=== PATIENT | female | born 1950 | race Caucasian/White ===

== ENCOUNTER 2017-05-15 08:00 | Outpatient (CLI) | payer BC, OTHER ==
[2017-05-15 19:14] LABS: BASOPHILS % (AUTO) 0.6 %; EOSINOPHILS # (AUTO) 0.3 10^3/uL (0.0-0.7); EOSINOPHILS % (AUTO) 3.2 %; HGB - HEMOGLOBIN 13.3 g/dL (12.0-16.0); LYMPHOCYTES # (AUTO) 3.1 10^3/uL (1.5-3.5); LYMPHOCYTES % (AUTO) 38.7 %; MEAN CORPUSCULAR HEMOGLOBIN 28.3 pg (27.0-31.0); MEAN CORPUSCULAR HGB CONC 32.8 g/dL (32.0-36.0); MEAN CORPUSCULAR VOLUME 86.3 fL (81.0-99.0); MEAN PLATELET VOLUME 11.2 fL (7.9-10.8); MONOCYTES # (AUTO) 0.6 10^3/uL (0.0-1.0); MONOCYTES % (AUTO) 7.9 %; NEUTROPHILS # (AUTO) 3.9 10^3/uL (1.5-6.6); NEUTROPHILS % (AUTO) 49.6 %; PLT - PLATELET COUNT 164 10^3/uL (130-450); RED CELL DISTRIBUTION WIDTH 14.2 % (12.0-15.0); WHITE BLOOD COUNT 7.9 x10^3/uL (4.8-10.8)
[2017-05-15 19:35] LABS: ALBUMIN 4.3 g/dL (3.2-5.5); ALBUMIN/GLOBULIN RATIO 1.5 (1.0-2.2); ALKALINE PHOSPHATASE 49 IU/L (42-121); ALT ALANINE AMINOTRANSFERASE 27 IU/L (10-60); AST ASPARTATE AMINOTRANSFERASE 23 IU/L (10-42); BILIRUBIN,TOTAL 0.4 mg/dL (0.2-1.0); BUN - BLOOD UREA NITROGEN 31 mg/dL (6-20); CALCIUM 9.3 mg/dL (8.5-10.3); CARBON DIOXIDE - CO2 29 mmol/L (21-32); CHLORIDE 103 mmol/L (101-111); CHOL/HDL RATIO 4.9 (<4.4); CHOLESTEROL 212 mg/dL; CREATININE 1.1 mg/dL (0.4-1.0); GFR - MDRD 50 (>89); GLUCOSE 94 mg/dL (70-100); HDL CHOLESTEROL 43 mg/dL; LDL CHOLESTEROL,CALCULATED 136 mg/dL; LDL/HDL RATIO 3.2 (<4.4); SODIUM 138 mmol/L (135-145); TOTAL PROTEIN 7.2 g/dL (6.7-8.2); VLDL CHOLESTEROL 33 mg/dL
== END 2017-05-15 08:01 | disposition home or self-care (01) ==
LOC: LAB.WCP 08:00
PROVIDERS: ATTEND Family Medicine
DX: Z00.00 Encounter for general adult medical examination without abnormal findings (principal)
CPT/HCPCS: 36415; 80053; 80061; 83721; 85025

== ENCOUNTER 2017-06-22 15:41 | Outpatient (CLI) | payer BC ==
--- NOTE | 2017-06-26 16:38 | Mammography Report ---
DIGITAL SCREENING MAMMOGRAM: 06/22/2017 CLINICAL INDICATION: A 66-year-old, for screening. COMPARISON: 11/2015, 09/2014, 01/2013, 01/2011, 11/2009. TECHNIQUE: Routine CC and MLO projections were obtained of the breasts. FINDINGS: The breasts again demonstrate heterogeneously dense fibroglandular parenchyma bilaterally. Coarse and punctate, typically benign calcifications are present. No suspicious masses, clustered microcalcifications, or regions of architectural distortion are identified. IMPRESSION: BENIGN FINDINGS. RECOMMENDATION: ROUTINE ANNUAL SCREENING UNLESS OTHERWISE CLINICALLY INDICATED. BIRADS CATEGORY 2-BENIGN FINDINGS. STANDARD QUALIFYING STATEMENTS: 1. This examination was reviewed with the aid of Computer-Aided Detection (CAD). 2. A negative or benign imaging report should not delay biopsy if clinically suspicious findings are present. Consider surgical consultation if warranted. More than 5% of cancers are not identified by imaging. 3. Dense breasts may obscure an underlying neoplasm. TD: 06/26/2017 16:36
== END 2017-06-22 15:42 | disposition home or self-care (01) ==
LOC: DI.N 15:41
PROVIDERS: ATTEND Family Medicine
DX: Z12.31 Encounter for screening mammogram for malignant neoplasm of breast (principal)
CPT/HCPCS: 77067

== ENCOUNTER 2018-01-22 11:02 | Emergency (ER) | payer BC ==
[2018-01-22] MEDS ORDERED: PROCAINAMIDE 1,000 MG in SODIUM CHLORIDE 0.9% 240 ML IV STA (12:07)
--- NOTE | 2018-01-22 12:10 | ED Physician Documentation ---
History of Present Illness - Stated complaint Stated Complaint: WEAKNESS/SOA IRREGULAR HR - Chief complaint Chief Complaint: General - History obtained from History obtained from: Patient, Friend - History of Present Illness Timing: Other (This is a 67-year-old woman with history of atrial fibrillation, she is been cardioverted twice in the past. She does not really know when she is in it. She is maintained on Eliquis and atenolol. She has been mosque with her medications. She has subacute fatigue which she relates to poor sleep from restless legs and she is also frustrated because she has chronic left ankle pain from a prior fracture limiting her activity. Today she was much more fatigued than normal and a little bit short of breath. 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 She does not know when she went into [employer], she last knows she was in it about a year ago.) Review of Systems Constitutional: reports: Fatigue. denies: Fever, Chills Ears: denies: Loss of hearing, Ear pain Nose: denies: Rhinorrhea / runny nose, Congestion Cardiac: denies: Chest pain / pressure, Palpitations Respiratory: reports: Dyspnea. denies: Cough PD PAST MEDICAL HISTORY - Allergies Allergies/Adverse Reactions: Allergies Allergy/AdvReac Type Severity Reaction Status Date / Time No Known Drug Allergies Allergy Verified 01/22/18 11:15 PD ED PE NORMAL - Vitals Vital signs reviewed: Yes - General General: Alert and oriented X 3, No acute distress - HEENT HEENT: PERRL, EOMI - Neck Neck: Supple, no meningeal sign, No bony TTP - Cardiac Cardiac: Other (Irregularly irregular without murmur) - Respiratory Respiratory: No respiratory distress, Clear bilaterally - Abdomen Abdomen: Normal bowel sounds, Soft, Non tender - Back Back: No CVA TTP, No spinal TTP - Derm Derm: Normal color, Warm and dry - Extremities Extremities: Other (Mild bilateral pitting pedal edema worse on the left than the right with some ankle tenderness. She says this is all chronic.) - Neuro Neuro: Alert and oriented X 3, Normal speech Results - Vitals Vitals: Vital Signs - 24 hr 01/22/18 01/22/18 01/22/18 11:06 12:44 13:52 Temperature 36.5 C Heart Rate 108 H 83 72 Respiratory 18 16 16 Rate Blood Pressure 135/70 H 115/68 133/87 H O2 Saturation 97 96 96 01/22/18 01/22/18 01/22/18 14:45 14:54 15:00 Temperature Heart Rate 120 H 60 56 L Respiratory 22 19 21 Rate Blood Pressure 125/87 H 106/58 L 109/56 L O2 Saturation 99 97 98 01/22/18 15:13 Temperature Heart Rate 56 L Respiratory 23 Rate Blood Pressure 109/64 O2 Saturation 97 Oxygen O2 Source Nasal cannula - EKG (time done) 1109 Rate: Rate (enter#) (112) Rhythm: Atrial fibrillation Newton: Normal QRS: Normal Ischemia: Normal ST segments Computer interpretation: Agree with computer 1519 Rate: Rate (enter#) (54) Rhythm: NSR Newton: Normal Intervals: Normal AL QRS: LVH Ischemia: Normal ST segments Computer interpretation: Agree with computer - Labs Labs: Laboratory Tests 01/22/18 01/22/18 01/22/18 12:31 12:31 12:31 WBC 8.2 RBC 4.69 Hgb 13.5 Hct 40.2 MCV 85.7 MCH 28.7 MCHC 33.5 RDW 14.7 Plt Count 168 MPV 9.7 Neut # (Auto) 5.3 Lymph # (Auto) 2.2 Thomas # (Auto) 0.5 Eos # (Auto) 0.1 Baso # (Auto) 0.1 Absolute Nucleated RBC 0.00 Nucleated RBC % 0.0 PT 14.0 H INR 1.3 H Sodium 140 Potassium 4.1 Chloride 101 Carbon Dioxide 30 Anion Gap 9.0 BUN 27 H Creatinine 1.3 H Estimated GFR (MDRD) 41 L Glucose 106 H Calcium 9.4 Phosphorus 3.9 Magnesium 2.1 Total Bilirubin 0.6 AST 26 ALT 30 Alkaline Phosphatase 47 Total Protein 7.3 Albumin 4.1 Globulin 3.2 Albumin/Globulin Ratio 1.3 Lipase 28 TSH 01/22/18 12:31 WBC RBC Hgb Hct MCV MCH MCHC RDW Plt Count MPV Neut # (Auto) Lymph # (Auto) Thomas # (Auto) Eos # (Auto) Baso # (Auto) Absolute Nucleated RBC Nucleated RBC % PT INR Sodium Potassium Chloride Carbon Dioxide Anion Gap BUN Creatinine Estimated GFR (MDRD) Glucose Calcium Phosphorus Magnesium Total Bilirubin AST ALT Alkaline Phosphatase Total Protein Albumin Globulin Albumin/Globulin Ratio Lipase TSH 1.54 - Rads (name of study) 1v Chest Radiology: EMP read contemporaneously (NAD) Procedures - Procedural sedation Sedation prep: Informed consent, Time out completed, Last meal (5am), PE performed, AHA 2 - mild disease Sedation medications: propofol (100mg IVP x1) Patient status during sedation: Responds to tactile, Vitals remained stable, Maintained airway, Recovered uneventfully Sedation recovery: Recovered uneventfully - Cardioversion 1 Time of attempt: 13:50 Indication: Other (symptomatic afib) Risks, benefits, alternatives explained to: Pt Prep: IV, O2, cafeteria monitor, Pulse ox, Airway equip CS via: AP approach Sync: 200j Post cardioversion rhythm: NSR Performed by: ED MD PD MEDICAL DECISION MAKING - ED course ED course: 67-year-old woman presents with what seems to be symptomatic atrial fibrillation. No other clear cause for her fatigue is identified. She was administered procainamide as a drip over an hour with no effect and then after written consent she was sedated and a single shock converted her to is normal sinus rhythm and she felt much better after that. - Sepsis Event Vital Signs: Vital Signs - 24 hr 01/22/18 01/22/18 01/22/18 11:06 12:44 13:52 Temperature 36.5 C Heart Rate 108 H 83 72 Respiratory 18 16 16 Rate Blood Pressure 135/70 H 115/68 133/87 H O2 Saturation 97 96 96 01/22/18 01/22/18 01/22/18 14:45 14:54 15:00 Temperature Heart Rate 120 H 60 56 L Respiratory 22 19 21 Rate Blood Pressure 125/87 H 106/58 L 109/56 L O2 Saturation 99 97 98 01/22/18 15:13 Temperature Heart Rate 56 L Respiratory 23 Rate Blood Pressure 109/64 O2 Saturation 97 Oxygen O2 Source Nasal cannula Departure - Departure Disposition: Home, Self Care Clinical Impression: Atrial fibrillation Qualifiers: Atrial fibrillation type: paroxysmal Qualified Code(s): I48.0 - Paroxysmal atrial fibrillation Condition: Good Record reviewed to determine appropriate education?: Yes Instructions: Atrial Fibrillation Dc Comments: Continue your current medications, especially the blood thinner and the atenol ol. Return if worse or if new symptoms develop. 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
[2018-01-22 12:41] LABS: BASOPHILS # (AUTO) 0.1 10^3/uL (0.0-0.1); BASOPHILS % (AUTO) 0.9 %; EOSINOPHILS # (AUTO) 0.1 10^3/uL (0.0-0.7); EOSINOPHILS % (AUTO) 1.4 %; HGB - HEMOGLOBIN 13.5 g/dL (12.0-16.0); LYMPHOCYTES # (AUTO) 2.2 10^3/uL (1.5-3.5); LYMPHOCYTES % (AUTO) 26.4 %; MEAN CORPUSCULAR HEMOGLOBIN 28.7 pg (27.0-31.0); MEAN CORPUSCULAR HGB CONC 33.5 g/dL (32.0-36.0); MEAN CORPUSCULAR VOLUME 85.7 fL (81.0-99.0); MEAN PLATELET VOLUME 9.7 fL (7.9-10.8); MONOCYTES # (AUTO) 0.5 10^3/uL (0.0-1.0); MONOCYTES % (AUTO) 6.4 %; NEUTROPHILS # (AUTO) 5.3 10^3/uL (1.5-6.6); NEUTROPHILS % (AUTO) 64.9 %; PLT - PLATELET COUNT 168 10^3/uL (130-450); RED BLOOD COUNT 4.69 10^6/uL (4.20-5.40); RED CELL DISTRIBUTION WIDTH 14.7 % (12.0-15.0); WHITE BLOOD COUNT 8.2 x10^3/uL (4.8-10.8)
[2018-01-22 12:49] LABS: INR 1.3 (0.8-1.2)
--- NOTE | 2018-01-22 12:53 | XRAY Report ---
Reason: chest pain Procedure Date: 01/22/2018 Accession Number: [id number] / [id number] Procedure: XR - Chest 1 View X-Ray CPT Code: 07556 FULL RESULT: EXAM: CHEST RADIOGRAPHY EXAM DATE: 01/22/2018 12:42 PM. CLINICAL HISTORY: Chest pain. COMPARISON: 05/19/2011. TECHNIQUE: 1 view. FINDINGS: Lungs/Pleura: No focal opacities evident. No pleural effusion. No pneumothorax. Mediastinum: Cardiomegaly. Mild aortic tortuosity. Other: No acute osseous abnormalities. IMPRESSION: 1. No acute disease in the chest. RADIA
[2018-01-22 12:56] LABS: ALBUMIN 4.1 g/dL (3.2-5.5); ALBUMIN/GLOBULIN RATIO 1.3 (1.0-2.2); BILIRUBIN,TOTAL 0.6 mg/dL (0.2-1.0); CALCIUM 9.4 mg/dL (8.5-10.3); CREATININE 1.3 mg/dL (0.4-1.0); MAGNESIUM 2.1 mg/dL (1.7-2.8); PHOSPHORUS 3.9 mg/dL (2.5-4.6); TOTAL PROTEIN 7.3 g/dL (6.7-8.2)
[2018-01-22] MEDS ORDERED: PROCAINAMIDE 1,000 MG in SODIUM CHLORIDE 0.9% 240 ML IV SCH (13:10)
[2018-01-22] MEDS ORDERED: PROPOFOL 200 MG/20 ML VIAL IVP STA (14:12)
[2018-01-22 15:57] VITALS: BP 134/65
== END 2018-01-22 16:11 | disposition home or self-care (01) ==
LOC: ED 11:02
DX: I48.0 Paroxysmal atrial fibrillation (principal); Z79.01 Long term (current) use of anticoagulants
CPT/HCPCS: 36415; 71045; 80053; 83690; 83735; 84100; 84443; 85025; 85610; 92960; 93005; 94770; 96365; 99284; J2690

== ENCOUNTER 2018-02-18 06:11 | Emergency (ER) | payer BC ==
[2018-02-18 06:46] LABS: BASOPHILS % (AUTO) 0.6 %; EOSINOPHILS # (AUTO) 0.2 10^3/uL (0.0-0.7); EOSINOPHILS % (AUTO) 2.5 %; HGB - HEMOGLOBIN 12.8 g/dL (12.0-16.0); LYMPHOCYTES % (AUTO) 30.1 %; MEAN CORPUSCULAR HEMOGLOBIN 28.7 pg (27.0-31.0); MEAN CORPUSCULAR HGB CONC 33.3 g/dL (32.0-36.0); MEAN CORPUSCULAR VOLUME 86.1 fL (81.0-99.0); MEAN PLATELET VOLUME 10.2 fL (7.9-10.8); MONOCYTES # (AUTO) 0.5 10^3/uL (0.0-1.0); MONOCYTES % (AUTO) 7.1 %; NEUTROPHILS # (AUTO) 3.9 10^3/uL (1.5-6.6); NEUTROPHILS % (AUTO) 59.7 %; PLT - PLATELET COUNT 158 10^3/uL (130-450); RED BLOOD COUNT 4.47 10^6/uL (4.20-5.40); RED CELL DISTRIBUTION WIDTH 14.3 % (12.0-15.0); WHITE BLOOD COUNT 6.6 x10^3/uL (4.8-10.8)
[2018-02-18 07:00] LABS: ALBUMIN/GLOBULIN RATIO 1.4 (1.0-2.2); BILIRUBIN,TOTAL 0.8 mg/dL (0.2-1.0); CALCIUM 8.9 mg/dL (8.5-10.3); TOTAL PROTEIN 6.8 g/dL (6.7-8.2)
--- NOTE | 2018-02-18 07:11 | XRAY Report ---
Reason: Chest Pain Procedure Date: 02/18/2018 Accession Number: [id number] / [id number] Procedure: XR - Chest 1 View X-Ray CPT Code: 68702 FULL RESULT: EXAM: CHEST RADIOGRAPHY, PORTABLE 1 VIEW EXAM DATE: 02/18/2018 06:41 AM. CLINICAL HISTORY: Chest pain in a 67-year-old female. COMPARISON: CHEST 1 VIEW 01/22/2018 12:30 PM. TECHNIQUE: 0641 hour AP upright portable view. FINDINGS: Lungs/Pleura: No focal opacities evident. No pleural effusion. No pneumothorax. Satisfactory inspiratory effort. Mediastinum: Heart size upper normal with mild to moderate pulmonary vascular congestion. No adenopathy. Other: Trachea is midline. Osseous structures are unremarkable. IMPRESSION: Upper normal heart size with mild cardiomegaly without overt cardiac failure. RADIA
--- NOTE | 2018-02-18 07:13 | ED Physician Documentation ---
History of Present Illness - Stated complaint Stated Complaint: SHAKY/HR IRREGULAR - Chief complaint Chief Complaint: Cardiac - History obtained from History obtained from: Patient, Family - History of Present Illness Timing: How many weeks ago (4) - Additonal information Additional information: 67-year-old female with history of chronic atrial fibrillation who is on Eliquis has fatigue. She is complaining that this is been present for more than a month. She was seen in the emergency department at the beginning of this month and with essentially negative workup she was cardioverted back into a sinus rhythm. She states that that did give her some peace of mind but she really feels that she is unable to tell when she is in atrial fibrillation. Her decision this morning to come into the emergency department had to do with general fatigue at work and inability to sleep at night which was worse last night. She states that she spent most of the night up unable to sleep. Review of Systems Constitutional: denies: Fever Eyes: denies: Decreased vision Ears: denies: Ear pain Nose: reports: Rhinorrhea / runny nose, Congestion Throat: denies: Sore throat Cardiac: reports: Palpitations. denies: Chest pain / pressure Respiratory: denies: Dyspnea, Cough GI: denies: Abdominal Pain, Nausea, Vomiting : reports: Frequency. denies: Dysuria Skin: denies: Rash Musculoskeletal: reports: Extremity swelling. denies: Neck pain, Back pain, Extremity pain Neurologic: denies: Generalized weakness, Focal weakness, Numbness PD PAST MEDICAL HISTORY - Past Medical History Cardiovascular: Hypertension, Atrial fibrillation Musculoskeletal: Other - Past Surgical History Past Surgical History: Yes - Present Medications Home Medications: Ambulatory Orders Medication Instructions Recorded Confirmed Apixaban [Eliquis] 5 mg PO 02/18/18 Ascorbic Acid [Vitamin C] 500 mg PO 02/18/18 Atenolol 100 mg PO 02/18/18 Calcium Carbonate [Calcium] 02/18/18 Digoxin 125 mcg PO 02/18/18 Fluconazole [Diflucan] 150 mg PO DAILY #1 tablet 02/18/18 Furosemide 40 mg PO 02/18/18 Gabapentin 02/18/18 Lisinopril 20 mg PO 02/18/18 Potassium Chloride 02/18/18 Pramipexole Di-HCl [Mirapex] 1.5 mg PO 02/18/18 hydrALAZINE [Apresoline] 10 mg PO DAILY 02/18/18 02/18/18 - Allergies Allergies/Adverse Reactions: Allergies Allergy/AdvReac Type Severity Reaction Status Date / Time No Known Drug Allergies Allergy Verified 02/18/18 06:21 - Social History Does the pt smoke?: No Smoking Status: Never smoker Does the pt drink ETOH?: No Does the pt have substance abuse?: No - Immunizations Immunizations are current?: Yes - POLST Patient has POLST: No PD ED PE NORMAL - Vitals Vital signs reviewed: Yes (hypertensive ) - General General: Alert and oriented X 3, No acute distress, Well developed/nourished - HEENT HEENT: Atraumatic, PERRL, EOMI, Ears normal, Other (dry mucous membranes ) - Neck Neck: Supple, no meningeal sign, No bony TTP - Cardiac Cardiac: Other (irregularly irregular rate and rhythm) - Respiratory Respiratory: No respiratory distress, Clear bilaterally - Abdomen Abdomen: Soft, Non tender - Back Back: No CVA TTP, No spinal TTP - Derm Derm: Normal color, Warm and dry, No rash - Extremities Extremities: No deformity, Other (There is trace edema bilaterally ) - Neuro Neuro: Alert and oriented X 3, 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 [facility] 2-12 intact, No motor deficit, No sensory deficit, Normal speech Eye Opening: Spontaneous Motor: Obeys Commands Verbal: Oriented GCS Score: 15 - Psych Psych: Normal mood, Normal affect Results - Vitals Vitals: Vital Signs - 24 hr 02/18/18 02/18/18 06:19 07:41 Temperature 36.6 C Heart Rate 92 88 Respiratory 20 15 Rate Blood Pressure 166/101 H 143/80 H O2 Saturation 99 97 Oxygen O2 Source Room air - EKG (time done) 0618 Rate: Rate (enter#) (85) Rhythm: Atrial fibrillation QRS: Low voltage Compare to prior EKG: Changed from prior EKG (SPT after conversion rate has increased and rhythm has changed to afib) Computer interpretation: Agree with computer - Labs Labs: Laboratory Tests 02/18/18 02/18/18 02/18/18 06:34 06:34 06:34 WBC 6.6 RBC 4.47 Hgb 12.8 Hct 38.5 MCV 86.1 MCH 28.7 MCHC 33.3 RDW 14.3 Plt Count 158 MPV 10.2 Neut # (Auto) 3.9 Lymph # (Auto) 2.0 Scurry # (Auto) 0.5 Eos # (Auto) 0.2 Baso # (Auto) 0.0 Absolute Nucleated RBC 0.00 Nucleated RBC % 0.0 Sodium 140 Potassium 4.3 Chloride 105 Carbon Dioxide 28 Anion Gap 7.0 BUN 25 H Creatinine 1.0 Estimated GFR (MDRD) 55 L Glucose 118 H Calcium 8.9 Total Bilirubin 0.8 AST 32 ALT 60 Alkaline Phosphatase 47 Troponin I < 0.04 Total Protein 6.8 Albumin 4.0 Globulin 2.8 Albumin/Globulin Ratio 1.4 Lipase 25 Urine Color Urine Clarity Urine pH Ur Specific Sterling Urine Protein Urine Glucose (UA) Urine Ketones Urine Occult Blood Urine Nitrite Urine Bilirubin Urine Urobilinogen Ur Leukocyte Esterase Ur Microscopic Review Urine Culture Comments Digoxin 02/18/18 02/18/18 06:34 08:10 WBC RBC Hgb Hct MCV MCH MCHC RDW Plt Count MPV Neut # (Auto) Lymph # (Auto) Scurry # (Auto) Eos # (Auto) Baso # (Auto) Absolute Nucleated RBC Nucleated RBC % Sodium Potassium Chloride Carbon Dioxide Anion Gap BUN Creatinine Estimated GFR (MDRD) Glucose Calcium Total Bilirubin AST ALT Alkaline Phosphatase Troponin I Total Protein Albumin Globulin Albumin/Globulin Ratio Lipase Urine Color YELLOW Urine Clarity CLEAR Urine pH 6.0 Ur Specific Sterling >=1.030 H Urine Protein NEGATIVE Urine Glucose (UA) NEGATIVE Urine Ketones NEGATIVE Urine Occult Blood TRACE-INTA Urine Nitrite NEGATIVE Urine Bilirubin NEGATIVE Urine Urobilinogen 0.2 (NORMAL) Ur Leukocyte Esterase NEGATIVE Ur Microscopic Review NOT INDICATED Urine Culture Comments NOT INDICATED Digoxin 0.7 - Rads (name of study) 1 veiw chest Radiology: Prelim report reviewed (Impression: Upper normal heart size with mild cardiomegaly without overt cardiac failure.), EMP read indepedently, See rad report Procedures - IVC sono (time) 0720 Bedside IVC sono: IVC measures (cm) (1.2), IVC collapsed c insp (cm) (complete), Dehydration (est 1 liter deficit) PD MEDICAL DECISION MAKING - ED course Complexity details: reviewed old records, reviewed results, re-evaluated patient, considered differential, d/w patient ED course: 67 y/o female with a history of afib really cannot tell when she is in afib. When questioned specifically about weather the cardioversion helped at the beginning of the month she is not able to confirm that it actually helped. She feels it did help her with peace of mind but she continues to be fatigued. She relates poor sleep with restless leg and up to the bathroom frequently. She is on diuretics and dig and a beta hal. On work up here this morning she is dehydrated on interrogation of the IVC and with this today she has only trace edema. She reports her ankles are usually swollen a bit and she sits on a stool at work and has not been using compression stockings. She is hydrated here in the ED and I have asked her to hold her lasix today and start using compression stockings at work and reduce the lasix to one 40mg dose per day with decrease in the potassium as well. She has complaints of vaginal itching and burning with yeast that has not resolved with cream. She has had medication for this previously that helped. I have asked her to explore her sleep hygine with her primary as well. Departure - Departure Disposition: 01 Home, Self Care Clinical Impression: Dehydration, Yeast vaginitis Condition: Stable Instructions: ED Vaginal Infec Fungal Fanny, ED Dehydration Follow-Up: Benita Contreras DO [Primary Care Provider] - Prescriptions: Fluconazole [Diflucan] 150 mg PO DAILY #1 tablet Comments: Today here in the emergency department appears you are dehydrated and by history it does sound like you are having some trouble with sleep at night. My recommendation is you try some Benadryl 25 mg at night for sleep and if this is inadequate talk to Dr. Contreras about further sleep hygiene. I am recommending that you decrease your furosemide to 1 pill/day along with your potassium. Do not take the furosemide today. In addition I am recommend that you use compression stockings while you are at work.
[2018-02-18] MEDS ORDERED: SODIUM CHLORIDE 0.9% 1,000 ML IV ONE (07:27)
[2018-02-18 08:16] LABS: BILIRUBIN,URINE NEGATIVE (NEGATIVE); GLUCOSE, URINE (UA) NEGATIVE (NEGATIVE); KETONES,URINE (UA) NEGATIVE (NEGATIVE); LEUKOCYTE ESTERASE, URINE NEGATIVE (NEGATIVE); NITRITE,URINE NEGATIVE (NEGATIVE); OCCULT BLOOD,URINE TRACE-INTA (NEGATIVE); PROTEIN,URINE NEGATIVE (NEGATIVE); UROBILINOGEN,URINE 0.2 (NORMAL) E.U./dL (NORMAL)
[2018-02-18 08:18] LABS: CLARITY,URINE CLEAR (CLEAR)
[2018-02-18 08:27] LABS: DIGOXIN 0.7 ng/mL
[2018-02-18 09:01] VITALS: BP 137/72
== END 2018-02-18 09:40 | disposition home or self-care (01) ==
LOC: ED 06:11
DX: E86.0 Dehydration (principal); B37.3 Candidiasis of vulva and vagina; I10 Essential (primary) hypertension; I48.2 Chronic atrial fibrillation; Z79.01 Long term (current) use of anticoagulants; R60.0 Localized edema
CPT/HCPCS: 36415; 71045; 80053; 80162; 81001; 81003; 83690; 84484; 85025; 87086; 93005; 96360; 99283; 99284

== ENCOUNTER 2018-06-08 08:37 | Outpatient (CLI) | payer MEDICARE, BC ==
--- NOTE | 2018-06-08 11:57 | XRAY Report ---
Reason: R HIP PAIN Procedure Date: 06/08/2018 Accession Number: [id number] / [id number] Procedure: XRN - Hip w/Pelvis 2-3V RT CPT Code: FULL RESULT: EXAM: RIGHT HIP RADIOGRAPHY EXAM DATE: 06/08/2018 09:28 AM. CLINICAL HISTORY: R HIP PAIN. COMPARISON: None. TECHNIQUE: 2 views. FINDINGS: Bones: Normal. No fractures or bone lesion. Joints: No dislocation. Very mild right hip degenerative disease. Soft Tissues: Normal. No soft tissue swelling. IMPRESSION: 1. No acute abnormality. 2. Very mild right hip degenerative disease. RADIA
--- NOTE | 2018-06-08 23:53 | XRAY Report ---
Reason: HEART FAILURE Procedure Date: 06/08/2018 Accession Number: [id number] / [id number] Procedure: XRN - Chest 2 View X-Ray CPT Code: 96327 FULL RESULT: EXAM: CHEST RADIOGRAPHY EXAM DATE: 06/08/2018 09:17 AM. CLINICAL HISTORY: HEART FAILURE. COMPARISON: CHEST 1 VIEW 02/18/2018 6:41 AM. TECHNIQUE: 2 views. FINDINGS: Lungs/Pleura: Mild diffuse bilateral airspace disease concerning for mild pulmonary edema. No pleural effusion or pneumothorax. Mediastinum: Stable mild cardiomegaly. IMPRESSION: Mild diffuse bilateral airspace disease concerning for mild pulmonary edema. No pleural effusion or pneumothorax. Mediastinum: Stable mild cardiomegaly. RADIA
== END 2018-06-08 08:38 | disposition home or self-care (01) ==
LOC: DI.N 08:37
PROVIDERS: ATTEND Specialist
DX: I50.9 Heart failure, unspecified (principal); I51.7 Cardiomegaly; M16.11 Unilateral primary osteoarthritis, right hip
CPT/HCPCS: 71046

== ENCOUNTER 2018-06-25 08:13 | Outpatient (CLI) | payer BC, MEDICARE ==
--- NOTE | 2018-06-25 09:43 | XRAY Report ---
Reason: KNEE PAIN, RIGHT Procedure Date: 06/25/2018 Accession Number: [id number] / [id number] Procedure: WCP - Knee 2 View RT CPT Code: FULL RESULT: EXAM: RIGHT KNEE RADIOGRAPHY EXAM DATE: 06/25/2018 08:33 AM. CLINICAL HISTORY: Knee pain, right. COMPARISON: None. TECHNIQUE: 2 views. FINDINGS: Bones: Normal. No fractures or bone lesions. Joints: Mild to moderate narrowing of the medial weightbearing compartment. No joint effusion. Soft Tissues: Normal. No soft tissue swelling. IMPRESSION: Degenerative changes of the medial weightbearing compartment. RADIA
== END 2018-06-25 08:14 | disposition home or self-care (01) ==
LOC: DI.WCP 08:13
PROVIDERS: ATTEND Family Medicine
DX: M17.11 Unilateral primary osteoarthritis, right knee (principal); I10 Essential (primary) hypertension
CPT/HCPCS: 36415; 80048

== ENCOUNTER 2018-06-25 08:51 | Outpatient (CLI) | payer BC, MEDICARE ==
[2018-06-25 13:04] LABS: CREATININE 1.3 mg/dL (0.4-1.0)
[2018-06-25 13:16] LABS: CALCIUM 9.5 mg/dL (8.5-10.3)
== END 2018-06-25 23:59 | disposition home or self-care (01) ==
LOC: LAB.WCP 08:51
PROVIDERS: ATTEND Family Medicine
DX: I10 Essential (primary) hypertension (principal)
CPT/HCPCS: 36415; 80048

== ENCOUNTER 2018-06-30 10:53 | Outpatient (CLI) | payer MEDICARE, BC | END 2018-06-30 10:54 | disposition home or self-care (01) | LOC: DI 10:53 | PROVIDERS: ATTEND Family Medicine | DX: I48.0 Paroxysmal atrial fibrillation (principal); I51.7 Cardiomegaly | CPT/HCPCS: 93306 ==

== ENCOUNTER 2018-09-25 10:45 | Outpatient (CLI) | payer BC, MEDICARE ==
--- NOTE | 2018-09-26 08:32 | Mammography Report ---
Reason: SCREENING MAMMOGRAM FOR BREAST CANCER Procedure Date: 09/25/2018 Accession Number: [id number] / [id number] Procedure: MGN - Screening Mammo Dig Bilat CPT Code: FULL RESULT: EXAM: Screening Mammo Dig Bilat DATE: 09/25/2018 11:19 AM CLINICAL HISTORY: Screening encounter. Loss of 30 pounds body weight since June 2018. TECHNIQUE: (B) - Bilateral CC and MLO views were obtained. COMPARISON: 06/22/2017 through 02/11/2013. PARENCHYMAL PATTERN: (D) - The breast(s) demonstrate(s) heterogeneously dense fibroglandular parenchyma. FINDINGS: There are typically benign vascular calcifications. There are no suspicious masses, calcifications, or areas of distortion. IMPRESSION: Benign findings. BI-RADS category 2. RECOMMENDATION: (ANNUAL) - Recommend routine annual screening mammography. BI-RADS CATEGORY: (2) - Benign Findings. STANDARD QUALIFYING STATEMENTS: 1. This examination was not reviewed with the aid of Computer-Aided Detection (CAD). 2. A negative or benign imaging report should not preclude biopsy if clinically suspicious findings are present. 3. Dense breasts may obscure an underlying neoplasm. 4. This examination was reviewed without the aid of 3D breast imaging (tomosynthesis).
== END 2018-09-25 10:46 | disposition home or self-care (01) ==
LOC: DI.N 10:45
PROVIDERS: ATTEND Family Medicine
DX: Z12.31 Encounter for screening mammogram for malignant neoplasm of breast (principal)
CPT/HCPCS: 77067

== ENCOUNTER 2019-02-18 09:46 | Outpatient (CLI) | payer MEDICARE, BC ==
[2019-02-19 08:45] VITALS: BP 145/90
--- NOTE | 2019-02-19 08:45 | SLEEP CARE CONSULTATION ---
Information from patient questionnaire entered by Giselle Romero. I have reviewed and concur with the information entered by Giselle Romero. This document represents the service I personally performed and the decisions made by me, Kike Browning MD, [facility]. History of Present Illness Reason for Visit: New patient Chief Complaint: reports: Insomnia, Excessive daytime sleepiness, Fatigue, Frequent awakenings at night Duration of Symptoms: years Usual bedtime: [id number] Time it takes to fall asleep: hours Number of times waking at night: 4-5 Reasons for waking at night: reports: Pain, Bathroom Toss, Turn, or Twitch while sleeping: Yes Recalls having dreams: Yes Usually gets out of bed at: [id number] Feels refreshed in the morning: No Morning headache: Yes (sometimes) Sleepy or fatigued during the day: Yes Ever fallen asleep while driving: No Takes day naps: Yes Dreams during day naps: No Prior sleep studies: Yes Year and Where: [place] Additional HPI information: I had the pleasure of seeing Ms. Lagos today regarding the possibility of her having a sleep disorder. As you know, she is a 68 year old lady who complains of insomnia. She had two sleep studies in [place] about 15 years ago showing only periodic leg movement of sleep. The patient tells me that she normally goes to bed around 9 - 11 pm, and it takes her hours to fall asleep. She has restless leg syndrome that occasionally bothers her at night. e takes furosemide, last dose at 3 pm. She does not take any sleep aid. She has not been told that she snores loudly or irregularly at night. She has never been observed to stop breathing in her sleep. However, she sleeps alone. She can recall waking up on the average of 5 - 6 times during the night. Most of the time she wakes up because of having to use the bathroom. She has never awakened occasionally because of her own snoring, choking, or having to gasp for air. There is a lot of tossing and turning in her sleep. She reports both somniloquy (sleep talking) and somnambulism (sleep walking). Generally she can recall having dreams. In the morning she usually gets up out of the bed around 5 - 6 a.m. not feeling refreshed nor rested. She occasionally has a morning headache that goes away quickly. During the day she complains of feeling sleepy and fatigued. Her score on [place] Sleepiness Scale is 13 out of 24. She has never fallen asleep while driving nor has had any accident due to sleepiness. She usually takes several naps during the day. Upon falling asleep during the day she denies having vivid dreams. She has never had sleep paralysis, experienced cataplexy but reports symptoms of restless leg syndrome. She denies having impaired concentration during the day. - Parasomnia Symptoms Ever acted out dreams in sleep: No Subjective Initial [place] Sleepiness Scale score: 13 Past Medical History Past Medical History: reports: Hypertension, Claustrophobia, Arthritis, Other (restless leg syndrome, A-Fib) Social History The patient's occupation is retired. Patient is and lives in [place]. Have you smoked in the past 12 months: No Alcohol use: No Caffeine use: Yes Caffeine amount and frequency: 1 soda/week Family History Family history of sleep disordered breathing: No Allergies and Home Medications Drug allergies reviewed: Yes Home medication list reviewed: Yes Review of Systems Weight gain over past 5 years: 20 Cardiovascular: reports: high blood pressure, irregular heart rate or pulse, leg or foot swelling Respiratory: denies: shortness of breath, wheeze, sputum production, chronic cough, other Gastrointestinal: denies: heartburn, difficulty swallowing, nausea, vomitting, diarrhea, abdominal pain, other Urinary: reports: frequency, urgency Neurological: reports: gait or balance problems Psychiatric: reports: claustrophobia (don't like dark) Ear/Nose/Throat: denies: nasal congestion, sinus problems, nose bleeds, dry mouth/throat, hoarseness, injury to nose, tonsillectomy, wisdom teeth removed, other Endocrine: reports: increased urination Musculoskeletal: reports: back pain, joint swelling Physical Exam Vital signs obtained and entered by: Dr. Browning Blood Pressure: 145/90 Cuff size: regular Heart Rate: 82 O2 Saturation: 97 Height: 5 ft 5 in Weight: 240 lb Body Mass Index: 39.9 BMI Classification: Obesity Class 2 Neck circumference: 16 Mood/affect: normal HEENT: No craniofacial malformation Nostrils: patent to airflow Turbinates: normal Septum: midline Mouth and throat: narrow oropharynx Soft palate: long Hard palate: normal Uvula: normal Uvula visualization: 25% Mallampati Class III Tongue: normal in size Tonsils: 1+ Chin and jaw: normal size and position Neck: normal w/o lymphadenopathy or thyromegaly Heart: regular rate and rhythm Lungs: clear bilaterally Abdomen: soft, non-tender Extremities: no edema or clubbing Neurologic: intact, no focal deficits Impression and Plan IMPRESSION: 1. Obstructive Sleep Apnea-Hypopnea Syndrome, as suggested by history of frequent awakenings during the night, unrefreshed sleep, morning headache, cognitive impairment, and daytime hypersomnolence. Obstructive sleep apnea, left untreated, can increase the risk of recurrent paroxysmal atrial fibrillation. Narrow oropharynx and obesity are common predisposing factors for obstructive sleep apnea-hypopnea syndrome. Pathophysiology of sleep-disordered breathing was discussed. I recommend proceeding to polysomnography to confirm the diagnosis and to assess severity. Home sleep apnea test (HSAT) is not appropriate because she is physically unable to don the equipment. She also has insomnia and periodic leg movement of sleep that will degrade the quality of the HSAT. She has atrial fibrillation which will require EKG monitoring. 2. Insomnia, due to excessive time spent in bed. The patient presently spends 9 hours in bed at night and naps 1 2 hours during the day. Therefore, it is only appropriate that she stays up 2 - 3 hours a night, some nights longer than others. She was advised to allow just 6 hours for sleeping at night if she continues to take 1 2 hours of naps during the day. Plan: 1. Schedule polysomnography and return in 1 to 2 weeks after the study to discuss result and initiate therapy. 2. Avoid long distance driving or when feeling sleepy. 3. Avoid alcohol, sedative and muscle relaxant around bedtime. 4. Attempt to lose weight. 5. Maintain a regular wake up time and allow no more than 8 hours for sleeping is a 24-hour period. I spent 100% of this 20 minute visit face to face with the patient with greater than 50% of this was spent time counseling the patient and coordination of care.
== END 2019-02-18 09:47 | disposition home or self-care (01) ==
LOC: SC 09:46
PROVIDERS: ATTEND Internal Medicine Pulmonary Disease
DX: G47.10 Hypersomnia, unspecified (principal); G47.8 Other sleep disorders; R41.89 Other symptoms and signs involving cognitive functions and awareness; R51 Headache; G47.00 Insomnia, unspecified; G47.61 Periodic limb movement disorder; I48.91 Unspecified atrial fibrillation; E66.9 Obesity, unspecified; Z68.39 Body mass index [BMI] 39.0-39.9, adult
CPT/HCPCS: 99203; 99212

== ENCOUNTER 2019-02-19 09:02 | Emergency (ER) | payer MEDICARE, BC ==
[2019-02-19] MEDS ORDERED: SODIUM CHLORIDE 0.9% 1,000 ML IV ONE (11:12)
--- NOTE | 2019-02-19 11:14 | ED Physician Documentation ---
History of Present Illness - Stated complaint Stated Complaint: ELEVATED HR - Chief complaint Chief Complaint: Cardiac - History obtained from History obtained from: Patient - History of Present Illness Timing: Today - Additonal information Additional information: 68-year-old female with atrial fibrillation on Eliquis has developed a feeling of shakiness and uneasiness this morning. She has had something similar to this previously about 1 year ago exactly with dehydration. She does have some dependent edema and she is using a walker. She is retired from work but continues to sit most of the day and her feet are dependent. She is using about 120 mg of Lasix daily. She is not able to pull compression stockings on herself. Review of Systems Constitutional: denies: Fever Eyes: denies: Decreased vision Ears: denies: Ear pain Nose: denies: Congestion Throat: denies: Sore throat Cardiac: denies: Chest pain / pressure, Palpitations Respiratory: denies: Dyspnea, Cough GI: denies: Abdominal Pain, Nausea, Vomiting : reports: Frequency. denies: Dysuria Skin: denies: Rash Musculoskeletal: reports: Extremity swelling. denies: Neck pain, Back pain, Extremity pain Neurologic: denies: Generalized weakness, Focal weakness, Numbness PD PAST MEDICAL HISTORY - Past Medical History Cardiovascular: Hypertension, Atrial fibrillation Musculoskeletal: Other - Past Surgical History Past Surgical History: Yes - Present Medications Home Medications: Ambulatory Orders Medication Instructions Recorded Confirmed Apixaban [Eliquis] 5 mg PO 02/18/18 Ascorbic Acid [Vitamin C] 500 mg PO 02/18/18 Atenolol 100 mg PO 02/18/18 Calcium Carbonate [Calcium] 02/18/18 Digoxin 125 mcg PO 02/18/18 Fluconazole [Diflucan] 150 mg PO DAILY #1 tablet 02/18/18 Furosemide 40 mg PO 02/18/18 Gabapentin 02/18/18 Lisinopril 20 mg PO 02/18/18 Potassium Chloride 02/18/18 Pramipexole Di-HCl [Mirapex] 1.5 mg PO 02/18/18 hydrALAZINE [Apresoline] 10 mg PO DAILY 02/18/18 02/18/18 - Allergies Allergies/Adverse Reactions: Allergies Allergy/AdvReac Type Severity Reaction Status Date / Time No Known Drug Allergies Allergy Verified 02/18/18 06:21 - Social History Does the pt smoke?: No Smoking Status: Never smoker Does the pt drink ETOH?: No Does the pt have substance abuse?: No - Immunizations Immunizations are current?: Yes - POLST Patient has POLST: No PD ED PE NORMAL - Vitals Vital signs reviewed: Yes (hypertensive ) - General General: Alert and oriented X 3, No acute distress, Well developed/nourished - HEENT HEENT: Atraumatic, PERRL, EOMI, Other (dry mucous membranes ) - Neck Neck: Supple, no meningeal sign, No bony TTP - Cardiac Cardiac: RRR, No murmur - Respiratory Respiratory: No respiratory distress, Clear bilaterally - Abdomen Abdomen: Soft, Non tender, No organomegaly - Back Back: No CVA TTP, No spinal TTP - Derm Derm: Normal color, Warm and dry, No rash - Extremities Extremities: No deformity, Other (There is edema to the knees bilaterally ) - Neuro Neuro: Alert and oriented X 3, medical collector 2-12 intact, No motor deficit, No sensory deficit, Normal speech Eye Opening: Spontaneous Motor: Obeys Commands Verbal: Oriented GCS Score: 15 - Psych Psych: Normal mood, Normal affect Results - Vitals Vitals: Vital Signs - 24 hr 02/19/19 02/19/19 02/19/19 09:06 09:56 11:28 Temperature 36.4 C L Heart Rate 74 72 73 Respiratory 18 21 18 Rate Blood Pressure 161/85 H 154/89 H 124/59 L O2 Saturation 98 99 99 Oxygen O2 Source Room air - EKG (time done) 0908 Rate: Rate (enter#) (84) Rhythm: Atrial fibrillation QRS: Low voltage Ischemia: Non specific changes Compare to prior EKG: Unchanged from prior EKG (SPT 02-18-2019 no significant change. ) Computer interpretation: Agree with computer - Labs Labs: Laboratory Tests 02/19/19 02/19/19 02/19/19 11:25 11:25 11:25 WBC 7.8 RBC 5.07 Hgb 13.8 Hct 45.1 MCV 89.0 MCH 27.2 MCHC 30.6 L RDW 14.6 Plt Count 172 MPV 11.3 H Neut # (Auto) 4.9 Lymph # (Auto) 2.1 [place] # (Auto) 0.6 Eos # (Auto) 0.2 Baso # (Auto) 0.0 Absolute Nucleated RBC 0.00 Nucleated RBC % 0.0 Sodium 148 H Potassium 4.0 Chloride 109 Carbon Dioxide 30 Anion Gap 9.0 BUN 28 H Creatinine 1.0 Estimated GFR (MDRD) 55 L Glucose 107 H Calcium 9.6 Total Bilirubin 1.0 AST 24 ALT 26 Alkaline Phosphatase 50 Total Protein 7.4 Albumin 4.3 Globulin 3.1 Albumin/Globulin Ratio 1.4 Lipase 31 Urine Color LIGHT YELLOW Urine Clarity CLEAR Urine pH 5.0 Ur Specific [place] 1.010 Urine Protein NEGATIVE Urine Glucose (UA) NEGATIVE Urine Ketones NEGATIVE Urine Occult Blood NEGATIVE Urine Nitrite NEGATIVE Urine Bilirubin NEGATIVE Urine Urobilinogen 0.2 (NORMAL) Ur Leukocyte Esterase NEGATIVE Ur Microscopic Review NOT INDICATED Urine Culture Comments NOT INDICATED Digoxin 0.4 Procedures - IVC sono (time) 1110 Bedside IVC sono: IVC measures (cm) (0.87), IVC collapsed c insp (cm) (complete), Dehydration (est 2 liter deficit) PD MEDICAL DECISION MAKING - ED course Complexity details: reviewed results, re-evaluated patient, considered differential, d/w patient ED course: 68-year-old female with a history of atrial fibrillation presents again today with feeling of dizziness lightheadedness and shakiness. She is again today found to be dehydrated on interrogation the inferior vena cava. She does have peripheral edema today this is more apparent than previous exam. At that time she was instructed to use compression stockings for dependent edema. Patient is not able to get the compression stockings on and she has continued to use Lasix she uses about 120 mg/day. She is administered saline intravenously. Departure - Departure Disposition: 01 Home, Self Care Clinical Impression: Dehydration Condition: Stable Instructions: ED Dehydration Follow-Up: Benita Contreras DO [Primary Care Provider] -
[2019-02-19 11:29] VITALS: BP 124/59
[2019-02-19 11:31] LABS: BASOPHILS % (AUTO) 0.5 %; EOSINOPHILS # (AUTO) 0.2 10^3/uL (0.0-0.7); EOSINOPHILS % (AUTO) 2.2 %; HGB - HEMOGLOBIN 13.8 g/dL (12.0-16.0); LYMPHOCYTES # (AUTO) 2.1 10^3/uL (1.5-3.5); LYMPHOCYTES % (AUTO) 26.7 %; MEAN CORPUSCULAR HEMOGLOBIN 27.2 pg (27.0-31.0); MEAN CORPUSCULAR HGB CONC 30.6 g/dL (32.0-36.0); MEAN PLATELET VOLUME 11.3 fL (7.9-10.8); MONOCYTES # (AUTO) 0.6 10^3/uL (0.0-1.0); MONOCYTES % (AUTO) 7.2 %; NEUTROPHILS # (AUTO) 4.9 10^3/uL (1.5-6.6); NEUTROPHILS % (AUTO) 63.1 %; PLT - PLATELET COUNT 172 10^3/uL (130-450); RED BLOOD COUNT 5.07 10^6/uL (4.20-5.40); RED CELL DISTRIBUTION WIDTH 14.6 % (12.0-15.0); WHITE BLOOD COUNT 7.8 x10^3/uL (4.8-10.8)
[2019-02-19 11:39] LABS: BILIRUBIN,URINE NEGATIVE (NEGATIVE); GLUCOSE, URINE (UA) NEGATIVE (NEGATIVE); KETONES,URINE (UA) NEGATIVE (NEGATIVE); LEUKOCYTE ESTERASE, URINE NEGATIVE (NEGATIVE); NITRITE,URINE NEGATIVE (NEGATIVE); OCCULT BLOOD,URINE NEGATIVE (NEGATIVE); PROTEIN,URINE NEGATIVE (NEGATIVE); UROBILINOGEN,URINE 0.2 (NORMAL) E.U./dL (NORMAL)
[2019-02-19 11:41] LABS: CLARITY,URINE CLEAR (CLEAR)
[2019-02-19 11:52] LABS: ALBUMIN 4.3 g/dL (3.2-5.5); ALBUMIN/GLOBULIN RATIO 1.4 (1.0-2.2); ALKALINE PHOSPHATASE 50 IU/L (42-121); ALT ALANINE AMINOTRANSFERASE 26 IU/L (10-60); AST ASPARTATE AMINOTRANSFERASE 24 IU/L (10-42); BUN - BLOOD UREA NITROGEN 28 mg/dL (6-20); CALCIUM 9.6 mg/dL (8.5-10.3); CARBON DIOXIDE - CO2 30 mmol/L (21-32); CHLORIDE 109 mmol/L (101-111); DIGOXIN 0.4 ng/mL; GFR - MDRD 55 (>89); GLUCOSE 107 mg/dL (70-100); LIPASE 31 U/L (22-51); SODIUM 148 mmol/L (135-145); TOTAL PROTEIN 7.4 g/dL (6.7-8.2)
== END 2019-02-19 12:36 | disposition home or self-care (01) ==
LOC: ED 09:02
DX: E86.0 Dehydration (principal); R60.0 Localized edema; I48.91 Unspecified atrial fibrillation; Z79.01 Long term (current) use of anticoagulants; I10 Essential (primary) hypertension
CPT/HCPCS: 36415; 80053; 80162; 81001; 81003; 83690; 85025; 87086; 93005; 96360; 99283

== ENCOUNTER 2019-03-19 17:01 | Outpatient (CLI) | payer MEDICARE, BC | END 2019-03-19 17:02 | disposition critical access hospital (66) | LOC: EMS 17:01 | PROVIDERS: ATTEND Surgery | DX: R44.0 Auditory hallucinations (principal); R44.1 Visual hallucinations | CPT/HCPCS: A0425; A0429 ==

== ENCOUNTER 2019-03-19 17:20 | Emergency (ER) | payer MEDICARE, BC ==
[2019-03-19] MEDS ORDERED: METOPROLOL 5 MG/5 ML VIAL IVP STA (17:29)
--- NOTE | 2019-03-19 17:30 | ED Physician Documentation ---
History of Present Illness - Stated complaint Stated Complaint: HALLUCINATIONS - History obtained from History obtained from: Patient, EMS - History of Present Illness Timing: Last night (68-year-old woman with history of Parkinson's disease. Recently started on Sinemet, 3 tablets a day and a couple of days ago increased to 6 tablets a day. Starting last night she is had both visual and auditory hallucinations. She has had hallucinations in the past but it was also related to medications, she does not remain. She complains right now only of leg pain from chronic restless leg syndrome and the hallucinations. She denies shortness of breath or chest pain. She is noted to be in A. fib with RVR, she has a history of A. fib. She is anticoagulated and on atenolol and digoxin for same.) Review of Systems Ten Systems: 10 systems reviewed and negative Constitutional: denies: Fever, Chills Cardiac: denies: Chest pain / pressure, Palpitations Respiratory: denies: Dyspnea, Cough GI: denies: Abdominal Pain PD PAST MEDICAL HISTORY - Past Medical History Cardiovascular: Hypertension, Atrial fibrillation Musculoskeletal: Other - Past Surgical History Past Surgical History: Yes - Present Medications Home Medications: Ambulatory Orders Medication Instructions Recorded Confirmed Apixaban [Eliquis] 5 mg PO 02/18/18 Ascorbic Acid [Vitamin C] 500 mg PO 02/18/18 Atenolol 100 mg PO 02/18/18 Calcium Carbonate [Calcium] 02/18/18 Digoxin 125 mcg PO 02/18/18 Furosemide 40 mg PO 02/18/18 Gabapentin 02/18/18 Lisinopril 20 mg PO 02/18/18 Potassium Chloride 0 02/18/18 Pramipexole Di-HCl [Mirapex] 1.5 mg PO 02/18/18 hydrALAZINE [Apresoline] 10 mg PO DAILY 02/18/18 02/18/18 Carbidopa/Levodopa [Carbidopa-Levo 1 each PO 03/19/19 03/19/19 ER 25-100 Tab] Clonazepam 1 - 2 tab PO QPM PRN #14 tab.rapdis 03/19/19 Gabapentin [Neurontin] 300 mg PO TID 03/19/19 03/19/19 Pravastatin [Pravachol] 0 mg 03/19/19 03/19/19 - Allergies Allergies/Adverse Reactions: Allergies Allergy/AdvReac Type Severity Reaction Status Date / Time warfarin Allergy Nausea Verified 03/19/19 17:32 - Social History Does the pt smoke?: No Smoking Status: Never smoker Does the pt drink ETOH?: No Does the pt have substance abuse?: No - Immunizations Immunizations are current?: Yes - POLST Patient has POLST: No PD ED PE NORMAL - Vitals Vital signs reviewed: Yes - General General: Alert and oriented X 3, No acute distress - HEENT HEENT: PERRL, EOMI - Neck Neck: Supple, no meningeal sign, No bony TTP - Cardiac Cardiac: Other (Irregularly irregular without murmur, somewhat rapid) - Respiratory Respiratory: No respiratory distress, Clear bilaterally - Abdomen Abdomen: Soft, Non tender - Extremities Extremities: No deformity, No tenderness to palpate, No calf tenderness / cord - Neuro Neuro: Alert and oriented X 3, No motor deficit, No sensory deficit, Normal speech Results - Vitals Vitals: Vital Signs - 24 hr 03/19/19 03/19/19 03/19/19 17:30 18:09 18:17 Temperature 36.8 C Heart Rate 68 122 H 116 H Respiratory 20 26 H 19 Rate Blood Pressure 158/94 H 157/84 H 155/74 H O2 Saturation 96 95 94 Oxygen O2 Source Room air - EKG (time done) 1755 Rate: Rate (enter#) (122) Rhythm: Atrial fibrillation [place]: Normal Ischemia: Non specific changes. No: ST elevation c/w ischemia Computer interpretation: Agree with computer - Labs Labs: Laboratory Tests 03/19/19 03/19/19 03/19/19 18:00 18:00 18:00 WBC 10.0 RBC 5.12 Hgb 14.4 Hct 45.0 MCV 87.9 MCH 28.1 MCHC 32.0 RDW 14.2 Plt Count 186 MPV 11.1 H Neut # (Auto) 6.6 Lymph # (Auto) 2.4 [place] # (Auto) 0.9 Eos # (Auto) 0.1 Baso # (Auto) 0.0 Absolute Nucleated RBC 0.00 Nucleated RBC % 0.0 PT 13.3 H INR 1.2 Sodium 139 Potassium 3.9 Chloride 102 Carbon Dioxide 26 Anion Gap 11.0 BUN 33 H Creatinine 1.3 H Estimated GFR (MDRD) 41 L Glucose 119 H Calcium 9.4 Total Bilirubin 1.2 H AST 30 ALT 31 Alkaline Phosphatase 48 Total Protein 7.7 Albumin 4.4 Globulin 3.3 Albumin/Globulin Ratio 1.3 Lipase 31 Last Dose Date Last Dose Time Digoxin 03/19/19 18:00 WBC RBC Hgb Hct MCV MCH MCHC RDW Plt Count MPV Neut # (Auto) Lymph # (Auto) [place] # (Auto) Eos # (Auto) Baso # (Auto) Absolute Nucleated RBC Nucleated RBC % PT INR Sodium Potassium Chloride Carbon Dioxide Anion Gap BUN Creatinine Estimated GFR (MDRD) Glucose Calcium Total Bilirubin AST ALT Alkaline Phosphatase Total Protein Albumin Globulin Albumin/Globulin Ratio Lipase Last Dose Date Not Reportable Last Dose Time Not Reportable Digoxin 0.4 PD MEDICAL DECISION MAKING - ED course ED course: 68-year-old woman presents by a months for audio and visual hallucinations related to increasing dose of Sinemet. She also is in A. fib with RVR. Her neurologist is Dr. Dillard in [place]. Spoke with Dr Ruelas, career based intervention coordinator for Dr Dillard, agrees with backing off to QID with Carbi-Levo and stop pramipexole and benzodiazepine (klonazepam) at bedtime. Her A. fib improved significantly. With regard to rate. She was not hallucinating here at the end of visit. She did not take her atenolol etc. today and she was advised to take those tonight. Departure - Departure Disposition: 01 Home, Self Care Clinical Impression: Hallucination, drug-induced Atrial fibrillation Qualifiers: Atrial fibrillation type: longstanding persistent Qualified Code(s): I48.11 - Longstanding persistent atrial fibrillation Condition: Good Record reviewed to determine appropriate education?: Yes Instructions: Atrial Fibrillation Dc Prescriptions: Clonazepam 1 - 2 tab PO QPM PRN #14 tab.rapdis PRN Reason: sleep Comments: Go back down on the carbidopa levodopa to 4 times a day. If hallucinations start again go back down to 3 times a day. Do not take pramipexole/Mirapex. Take all of your other routine medications including her cardiac medications tonight. Return if worse. Call Dr. Dillard tomorrow.
[2019-03-19] MEDS ORDERED: MORPHINE 2 MG/ML CARPUJECT IVP STA (17:49)
[2019-03-19 18:14] LABS: BASOPHILS % (AUTO) 0.4 %; EOSINOPHILS # (AUTO) 0.1 10^3/uL (0.0-0.7); EOSINOPHILS % (AUTO) 0.6 %; HGB - HEMOGLOBIN 14.4 g/dL (12.0-16.0); LYMPHOCYTES # (AUTO) 2.4 10^3/uL (1.5-3.5); LYMPHOCYTES % (AUTO) 23.9 %; MEAN CORPUSCULAR HEMOGLOBIN 28.1 pg (27.0-31.0); MEAN CORPUSCULAR VOLUME 87.9 fL (81.0-99.0); MEAN PLATELET VOLUME 11.1 fL (7.9-10.8); MONOCYTES # (AUTO) 0.9 10^3/uL (0.0-1.0); MONOCYTES % (AUTO) 8.5 %; NEUTROPHILS # (AUTO) 6.6 10^3/uL (1.5-6.6); NEUTROPHILS % (AUTO) 66.2 %; PLT - PLATELET COUNT 186 10^3/uL (130-450); RED BLOOD COUNT 5.12 10^6/uL (4.20-5.40); RED CELL DISTRIBUTION WIDTH 14.2 % (12.0-15.0)
[2019-03-19 18:21] LABS: INR 1.2 (0.8-1.2); PT - PROTHROMBIN TIME 13.3 secs (9.9-12.6)
[2019-03-19 18:36] LABS: ALBUMIN 4.4 g/dL (3.2-5.5); ALBUMIN/GLOBULIN RATIO 1.3 (1.0-2.2); BILIRUBIN,TOTAL 1.2 mg/dL (0.2-1.0); CALCIUM 9.4 mg/dL (8.5-10.3); CREATININE 1.3 mg/dL (0.4-1.0); TOTAL PROTEIN 7.7 g/dL (6.7-8.2)
[2019-03-19 18:38] LABS: DIGOXIN 0.4 ng/mL
[2019-03-19] MEDS ORDERED: clonazePAM 0.5 MG TABLET PO STA ×2 (19:20→19:21)
[2019-03-19 19:47] VITALS: BP 156/97
== END 2019-03-19 19:47 | disposition home or self-care (01) ==
LOC: EDUNIT# → ED 17:20
DX: R44.0 Auditory hallucinations (principal); R44.1 Visual hallucinations; T42.8X5A Adverse effect of antiparkinsonism drugs and other central muscle-tone depressants, initial encounter; I48.11 Longstanding persistent atrial fibrillation; Z79.01 Long term (current) use of anticoagulants; G20 Parkinson's disease; G25.81 Restless legs syndrome; I10 Essential (primary) hypertension
CPT/HCPCS: 36415; 80053; 80162; 83690; 85025; 85610; 93005; 96374; 96375; 99283; 99284; A9270

== ENCOUNTER 2019-04-19 11:24 | Emergency (ER) | payer MEDICARE, BC ==
[2019-04-19 12:17] LABS: BASOPHILS % (AUTO) 0.4 %; EOSINOPHILS # (AUTO) 0.2 10^3/uL (0.0-0.7); EOSINOPHILS % (AUTO) 2.1 %; HGB - HEMOGLOBIN 13.5 g/dL (12.0-16.0); LYMPHOCYTES % (AUTO) 27.9 %; MEAN CORPUSCULAR HEMOGLOBIN 28.6 pg (27.0-31.0); MEAN CORPUSCULAR HGB CONC 32.3 g/dL (32.0-36.0); MEAN CORPUSCULAR VOLUME 88.6 fL (81.0-99.0); MONOCYTES # (AUTO) 0.6 10^3/uL (0.0-1.0); NEUTROPHILS # (AUTO) 4.4 10^3/uL (1.5-6.6); NEUTROPHILS % (AUTO) 61.3 %; PLT - PLATELET COUNT 153 10^3/uL (130-450); RED BLOOD COUNT 4.72 10^6/uL (4.20-5.40); WHITE BLOOD COUNT 7.2 x10^3/uL (4.8-10.8)
[2019-04-19 12:31] LABS: ALBUMIN 3.9 g/dL (3.2-5.5); ALBUMIN/GLOBULIN RATIO 1.3 (1.0-2.2); BILIRUBIN,TOTAL 0.6 mg/dL (0.2-1.0); CALCIUM 9.7 mg/dL (8.5-10.3); CREATININE 1.2 mg/dL (0.4-1.0); TOTAL PROTEIN 6.9 g/dL (6.7-8.2)
--- NOTE | 2019-04-19 13:28 | ED Physician Documentation ---
History of Present Illness - Stated complaint Stated Complaint: LEG SWELLING - Chief complaint Chief Complaint: Cardiac - History obtained from History obtained from: Patient, Family - History of Present Illness Timing: How many weeks ago (several) Pain level max: 0 Pain level now: 0 - Additonal information Additional information: Chronic bilateral lower extremity swelling, worsening over the past few days. No shortness of breath. No chest pain. No cough. No fever. No redness. Recently diagnosed with Parkinson's as well. Takes Lasix 80 mg in the morning and 40 mg at night. Review of Systems Constitutional: denies: Fever, Chills GI: denies: Vomiting, Diarrhea Skin: denies: Rash Musculoskeletal: denies: Neck pain, Back pain PD PAST MEDICAL HISTORY - Past Medical History Cardiovascular: Hypertension, Atrial fibrillation Musculoskeletal: Other - Past Surgical History Past Surgical History: Yes - Present Medications Home Medications: Ambulatory Orders Medication Instructions Recorded Confirmed Apixaban [Eliquis] 5 mg PO 02/18/18 Ascorbic Acid [Vitamin C] 500 mg PO 02/18/18 Calcium Carbonate [Calcium] 02/18/18 Digoxin 125 mcg PO 02/18/18 Furosemide 40 mg PO 02/18/18 Gabapentin 02/18/18 Potassium Chloride 0 02/18/18 Pramipexole Di-HCl [Mirapex] 1.5 mg PO 02/18/18 atenoloL [Atenolol] 100 mg PO 02/18/18 hydrALAZINE [Apresoline] 10 mg PO DAILY 02/18/18 02/18/18 lisinopriL [Lisinopril] 20 mg PO 02/18/18 Carbidopa/Levodopa [Carbidopa-Levo 1 each PO 03/19/19 03/19/19 ER 25-100 Tab] Clonazepam 1 - 2 tab PO QPM PRN #14 tab.rapdis 03/19/19 Gabapentin [Neurontin] 300 mg PO TID 03/19/19 03/19/19 Pravastatin [Pravachol] 0 mg 03/19/19 03/19/19 Furosemide [Lasix] 80 mg PO BID #120 tablet 04/19/19 - Allergies Allergies/Adverse Reactions: Allergies Allergy/AdvReac Type Severity Reaction Status Date / Time warfarin Allergy Nausea Verified 04/19/19 11:45 - Social History Does the pt smoke?: No Smoking Status: Never smoker Does the pt drink ETOH?: No Does the pt have substance abuse?: No - Immunizations Immunizations are current?: Yes - POLST Patient has POLST: No PD ED PE NORMAL - Vitals Vital signs reviewed: Yes - General General: Alert and oriented X 3, No acute distress, Other (Obese female) - HEENT HEENT: Moist mucous membranes - Neck Neck: Supple, no meningeal sign - Cardiac Cardiac: RRR - Respiratory Respiratory: No respiratory distress, Clear bilaterally - Abdomen Abdomen: Soft, Non tender, Non distended - Derm Derm: Warm and dry - Extremities Extremities: Other (2+ pitting edema bilateral lower extremity. No erythema. No signs of infection) - Neuro Neuro: Alert and oriented X 3 - Psych Psych: Normal mood, Normal affect Results - Vitals Vitals: Vital Signs - 24 hr 04/19/19 11:42 Temperature 36.8 C Heart Rate 96 Respiratory 18 Rate Blood Pressure 134/67 H O2 Saturation 99 Oxygen O2 Source Room air - Labs Labs: Laboratory Tests 04/19/19 04/19/19 04/19/19 12:11 12:11 12:11 WBC 7.2 RBC 4.72 Hgb 13.5 Hct 41.8 MCV 88.6 MCH 28.6 MCHC 32.3 RDW 14.0 Plt Count 153 MPV 11.0 H Neut # (Auto) 4.4 Lymph # (Auto) 2.0 [place] # (Auto) 0.6 Eos # (Auto) 0.2 Baso # (Auto) 0.0 Absolute Nucleated RBC 0.00 Nucleated RBC % 0.0 Sodium 141 Potassium 4.3 Chloride 103 Carbon Dioxide 31 Anion Gap 7.0 BUN 42 H Creatinine 1.2 H Estimated GFR (MDRD) 45 L Glucose 114 H Calcium 9.7 Total Bilirubin 0.6 AST 25 ALT 10 Alkaline Phosphatase 41 L B-Natriuretic Peptide 129 H Total Protein 6.9 Albumin 3.9 Globulin 3.0 Albumin/Globulin Ratio 1.3 Lipase 38 PD MEDICAL DECISION MAKING - ED course Complexity details: reviewed results, re-evaluated patient, considered di fferential, d/w patient, d/w family ED course: Patient with worsening peripheral edema. Rolando bandages applied. Recommend compression socks and elevating her legs at home. No evidence of DVT. No evidence of pulmonary edema. We will increase her Lasix at home as well. Patient counseled regarding signs and symptoms for which I believe and urgent re-evaluation would be necessary. Patient with good understanding of and agreement to plan and is comfortable going home at this time This document was made in part using voice recognition software. While efforts are made to proofread this document, sound alike and grammatical errors may occur. Departure - Departure Disposition: Home, Self Care Clinical Impression: Peripheral edema Condition: Good Instructions: ED Edema Legs Bilateral Follow-Up: Benita Contreras DO [Primary Care Provider] - Within 1 week Prescriptions: Furosemide [Lasix] 80 mg PO BID #120 tablet Comments: You need to elevate your legs and walk whenever possible. Compression socks will help as well. We will increase her Lasix to 80 mg in the morning and 80 mg at night.
[2019-04-19 13:54] VITALS: BP 121/70
== END 2019-04-19 13:58 | disposition home or self-care (01) ==
LOC: ED 11:24
DX: R60.0 Localized edema (principal); I10 Essential (primary) hypertension; G20 Parkinson's disease; Z79.899 Other long term (current) drug therapy
CPT/HCPCS: 36415; 80053; 83690; 83880; 85025; 99283; 99284

== ENCOUNTER 2019-04-26 03:15 | Emergency (ER) | payer MEDICARE, BC ==
--- NOTE | 2019-04-26 04:03 | ED Physician Documentation ---
PD HPI LOWER EXT INJURY - Stated complaint Stated Complaint: LT ANKLE PX - Chief complaint Chief Complaint: Ext Problem - History obtained from History obtained from: Patient - History of Present Illness PD HPI LOW EXT INJURY LOCATION: Left, Foot Where injury occurred: Home Timing - onset: Today (Just prior to arrival) Timing - details: Abrupt onset Pain level max: 7 Pain level now: 0 Worsened by: Moving, Other (Weightbearing) Recently seen: Clinic - Additional information Additional information: This is a 68-year-old woman who presents with her daughter and son-in-law complaints that she was walking with her walker at home about an hour and a half prior to presentation when she felt and heard a pop in her left foot along the lateral aspect. She had prior surgery with hardware placement in the ankle 30 years ago. She is had difficulty bearing weight since tonight when this happened. She says the pain is a 7 out of 10 and she puts weight on it but sitting here now it is not painful. She did not take anything for it at home. No numbness or tingling. She has been experiencing a lot of peripheral edema over the recent past and was just changed from Lasix to torsemide today by her primary care providers. They do not know why there is so much edema at this time. 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 : None HEENT: Chronic vision loss Psych: None Musculoskeletal: Other Derm: None - Past Surgical History Past Surgical History: Yes - Present Medications Home Medications: Ambulatory Orders Medication Instructions Recorded Confirmed Apixaban [Eliquis] 5 mg PO BID 02/18/18 04/26/19 Digoxin 125 mcg PO DAILY 02/18/18 04/26/19 Potassium Chloride 60 meq PO DAILY 02/18/18 04/26/19 atenoloL [Atenolol] 100 mg PO BID 02/18/18 04/26/19 hydrALAZINE [Apresoline] 10 mg PO BID 02/18/18 04/26/19 lisinopriL [Lisinopril] 20 mg PO BID 02/18/18 04/26/19 Gabapentin [Neurontin] 300 mg PO TID 03/19/19 04/26/19 Carbidopa/Levodopa 1 tab PO TID 04/26/19 04/26/19 [Carbidopa-Levodopa 25-100 Tab] Torsemide 4 tab PO DAILY 04/26/19 04/26/19 Torsemide 40 mg PO QPM 04/26/19 04/26/19 - Allergies Allergies/Adverse Reactions: Allergies Allergy/AdvReac Type Severity Reaction Status Date / Time warfarin Allergy Nausea Verified 04/26/19 03:40 - Social History Does the pt smoke?: No Smoking Status: Never smoker Does the pt drink ETOH?: No Does the pt have substance abuse?: No - Immunizations Immunizations are current?: Yes - POLST Patient has POLST: No PD ED PE NORMAL - Vitals Vital signs reviewed: Yes - General General: Alert and oriented X 3, No acute distress, Well developed/nourished - Derm Derm: Normal color, Warm and dry - Extremities Extremities: No: No edema (There is 2-3+ pitting edema of the lower extremities bilaterally to at least the knees. She has pain with palpation at the base of the left fifth metatarsal. Slight discoloration to the dorsal aspect of that left foot that could be bruising. She is able to wiggle her toes and sensation is intact to light touch.) - Neuro Neuro: Alert and oriented X 3, No motor deficit, No sensory deficit, Normal speech - Psych Psych: No: Normal affect (Flat affect) Results - Vitals Vitals: Oxygen O2 Source Room air - Rads (name of study) Foot xray Radiology: See rad report (Neg fracture) PD MEDICAL DECISION MAKING - ED course ED course: Results discussed with patient and family. They are struggling at home with caring for her. They have a walker for her use and prescriptions for hospital bed. Encouraged to follow-up with PMD. Return if worse. Departure - Departure Disposition: 01 Home, Self Care Clinical Impression: Pain in extremity Qualifiers: Extremity pain location: foot Laterality: left Qualified Code(s): M79.672 - Pain in left foot Condition: Good Instructions: ED Sprain Foot Follow-Up: Benita Contreras DO [Primary Care Provider] - Comments: Follow-up with your primary care provider about the home health services and getting the hospital bed and wheelchair. Return to the emergency department if needed. Discharge Date/Time: 04/26/19 05:45
--- NOTE | 2019-04-26 04:38 | XRAY Report ---
Reason: pain Procedure Date: 04/26/2019 Accession Number: [id number] / [id number] Procedure: XR - Foot 3 View LT CPT Code: Final Report FULL RESULT: EXAM: LEFT FOOT RADIOGRAPHY EXAM DATE: 04/26/2019 04:14 AM. CLINICAL HISTORY: Pain after feeling popping sensation while walking. COMPARISON: None. TECHNIQUE: 3 views. FINDINGS: Bones: Normal. No fractures or bone lesions. A calcaneal spur is incidentally seen. Joints: Normal. No subluxations. Soft Tissues: There is diffuse soft tissue swelling, greatest over the anterior ankle and dorsal foot. IMPRESSION: Diffuse soft tissue swelling without evidence of fracture or dislocation. RADIA
[2019-04-26] MEDS ORDERED: ACETAMINOPHEN 325 MG TABLET PO STA (04:54)
[2019-04-26 06:11] VITALS: BP 148/86
== END 2019-04-26 05:45 | disposition home or self-care (01) ==
LOC: ED 03:15
DX: M79.672 Pain in left foot (principal); R60.0 Localized edema; I10 Essential (primary) hypertension; I48.91 Unspecified atrial fibrillation; Z79.01 Long term (current) use of anticoagulants; G20 Parkinson's disease
CPT/HCPCS: 73630; 99283; 99284; A9270

== ENCOUNTER 2019-05-02 07:00 | Outpatient (CLI) | payer MEDICARE, BC ==
[2019-05-02 12:23] LABS: BASOPHILS % (AUTO) 0.5 %; EOSINOPHILS # (AUTO) 0.2 10^3/uL (0.0-0.7); EOSINOPHILS % (AUTO) 2.7 %; HGB - HEMOGLOBIN 13.3 g/dL (12.0-16.0); LYMPHOCYTES # (AUTO) 2.7 10^3/uL (1.5-3.5); LYMPHOCYTES % (AUTO) 33.1 %; MEAN CORPUSCULAR HEMOGLOBIN 27.8 pg (27.0-31.0); MEAN CORPUSCULAR HGB CONC 31.1 g/dL (32.0-36.0); MEAN CORPUSCULAR VOLUME 89.3 fL (81.0-99.0); MEAN PLATELET VOLUME 12.5 fL (7.9-10.8); MONOCYTES # (AUTO) 0.8 10^3/uL (0.0-1.0); MONOCYTES % (AUTO) 9.6 %; NEUTROPHILS # (AUTO) 4.3 10^3/uL (1.5-6.6); NEUTROPHILS % (AUTO) 53.7 %; PLT - PLATELET COUNT 167 10^3/uL (130-450); RED BLOOD COUNT 4.78 10^6/uL (4.20-5.40)
[2019-05-02 12:57] LABS: CALCIUM 9.7 mg/dL (8.5-10.3); CREATININE 1.5 mg/dL (0.4-1.0)
== END 2019-05-02 23:59 | disposition home or self-care (01) ==
LOC: LAB.WCP 07:00
PROVIDERS: ATTEND Family Medicine
DX: R60.9 Edema, unspecified (principal)
CPT/HCPCS: 36415; 80048; 85025

== ENCOUNTER 2019-07-15 10:40 | Outpatient (CLI) | payer MEDICARE, BC | END 2019-07-15 23:59 | disposition home or self-care (01) | LOC: LAB.R 10:40 | PROVIDERS: ATTEND Family Medicine | DX: G20 Parkinson's disease (principal); R60.9 Edema, unspecified; M19.172 Post-traumatic osteoarthritis, left ankle and foot | CPT/HCPCS: 87070; 87205 ==

== ENCOUNTER 2019-08-07 14:15 | Outpatient (CLI) | payer MEDICARE, BC | END 2019-08-07 14:16 | disposition critical access hospital (66) | LOC: EMS 14:15 | PROVIDERS: ATTEND Surgery | DX: R53.1 Weakness (principal); R35.0 Frequency of micturition | CPT/HCPCS: A0425; A0429 ==

== ENCOUNTER 2019-08-07 14:35 | Inpatient (IN) | payer MEDICARE, BC ==
--- NOTE | 2019-08-07 14:49 | ED Physician Documentation ---
PD HPI FEVER - Stated complaint Stated Complaint: SICK - History obtained from History obtained from: Patient - History of Present Illness Timing - onset: Other (This is a 68-year-old woman with history of atrial fibrillation, Parkinson's disease, edema, obesity. She lives at home with visiting caregivers. She is had 2 days of fevers and shaking chills associated with urinary frequency and also increased over chronic restless leg syndrome and I guess home health had noted that her right lower extremity started to become red. 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 : None HEENT: Chronic vision loss Psych: None Musculoskeletal: Other Derm: None - Past Surgical History Past Surgical History: Yes - Present Medications Home Medications: Ambulatory Orders Medication Instructions Recorded Confirmed Apixaban [Eliquis] 5 mg PO BID 02/18/18 08/07/19 Potassium Chloride 60 meq PO DAILY 02/18/18 08/07/19 atenoloL [Atenolol] 100 mg PO BID 02/18/18 08/07/19 lisinopriL [Lisinopril] 20 mg PO DAILY 02/18/18 08/07/19 Carbidopa/Levodopa 1 tab PO TID 04/26/19 08/07/19 [Carbidopa-Levodopa 25-100 Tab] Ascorbic Acid [Vitamin C] 1,000 mg PO DAILY 08/07/19 08/07/19 Calcium Carbonate [Calcium] 600 mg PO BID 08/07/19 08/07/19 Digoxin 125 mcg PO DAILY 08/07/19 08/07/19 Furosemide 40 mg PO BID 08/07/19 08/07/19 Gabapentin 100 mg PO TID 08/07/19 08/07/19 - Allergies Allergies/Adverse Reactions: Allergies Allergy/AdvReac Type Severity Reaction Status Date / Time warfarin Allergy Nausea Verified 04/26/19 03:40 - Social History Does the pt smoke?: No Smoking Status: Never smoker Does the pt drink ETOH?: No Does the pt have substance abuse?: No - Immunizations Immunizations are current?: Yes - POLST Patient has POLST: No PD ED PE NORMAL - Vitals Vital signs reviewed: Yes - General General: Alert and oriented X 3, No acute distress - HEENT HEENT: PERRL, EOMI - Neck Neck: Supple, no meningeal sign, No bony TTP - Cardiac Cardiac: Other (Irregularly irregular) - Respiratory Respiratory: No respiratory distress, Clear bilaterally - Abdomen Abdomen: Normal bowel sounds, Soft, Non tender - Back Back: No CVA TTP, No spinal TTP - Derm Derm: Other (She has cellulitis of the right lower extremity from just below the knee down to the ankle with a very shallow 3 cm pressure ulcer on the right anteromedial jones) - Extremities Extremities: Other (Edema of both lower extremities) - Neuro Neuro: Alert and oriented X 3, Normal speech Results - Vitals Vitals: Vital Signs - 24 hr 08/07/19 08/07/19 08/07/19 14:48 14:52 15:22 Temperature 38.1 C H Heart Rate 108 H 110 H 106 H Respiratory 24 24 16 Rate Blood Pressure 167/83 H 187/75 H 167/83 H O2 Saturation 95 96 100 08/07/19 15:30 Temperature Heart Rate 113 H Respiratory 24 Rate Blood Pressure 167/83 H O2 Saturation 95 Oxygen O2 Source Room air - Labs Labs: Laboratory Tests 08/07/19 08/07/19 08/07/19 15:00 15:00 15:00 WBC 16.0 H RBC 4.30 Hgb 12.6 Hct 39.7 MCV 92.3 MCH 29.3 MCHC 31.7 L RDW 14.8 Plt Count 190 MPV 10.7 Neut # (Auto) 13.4 H Lymph # (Auto) 1.3 L [place] # (Auto) 1.1 H Eos # (Auto) 0.0 Baso # (Auto) 0.1 Absolute Nucleated RBC 0.00 Nucleated RBC % 0.0 Sodium 135 Potassium 4.4 Chloride 96 L Carbon Dioxide 28 Anion Gap 11.0 BUN 29 H Creatinine 1.4 H Estimated GFR (MDRD) 37 L Glucose 113 H Lactic Acid 1.3 Calcium 9.6 Total Bilirubin 0.7 AST 23 ALT 18 Alkaline Phosphatase 51 Total Protein 7.9 Albumin 4.4 Globulin 3.5 Albumin/Globulin Ratio 1.3 Lipase 26 Urine Color Urine Clarity Urine pH Ur Specific Lucas Urine Protein Urine Glucose (UA) Urine Ketones Urine Occult Blood Urine Nitrite Urine Bilirubin Urine Urobilinogen Ur Leukocyte Esterase Urine RBC Urine WBC Ur Epithelial Cells Ur Squamous Epith Cells Urine Bacteria Ur Microscopic Review Urine Culture Comments Last Dose Date Last Dose Time Digoxin 08/07/19 08/07/19 15:00 15:16 WBC RBC Hgb Hct MCV MCH MCHC RDW Plt Count MPV Neut # (Auto) Lymph # (Auto) [place] # (Auto) Eos # (Auto) Baso # (Auto) Absolute Nucleated RBC Nucleated RBC % Sodium Potassium Chloride Carbon Dioxide Anion Gap BUN Creatinine Estimated GFR (MDRD) Glucose Lactic Acid Calcium Total Bilirubin AST ALT Alkaline Phosphatase Total Protein Albumin Globulin Albumin/Globulin Ratio Lipase Urine Color YELLOW Urine Clarity CLOUDY Urine pH 7.0 Ur Specific Lucas 1.010 Urine Protein NEGATIVE Urine Glucose (UA) NEGATIVE Urine Ketones NEGATIVE Urine Occult Blood MODERATE H Urine Nitrite NEGATIVE Urine Bilirubin NEGATIVE Urine Urobilinogen 1 (NORMAL) Ur Leukocyte Esterase MODERATE H Urine RBC 6-10 H Urine WBC 6-10 H Ur Epithelial Cells RARE Renal Tubular Ur Squamous Epith Cells FEW Squamous Urine Bacteria Many H Ur Microscopic Review INDICATED Urine Culture Comments INDICATED Last Dose Date UNKNOWN Last Dose Time UNKNOWN Digoxin 1.4 PD MEDICAL DECISION MAKING - ED course ED course: 68-year-old woman with multiple comorbidities including Parkinson's disease, A. fib, edema presents with fever and chills and urinary frequency. She has a cellulitis of the right leg. DVT considered very unlikely as she is therapeutically anticoagulated and appears consistent with an apparent cellulitis with a wound as a port of entry. Also urinary tract infection. She was cultured up and given Rocephin and vancomycin. She does have an elevated white blood cell count. Given the clinical picture I recommended admission and she was hesitant but eventually agreed and Dr. Contreras is admitting. Departure - Departure Disposition: 66 [facility] DC/Xfer Clinical Impression: Cellulitis of right leg, Adequate anticoagulation on anticoagulant therapy Urinary tract infection Qualifiers: Urinary tract infection type: site unspecified Hematuria presence: without hematuria Qualified Code(s): N39.0 - Urinary tract infection, site not specified Atrial fibrillation Qualifiers: Atrial fibrillation type: longstanding persistent Qualified Code(s): I48.11 - Longstanding persistent atrial fibrillation Leukocytosis Qualifiers: Leukocytosis type: leukemoid reaction Qualified Code(s): D72.823 - Leukemoid reaction Fever Qualifiers: Fever type: due to other condition Qualified Code(s): R50.81 - Fever presenting with conditions classified elsewhere Condition: Serious
[2019-08-07 15:22] LABS: BASOPHILS # (AUTO) 0.1 10^3/uL (0.0-0.1); BASOPHILS % (AUTO) 0.3 %; EOSINOPHILS % (AUTO) 0.1 %; HGB - HEMOGLOBIN 12.6 g/dL (12.0-16.0); LYMPHOCYTES # (AUTO) 1.3 10^3/uL (1.5-3.5); MEAN CORPUSCULAR HEMOGLOBIN 29.3 pg (27.0-31.0); MEAN CORPUSCULAR HGB CONC 31.7 g/dL (32.0-36.0); MEAN CORPUSCULAR VOLUME 92.3 fL (81.0-99.0); MEAN PLATELET VOLUME 10.7 fL (7.9-10.8); MONOCYTES # (AUTO) 1.1 10^3/uL (0.0-1.0); NEUTROPHILS # (AUTO) 13.4 10^3/uL (1.5-6.6); NEUTROPHILS % (AUTO) 83.9 %; PLT - PLATELET COUNT 190 10^3/uL (130-450); RED CELL DISTRIBUTION WIDTH 14.8 % (12.0-15.0)
[2019-08-07 15:36] LABS: BILIRUBIN,URINE NEGATIVE (NEGATIVE); GLUCOSE, URINE (UA) NEGATIVE (NEGATIVE); KETONES,URINE (UA) NEGATIVE (NEGATIVE); LEUKOCYTE ESTERASE, URINE MODERATE (NEGATIVE); NITRITE,URINE NEGATIVE (NEGATIVE); OCCULT BLOOD,URINE MODERATE (NEGATIVE); PROTEIN,URINE NEGATIVE (NEGATIVE); UROBILINOGEN,URINE 1 (NORMAL) E.U./dL (NORMAL)
[2019-08-07 15:36] LABS: ALBUMIN 4.4 g/dL (3.2-5.5); ALBUMIN/GLOBULIN RATIO 1.3 (1.0-2.2); BILIRUBIN,TOTAL 0.7 mg/dL (0.2-1.0); CALCIUM 9.6 mg/dL (8.5-10.3); CREATININE 1.4 mg/dL (0.4-1.0); TOTAL PROTEIN 7.9 g/dL (6.7-8.2)
[2019-08-07 15:37] LABS: CLARITY,URINE CLOUDY (CLEAR)
[2019-08-07 15:40] LABS: DIGOXIN 1.4 ng/mL
[2019-08-07 15:51] LABS: BACTERIA,URINE Many /HPF (None Seen); EPITHELIAL CELLS,UR RARE Renal Tubular /HPF (<= Few); SQUAMOUS EPITHELIAL CELL,UR FEW Squamous (<= Few)
[2019-08-07] MEDS ORDERED: cefTRIAXone 2 GM in SODIUM CHLORIDE 0.9% MINIBAG 100 ML IV STA (15:59)
[2019-08-07] MEDS ORDERED: VANCOMYCIN INJ 1.5 GM in SODIUM CHLORIDE 0.9% 500 ML IV STA (16:03)
[2019-08-07] MEDS ORDERED: ONDANSETRON ODT 4 MG TABLET TL PRN ×2 (16:57→18:42)
[2019-08-07] MEDS ORDERED: SODIUM CHLORIDE FLUSH 0.9% 10 ML SYRINGE IVP PRN ×2 (16:57→18:42)
[2019-08-07] MEDS ORDERED: ACETAMINOPHEN 325 MG TABLET PO PRN (16:57)
--- NOTE | 2019-08-07 17:18 | PHARMACY PROGRESS NOTE ---
- Best Possible Medication History Admit Date and Time: Patient still in ED Processed by: Nursing Medication History completed: Yes As the person ultimately responsible for medication therapy, providers are able to order a medication from an existing home medication list in [facility] via the "Reconcile Routine" prior to Confirmation of that medication by patient support assistant. Such practice is discouraged except when the physician, in their clinical judgment, deems that a medical need exists for a medication without regard to previous use.
[2019-08-07] MEDS ORDERED: DIGOXIN 125 MCG TABLET PO STA (17:24)
[2019-08-07] MEDS ORDERED: FUROSEMIDE 20 MG TABLET PO STA (17:26)
[2019-08-07] MEDS ORDERED: LORazepam 0.5 MG TABLET PO PRN ×2 (17:27→18:42)
--- NOTE | 2019-08-07 17:32 | HISTORY & PHYSICAL EXAMINATION ---
Chief Complaint - Chief Complaint Chief Complaint: Fever and worsening cellulitis History of Present Illness - History Obtained From History obtained from: patient Exam Limitations: none - History of Present Illness HPI Comment/Other: 68 yo female who has been receiving home health wound care was noted to be febrile and had worsening right lower extremity cellulitis up to above her knee. The home health nurse called ambulance. Pt was febrile in the ED. She has parkinsons disease, atrial fibrillation, pedal edema, hypertension. She lives alone and her daughter lives in [place]. 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 : reports: None, Frequency HEENT: reports: Chronic vision loss Psych: reports: None, Anxiety Musculoskeletal: reports: Other Derm: reports: None MRSA Hx?: No - Family & Social History Family History: Mother: , Father: Living arrangement: At home Living Situation: Alone - Substance History Use: Uses substance without health or social issues: NONE Abuse: Recurrent use of substance despite neg consequences: NONE Dependence: Experiences withdrawal or developed tolerances: NONE - POLST Patient has POLST: No POLST Status: Full Code Meds/Allgy - Home Medications Home Medications: Ambulatory Orders Medication Instructions Recorded Confirmed Apixaban [Eliquis] 5 mg PO BID 02/18/18 08/07/19 Potassium Chloride 60 meq PO DAILY 02/18/18 08/07/19 atenoloL [Atenolol] 100 mg PO BID 02/18/18 08/07/19 lisinopriL [Lisinopril] 20 mg PO DAILY 02/18/18 08/07/19 Carbidopa/Levodopa 1 tab PO TID 04/26/19 08/07/19 [Carbidopa-Levodopa 25-100 Tab] Ascorbic Acid [Vitamin C] 1,000 mg PO DAILY 08/07/19 08/07/19 Calcium Carbonate [Calcium] 600 mg PO BID 08/07/19 08/07/19 Digoxin 125 mcg PO DAILY 08/07/19 08/07/19 Furosemide 40 mg PO BID 08/07/19 08/07/19 Furosemide 40 mg PO DAILY@1600 08/07/19 08/07/19 Gabapentin 300 mg PO TID 08/07/19 08/07/19 - Allergies Allergies/Adverse Reactions: Allergies Allergy/AdvReac Type Severity Reaction Status Date / Time warfarin Allergy Nausea Verified 04/26/19 03:40 Review of Systems - Constitutional Constitutional: reports: Fever - Cardiovascular Cariovascular: reports: Irregular heart rate - Genitourinary Genitourinary: reports: Frequency - Integumentary Integumentary: reports: Other - Neurological Neurological: reports: General weakness, Abnormal gait, Incoordination - Psychiatric Psychiatric: reports: Anxiety Exam - Vital Signs Reviewed Vital Signs: Yes Vital Signs: Vital Signs x48h Temp Pulse Resp BP Pulse Ox 08/07/19 15:30 113 H 24 167/83 H 95 08/07/19 15:22 106 H 16 167/83 H 100 08/07/19 14:52 110 H 24 187/75 H 96 08/07/19 14:48 38.1 C H 108 H 24 167/83 H 95 - Physical Exam General Appearance: positive: No acute distress Eyes Bilateral: positive: Normal inspection ENT: positive: Dry mucous membranes Neck: positive: Nml inspection Respiratory: positive: No respiratory distress Cardiovascular: positive: Irregularly irregular, Tachycardia Abdomen: positive: Non-tender, Nml bowel sounds Skin: positive: Other (right lower leg - there is erythema over the majority of the anterior lower leg, warm to touch, there is a superficial area of skin break down, no pus. the erythema progresses to just above the right knee) Extremities: positive: Pedal edema Neurologic/Psychiatric: positive: Oriented x3, Other (anxious) Conclusion/Plan - Problem List (1) Cellulitis of right leg Conclusion/Plan: IV anbx with vancomycin, rocephin F/u on blood and urine cultures (2) Adequate anticoagulation on anticoagulant therapy Conclusion/Plan: Pt is to continue on eliquis (3) Atrial fibrillation Conclusion/Plan: Pts rate is slightly high, but likely due to cellulitis, Continue on atenolol and digoxin for rate control and eliquis for anticoagulation Qualifiers: Atrial fibrillation type: longstanding persistent Qualified Code(s): I48.11 - Longstanding persistent atrial fibrillation (4) Fever Conclusion/Plan: Acetaminophen for fevers Anbx to treat infection Qualifiers: Fever type: due to other condition Qualified Code(s): R50.81 - Fever presenting with conditions classified elsewhere (5) Leukocytosis Conclusion/Plan: follow up with serial blood tests Qualifiers: Leukocytosis type: leukemoid reaction Qualified Code(s): D72.823 - Leukemoid reaction (6) Dehydration Conclusion/Plan: IVF as well as oral hydration (7) Situational anxiety Conclusion/Plan: Lorazepam as needed for anxiety. Pt wanted to go home and she did not want to stay in hospital. She says she gets claustrophobic with the mask on and did not want to stay. She did not want me to call her daughter Camila. Pt lives alone and due to her parkinsons disease has a hard time ambulating at her baseline (8) Parkinson disease Conclusion/Plan: Continue her home parkinsons meds. She will need assistance getting out of bed as she is a fall risk at her baseline with parkinsons disease. - Lab Results Fish Bones: 08/07/19 15:00 08/07/19 15:00
[2019-08-07] MEDS ORDERED: CARBIDOPA/LEVODOPA 25 MG/100 MG TABLET PO SCH (18:00)
[2019-08-07] MEDS: SODIUM CHLORIDE FLUSH 0.9% 10 ML SYRINGE IVP SCH (18:04)
--- NOTE | 2019-08-07 18:51 | PHARMACY PROGRESS NOTE ---
- Therapy Status Vancomycin regimen day #: 1 Therapy status: Awaiting steady state Basis for treatment: Empirical Treatment indication: Cellulitis Trough goal: 15-20 Concurrent antibiotics: Ceftriaxone - TRESA Risk Risk level for Acute Kidney Injury: Moderate Acute Kidney Injury risk factors: Baseline CrCl <50, Wt >100kg or BMI >40, Goal trough >15, Chronic baseline hypertension - Monitoring and Recommendation Clinical response to treatment: Lab Results 08/07/19 15:00 BUN 29 H Creatinine 1.4 H Estimated GFR (MDRD) 37 L Monitoring plan: Daily serum creatinine, Suggest ongoing fluid replacement Areas for additional monitoring: IV to PO when appropriate, Therapy de- escalation based on culture results Pharmacy recommendation: Continue current regime
[2019-08-07] MEDS ORDERED: SODIUM CHLORIDE 0.9% 1,000 ML IV SCH ×2 (19:00)
[2019-08-07] MEDS ORDERED: DIGOXIN 125 MCG TABLET PO ONE ×3 (19:00→19:30)
[2019-08-07] MEDS ORDERED: FUROSEMIDE 20 MG TABLET PO ONE (19:00)
[2019-08-07] MEDS: CARBIDOPA/LEVODOPA 25 MG/100 MG TABLET PO SCH (20:06)
[2019-08-07] MEDS: FAMOTIDINE 20 MG TABLET PO SCH (20:06)
[2019-08-07] MEDS: atenoloL 25 MG TABLET PO SCH (20:06)
[2019-08-07] MEDS: APIXABAN 5 MG TABLET PO SCH (20:06)
[2019-08-07] MEDS: ACETAMINOPHEN 325 MG TABLET PO PRN (20:07)
[2019-08-07] MEDS ORDERED: FAMOTIDINE 20 MG TABLET PO SCH (21:00)
[2019-08-07] MEDS ORDERED: APIXABAN 5 MG TABLET PO SCH (21:00)
[2019-08-07] MEDS ORDERED: HEPARIN 5,000 UNIT/ML VIAL SUBQ SCH (21:00)
[2019-08-07] MEDS ORDERED: atenoloL 25 MG TABLET PO SCH (21:00)
[2019-08-07] MEDS: NYSTATIN POWDER 15 GM TOP SCH (22:49)
[2019-08-08] MEDS: ACETAMINOPHEN 325 MG TABLET PO PRN ×2 (00:22→20:27)
[2019-08-08] MEDS: SODIUM CHLORIDE FLUSH 0.9% 10 ML SYRINGE IVP SCH ×3 (02:57→16:14)
[2019-08-08] MEDS: oxyCODONE 5 MG TABLET PO PRN ×2 (03:17→13:11)
[2019-08-08] MEDS ORDERED: VANCOMYCIN INJ 1 GM in SODIUM CHLORIDE 0.9% 500 ML IV SCH ×4 (04:00)
[2019-08-08] MEDS: GABAPENTIN 100 MG CAPSULE PO SCH ×3 (05:43→20:27)
[2019-08-08] MEDS ORDERED: GABAPENTIN 100 MG CAPSULE PO SCH (06:00)
[2019-08-08] MEDS: SODIUM CHLORIDE 0.9% 1,000 ML IV SCH ×2 (07:00→22:40)
[2019-08-08 07:21] LABS: HGB - HEMOGLOBIN 10.4 g/dL (12.0-16.0); MEAN CORPUSCULAR HEMOGLOBIN 29.6 pg (27.0-31.0); MEAN CORPUSCULAR HGB CONC 31.8 g/dL (32.0-36.0); MEAN CORPUSCULAR VOLUME 93.2 fL (81.0-99.0); MEAN PLATELET VOLUME 10.2 fL (7.9-10.8); RED BLOOD COUNT 3.51 10^6/uL (4.20-5.40); RED CELL DISTRIBUTION WIDTH 15.1 % (12.0-15.0); WHITE BLOOD COUNT 12.8 x10^3/uL (4.8-10.8)
[2019-08-08 07:32] LABS: CALCIUM 7.7 mg/dL (8.5-10.3); CREATININE 1.7 mg/dL (0.4-1.0)
[2019-08-08] MEDS: atenoloL 25 MG TABLET PO SCH ×2 (08:52→20:28)
[2019-08-08] MEDS: FAMOTIDINE 20 MG TABLET PO SCH ×2 (08:53→20:28)
[2019-08-08] MEDS: APIXABAN 5 MG TABLET PO SCH ×2 (08:53→20:27)
[2019-08-08] MEDS: CARBIDOPA/LEVODOPA 25 MG/100 MG TABLET PO SCH ×4 (08:59→20:27)
[2019-08-08] MEDS ORDERED: lisinopriL 20 MG TABLET PO SCH ×2 (09:00)
[2019-08-08] MEDS ORDERED: cefTRIAXone 2 GM in SODIUM CHLORIDE 0.9% MINIBAG 100 ML IV SCH (09:00)
[2019-08-08] MEDS: NYSTATIN POWDER 15 GM TOP SCH ×2 (09:03→20:28)
--- NOTE | 2019-08-08 10:46 | XRAY Report ---
Reason: SOB Procedure Date: 08/08/2019 Accession Number: [id number] / [id number] Procedure: XR - Chest 1 View X-Ray CPT Code: 35814 Final Report FULL RESULT: EXAM: CHEST RADIOGRAPHY EXAM DATE: 08/08/2019 10:37 AM. CLINICAL HISTORY: SOB. COMPARISON: CHEST 2 VIEW 06/08/2018 9:16 AM. TECHNIQUE: 1 view. FINDINGS: Lungs/Pleura: Mildly low lung volumes with mild crowding/congestion. No focal consolidation. No large effusion. No pneumothorax. Mediastinum: Cardiac silhouette size appears stable mildly enlarged, although may be mildly accentuated secondary to the low lung volumes. Other: None. IMPRESSION: Lung volumes are low with mild vascular crowding/congestion. Stable mild enlarged cardiac silhouette size. No focal lung consolidation or large effusions. RADIA
[2019-08-08] MEDS ORDERED: VANCOMYCIN INJ 1 GM in SODIUM CHLORIDE 0.9% 250 ML IV SCH (12:00)
--- NOTE | 2019-08-08 13:15 | PROVIDER PROGRESS NOTE ---
Subjective - Prog Note Date Prog Note Date: 08/08/19 - Subjective Pt reports feeling: Improved Subjective: pt is comfortable siting up the chair. she denies leg pain, fever, chill, shortness of breath, chest pain. Current Medications - Current Medications Current Medications: Active Medications Acetaminophen (Tylenol) 650 mg PO Q4HR PRN PRN Reason: Pain 1 to 4 Last Admin: 08/08/19 00:22 Dose: 650 mg Apixaban (Eliquis) 5 mg PO BID [facility] Last Admin: 08/08/19 08:53 Dose: 5 mg Atenolol (Tenormin) 100 mg PO BID [facility] Last Admin: 08/08/19 08:52 Dose: Not Given Carbidopa/Levodopa (Sinemet 25 Mg/100 Mg) 1 tab PO QID [facility] Last Admin: 08/08/19 13:11 Dose: 1 tab Famotidine (Pepcid) 20 mg PO BID [facility] Last Admin: 08/08/19 08:53 Dose: 20 mg Gabapentin (Neurontin) 100 mg PO TID [facility] Last Admin: 08/08/19 13:11 Dose: 100 mg Ceftriaxone Sodium 2 gm/ (Sodium Chloride) 100 mls @ 200 mls/hr IV DAILY [facility] Last Infusion: 08/08/19 09:25 Dose: Infused Vancomycin HCl 1 gm/ Sodium (Chloride) 250 mls @ 166.667 mls/hr IV Q18H [facility] Sodium Chloride (Normal Saline 0.9%) 1,000 mls @ 125 mls/hr IV .Q8H [facility] Last Infusion: 08/08/19 09:25 Dose: 125 mls/hr Lorazepam (Ativan) 0.5 mg PO ONCE PRN PRN Reason: Agitation Stop: 08/14/19 18:41 Nystatin (Nystop) 0 applic TOP BID [facility] Last Admin: 08/08/19 09:03 Dose: 1 applic Ondansetron HCl (Zofran Odt) 4 mg TL Q6HR PRN PRN Reason: Nausea / Vomiting Oxycodone HCl (Roxicodone) 10 mg PO Q4HR PRN PRN Reason: PAIN Last Admin: 08/08/19 13:11 Dose: 10 mg Sodium Chloride (Normal Saline Flush 0.9%) 10 ml IVP 0100,0900,1700 [facility] Last Admin: 08/08/19 08:54 Dose: 10 ml Sodium Chloride (Normal Saline Flush 0.9%) 10 ml IVP PRN PRN PRN Reason: NEEDED PER PROVIDER ORDERS Last Admin: 08/08/19 13:12 Dose: 10 ml Apixaban [Eliquis] 5 mg PO BID 02/18/18 Potassium Chloride 40 meq PO DAILY 02/18/18 atenoloL [Atenolol] 100 mg PO BID 02/18/18 lisinopriL [Lisinopril] 20 mg PO DAILY 02/18/18 Carbidopa/Levodopa [Carbidopa-Levodopa 25-100 Tab] 1 tab PO TID 04/26/19 Ascorbic Acid [Vitamin C] 1,000 mg PO DAILY 08/07/19 Calcium Carbonate [Calcium] 600 mg PO BID 08/07/19 Digoxin 125 mcg PO DAILY 08/07/19 Furosemide 40 mg PO DAILY@1600 08/07/19 Furosemide 80 mg PO DAILY 08/07/19 Gabapentin 300 mg PO TID 08/07/19 Objective - Vital Signs/Intake & Output Vital Signs: Vital Signs x48h Temp Pulse Pulse Pulse Resp BP Pulse Ox 08/08/19 13:13 78 16 105/60 94 08/08/19 11:06 37.2 C 70 18 95 08/08/19 08:51 75 98/38 L 08/08/19 07:41 37.2 C 67 18 99/55 L 93 Intake & Output: Intake & Output 08/05/19 08/06/19 08/07/19 08/08/19 23:59 23:59 23:59 23:59 Intake Total 850 1898.583 Output Total 50 50 Balance 800 1848.583 - Objective General Appearance: positive: No acute distress, Alert. negative: Lethargic Eyes Bilateral: positive: Normal inspection, PERRL, No lid inflammation ENT: positive: ENT inspection nml, Pharynx nml, No signs of dehydration. negative: Purulent nasal drainage Neck: positive: Nml inspection, Thyroid nml, No JVD. negative: Trachea midline, Thyromegaly, Lymphadenopathy (R), Lymphadenopathy (L), Stiff neck, Tracheal deviation Respiratory: positive: Chest non-tender, No respiratory distress, Breath sounds nml. negative: Wheezes, Rales, Rhonchi Cardiovascular: positive: Regular rate & rhythm, No murmur, No gallop. negative: Irregularly irregular, Extrasystoles, Tachycardia, Bradycardia, JVD present, Systolic murmur, Diastolic murmur Peripheral Pulses: 2+ Radial (R), 2+ Radial (L), 2+ Dorsalis pedis (R), 2+ Dorsalis pedis (L) Abdomen: positive: Non-tender, No organomegaly, Nml bowel sounds, No distention. negative: Tenderness, Guarding, Rebound Back: positive: Nml inspection. negative: CVA tenderness (R), CVA tenderness (L) Skin: positive: Color nml, No rash, Warm, Dry. negative: Cyanosis, Diaphoresis, Pallor Extremities: negative: Calf tenderness, Kaleigh's sign/cords Neurologic/Psychiatric: positive: Oriented x3. negative: Weakness, Sensory loss, Facial droop, Slurred/abnml speech, Depressed mood/affect - Lab Results Fish Bones: 08/08/19 07:14 08/08/19 07:14 Other Labs: Lab Results x24hrs 08/08/19 08/08/19 08/07/19 Range/Units 07:14 07:14 15:16 WBC 12.8 H (4.8-10.8) x10^3/uL RBC 3.51 L (4.20-5.40) 10^6/uL Hgb 10.4 L (12.0-16.0) g/dL Hct 32.7 L (37.0-47.0) % MCV 93.2 (81.0-99.0) fL MCH 29.6 (27.0-31.0) pg MCHC 31.8 L (32.0-36.0) g/dL RDW 15.1 H (12.0-15.0) % Plt Count 139 (130-450) 10^3/uL MPV 10.2 (7.9-10.8) fL Neut # (Auto) (1.5-6.6) 10^3/uL Lymph # (Auto) (1.5-3.5) 10^3/uL [place] # (Auto) (0.0-1.0) 10^3/uL Eos # (Auto) (0.0-0.7) 10^3/uL Baso # (Auto) (0.0-0.1) 10^3/uL Absolute Nucleated RBC x10^3/uL Nucleated RBC % /100WBC Sodium 135 (135-145) mmol/L Potassium 3.7 (3.5-5.0) mmol/L Chloride 102 (101-111) mmol/L Carbon Dioxide 26 (21-32) mmol/L Anion Gap 7.0 (6-13) BUN 34 H (6-20) mg/dL Creatinine 1.7 H (0.4-1.0) mg/dL Estimated GFR (MDRD) 30 L (>89) Glucose 106 H (70-100) mg/dL Lactic Acid (0.5-2.2) mmol/L Calcium 7.7 L (8.5-10.3) mg/dL Total Bilirubin (0.2-1.0) mg/dL AST (10-42) IU/L ALT (10-60) IU/L Alkaline Phosphatase (42-121) IU/L Total Protein (6.7-8.2) g/dL Albumin (3.2-5.5) g/dL Globulin (2.1-4.2) g/dL Albumin/Globulin Ratio (1.0-2.2) Lipase (22-51) U/L Urine Color YELLOW Urine Clarity CLOUDY (CLEAR) Urine pH 7.0 (5.0-7.5) PH Ur Specific [place] 1.010 (1.002-1.030) Urine Protein NEGATIVE (NEGATIVE) mg/dL Urine Glucose (UA) NEGATIVE (NEGATIVE) mg/dL Urine Ketones NEGATIVE (NEGATIVE) mg/dL Urine Occult Blood MODERATE H (NEGATIVE) Urine Nitrite NEGATIVE (NEGATIVE) Urine Bilirubin NEGATIVE (NEGATIVE) Urine Urobilinogen 1 (NORMAL) (NORMAL) E.U./dL Ur Leukocyte Esterase MODERATE H (NEGATIVE) Urine RBC 6-10 H (0-5) /HPF Urine WBC 6-10 H (0-5) /HPF Ur Epithelial Cells RARE Renal Tubular (<= Few) /HPF Ur Squamous Epith Cells FEW Squamous (<= Few) Urine Bacteria Many H (None Seen) /HPF Ur Microscopic Review INDICATED Urine Culture Comments INDICATED Last Dose Date Last Dose Time Digoxin ng/mL 08/07/19 08/07/19 08/07/19 Range/Units 15:00 15:00 15:00 WBC (4.8-10.8) x10^3/uL RBC (4.20-5.40) 10^6/uL Hgb (12.0-16.0) g/dL Hct (37.0-47.0) % MCV (81.0-99.0) fL MCH (27.0-31.0) pg MCHC (32.0-36.0) g/dL RDW (12.0-15.0) % Plt Count (130-450) 10^3/uL MPV (7.9-10.8) fL Neut # (Auto) (1.5-6.6) 10^3/uL Lymph # (Auto) (1.5-3.5) 10^3/uL [place] # (Auto) (0.0-1.0) 10^3/uL Eos # (Auto) (0.0-0.7) 10^3/uL Baso # (Auto) (0.0-0.1) 10^3/uL Absolute Nucleated RBC x10^3/uL Nucleated RBC % /100WBC Sodium 135 (135-145) mmol/L Potassium 4.4 (3.5-5.0) mmol/L Chloride 96 L (101-111) mmol/L Carbon Dioxide 28 (21-32) mmol/L Anion Gap 11.0 (6-13) BUN 29 H (6-20) mg/dL Creatinine 1.4 H (0.4-1.0) mg/dL Estimated GFR (MDRD) 37 L (>89) Glucose 113 H (70-100) mg/dL Lactic Acid 1.3 (0.5-2.2) mmol/L Calcium 9.6 (8.5-10.3) mg/dL Total Bilirubin 0.7 (0.2-1.0) mg/dL AST 23 (10-42) IU/L ALT 18 (10-60) IU/L Alkaline Phosphatase 51 (42-121) IU/L Total Protein 7.9 (6.7-8.2) g/dL Albumin 4.4 (3.2-5.5) g/dL Globulin 3.5 (2.1-4.2) g/dL Albumin/Globulin Ratio 1.3 (1.0-2.2) Lipase 26 (22-51) U/L Urine Color Urine Clarity (CLEAR) Urine pH (5.0-7.5) PH Ur Specific [place] (1.002-1.030) Urine Protein (NEGATIVE) mg/dL Urine Glucose (UA) (NEGATIVE) mg/dL Urine Ketones (NEGATIVE) mg/dL Urine Occult Blood (NEGATIVE) Urine Nitrite (NEGATIVE) Urine Bilirubin (NEGATIVE) Urine Urobilinogen (NORMAL) E.U./dL Ur Leukocyte Esterase (NEGATIVE) Urine RBC (0-5) /HPF Urine WBC (0-5) /HPF Ur Epithelial Cells (<= Few) /HPF Ur Squamous Epith Cells (<= Few) Urine Bacteria (None Seen) /HPF Ur Microscopic Review Urine Culture Comments Last Dose Date UNKNOWN Last Dose Time UNKNOWN Digoxin 1.4 ng/mL 08/07/19 Range/Units 15:00 WBC 16.0 H (4.8-10.8) x10^3/uL RBC 4.30 (4.20-5.40) 10^6/uL Hgb 12.6 (12.0-16.0) g/dL Hct 39.7 (37.0-47.0) % MCV 92.3 (81.0-99.0) fL MCH 29.3 (27.0-31.0) pg MCHC 31.7 L (32.0-36.0) g/dL RDW 14.8 (12.0-15.0) % Plt Count 190 (130-450) 10^3/uL MPV 10.7 (7.9-10.8) fL Neut # (Auto) 13.4 H (1.5-6.6) 10^3/uL Lymph # (Auto) 1.3 L (1.5-3.5) 10^3/uL [place] # (Auto) 1.1 H (0.0-1.0) 10^3/uL Eos # (Auto) 0.0 (0.0-0.7) 10^3/uL Baso # (Auto) 0.1 (0.0-0.1) 10^3/uL Absolute Nucleated RBC 0.00 x10^3/uL Nucleated RBC % 0.0 /100WBC Sodium (135-145) mmol/L Potassium (3.5-5.0) mmol/L Chloride (101-111) mmol/L Carbon Dioxide (21-32) mmol/L Anion Gap (6-13) BUN (6-20) mg/dL Creatinine (0.4-1.0) mg/dL Estimated GFR (MDRD) (>89) Glucose (70-100) mg/dL Lactic Acid (0.5-2.2) mmol/L Calcium (8.5-10.3) mg/dL Total Bilirubin (0.2-1.0) mg/dL AST (10-42) IU/L ALT (10-60) IU/L Alkaline Phosphatase (42-121) IU/L Total Protein (6.7-8.2) g/dL Albumin (3.2-5.5) g/dL Globulin (2.1-4.2) g/dL Albumin/Globulin Ratio (1.0-2.2) Lipase (22-51) U/L Urine Color Urine Clarity (CLEAR) Urine pH (5.0-7.5) PH Ur Specific [place] (1.002-1.030) Urine Protein (NEGATIVE) mg/dL Urine Glucose (UA) (NEGATIVE) mg/dL Urine Ketones (NEGATIVE) mg/dL Urine Occult Blood (NEGATIVE) Urine Nitrite (NEGATIVE) Urine Bilirubin (NEGATIVE) Urine Urobilinogen (NORMAL) E.U./dL Ur Leukocyte Esterase (NEGATIVE) Urine RBC (0-5) /HPF Urine WBC (0-5) /HPF Ur Epithelial Cells (<= Few) /HPF Ur Squamous Epith Cells (<= Few) Urine Bacteria (None Seen) /HPF Ur Microscopic Review Urine Culture Comments Last Dose Date Last Dose Time Digoxin ng/mL ABX Reporting Has patient been on IV antibiotics over the past 48 hours?: Yes Assessment/Plan - Problem List (1) Cellulitis of right leg Impression: slight better on swelling and erythema. pt has drainage on right anterior side. consult with wound care. culture of drainage, continue IV anbx with vancomycin, rocephin (2)bacteremia one tube has positive Group B strep. now pt has no fever, or chill. WBC is running down, no more tachycardia. continue IV anbx with vancomycin will culture blood again (3)TRESA Pt's creatinine is 1.7 increased from 1.4, acute on chronic CKD. it is likely from pt's dehydration IVF and lab monitor now (4) Adequate anticoagulation on anticoagulant therapy Conclusion/Plan: Pt is to continue on eliquis (5) Atrial fibrillation Conclusion/Plan: controlled and stable. Pts rate is slightly high, but likely due to cellulitis, Continue on atenolol and digoxin for rate control and eliquis for anticoagulation (6) sepsis Conclusion/Plan: pt has elevated WBC, fever, and tachycardia, bacteremia. Acetaminophen for fevers Anbx to treat infection IVF (7) Dehydration Conclusion/Plan: increased IVF rate as well as oral hydration (8) Situational anxiety Conclusion/Plan: slight better today, continue Lorazepam as needed for anxiety. (9) Parkinson disease Conclusion/Plan: stable, Continue her home parkinsons meds. She will need assistance getting out of bed as she is a fall risk at her baseline with parkinsons disease.
--- NOTE | 2019-08-08 13:57 | XRAY Report ---
Reason: pain Procedure Date: 08/08/2019 Accession Number: [id number] / [id number] Procedure: XR - Shoulder 3 View RT CPT Code: Final Report FULL RESULT: EXAM: RIGHT SHOULDER RADIOGRAPHY EXAM DATE: 08/08/2019 01:36 PM. CLINICAL HISTORY: Pain. COMPARISON: None. TECHNIQUE: 3 views. FINDINGS: No fracture or dislocation detected. Moderate narrowing of the subacromial space. While nonspecific, this can be seen in a rotator cuff injury. There is calcific tendinosis lateral to the humeral head. The glenohumeral articulation and the acromioclavicular articulation appear within normal limits. The imaged portion of the right upper lung appears clear. IMPRESSION: Moderate narrowing of the subacromial space. Calcific tendinosis. RADIA
--- NOTE | 2019-08-08 15:37 | ANESTHESIA PROCEDURE NOTE ---
Height and Weight: Height 5 ft 5 in Weight (kg) 111 kg Body Mass Index 40.7 Vital Signs: Temp Pulse Resp BP Pulse Ox 37.2 C 78 16 105/60 94 08/08/19 11:06 08/08/19 13:13 08/08/19 13:13 08/08/19 13:13 08/08/19 13:13 Allergies warfarin Adverse Reaction (Verified 08/07/19 18:40) Nausea Procedure Notes: #20G IV started to Left AC x2 attempts.
--- NOTE | 2019-08-08 16:24 | PHARMACY PROGRESS NOTE ---
- Therapy Status Therapy status: Awaiting steady state Basis for treatment: Empirical Trough goal: 15-20 - TRESA Risk Risk level for Acute Kidney Injury: Moderate Acute Kidney Injury risk factors: Baseline CrCl <50, Wt >100kg or BMI >40, Goal trough >15, Chronic baseline hypertension - Monitoring and Recommendation Clinical response to treatment: I&O Previous 24 hours 08/06/19 08/07/19 08/08/19 23:59 23:59 23:59 Intake Total 850 2096.500 Output Total 50 150 Balance 800 1946.500 Lab Results 08/08/19 08/07/19 07:14 15:00 BUN 34 H 29 H Creatinine 1.7 H 1.4 H Estimated GFR (MDRD) 30 L 37 L Cultures 08/07/19 15:43 Blood - Left Arm Blood Culture - Preliminary NO GROWTH AFTER 1 DAY 08/07/19 15:16 Urine,Random Urine Culture - Final >100,000 COLONIES/ML Polymicrobial growth including potential pathogens. This is suggestive of skin or other contamination. Group B Beta-Hemolytic Streptococcus also present in culture. 08/07/19 15:00 Blood Blood Culture - Preliminary WBC down to 12,800 Monitoring plan: Daily serum creatinine, Suggest ongoing fluid replacement Next trough due (date/time): 08/09/2019 @ 0930 (random level rescheduled due to delay in IV access) Areas for additional monitoring: IV to PO when appropriate, Therapy de- escalation based on culture results Pharmacy recommendation: Continue current regime
[2019-08-09] MEDS: SODIUM CHLORIDE 0.9% 1,000 ML IV SCH ×2 (00:20→06:32)
[2019-08-09] MEDS: oxyCODONE 5 MG TABLET PO PRN ×3 (01:36→12:32)
[2019-08-09] MEDS: SODIUM CHLORIDE FLUSH 0.9% 10 ML SYRINGE IVP SCH ×3 (02:01→16:54)
[2019-08-09 05:23] LABS: HGB - HEMOGLOBIN 11.1 g/dL (12.0-16.0); MEAN CORPUSCULAR HEMOGLOBIN 29.3 pg (27.0-31.0); MEAN CORPUSCULAR HGB CONC 30.6 g/dL (32.0-36.0); MEAN CORPUSCULAR VOLUME 95.8 fL (81.0-99.0); MEAN PLATELET VOLUME 11.3 fL (7.9-10.8); RED BLOOD COUNT 3.79 10^6/uL (4.20-5.40); RED CELL DISTRIBUTION WIDTH 15.1 % (12.0-15.0); WHITE BLOOD COUNT 11.8 x10^3/uL (4.8-10.8)
[2019-08-09 05:32] LABS: CALCIUM 8.7 mg/dL (8.5-10.3); CREATININE 1.4 mg/dL (0.4-1.0)
[2019-08-09] MEDS: GABAPENTIN 100 MG CAPSULE PO SCH ×3 (06:30→21:25)
[2019-08-09] MEDS: ACETAMINOPHEN 325 MG TABLET PO PRN ×2 (06:38→13:47)
[2019-08-09] MEDS: atenoloL 25 MG TABLET PO SCH ×2 (08:36→20:43)
[2019-08-09] MEDS: FAMOTIDINE 20 MG TABLET PO SCH ×2 (08:37→20:44)
[2019-08-09] MEDS: CARBIDOPA/LEVODOPA 25 MG/100 MG TABLET PO SCH ×3 (08:37→21:25)
[2019-08-09] MEDS: APIXABAN 5 MG TABLET PO SCH ×2 (08:37→20:44)
[2019-08-09] MEDS: POTASSIUM CHLORIDE 10 MEQ CAPSULE PO SCH (08:37)
[2019-08-09] MEDS: FUROSEMIDE 40 MG TABLET PO SCH (08:41)
[2019-08-09 09:31] LABS: VANCOMYCIN,RANDOM 13.3 ug/mL
[2019-08-09] MEDS: NYSTATIN POWDER 15 GM TOP SCH ×2 (09:55→20:46)
[2019-08-09] MEDS: AMOX/CLAV 875 MG/125 MG TABLET PO SCH ×2 (09:55→20:45)
--- NOTE | 2019-08-09 12:45 | PROVIDER PROGRESS NOTE ---
Subjective - Subjective Pt reports feeling: Improved Subjective: pt denies fever, chill, shortness of breath, chest pain and denies leg pain. she report she feel better today. pt is alert and oriented today. pt pulled her IV off on last night. we spent lots of effort to have her IV on because she was very difficult to have insert of IV. Last night medical provider switch her IV antibiotics meds to PO meds. pt is advisee to drink enough fluid to keep her hydration. Current Medications - Current Medications Current Medications: Active Medications Acetaminophen (Tylenol) 650 mg PO Q4HR PRN PRN Reason: Pain 1 to 4 Last Admin: 08/09/19 06:38 Dose: 650 mg Amoxicillin/Clavulanate Potassium (Augmentin 875/125) 1 tab PO BID [facility] Last Admin: 08/09/19 09:55 Dose: 1 tab Apixaban (Eliquis) 5 mg PO BID [facility] Last Admin: 08/09/19 08:37 Dose: 5 mg Atenolol (Tenormin) 100 mg PO BID [facility] Last Admin: 08/09/19 08:36 Dose: 100 mg Carbidopa/Levodopa (Sinemet 25 Mg/100 Mg) 1 tab PO TID [facility] Last Admin: 08/09/19 08:37 Dose: 1 tab Famotidine (Pepcid) 20 mg PO BID [facility] Last Admin: 08/09/19 08:37 Dose: 20 mg Furosemide (Lasix) 40 mg PO DAILY [facility] Last Admin: 08/09/19 08:41 Dose: 40 mg Gabapentin (Neurontin) 100 mg PO TID [facility] Last Admin: 08/09/19 06:30 Dose: 100 mg Lorazepam (Ativan) 0.5 mg PO ONCE PRN PRN Reason: Agitation Stop: 08/14/19 18:41 Nystatin (Nystop) 0 applic TOP BID [facility] Last Admin: 08/09/19 09:55 Dose: 1 applic Ondansetron HCl (Zofran Odt) 4 mg TL Q6HR PRN PRN Reason: Nausea / Vomiting Oxycodone HCl (Roxicodone) 10 mg PO Q4HR PRN PRN Reason: PAIN Last Admin: 08/09/19 12:32 Dose: 10 mg Potassium Chloride (Micro-K) 20 meq PO DAILYWM [facility] Last Admin: 08/09/19 08:37 Dose: 20 meq Sodium Chloride (Normal Saline Flush 0.9%) 10 ml IVP 0100,0900,1700 [facility] Last Admin: 08/09/19 09:55 Dose: 10 ml Sodium Chloride (Normal Saline Flush 0.9%) 10 ml IVP PRN PRN PRN Reason: NEEDED PER PROVIDER ORDERS Last Admin: 08/08/19 13:12 Dose: 10 ml Apixaban [Eliquis] 5 mg PO BID 02/18/18 Potassium Chloride 40 meq PO DAILY 02/18/18 atenoloL [Atenolol] 100 mg PO BID 02/18/18 lisinopriL [Lisinopril] 20 mg PO DAILY 02/18/18 Carbidopa/Levodopa [Carbidopa-Levodopa 25-100 Tab] 1 tab PO TID 04/26/19 Ascorbic Acid [Vitamin C] 1,000 mg PO DAILY 08/07/19 Calcium Carbonate [Calcium] 600 mg PO BID 08/07/19 Digoxin 125 mcg PO DAILY 08/07/19 Furosemide 40 mg PO DAILY@1600 08/07/19 Furosemide 80 mg PO DAILY 08/07/19 Gabapentin 300 mg PO TID 08/07/19 Objective - Vital Signs/Intake & Output Vital Signs: Vital Signs x48h Temp Pulse Resp BP Pulse Ox 08/09/19 11:11 36.4 C L 80 18 101/64 99 08/09/19 08:06 36.1 C L 85 20 127/52 L Intake & Output: Intake & Output 08/06/19 08/07/19 08/08/19 08/09/19 23:59 23:59 23:59 23:59 Intake Total 850 3036.083 412.917 Output Total 50 250 250 Balance 800 2786.083 162.917 - Objective General Appearance: positive: No acute distress, Alert. negative: Lethargic Eyes Bilateral: positive: Normal inspection, PERRL, No lid inflammation ENT: positive: ENT inspection nml, Pharynx nml, No signs of dehydration. negative: Purulent nasal drainage Neck: positive: Nml inspection, Thyroid nml, No JVD, Trachea midline. negative: Thyromegaly, Stiff neck, Tracheal deviation Respiratory: positive: Chest non-tender, No respiratory distress, Breath sounds nml. negative: Wheezes, Rales, Rhonchi Cardiovascular: positive: No murmur, No gallop, Irregularly irregular. negative: Extrasystoles, Tachycardia, Bradycardia, Systolic murmur, Diastolic murmur Peripheral Pulses: 2+ Radial (R), 2+ Radial (L) Abdomen: positive: Non-tender, No organomegaly, Nml bowel sounds. negative: Te nderness, Guarding, Rebound Back: positive: Nml inspection. negative: CVA tenderness (R), CVA tenderness (L) Skin: positive: Warm, Dry. negative: Cyanosis, Diaphoresis Extremities: negative: Calf tenderness, Kaleigh's sign/cords Neurologic/Psychiatric: positive: Oriented x3. negative: Weakness, Sensory loss, Facial droop, Slurred/abnml speech - Lab Results Fish Bones: 08/09/19 04:15 08/09/19 04:15 Other Labs: Lab Results x24hrs 08/09/19 08/09/19 08/09/19 Range/Units 09:07 04:15 04:15 WBC (4.8-10.8) x10^3/uL RBC (4.20-5.40) 10^6/uL Hgb (12.0-16.0) g/dL Hct (37.0-47.0) % MCV (81.0-99.0) fL MCH (27.0-31.0) pg MCHC (32.0-36.0) g/dL RDW (12.0-15.0) % Plt Count (130-450) 10^3/uL MPV (7.9-10.8) fL Sodium 138 (135-145) mmol/L Potassium 3.9 (3.5-5.0) mmol/L Chloride 103 (101-111) mmol/L Carbon Dioxide 25 (21-32) mmol/L Anion Gap 10.0 (6-13) BUN 35 H (6-20) mg/dL Creatinine 1.4 H (0.4-1.0) mg/dL Estimated GFR (MDRD) 37 L (>89) Glucose 93 (70-100) mg/dL Calcium 8.7 (8.5-10.3) mg/dL C-Reactive Protein 21.1 H (0-1.0) mg/dL Last Dose Date 08/08/19 Last Dose Time 1743 Random Vancomycin 13.3 ug/mL 08/09/19 Range/Units 04:15 WBC 11.8 H (4.8-10.8) x10^3/uL RBC 3.79 L (4.20-5.40) 10^6/uL Hgb 11.1 L (12.0-16.0) g/dL Hct 36.3 L (37.0-47.0) % MCV 95.8 (81.0-99.0) fL MCH 29.3 (27.0-31.0) pg MCHC 30.6 L (32.0-36.0) g/dL RDW 15.1 H (12.0-15.0) % Plt Count 153 (130-450) 10^3/uL MPV 11.3 H (7.9-10.8) fL Sodium (135-145) mmol/L Potassium (3.5-5.0) mmol/L Chloride (101-111) mmol/L Carbon Dioxide (21-32) mmol/L Anion Gap (6-13) BUN (6-20) mg/dL Creatinine (0.4-1.0) mg/dL Estimated GFR (MDRD) (>89) Glucose (70-100) mg/dL Calcium (8.5-10.3) mg/dL C-Reactive Protein (0-1.0) mg/dL Last Dose Date Last Dose Time Random Vancomycin ug/mL ABX Reporting Has patient been on IV antibiotics over the past 48 hours?: Yes Assessment/Plan - Problem List (1) Cellulitis of right leg Impression: 08/08 improved. WBC is down to 11.8, pt has no fever, chill. because pt pulled her IV, pt's antibiotics is switched to PO Augmentin. secondary blood culture was ordered pt has skin tear and drainage. pt has hx of wound on her right lower extremity, and had wound care at her home. wound culture reveals beta hemolytic Group B. Augment is good meds for this bacterial. slight better on swelling and erythema. pt has drainage on right anterior side. consult with wound care. culture of drainage, continue IV anbx with vancomycin, rocephin (2)bacteremia 08/08 improved. WBC is down to 11.8, pt has no fever, chill. secondary blood culture was ordered continue antibiotics one tube has positive Group B strep. now pt has no fever, or chill. WBC is running down, no more tachycardia. continue IV anbx with vancomycin will culture blood again (3)TRESA 08/08 improved. creatinine is 1.4 today. advise pt drink enough fluid, daily lab monitor Pt's creatinine is 1.7 increased from 1.4, acute on chronic CKD. it is likely from pt's dehydration IVF and lab monitor now (4) Adequate anticoagulation on anticoagulant therapy Conclusion/Plan: Pt is to continue on eliquis (5) Atrial fibrillation Conclusion/Plan: controlled and stable. Pts rate is slightly high, but likely due to cellulitis, Continue on atenolol and digoxin for rate control and eliquis for anticoagulation (6) sepsis Conclusion/Plan: 08/08 resolved. continue antibiotics pt has elevated WBC, fever, and tachycardia, bacteremia. Acetaminophen for fevers Anbx to treat infection IVF (7) Dehydration Conclusion/Plan: 08/08 pt pulled out her IV line, advise pt drink enough fluid increased IVF rate as well as oral hydration (8) Situational anxiety Conclusion/Plan: slight better today, continue Lorazepam as needed for anxiety. (9) Parkinson disease Conclusion/Plan: stable, Continue her home parkinsons meds. She will need assistance getting out of bed as she is a fall risk at her baseline with parkinsons disease.
[2019-08-09] MEDS ORDERED: diphenhydrAMINE 25 MG CAPSULE PO PRN (14:09)
--- NOTE | 2019-08-10 05:25 | Discharge Plan ---
Discharge Plan Problem Reviewed?: Yes Disposition: Home, Self Care Condition: Stable Prescriptions: Amox/Clav 875/125 [Augmentin 875/125] 1 tab PO BID 8 Days #16 tablet Diet: Low Sodium Activity Restrictions: Activity as Tolerated Shower Restrictions: No Driving Restrictions: Yes Weight Bearing: Full Weight Health Concerns: You were admitted for Cellulitis (an infection of the tissue underneath the skin) of your right lower leg. In addition, you were diagnosed with a urinary tract infection. Also, there was evidence of bacteria in your bloodstream. Fortunately, the antibiotics that you were started on in the hospital seem to have done a good job of controlling the infection. It is important however, that you continue antibiotics for another 8 days. I have sent a prescription for Augmentin to your pharmacy, please take these as instructed on the bottle. I would also like you to follow-up with wound care and your PCP. Follow-Up Care: Home Health - PT, [facility] - Wound/Ostomy No Smoking: If you smoke, Please STOP! Call for help. Follow-up with: Benita Contreras DO [Primary Care Provider] -
[2019-08-10] MEDS: SODIUM CHLORIDE FLUSH 0.9% 10 ML SYRINGE IVP SCH ×2 (06:00→08:27)
[2019-08-10] MEDS: CARBIDOPA/LEVODOPA 25 MG/100 MG TABLET PO SCH (06:02)
[2019-08-10] MEDS: GABAPENTIN 100 MG CAPSULE PO SCH (06:02)
--- NOTE | 2019-08-10 07:54 | DISCHARGE SUMMARY ---
Discharge Summary Admit Date: 08/07/19 Discharge Date: 08/10/19 Discharging Provider: Vlad Ordonez Primary Care Provider: Benita Contreras Code Status: Attempt Resuscitation Condition at Discharge: Stable Discharge Disposition: 01 Home, Self Care - DIAGNOSES Admission Diagnoses: 1 cellulitis of the right leg 2 adequate anticoagulation on anticoagulation therapy 3 atrial fibrillation 4 Fever 5 leukocytosis 6 dehydration 7 situational anxiety 8 Parkinson's disease Discharge Diagnoses with Status of Each Condition: 1 cellulitis of the right le/2 beta-hemolytic strep. Improving 2 adequate anticoagulation on anticoagulation therapy: Chronic. On Eliquis 3 atrial fibrillation: Chronic on eliquis 4 Fever: Resolved 5 leukocytosis: Improving 6 dehydration: Resolved 7 situational anxiety: Resolved 8 Parkinson's disease: Chronic - HPI History of Present Illness: Per HPI of Admission H&P: 68 yo female who has been receiving home health wound care was noted to be febrile and had worsening right lower extremity cellulitis up to above her knee. The home health nurse called ambulance. Pt was febrile in the ED. She has parkinsons disease, atrial fibrillation, pedal edema, hypertension. She lives alone and her daughter lives in [place]. - HOSPITAL COURSE Hospital Course: Patient was initially started on vancomycin upon admission. Wound and blood cultures obtained at admission came back positive for beta- hemolytic strep group B. At that point the patient was switched to Augmentin 875/125. She had a total of 3 doses of Augmentin in the hospital. She was sent home with a prescription of 16 more doses or 8 days worth. The redness on her right lower extremity improved over the course of her stay in the hospital. Her white blood cell count improved from 16 at admission to 11.8 upon discharge. Her fever resolved. She was seen by the wound care nurse for chronic wound on that right lower extremity. She is expected to follow up with wound care [place] [facility] She was also seen by and worked with physical therapy while in the hospital here. She was prescribed a walker with front wheels upon discharge. She was advised to follow-up with her neurologist with regards to her Parkinson's disease for further evaluation and possible recommendation for increased physical therapy. Currently she gets physical therapy at home once a week for 30 minutes. All her home medications were resumed at the same doses. She is expected to follow up with her PCP with 4-6 days of discharge. - ALLERGIES Allergies/Adverse Reactions: Allergies Allergy/AdvReac Type Severity Reaction Status Date / Time warfarin AdvReac Nausea Verified 08/07/19 18:40 - MEDICATIONS Home Medications: Ambulatory Orders Medication Instructions Recorded Confirmed Apixaban [Eliquis] 5 mg PO BID 02/18/18 08/07/19 Potassium Chloride 40 meq PO DAILY 02/18/18 08/07/19 atenoloL [Atenolol] 100 mg PO BID 02/18/18 08/07/19 lisinopriL [Lisinopril] 20 mg PO DAILY 02/18/18 08/07/19 Carbidopa/Levodopa 1 tab PO TID 04/26/19 08/07/19 [Carbidopa-Levodopa 25-100 Tab] Ascorbic Acid [Vitamin C] 1,000 mg PO DAILY 08/07/19 08/07/19 Calcium Carbonate [Calcium] 600 mg PO BID 08/07/19 08/07/19 Digoxin 125 mcg PO DAILY 08/07/19 08/07/19 Furosemide 40 mg PO DAILY@1600 08/07/19 08/07/19 Furosemide 80 mg PO DAILY 08/07/19 08/07/19 Gabapentin 300 mg PO TID 08/07/19 08/07/19 Amox/Clav 875/125 [Augmentin 1 tab PO BID 8 Days #16 tablet 08/10/19 875/125] Apixaban [Eliquis] 5 mg PO BID tablet 08/10/19 Carbidopa/Levodopa 25/100 [Sinemet 1 tab PO TID tablet 08/10/19 25 mg/100 mg] Famotidine [Pepcid] 20 mg PO BID tablet 08/10/19 Furosemide [Lasix] 40 mg PO DAILY tablet 08/10/19 Gabapentin [Neurontin] 100 mg PO TID capsule 08/10/19 Potassium Chloride [Micro-K] 20 meq PO DAILYWM capsule 08/10/19 atenoloL [Tenormin] 100 mg PO BID tablet 08/10/19 diphenhydrAMINE [Benadryl] 25 mg PO Q4HR PRN capsule 08/10/19 - PHYSICAL EXAM AT DISCHARGE General Appearance: positive: No acute distress, Alert, Mild distress Eyes Bilateral: positive: Normal inspection, PERRL, EOMI ENT: positive: No signs of dehydration Neck: positive: No JVD, Trachea midline Respiratory: positive: Chest non-tender, No respiratory distress, Breath sounds nml. negative: Wheezes, Rales, Rhonchi Cardiovascular: positive: Irregularly irregular Abdomen: positive: Non-tender, No organomegaly, Nml bowel sounds, No distention. negative: Guarding, Rebound Skin: positive: Other (Mild redness on right lower extremity. Improving) Extremities: positive: Full ROM Neurologic/Psychiatric: positive: Oriented x3, Sensation nml, Mood/affect nml, Weakness, Other (Gait abnormal due to parkinson's disease) - LABS Result Diagrams: 08/09/19 04:15 08/09/19 04:15 - FOLLOW UP Follow Up: With PCP: Benita Thomas in 4-6 days - TIME SPENT Time Spent in Discharge (Minutes): 35
[2019-08-10] MEDS: AMOX/CLAV 875 MG/125 MG TABLET PO SCH (08:09)
[2019-08-10] MEDS: oxyCODONE 5 MG TABLET PO PRN (08:09)
[2019-08-10] MEDS: atenoloL 25 MG TABLET PO SCH (08:18)
[2019-08-10] MEDS: APIXABAN 5 MG TABLET PO SCH (08:19)
[2019-08-10] MEDS: FUROSEMIDE 40 MG TABLET PO SCH (08:19)
[2019-08-10] MEDS: FAMOTIDINE 20 MG TABLET PO SCH (08:20)
[2019-08-10] MEDS: POTASSIUM CHLORIDE 10 MEQ CAPSULE PO SCH (08:23)
[2019-08-10 08:54] VITALS: BP 124/68
[2019-08-10] MEDS: NYSTATIN POWDER 15 GM TOP SCH (10:13)
== END 2019-08-10 12:15 | disposition home health service (06) | DRG 872 ==
LOC: EDUNIT# → ED 14:35 → MS2 16:57 → ED 18:38
PROVIDERS: ADMIT Family Medicine; ATTEND Internal Medicine
DX: A40.1 Sepsis due to streptococcus, group B (principal); L03.115 Cellulitis of right lower limb; I48.11 Longstanding persistent atrial fibrillation; N17.9 Acute kidney failure, unspecified; R60.9 Edema, unspecified; E66.9 Obesity, unspecified; Z68.41 Body mass index [BMI] 40.0-44.9, adult; N39.0 Urinary tract infection, site not specified; L97.811 Non-pressure chronic ulcer of other part of right lower leg limited to breakdown of skin; R65.20 Severe sepsis without septic shock; E86.0 Dehydration; F41.8 Other specified anxiety disorders; G20 Parkinson's disease; I10 Essential (primary) hypertension; R60.0 Localized edema; R35.0 Frequency of micturition; H54.7 Unspecified visual loss; M25.511 Pain in right shoulder; Z79.01 Long term (current) use of anticoagulants
CPT/HCPCS: 36415; 71045; 73030; 80048; 80053; 80162; 80202; 81001; 83605; 83690; 85025; 85027; 86140; 87040; 87070; 87077; 87086; 87181; 87205; 93306; 96365; 97162; 97166; 97530; 99284; 99285; A9270; J3370; 81003

== ENCOUNTER 2019-08-20 08:00 | Outpatient (CLI) | payer MEDICARE, BC ==
[2019-08-20 13:26] LABS: CALCIUM 9.5 mg/dL (8.5-10.3); CREATININE 1.2 mg/dL (0.4-1.0)
== END 2019-08-20 23:59 | disposition home or self-care (01) ==
LOC: LAB.WCP 08:00
PROVIDERS: ATTEND Family Medicine
DX: R60.9 Edema, unspecified (principal)
CPT/HCPCS: 36415; 80048

== ENCOUNTER 2019-09-02 08:00 | Outpatient (CLI) | payer MEDICARE, BC ==
[2019-09-03 10:14] LABS: CLARITY,URINE CLEAR (CLEAR); LEUKOCYTE ESTERASE, URINE NEGATIVE (NEGATIVE); NITRITE,URINE NEGATIVE (NEGATIVE); PROTEIN,URINE NEGATIVE (NEGATIVE); UROBILINOGEN,URINE 0.2 (NORMAL) E.U./dL (NORMAL)
[2019-09-03 10:15] LABS: BILIRUBIN,URINE NEGATIVE (NEGATIVE); GLUCOSE, URINE (UA) NEGATIVE (NEGATIVE); KETONES,URINE (UA) NEGATIVE (NEGATIVE); OCCULT BLOOD,URINE NEGATIVE (NEGATIVE)
== END 2019-09-02 23:59 | disposition home or self-care (01) ==
LOC: LAB.WCP 08:00
PROVIDERS: ATTEND Family Medicine
DX: L97.811 Non-pressure chronic ulcer of other part of right lower leg limited to breakdown of skin (principal); Z87.440 Personal history of urinary (tract) infections
CPT/HCPCS: 81001; 81003; 87070; 87077; 87086; 87181; 87205

== ENCOUNTER 2019-10-10 04:16 | Outpatient (CLI) | payer MEDICARE, BC | END 2019-10-10 04:17 | disposition EMS.NT | LOC: EMS 04:16 | PROVIDERS: ATTEND Surgery | DX: Z03.89 Encounter for observation for other suspected diseases and conditions ruled out (principal) ==

== ENCOUNTER 2019-10-21 06:47 | Emergency (ER) | payer MEDICARE, BC ==
[2019-10-21] MEDS ORDERED: AMOX/CLAV 875 MG/125 MG TABLET PO STA (08:57)
[2019-10-21 09:18] LABS: BILIRUBIN,URINE NEGATIVE (NEGATIVE); GLUCOSE, URINE (UA) NEGATIVE (NEGATIVE); KETONES,URINE (UA) NEGATIVE (NEGATIVE); LEUKOCYTE ESTERASE, URINE NEGATIVE (NEGATIVE); NITRITE,URINE NEGATIVE (NEGATIVE); OCCULT BLOOD,URINE NEGATIVE (NEGATIVE); PROTEIN,URINE NEGATIVE (NEGATIVE); UROBILINOGEN,URINE 0.2 (NORMAL) E.U./dL (NORMAL)
[2019-10-21 09:22] LABS: CLARITY,URINE HAZY (CLEAR)
[2019-10-21 09:32] LABS: BACTERIA,URINE Many /HPF (None Seen); CASTS, URINE >50 Hyaline Casts /LPF; RBC,URINE None Seen /HPF (0-5); SQUAMOUS EPITHELIAL CELL,UR MANY Squamous (<= Few)
--- NOTE | 2019-10-21 10:17 | ED Physician Documentation ---
PD HPI WOUND RECHECK - Stated complaint Stated Complaint: WOUND CHECK - Chief complaint Chief Complaint: Wound - Histroy obtained from History obtained from: Patient, Family - Additional information Additional information: Pt is brought to the ED by her daughter over concerns that the pt has had increased swelling of her lower legs, and that she might have another UTI. The pt has a h/o lymphedema of unclear etiology in her lower extremities, with worsening for the past approximately 7 months. She has seen a lymphedema specialist previously, and until recently, has had home health assistance, in addition to her daughter, who helps care for her. However, pt's daughter states that the pt was referred back to the specialist, and insurance won't cover both the specialist and the Home Health assistance, so pt's in-home nurse visits stopped last week. Daughter states the supplies are very expensive, so she has not been able to wrap the pt's legs the way the nurse did, and they have been becoming increasingly swollen. Pt denies any fever or chills. No shortness of breath, CP, or swelling anywhere else. No change in skin color of the lower legs, though daughter states the pt is usually on chronic Augmentin for her legs, but they have not been able to see her doctor to get this refilled. Pt has frequent UTIs, and daughter is wondering if we can test the pt, as her Parkinson's seems to be acting up a little more lately. No other complaints at this time. Review of Systems Ten Systems: 10 systems reviewed and negative Constitutional: reports: Reviewed and negative Eyes: reports: Reviewed and negative Ears: reports: Reviewed and negative Nose: reports: Reviewed and negative Throat: reports: Reviewed and negative Cardiac: reports: Reviewed and negative Respiratory: reports: Reviewed and negative GI: reports: Reviewed and negative : reports: Reviewed and negative Skin: reports: Lesions Musculoskeletal: reports: Extremity pain, Extremity swelling Neurologic: reports: Confused (present at baseline; mildly increased lately.) Psychiatric: reports: Reviewed and negative Endocrine: reports: Reviewed and negative Immunocompromised: reports: Reviewed and negative PD PAST MEDICAL HISTORY - Past Medical History Cardiovascular: Hypertension, Atrial fibrillation Respiratory: None Neuro: Parkinson's Endocrine/Autoimmune: None GI: None DIRECTOR EQUIPMENT: None : None, Chronic bladder infection, Frequency HEENT: Chronic vision loss Psych: Anxiety Musculoskeletal: Other Derm: None, Other - Past Surgical History Past Surgical History: Yes - Present Medications Home Medications: Ambulatory Orders Medication Instructions Recorded Confirmed Potassium Chloride 40 meq PO DAILY 02/18/18 10/25/19 atenoloL [Atenolol] 100 mg PO BID 02/18/18 10/25/19 lisinopriL [Lisinopril] 20 mg PO DAILY 02/18/18 10/25/19 Ascorbic Acid [Vitamin C] 1,000 mg PO DAILY 08/07/19 10/25/19 Calcium Carbonate [Calcium] 1,000 mg PO DAILY 08/07/19 10/25/19 Digoxin 125 mcg PO DAILY 08/07/19 10/25/19 Furosemide 80 mg PO DAILY 08/07/19 10/25/19 Gabapentin 300 mg PO TID 08/07/19 10/25/19 Apixaban [Eliquis] 5 mg PO BID tablet 08/10/19 10/25/19 Carbidopa/Levodopa 25/100 [Sinemet 1 tab PO TID tablet 08/10/19 10/25/19 25 mg/100 mg] Amox/Clav 875/125 [Augmentin] 1 each PO Q12H #20 tablet 10/21/19 10/25/19 clonazePAM [Clonazepam] 0.5 mg PO DAILY PM 10/21/19 10/25/19 traMADol [Ultram] 50 mg PO TID PRN 10/21/19 10/25/19 - Allergies Allergies/Adverse Reactions: Allergies Allergy/AdvReac Type Severity Reaction Status Date / Time warfarin AdvReac Nausea Verified 10/25/19 04:16 - Social History Does the pt smoke?: No Smoking Status: Never smoker Does the pt drink ETOH?: No Does the pt have substance abuse?: No - Immunizations Immunizations are current?: Yes - POLST Patient has POLST: No POLST Status: Full Code PD ED PE NORMAL - Vitals Vital signs reviewed: Yes - General General: No acute distress, Well developed/nourished, Other (Pt is alert, and answers questions without difficulty.) - HEENT HEENT: Atraumatic, PERRL, EOMI, Moist mucous membranes - Neck Neck: Supple, no meningeal sign - Cardiac Cardiac: RRR, No murmur, Strong equal pulses - Respiratory Respiratory: No respiratory distress, Clear bilaterally - Abdomen Abdomen: Soft, Non tender, Non distended - Back Back: No CVA TTP - Derm Derm: Warm and dry, Other (Pt has skin breakdown over her bilateral pretibial areas with weeping. Marked edema bilaterally. Moderate, chronic-appearing erythema and thickened skin of venous/lymphedematous stasis.) - Extremities Extremities: No deformity, No calf tenderness / cord - Neuro Neuro: Other (Pt is alert and answers questions for herself, without difficulty. She moves all 4 extremities. No gross CN deficits.) - Psych Psych: Normal mood, Normal affect Results - Vitals Vitals: Oxygen O2 Source [With Activity] Room air O2 Source Room air - Labs Labs: Laboratory Tests 10/21/19 09:00 Urine Color YELLOW Urine Clarity HAZY Urine pH 5.0 Ur Specific [place] 1.020 Urine Protein NEGATIVE Urine Glucose (UA) NEGATIVE Urine Ketones NEGATIVE Urine Occult Blood NEGATIVE Urine Nitrite NEGATIVE Urine Bilirubin NEGATIVE Urine Urobilinogen 0.2 (NORMAL) Ur Leukocyte Esterase NEGATIVE Urine RBC None Seen Urine WBC 0-3 Ur Squamous Epith Cells MANY Squamous H Urine Bacteria Many H Urine Casts >50 Hyaline Casts Ur Microscopic Review INDICATED Urine Culture Comments NOT INDICATED PD MEDICAL DECISION MAKING - ED course Complexity details: reviewed old records, reviewed results, re-evaluated patient, considered differential, d/w patient, d/w family ED course: Pt did not appear to have cellulitis, but more of a chronic appearance of skin changes to her legs. I did have the nurse wrap the pt's legs, and we have discussed pressure stockings to help with the chronic edema. UA was negative. I will restart the pt's abx, and when she sees the lymphedema specialist, she should revisit whether she should continue the infection prophylaxis. We have discussed home management of the sx, as well as the usual indications for return. Departure - Departure Disposition: 01 Home, Self Care Clinical Impression: Peripheral edema Condition: Stable Instructions: ED Edema Legs Bilateral Prescriptions: Amox/Clav 875/125 [Augmentin] 1 each PO Q12H #20 tablet Comments: Your urinalysis does not show infection,. Please follow-up with your primary care physician to discuss further management of your lymphedema. Discharge Date/Time: 10/21/19 10:57
[2019-10-21 10:36] VITALS: BP 122/57
== END 2019-10-21 10:57 | disposition home or self-care (01) ==
LOC: ED 06:47
DX: R60.0 Localized edema (principal); I10 Essential (primary) hypertension; G20 Parkinson's disease
CPT/HCPCS: 81001; 99283; 99284; A9270; 81003; 87086

== ENCOUNTER 2019-10-24 05:40 | Outpatient (CLI) | payer MEDICARE, BC | END 2019-10-24 05:41 | disposition EMS.NT | LOC: EMS 05:40 | PROVIDERS: ATTEND Surgery | DX: R44.3 Hallucinations, unspecified (principal) ==

== ENCOUNTER 2019-10-25 03:42 | Outpatient (CLI) | payer MEDICARE, BC | END 2019-10-25 03:43 | disposition critical access hospital (66) | LOC: EMS 03:42 | PROVIDERS: ATTEND Surgery | DX: R44.3 Hallucinations, unspecified (principal) | CPT/HCPCS: A0425; A0429 ==

== ENCOUNTER 2019-10-25 03:58 | Inpatient (IN) | payer MEDICARE, BC ==
[2019-10-25 05:03] LABS: BASOPHILS # (AUTO) 0.1 10^3/uL (0.0-0.1); BASOPHILS % (AUTO) 0.5 %; EOSINOPHILS # (AUTO) 0.4 10^3/uL (0.0-0.7); EOSINOPHILS % (AUTO) 3.7 %; HGB - HEMOGLOBIN 13.1 g/dL (12.0-16.0); LYMPHOCYTES # (AUTO) 2.1 10^3/uL (1.5-3.5); LYMPHOCYTES % (AUTO) 20.1 %; MEAN CORPUSCULAR HEMOGLOBIN 28.5 pg (27.0-31.0); MEAN CORPUSCULAR HGB CONC 31.3 g/dL (32.0-36.0); MEAN CORPUSCULAR VOLUME 91.1 fL (81.0-99.0); MEAN PLATELET VOLUME 11.8 fL (7.9-10.8); MONOCYTES # (AUTO) 1.2 10^3/uL (0.0-1.0); MONOCYTES % (AUTO) 11.1 %; NEUTROPHILS # (AUTO) 6.7 10^3/uL (1.5-6.6); NEUTROPHILS % (AUTO) 64.1 %; PLT - PLATELET COUNT 223 10^3/uL (130-450); RED BLOOD COUNT 4.59 10^6/uL (4.20-5.40); RED CELL DISTRIBUTION WIDTH 13.3 % (12.0-15.0); WHITE BLOOD COUNT 10.4 x10^3/uL (4.8-10.8)
[2019-10-25 05:09] LABS: BILIRUBIN,URINE NEGATIVE (NEGATIVE); GLUCOSE, URINE (UA) NEGATIVE (NEGATIVE); KETONES,URINE (UA) NEGATIVE (NEGATIVE); LEUKOCYTE ESTERASE, URINE NEGATIVE (NEGATIVE); NITRITE,URINE NEGATIVE (NEGATIVE); OCCULT BLOOD,URINE NEGATIVE (NEGATIVE); PH,URINE 5.5 PH (5.0-7.5); PROTEIN,URINE NEGATIVE (NEGATIVE); UROBILINOGEN,URINE 0.2 (NORMAL) E.U./dL (NORMAL)
[2019-10-25 05:10] LABS: CLARITY,URINE CLEAR (CLEAR)
[2019-10-25 05:19] LABS: ALBUMIN 3.9 g/dL (3.2-5.5); ALBUMIN/GLOBULIN RATIO 1.2 (1.0-2.2); BILIRUBIN,TOTAL 0.6 mg/dL (0.2-1.0); CALCIUM 9.3 mg/dL (8.5-10.3); CREATININE 3.4 mg/dL (0.4-1.0); TOTAL PROTEIN 7.2 g/dL (6.7-8.2)
[2019-10-25] MEDS ORDERED: INSULIN REGULAR HUMAN 100 UNIT/1 ML 10 ML MDV IVP STA (05:51)
[2019-10-25] MEDS ORDERED: DEXTROSE 50% ABBOJECT 25 GM/50 ML SYRINGE IVP STA (05:51)
[2019-10-25] MEDS ORDERED: CALCIUM CHLORIDE ABBOJECT 1000MG/10 ML SYRINGE IVP STA (05:51)
[2019-10-25] MEDS ORDERED: SODIUM CHLORIDE 0.9% 1,000 ML IV STA (05:55)
--- NOTE | 2019-10-25 05:57 | ED Physician Documentation ---
History of Present Illness - Stated complaint Stated Complaint: HALLUCINATIONS - Chief complaint Chief Complaint: MHE - History obtained from History obtained from: Family - Additonal information Additional information: Patient is brought to the emergency department by her daughter who states that the patient has been agitated and hallucinating over the last 3 days. Daughter states she has not gotten any sleep because the patient is constantly screaming and yelling and paranoid. The patient has an underlying history of Parkinson's disease with some parkinsonian dementia. She also has a history of peripheral edema, for which she is treated with Lasix 80 mg daily. Patient was just seen in the emergency department recently for edema of her lower extremities after her home nursing support was discontinued. Patient that time did not have a urinary tract infection and was instructed regarding prevention of edema. She was follow-up with her lymphedema specialist to turn determine what further should be done. Daughter states that she cannot manage the patient's outbursts and that it is very difficult to take care of the patient at home, because patient is constantly angry at her and distrustful of her. Review of Systems Ten Systems: 10 systems reviewed and negative Constitutional: reports: Reviewed and negative Eyes: reports: Reviewed and negative Ears: reports: Reviewed and negative Nose: reports: Reviewed and negative Throat: reports: Reviewed and negative Cardiac: reports: Reviewed and negative Respiratory: reports: Reviewed and negative GI: reports: Reviewed and negative : reports: Reviewed and negative Skin: reports: Reviewed and negative Musculoskeletal: reports: Reviewed and negative Neurologic: reports: Reviewed and negative Psychiatric: reports: Reviewed and negative Endocrine: reports: Reviewed and negative Immunocompromised: reports: Reviewed and negative PD PAST MEDICAL HISTORY - Past Medical History Past Medical History: Yes Cardiovascular: Hypertension, Atrial fibrillation Respiratory: None Neuro: Parkinson's Endocrine/Autoimmune: None GI: None MAINTENANCE MGR: None : None, Chronic bladder infection, Frequency HEENT: Chronic vision loss Psych: Anxiety Musculoskeletal: Other Derm: None, Other - Past Surgical History Past Surgical History: Yes - Present Medications Home Medications: Ambulatory Orders Medication Instructions Recorded Confirmed Potassium Chloride 40 meq PO DAILY 02/18/18 10/25/19 atenoloL [Atenolol] 100 mg PO BID 02/18/18 10/25/19 lisinopriL [Lisinopril] 20 mg PO DAILY 02/18/18 10/25/19 Ascorbic Acid [Vitamin C] 1,000 mg PO DAILY 08/07/19 10/25/19 Calcium Carbonate [Calcium] 1,000 mg PO DAILY 08/07/19 10/25/19 Digoxin 125 mcg PO DAILY 08/07/19 10/25/19 Furosemide 80 mg PO DAILY 08/07/19 10/25/19 Gabapentin 300 mg PO TID 08/07/19 10/25/19 Apixaban [Eliquis] 5 mg PO BID tablet 08/10/19 10/25/19 Carbidopa/Levodopa 25/100 [Sinemet 1 tab PO TID tablet 08/10/19 10/25/19 25 mg/100 mg] Amox/Clav 875/125 [Augmentin] 1 each PO Q12H #20 tablet 10/21/19 10/25/19 clonazePAM [Clonazepam] 0.5 mg PO DAILY PM 10/21/19 10/25/19 traMADol [Ultram] 50 mg PO TID PRN 10/21/19 10/25/19 - Allergies Allergies/Adverse Reactions: Allergies Allergy/AdvReac Type Severity Reaction Status Date / Time warfarin AdvReac Nausea Verified 10/25/19 04:16 - Social History Does the pt smoke?: No Smoking Status: Never smoker Does the pt drink ETOH?: No Does the pt have substance abuse?: No - Immunizations Immunizations are current?: Yes - POLST Patient has POLST: No POLST Status: Full Code PD ED PE NORMAL - Vitals Vital signs reviewed: Yes - General General: No acute distress, Well developed/nourished, Other (Patient is mildly disheveled. She is calm and cooperative and in no distress) - HEENT HEENT: Atraumatic, PERRL, EOMI, Moist mucous membranes - Neck Neck: Supple, no meningeal sign - Cardiac Cardiac: RRR, No murmur, Strong equal pulses - Respiratory Respiratory: No respiratory distress, Clear bilaterally - Abdomen Abdomen: Soft, Non tender, Non distended - Back Back: No CVA TTP - Derm Derm: Normal color, Other (Patient has skin breakdown over her bilateral lower legs with weeping edema. 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 Knows name. ) - Psych Psych: Normal mood, Other (Somewhat blunted affect. States police are coming to interview her daughter and son-in-law at the hospital, and that they need to be kept separate.) Results - Vitals Vitals: Vital Signs - 24 hr 10/25/19 10/25/19 10/25/19 04:00 05:05 05:21 Temperature 36.4 C L Heart Rate 76 84 91 Heart Rate [ Brachial] Respiratory 16 28 H 16 Rate Blood Pressure 101/77 99/71 108/68 Blood Pressure [Brachial artery] O2 Saturation 96 95 98 10/25/19 10/25/19 10/25/19 06:11 06:30 06:40 Temperature 36.7 C Heart Rate 88 78 90 Heart Rate [ Brachial] Respiratory 15 21 16 Rate Blood Pressure 97/68 97/68 118/64 Blood Pressure [Brachial artery] O2 Saturation 97 98 100 10/25/19 10/25/19 07:27 07:59 Temperature 36.6 C 36.5 C Heart Rate 86 Heart Rate [ 89 Brachial] Respiratory 16 16 Rate Blood Pressure 102/69 Blood Pressure 115/56 L [Brachial artery] O2 Saturation 100 97 Oxygen O2 Source [With Activity] Room air O2 Source Room air - EKG (time done) 0617 Rate: Rate (enter#) (95) Rhythm: Atrial fibrillation [place]: Normal Intervals: QRS normal QRS: Normal Ischemia: Normal ST segments. No: T wave inversion Other comments: Other comments (PVC; baseline artifact, moderate) Compare to prior EKG: Old EKG unavailable Computer interpretation: Agree with computer - Labs Labs: Laboratory Tests 10/25/19 10/25/19 10/25/19 04:48 04:50 04:50 WBC 10.4 RBC 4.59 Hgb 13.1 Hct 41.8 MCV 91.1 MCH 28.5 MCHC 31.3 L RDW 13.3 Plt Count 223 MPV 11.8 H Neut # (Auto) 6.7 H Lymph # (Auto) 2.1 [place] # (Auto) 1.2 H Eos # (Auto) 0.4 Baso # (Auto) 0.1 Absolute Nucleated RBC 0.00 Nucleated RBC % 0.0 Sodium 136 Potassium 6.9 H* Chloride 102 Carbon Dioxide 23 Anion Gap 11.0 BUN 90 H* Creatinine 3.4 H Estimated GFR (MDRD) 13 L Glucose 110 H Calcium 9.3 Total Bilirubin 0.6 AST 18 ALT 10 Alkaline Phosphatase 53 Total Protein 7.2 Albumin 3.9 Globulin 3.3 Albumin/Globulin Ratio 1.2 Lipase 29 Urine Color Urine Clarity Urine pH Ur Specific [place] Urine Protein Urine Glucose (UA) Urine Ketones Urine Occult Blood Urine Nitrite Urine Bilirubin Urine Urobilinogen Ur Leukocyte Esterase Ur Microscopic Review Urine Culture Comments Last Dose Date UNKNONW Last Dose Time UNKNOWN Digoxin 1.4 10/25/19 10/25/19 04:53 09:27 WBC RBC Hgb Hct MCV MCH MCHC RDW Plt Count MPV Neut # (Auto) Lymph # (Auto) [place] # (Auto) Eos # (Auto) Baso # (Auto) Absolute Nucleated RBC Nucleated RBC % Sodium Potassium 6.7 H* Chloride Carbon Dioxide Anion Gap BUN Creatinine Estimated GFR (MDRD) Glucose Calcium Total Bilirubin AST ALT Alkaline Phosphatase Total Protein Albumin Globulin Albumin/Globulin Ratio Lipase Urine Color YELLOW Urine Clarity CLEAR Urine pH 5.5 Ur Specific [place] 1.025 Urine Protein NEGATIVE Urine Glucose (UA) NEGATIVE Urine Ketones NEGATIVE Urine Occult Blood NEGATIVE Urine Nitrite NEGATIVE Urine Bilirubin NEGATIVE Urine Urobilinogen 0.2 (NORMAL) Ur Leukocyte Esterase NEGATIVE Ur Microscopic Review NOT INDICATED Urine Culture Comments NOT INDICATED Last Dose Date Last Dose Time Digoxin - Rads (name of study) Head CT Radiology: Final report received, EMP read indepedently, See rad report (No acut e findings.) PD MEDICAL DECISION MAKING - ED course Complexity details: reviewed old records, reviewed results, re-evaluated patient, considered differential, d/w patient, d/w family ED course: The patient was evaluated in the emergency department and found to have A significantly elevated BUN and creatinine compared with normal with also elevation of her potassium. She did not have any EKG changes consistent with hyperkalemia, however. Patient was given insulin and glucose, as well as IV calcium chloride. I felt that she was most likely over diuresed and I did start IV fluids on her. The patient was calm and cooperative throughout her stay in the emergency department. I did feel that because of her elevated BUN and creatinine, as well as hyperkalemia, she should be admitted for a medical observation for correction of her kidney function and potassium. Following this, her mental status can be reevaluated. I did speak with Dr. Nchotu, who did agree to admit the patient to his service. Departure - Departure Disposition: 66 [facility] DC/Xfer Clinical Impression: Dehydration, Acute renal insufficiency, Hyperkalemia, Delirium Condition: Serious Discharge Date/Time: 10/25/19 07:28
[2019-10-25 06:10] LABS: DIGOXIN 1.4 ng/mL
[2019-10-25] MEDS ORDERED: SODIUM CHLORIDE FLUSH 0.9% 10 ML SYRINGE IVP PRN (06:33)
[2019-10-25] MEDS ORDERED: SODIUM POLYSTYRENE SULFONATE 15 GM/60 ML BOTTLE PO STA (06:46)
--- NOTE | 2019-10-25 06:46 | HISTORY & PHYSICAL EXAMINATION ---
Chief Complaint - Chief Complaint Chief Complaint: Hallucination History of Present Illness - Admitted From Admitted From:: [facility] - History Obtained From Records Reviewed: yes History obtained from: patient's daughter - History of Present Illness HPI Comment/Other: The history below is was mainly provided by the patient's daughter due to the reason for presentation which was hallucination. Patient is a 68-year-old female with Parkinson's disease who is on Sinemet, Atrial fibrillation on Eliquis, chronic lower extremity edema and anxiety who presented to the ED via EMS with hallucinations. Her daughter reports that she has been hallucinating for the past 3 days. Specific examples were the patient thinking that her kitten had gone missing and asking for it to be found when in actuality she does not have a kitten. She would also intermittently shout out calling random names of people who are unknown to her daughter and likely her and are not around. She would sometimes address her daughter with a different name. Other times she would lash out accusing her daughter and her of planning to hurt her still from her. Her daughter is a schoolteacher who lives in [facility] but is currently living with her at her home and [place]. Sometimes she would be insistent on being taken downstairs when she is already downstairs in the house. Other times she would be insistent on going out of the house when she is unable to ambulate any significant distance. Due to the patient's Parkinson's disease she freezes up often and requires assistance moving a few steps to the bathroom. Her daughter uses a walker and wheelchair as needed to aid her in going from one place to the other in the house. She was last admitted in July 2019 with right lower extremity cellulitis. Prior to that admission she had been receiving home health wound care for lower extremity ulcers likely due to chronic edema. She was due to see wound care this coming Monday, October 28, 2019. Work-up in the ED included a BMP which showed a creatinine level of 3.4 and a potassium of 6.9. Patient's baseline creatinine has been in the range of 1.0- 1.7 in the past. As a result she was presented for admission for further treatment. At bedside the patient appears to be resting calmly. She is alert and oriented x3. She denies any chest pain, dyspnea, abdominal pain, nausea, vomiting, fever or chills. She complains of some pain in her right upper extremity due to a fall. She had a CT scan of the brain done with the preliminary reports being unremarkable. History - Past Medical History Cardiovascular: reports: Hypertension, Atrial fibrillation Respiratory: reports: None Neuro: reports: Parkinson's Endocrine/Autoimmune: reports: None GI: reports: None STAFF DEVELOPMENT COORDINATOR: reports: None : reports: None, Chronic bladder infection, Frequency HEENT: reports: Chronic vision loss Psych: reports: Anxiety Musculoskeletal: reports: Other Derm: reports: None, Other MRSA Hx?: No - Family & Social History Family History: Mother: , Father: - Substance History Use: Uses substance without health or social issues: NONE - POLST Patient has POLST: No POLST Status: Full Code Meds/Allgy - Home Medications Home Medications: Ambulatory Orders Medication Instructions Recorded Confirmed Potassium Chloride 40 meq PO DAILY 02/18/18 10/25/19 atenoloL [Atenolol] 100 mg PO BID 02/18/18 10/25/19 lisinopriL [Lisinopril] 20 mg PO DAILY 02/18/18 10/25/19 Ascorbic Acid [Vitamin C] 1,000 mg PO DAILY 08/07/19 10/25/19 Calcium Carbonate [Calcium] 1,000 mg PO DAILY 08/07/19 10/25/19 Digoxin 125 mcg PO DAILY 08/07/19 10/25/19 Furosemide 80 mg PO DAILY 08/07/19 10/25/19 Gabapentin 300 mg PO TID 08/07/19 10/25/19 Apixaban [Eliquis] 5 mg PO BID tablet 08/10/19 10/25/19 Carbidopa/Levodopa 25/100 [Sinemet 1 tab PO TID tablet 08/10/19 10/25/19 25 mg/100 mg] Amox/Clav 875/125 [Augmentin] 1 each PO Q12H #20 tablet 10/21/19 10/25/19 clonazePAM [Clonazepam] 0.5 mg PO DAILY PM 10/21/19 10/25/19 traMADol [Ultram] 50 mg PO TID PRN 10/21/19 10/25/19 - Allergies Allergies/Adverse Reactions: Allergies Allergy/AdvReac Type Severity Reaction Status Date / Time warfarin AdvReac Nausea Verified 10/25/19 04:16 Review of Systems - Constitutional Constitutional: denies: Fatigue, Fever, Chills - Eyes Eyes: denies: Pain - Ears, Nose & Throat Ears, Nose & Throat: denies: Ear pain, Vertigo - Cardiovascular Cariovascular: reports: Irregular heart rate, Edema. denies: Chest pain - Respiratory Respiratory: denies: Wheezing, SOB at rest - Gastrointestinal Gastrointestinal: denies: Abdominal pain, Nausea, Vomiting - Genitourinary Genitourinary: denies: Dysuria, Frequency, Urgency, Hematuria - Musculoskeletal Musculoskeletal: denies: Muscle pain, Back pain - Integumentary Integumentary: denies: Rash, Pruritis - Neurological Neurological: reports: Abnormal gait (shuffling. Patient freezes up often), Other (Hallucinations) - Psychiatric Psychiatric: reports: Anxiety - Endocrine Endocrine: denies: Polyuria, Polydypsia - Hematologic/Lymphatic Hematologic/Lymphatic: denies: Anemia, Petechiae Prior Level of Functionality: Patient has Parkinson's disease and freezes up often. She requires assistance to get to the bathroom. She also requires a wheelchair and also a walker to accomplish getting from one place in the house to the other. Her daughter who is a schoolteacher in [facility] is currently living with her and her house in [place]. Her daughter explains that the patient has been assessed by [facility] in [place] and think she would be a candidate for assisted living. Exam - Vital Signs Vital Signs: Vital Signs x48h Temp Pulse Resp BP Pulse Ox 10/25/19 06:40 90 16 118/64 100 10/25/19 06:30 36.7 C 78 21 97/68 98 10/25/19 06:11 88 15 97/68 97 10/25/19 05:21 91 16 108/68 98 10/25/19 05:05 84 28 H 99/71 95 10/25/19 04:00 36.4 C L 76 16 101/77 96 - Physical Exam General Appearance: positive: No acute distress, Alert Eyes Bilateral: positive: PERRL, EOMI ENT: positive: ENT inspection nml Neck: positive: No JVD, Trachea midline Respiratory: positive: Chest non-tender, No respiratory distress, Breath sounds nml. negative: Wheezes, Rales, Rhonchi Cardiovascular: positive: Irregularly irregular Abdomen: positive: Non-tender, No organomegaly, Nml bowel sounds, No distention. negative: Guarding, Rebound Back: positive: Nml inspection Skin: positive: Other (+2 lower extremity edema. open wounds. weeping. hyperemic) Extremities: positive: Pedal edema Neurologic/Psychiatric: positive: Oriented x3 Conclusion/Plan - Problem List (1) Acute renal insufficiency Conclusion/Plan: Possibly secondary to dehydration and Lasix use. We will hold Lasix for now despite chronic lower extremity edema. Patient receiving normal saline at 100ml/hr. (2) Hyperkalemia Conclusion/Plan: Patient has been on potassium supplements We will hold potassium supplements for now. Patient was given Calcium gluconate, insulin 8 units IV and dextrose 50. Kayexalate 15 gm ordered. Will recheck BMP at noon. Patient on telemetry. (3) Atrial fibrillation Conclusion/Plan: Patient is on Eliquis, atenolol 100 mg p.o. twice daily and digoxin 125mcg daily Digoxin level is therapeutic at 1.4. Patient is rate controlled. We will continue patient's home medications and continue monitoring on telemetry Qualifiers: Atrial fibrillation type: longstanding persistent Qualified Code(s): I48.11 - Longstanding persistent atrial fibrillation (4) Hallucination, drug-induced Conclusion/Plan: Suspect due to Sinemet. We will recommend follow-up with the neurologist for discussion about possible dose adjustment or medication change. However cannot rule out intrinsic contribution of baseline dementia to hallucination (5) Parkinson disease Conclusion/Plan: Patient is on Sinemet 25 mg / 100 mg 1 tablet p.o. 3 times daily (6) Peripheral edema Conclusion/Plan: We will hold Lasix for now while hydrating patient for acute kidney injury and hyperkalemia. We will ask wound care to evaluate and treat patient. - Lab Results Fish Bones: 10/25/19 04:50 10/25/19 04:50 Core Measures - Anticipated LOS I expect patient to be DC'd or transferred within 96 hours.: Yes - DVT/VTE - Prophylaxis VTE/DVT Device ordered at admit?: Yes VTE/DVT Prophylaxis med ordered at admit?: Yes
[2019-10-25] MEDS: SODIUM CHLORIDE 0.9% 1,000 ML IV SCH ×2 (07:49→18:17)
[2019-10-25] MEDS: PANTOPRAZOLE 40 MG TABLET PO SCH (07:51)
[2019-10-25] MEDS: SODIUM CHLORIDE FLUSH 0.9% 10 ML SYRINGE IVP SCH ×2 (07:51→16:13)
--- NOTE | 2019-10-25 08:54 | PHARMACY PROGRESS NOTE ---
- Best Possible Medication History Admit Date and Time: 10/25/19 0633 Processed by: Nursing Medication History completed: Yes As the person ultimately responsible for medication therapy, providers are able to order a medication from an existing home medication list in [facility] via the "Reconcile Routine" prior to Confirmation of that medication by senior administrative support. Such practice is discouraged except when the physician, in their clinical judgment, deems that a medical need exists for a medication without regard to previous use.
[2019-10-25] MEDS ORDERED: atenoloL 25 MG TABLET PO SCH (09:00)
[2019-10-25] MEDS ORDERED: CARBIDOPA/LEVODOPA 25 MG/250 MG TABLET PO SCH (09:00)
[2019-10-25] MEDS: traMADol 50 MG TABLET PO PRN ×2 (09:10→21:35)
[2019-10-25] MEDS: GABAPENTIN 300 MG CAPSULE PO SCH ×3 (09:10→21:35)
--- NOTE | 2019-10-25 09:42 | CT Report ---
PROCEDURE: HEAD WO INDICATIONS: altered LOC TECHNIQUE: Noncontrast 4.5 mm thick angled axial sections acquired from the foramen magnum to the vertex. For r adiation dose reduction, the following was used: automated exposure control, adjustment of mA and/or kV according to patient size. COMPARISON: None. FINDINGS: Image quality: Excellent. The ventricular system and cortical sulci demonstrate atrophy, consistent for patient's stated age. There are areas of hypodensity in the periventricular and subcortical white matter. There is no acut e intra or extra-axial fluid collection. No acute hemorrhage, mass lesion or midline shift. Brainst em is unremarkable. Globes are symmetrical. Sinuses are aerated. Osseous structures are intact. IMPRESSION: 1. No acute intracranial process. 2. Mild atrophy and chronic microvascular ischemic changes. The above findings are concordant with preliminary report. Reviewed by: Shanice Bliss MD on 10/25/2019 9:41 AM PDT Approved by: Shanice Bliss MD on 10/25/2019 9:41 AM PDT Station ID: [id number]
[2019-10-25] MEDS ORDERED: HALOPERIDOL 5 MG/ML VIAL IVP SCH (09:51)
[2019-10-25] MEDS ORDERED: DEXTROSE 50% ABBOJECT 25 GM/50 ML SYRINGE IVP SCH ×2 (10:03→15:43)
[2019-10-25] MEDS ORDERED: INSULIN REGULAR HUMAN 300 UNIT/3 ML VIAL IVP SCH ×2 (10:03→15:44)
--- NOTE | 2019-10-25 10:58 | PROVIDER PROGRESS NOTE ---
Subjective - Prog Note Date Prog Note Date: 10/25/19 Prog Note Time: 10:56 - Subjective Subjective: She is distraught. Crying. Angry. Feels that everyone is trying to hurt her. Does not recognize that she is in the hospital and thinks that she is in a friend's house and wants to go home. She is trying to pull out her IV. We have found out that her neurologist is Seferino Dillard in [place]. Current Medications - Current Medications Current Medications: Active Medications Atenolol (Tenormin) 50 mg PO DAILY [facility] Last Admin: 10/25/19 09:10 Dose: 50 mg Documented by: Dextrose (Dextrose) 50 ml IVP ONCE [facility] Stop: 10/25/19 12:00 Last Admin: 10/25/19 10:22 Dose: 50 ml Documented by: Gabapentin (Neurontin) 300 mg PO TID [facility] Last Admin: 10/25/19 09:10 Dose: 300 mg Documented by: Haloperidol (Haldol Inj) 5 mg IVP ONCE [facility] Stop: 10/25/19 11:00 Last Admin: 10/25/19 09:57 Dose: 5 mg Documented by: Sodium Chloride (Normal Saline 0.9%) 1,000 mls @ 100 mls/hr IV .Q10H [facility] Last Admin: 10/25/19 07:49 Dose: 100 mls/hr Documented by: Insulin Human Regular (Humulin R) 10 unit IVP ONCE [facility] Stop: 10/25/19 12:00 Last Admin: 10/25/19 10:24 Dose: 10 unit Documented by: Pantoprazole Sodium (Protonix) 40 mg PO QDAC [facility] Last Admin: 10/25/19 07:51 Dose: 40 mg Documented by: Sodium Chloride (Normal Saline Flush 0.9%) 10 ml IVP PRN PRN PRN Reason: NEEDED PER PROVIDER ORDERS Sodium Chloride (Normal Saline Flush 0.9%) 10 ml IVP 0100,0900,1700 [facility] Last Admin: 10/25/19 07:51 Dose: 10 ml Documented by: Tramadol HCl (Ultram) 50 - 100 mg PO Q12H PRN PRN Reason: PAIN Last Admin: 10/25/19 09:10 Dose: 50 mg Documented by: Potassium Chloride 40 meq PO DAILY 02/18/18 atenoloL [Atenolol] 100 mg PO BID 02/18/18 lisinopriL [Lisinopril] 20 mg PO DAILY 02/18/18 Ascorbic Acid [Vitamin C] 1,000 mg PO DAILY 08/07/19 Calcium Carbonate [Calcium] 1,000 mg PO DAILY 08/07/19 Digoxin 125 mcg PO DAILY 08/07/19 Furosemide 80 mg PO DAILY 08/07/19 Gabapentin 300 mg PO TID 08/07/19 clonazePAM [Clonazepam] 0.5 mg PO DAILY PM 10/21/19 traMADol [Ultram] 50 mg PO TID PRN 10/21/19 Objective - Vital Signs/Intake & Output Reviewed Vital Signs: Yes Vital Signs: Vital Signs x48h Temp Pulse Pulse Resp BP BP Pulse Ox 10/25/19 07:59 36.5 C 89 16 115/56 L 97 10/25/19 07:27 36.6 C 86 16 102/69 100 10/25/19 06:40 90 16 118/64 100 10/25/19 06:30 36.7 C 78 21 97/68 98 10/25/19 06:11 88 15 97/68 97 10/25/19 05:21 91 16 108/68 98 10/25/19 05:05 84 28 H 99/71 95 10/25/19 04:00 36.4 C L 76 16 101/77 96 Intake & Output: Intake & Output 10/22/19 10/23/19 10/24/19 10/25/19 23:59 23:59 23:59 23:59 Intake Total 1130 Output Total 100 Balance 1030 - Objective General Appearance: positive: Severe distress (Emotional. She is telling us that her legs hurt from restless leg syndrome) Eyes Bilateral: positive: PERRL ENT: positive: Dry mucous membranes Neck: positive: No JVD. negative: Stiff neck, Carotid bruit Respiratory: positive: Chest non-tender, No respiratory distress. negative: Wheezes, Rales, Rhonchi Cardiovascular: positive: Irregularly irregular, Tachycardia. negative: Gallop/S4, Friction rub Abdomen: positive: Non-tender, No organomegaly, Nml bowel sounds, No distention Skin: positive: Warm, Dry, Pallor Extremities: positive: Full ROM, No pedal edema Neurologic/Psychiatric: positive: CN's nml (2-12), Disoriented to person, Disoriented to place, Disoriented to time. negative: Motor nml (Resting tremors, intention tremors, but is strong enough to sit herself up and try and get out of bed.) - Lab Results Fish Bones: 10/25/19 04:50 10/25/19 09:27 Other Labs: Lab Results x24hrs 10/25/19 10/25/19 10/25/19 Range/Units 09:27 04:53 04:50 WBC (4.8-10.8) x10^3/uL RBC (4.20-5.40) 10^6/uL Hgb (12.0-16.0) g/dL Hct (37.0-47.0) % MCV (81.0-99.0) fL MCH (27.0-31.0) pg MCHC (32.0-36.0) g/dL RDW (12.0-15.0) % Plt Count (130-450) 10^3/uL MPV (7.9-10.8) fL Neut # (Auto) (1.5-6.6) 10^3/uL Lymph # (Auto) (1.5-3.5) 10^3/uL Haines # (Auto) (0.0-1.0) 10^3/uL Eos # (Auto) (0.0-0.7) 10^3/uL Baso # (Auto) (0.0-0.1) 10^3/uL Absolute Nucleated RBC x10^3/uL Nucleated RBC % /100WBC Sodium 136 (135-145) mmol/L Potassium 6.7 H* 6.9 H* (3.5-5.0) mmol/L Chloride 102 (101-111) mmol/L Carbon Dioxide 23 (21-32) mmol/L Anion Gap 11.0 (6-13) BUN 90 H* (6-20) mg/dL Creatinine 3.4 H (0.4-1.0) mg/dL Estimated GFR (MDRD) 13 L (>89) Glucose 110 H (70-100) mg/dL Calcium 9.3 (8.5-10.3) mg/dL Total Bilirubin 0.6 (0.2-1.0) mg/dL AST 18 (10-42) IU/L ALT 10 (10-60) IU/L Alkaline Phosphatase 53 (42-121) IU/L Total Protein 7.2 (6.7-8.2) g/dL Albumin 3.9 (3.2-5.5) g/dL Globulin 3.3 (2.1-4.2) g/dL Albumin/Globulin Ratio 1.2 (1.0-2.2) Lipase 29 (22-51) U/L Urine Color YELLOW Urine Clarity CLEAR (CLEAR) Urine pH 5.5 (5.0-7.5) PH Ur Specific [place] 1.025 (1.002-1.030) Urine Protein NEGATIVE (NEGATIVE) mg/dL Urine Glucose (UA) NEGATIVE (NEGATIVE) mg/dL Urine Ketones NEGATIVE (NEGATIVE) mg/dL Urine Occult Blood NEGATIVE (NEGATIVE) Urine Nitrite NEGATIVE (NEGATIVE) Urine Bilirubin NEGATIVE (NEGATIVE) Urine Urobilinogen 0.2 (NORMAL) (NORMAL) E.U./dL Ur Leukocyte Esterase NEGATIVE (NEGATIVE) Ur Microscopic Review NOT INDICATED Urine Culture Comments NOT INDICATED Last Dose Date Last Dose Time Digoxin ng/mL 10/25/19 10/25/19 Range/Units 04:50 04:48 WBC 10.4 (4.8-10.8) x10^3/uL RBC 4.59 (4.20-5.40) 10^6/uL Hgb 13.1 (12.0-16.0) g/dL Hct 41.8 (37.0-47.0) % MCV 91.1 (81.0-99.0) fL MCH 28.5 (27.0-31.0) pg MCHC 31.3 L (32.0-36.0) g/dL RDW 13.3 (12.0-15.0) % Plt Count 223 (130-450) 10^3/uL MPV 11.8 H (7.9-10.8) fL Neut # (Auto) 6.7 H (1.5-6.6) 10^3/uL Lymph # (Auto) 2.1 (1.5-3.5) 10^3/uL Haines # (Auto) 1.2 H (0.0-1.0) 10^3/uL Eos # (Auto) 0.4 (0.0-0.7) 10^3/uL Baso # (Auto) 0.1 (0.0-0.1) 10^3/uL Absolute Nucleated RBC 0.00 x10^3/uL Nucleated RBC % 0.0 /100WBC Sodium (135-145) mmol/L Potassium (3.5-5.0) mmol/L Chloride (101-111) mmol/L Carbon Dioxide (21-32) mmol/L Anion Gap (6-13) BUN (6-20) mg/dL Creatinine (0.4-1.0) mg/dL Estimated GFR (MDRD) (>89) Glucose (70-100) mg/dL Calcium (8.5-10.3) mg/dL Total Bilirubin (0.2-1.0) mg/dL AST (10-42) IU/L ALT (10-60) IU/L Alkaline Phosphatase (42-121) IU/L Total Protein (6.7-8.2) g/dL Albumin (3.2-5.5) g/dL Globulin (2.1-4.2) g/dL Albumin/Globulin Ratio (1.0-2.2) Lipase (22-51) U/L Urine Color Urine Clarity (CLEAR) Urine pH (5.0-7.5) PH Ur Specific [place] (1.002-1.030) Urine Protein (NEGATIVE) mg/dL Urine Glucose (UA) (NEGATIVE) mg/dL Urine Ketones (NEGATIVE) mg/dL Urine Occult Blood (NEGATIVE) Urine Nitrite (NEGATIVE) Urine Bilirubin (NEGATIVE) Urine Urobilinogen (NORMAL) E.U./dL Ur Leukocyte Esterase (NEGATIVE) Ur Microscopic Review Urine Culture Comments Last Dose Date UNKNONW Last Dose Time UNKNOWN Digoxin 1.4 ng/mL ABX Reporting Has patient been on IV antibiotics over the past 48 hours?: No Assessment/Plan - Problem List (1) Delirium Impression: At this time we think that she has drug-induced hallucinations. However the renal failure with its subsequent rise in BUN is not helping because that can cause hallucinations. Plan: I have called her neurologist, Dr. Seferino Dillard at [phone]. He is doing a nerve conduction test right now so I have left my name and number for him to call me back. Restraints, soft wrist restraints as she is trying to get out of bed and it is unsafe to do so, and she is pulling out her IV Haldol 5 mg IV push x1 (2) Acute renal insufficiency Impression: From dehydration. Plan: Continue 0.9 normal saline Encourage p.o. intake (3) Hyperkalemia Impression: Repeat potassium was 6.7. She started at 6.9 and is already received D50 and 10 of insulin. I will repeat that. I was going to give her Kayexalate but she is not able to take p.o. at this time because of the screaming. (4) Leg pain Impression: She attributes that to her restless leg syndrome and states is "a 10 out of a 1 0". In her home lead list I see gabapentin, tramadol. Plan: Resume gabapentin Resume tramadol but reduced for renal dosing and that would make it twice daily Qualifiers: Laterality: bilateral Qualified Code(s): M79.604 - Pain in right leg; M7 9.605 - Pain in left leg (5) Candidal intertrigo Impression: It is underneath the pannus of her breast. Skin is red, moist. Plan: Nystatin powder and cream (6) Parkinsons disease Impression: Right now we are holding her Sinemet since it may be responsible for some of her hallucinations. Social work is spoken to daughter at length. Daughter does not necessarily want mom to be placed in half-way facility but may be looking for some respite. She has caregiver burnout. Is tearful. Plan: Continue social work consultation Physical therapy evaluation for rehab needs. That will then establish if this p atient is a candidate for rehab in a SNF. Or will family have to do private pay for respite. We will also recommend outpatient palliative care consultation to help this family cope and this patient cope with the slow deterioration the Parkinson's will bring over the next few months if not years. At this time the patient is not able to participate in advance care planning conversation. I will await her return to calm us. I would also like to have the family present. I would like to address CODE STATUS, and discussion of expectation of disease progress in view of a diagnosis of Parkinson's.
[2019-10-25] MEDS: APIXABAN 5 MG TABLET PO SCH ×2 (12:46→21:35)
[2019-10-25 14:36] LABS: CREATININE 2.7 mg/dL (0.4-1.0)
[2019-10-25] MEDS: clonazePAM 0.5 MG TABLET PO PRN (16:56)
[2019-10-25] MEDS: atenoloL 25 MG TABLET PO SCH ×2 (16:56→21:07)
[2019-10-25] MEDS ORDERED: SODIUM POLYSTYRENE SULFONATE 15 GM/60 ML BOTTLE PO ONE (21:40)
[2019-10-26] MEDS: clonazePAM 0.5 MG TABLET PO PRN (01:18)
[2019-10-26] MEDS: SODIUM CHLORIDE FLUSH 0.9% 10 ML SYRINGE IVP SCH ×4 (01:46→23:44)
[2019-10-26] MEDS: SODIUM CHLORIDE 0.9% 1,000 ML IV SCH ×3 (04:35→23:35)
[2019-10-26 04:55] LABS: BASOPHILS # (AUTO) 0.1 10^3/uL (0.0-0.1); BASOPHILS % (AUTO) 0.5 %; EOSINOPHILS # (AUTO) 0.2 10^3/uL (0.0-0.7); EOSINOPHILS % (AUTO) 2.1 %; HGB - HEMOGLOBIN 11.7 g/dL (12.0-16.0); LYMPHOCYTES # (AUTO) 2.2 10^3/uL (1.5-3.5); LYMPHOCYTES % (AUTO) 24.4 %; MEAN CORPUSCULAR HGB CONC 31.3 g/dL (32.0-36.0); MEAN CORPUSCULAR VOLUME 92.8 fL (81.0-99.0); MEAN PLATELET VOLUME 11.9 fL (7.9-10.8); MONOCYTES # (AUTO) 1.1 10^3/uL (0.0-1.0); MONOCYTES % (AUTO) 12.4 %; NEUTROPHILS # (AUTO) 5.5 10^3/uL (1.5-6.6); NEUTROPHILS % (AUTO) 60.2 %; PLT - PLATELET COUNT 191 10^3/uL (130-450); RED BLOOD COUNT 4.03 10^6/uL (4.20-5.40); RED CELL DISTRIBUTION WIDTH 13.3 % (12.0-15.0); WHITE BLOOD COUNT 9.1 x10^3/uL (4.8-10.8)
[2019-10-26 05:05] LABS: CALCIUM 8.8 mg/dL (8.5-10.3); CREATININE 1.9 mg/dL (0.4-1.0)
[2019-10-26] MEDS: GABAPENTIN 300 MG CAPSULE PO SCH ×3 (05:50→21:17)
[2019-10-26] MEDS: PANTOPRAZOLE 40 MG TABLET PO SCH (05:50)
[2019-10-26] MEDS: atenoloL 25 MG TABLET PO SCH ×2 (08:47→21:17)
[2019-10-26] MEDS: APIXABAN 5 MG TABLET PO SCH ×2 (08:47→21:17)
[2019-10-26] MEDS: QUEtiapine 25 MG TABLET PO SCH ×2 (09:45→21:17)
--- NOTE | 2019-10-26 12:02 | ADVANCE CARE PLANNING NOTE ---
Advance Care Planning - Planning Encounter Date: 10/26/19 Time: 12:01 Purpose: Establish understanding of disease progress, and CODE STATUS Parties in Attendance: Hospitalist Dr. Acosta, daughter Lindsey Lagos, DNP student Thelma Gonzáles, and patient Decisional Capacity of the Patient: impaired. She was halucinating, yelling, pulling at IV last night and required Haldol for one dose. this am she is much more lucid, sleepy. 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 2 years ago she began having problems with falls, walking. Memory loss started ensuing. She was seen May 2018 at the [facility] and was felt to be the early stages of Parkinson's disease. She was then referred and saw neurology in February [address] [place] [address] Dillard. He has diagnosed her as either early Parkinson's disease versus multiple system atrophy versus Lewy body dementia. The patient was started on Sinemet. Most recently, in the last month, she is been on clonazepam for insomnia, agitation. - Encounter Subjective/Patient's Story: She was born and raised in [place] and lived there until she was about 20 years of age and then moved to [place]. She was , and she was from her ex- but they are still friends. He comes over at least once a week to have dinner, and help a little bit around the house. They had 2 children, Josiah and Camila. Josiah lives in [place]. States he lives in [facility] [place] [place] with her . States he regards her mom as "her best friend". She regards her mom is the most important person in her life next to her . "I would do anything for her". 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 She ended up having to retire because of her falls, and slight memory loss. Before she had to retire, she is basically a loner. She does not have an extensive social group of friends. Is not a member of her yarsanism group or craft group. She loves her crafting. 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 She is never had a drinking problem. Never had any mental health issues. She had told her daughter and son that if she ever ended up in a vegetative state or can no longer take care of herself that she did not want aggressive measures taken to keep her alive. Starting about 2 years ago, the patient noted that her hands are starting to shake with intention and at rest. She started feeling like she could not walk. She would "freeze" and sometimes suddenly fall down. She was seen at the [facility] in May 2018 for this and was diagnosed as possible early stage Parkinson's disease. By February 2019 she had been referred to Dr. Dillard in [place] for neurological opinion. By then, she was also hallucinating. She did have 3 to 5 day episodes that happened 5 times over 2 years. But they were not so severe that the patient was frightened, or acting out or belligerent. She had night terrors where she would wake up from sleep anxious. Shaking. Memory loss was problematic. Starting about a year and a half ago, daughter started spending more more time with mom. Even though Camila has her own job as a teacher at [employer], she would come stay in her mom's apartment and for the last year and a half has been driving her to her appointments, buying her groceries, and filling out the pillboxes. Mrs. Lagos was still able to dress herself, feed herself, and for the most part remember to take her medications.She was getting more more depressed. Starting to use a walker. Starting to recognize that she was more and more disabled from mental perspective and it was making her very unhappy. A month ago there was a difference. Sinemet had already been started, but the patient was complaining bitterly of restless leg syndrome, restless leg pain, and insomnia. She was started on clonazepam and was taking a quarter of a tablet at night. She began having increasing hallucinations, increasing bouts of anger and paranoia. She was convinced that her daughter was out to harm her. Or that there were people in the apartment going to harm her that were not there. Personal attacks against her daughter became more more frequent and heartbreaking. This last week, her hallucinations and delusions were quite severe. She was not eating very much, and refusing to take her medications. For 3 nights she did not take her clonazepam and her daughter wonders if this has anything to do with it. She was brought to the emergency room. Overall, son and daughter do know that the next few plans to have to choctaw around how their mom is going to be taking care of as she continues to deteriorate from her disease. Objective/Medical Story: Patient is a 68-year-old female with Parkinson's disease who is on Sinemet, Atrial fibrillation on Eliquis, chronic lower extremity edema and anxiety who presented to the ED via EMS with hallucinations. Her daughter reports that she has been hallucinating for the past 3 days. Specific examples were the patient thinking that her kitten had gone missing and asking for it to be found when in actuality she does not have a kitten. She would also intermittently shout out calling random names of people who are unknown to her daughter and likely her and are not around. She would sometimes address her daughter with a different name. Other times she would lash out accusing her daughter and her of planning to hurt her still from her. Her daughter is a schoolteacher who lives in [facility] but is currently living with her at her home and [place]. Sometimes she would be insistent on being taken downstairs when she is already downstairs in the house. Other times she would be insistent on going out of the house when she is unable to ambulate any significant distance. Due to the patient's Parkinson's disease she freezes up often and requires assistance moving a few steps to the bathroom. Her daughter uses a walker and wheelchair as needed to aid her in going from one place to the other in the house. She was last admitted in July 2019 with right lower extremity cellulitis. Prior to that admission she had been receiving home health wound care for lower extremity ulcers likely due to chronic edema. She was due to see wound care this coming Monday, October 28, 2019. Work-up in the ED included a BMP which showed a creatinine level of 3.4 and a potassium of 6.9. Patient's baseline creatinine has been in the range of 1.0- 1.7 in the past. As a result she was presented for admission for further treatment. At bedside the patient appears to be resting calmly. She is alert and oriented x3. She denies any chest pain, dyspnea, abdominal pain, nausea, vomiting, fever or chills. She complains of some pain in her right upper extremity due to a fall. She had a CT scan of the brain done with the preliminary reports being unremarkable. - Past Medical History Cardiovascular: reports: Hypertension, Atrial fibrillation Respiratory: reports: None Neuro: reports: Parkinson's Endocrine/Autoimmune: reports: None GI: reports: None ANATOMY TEACHER: reports: None : reports: None, Chronic bladder infection, Frequency HEENT: reports: Chronic vision loss Psych: reports: Anxiety Musculoskeletal: reports: Other Derm: reports: None, Other She has received normal saline drip, dextrose and insulin twice, and potassium is now 5.1. Creatinine started at 3.4 and is now 1.9. She did require 1 dose of Haldol, and wrist restraints her first day here. Today she is much more alert, appropriate. Sleepy but able to feed herself, and no longer needing restraints. She recognizes that she was here because of severe hallucinations. Goals of Care: 1. Daughter guides the conversation more than brother does. Patient is sleepy. Daughter wants mom to return to home. Son is already looking at assisted living facilities and detention in the [facility]. 2. Both daughter and son recognize expected disease course and deterioration. They have educated themselves using resources on the Internet. They want to keep her as safe and as happy for as long as possible. They recognize that taking care of her will be very quickly overwhelming, if not already, but want to recognize her independence for as long as she can voice her opinion. Plan: 1. They want to talk to mom about CODE STATUS when she is more lucid. While she has stated that she never wanted to be resuscitated if she was in a vegetative state, they are starting to realize that her debility may warrant a conversation about DO NOT RESUSCITATE sooner rather than later. At this time she is still full code. 2. They will try and decide if they want mom to return to home in the next couple of days or they are going to abide by any recommendations by our physical therapist about rehabilitation at a group home facility. If she does go to a group home facility for rehab, they would like her to go to [facility]. A lot of their decision has to do with COVID-19 phase 2 or phase 3 recommendations. If mom ends up in a group home facility where they cannot visit her, they do not know if they want her to go. 3. I do recommend that they continue to follow-up with the neurologist, Dr. Dillard, for any further recommendations he may have about her disease. He did recommend that we stop the Sinemet at this time and continue clonazepam. 4. The daughter did ask about assisted suicide. She asked how someone would start that process. She would wake to ask her mom, who has been stating more and more that she does not want to live life this way, before moving forward. I recommended that she start with her primary care provider, Benita Contreras. 5. To continue investigating assisted living facilities. I recommend that they look at assisted living facilities that are all-encompassing. Initially she could live in an assisted living facility with some help. As she deteriorates with Lewy body dementia or multisystem atrophy, she will need more and more care. She would need to be transition to a group home facility with a memory care unit for total care. Code Status: Attempt Resuscitation Time spent on advance care plannin minutes
--- NOTE | 2019-10-26 13:25 | PROVIDER PROGRESS NOTE ---
Subjective - Prog Note Date Prog Note Date: 10/26/19 Prog Note Time: 16:37 - Subjective Pt reports feeling: Improved Subjective: she was sleepy this am but woke to being alert, and oriented to place and person. She was upset at remembering her hallucinations and her behavior. then went back to sleep but does cry out for her son, or looking for someone, or asking us to find her cat. Daughter has been at the bedside all day so far. Current Medications - Current Medications Current Medications: Active Medications Apixaban (Eliquis) 5 mg PO BID [facility] Last Admin: 10/26/19 08:47 Dose: 5 mg Documented by: Atenolol (Tenormin) 100 mg PO BID [facility] Last Admin: 10/26/19 08:47 Dose: 100 mg Documented by: Clonazepam (Klonopin) 0.25 mg PO BID PRN PRN Reason: Anxiety Last Admin: 10/26/19 01:18 Dose: 0.25 mg Documented by: Gabapentin (Neurontin) 300 mg PO TID [facility] Last Admin: 10/26/19 13:18 Dose: 300 mg Documented by: Sodium Chloride (Normal Saline 0.9%) 1,000 mls @ 100 mls/hr IV .Q10H [facility] Last Admin: 10/26/19 13:18 Dose: 100 mls/hr Documented by: Pantoprazole Sodium (Protonix) 40 mg PO QDAC [facility] Last Admin: 10/26/19 05:50 Dose: 40 mg Documented by: Quetiapine Fumarate (Seroquel) 25 mg PO BID [facility] Last Admin: 10/26/19 09:45 Dose: 25 mg Documented by: Sodium Chloride (Normal Saline Flush 0.9%) 10 ml IVP PRN PRN PRN Reason: NEEDED PER PROVIDER ORDERS Sodium Chloride (Normal Saline Flush 0.9%) 10 ml IVP 0100,0900,1700 [facility] Last Admin: 10/26/19 15:58 Dose: 10 ml Documented by: Tramadol HCl (Ultram) 50 - 100 mg PO Q12H PRN PRN Reason: PAIN Last Admin: 10/26/19 14:21 Dose: 50 mg Documented by: Potassium Chloride 40 meq PO DAILY 02/18/18 atenoloL [Atenolol] 100 mg PO BID 02/18/18 lisinopriL [Lisinopril] 20 mg PO DAILY 02/18/18 Ascorbic Acid [Vitamin C] 1,000 mg PO DAILY 08/07/19 Calcium Carbonate [Calcium] 1,000 mg PO DAILY 08/07/19 Digoxin 125 mcg PO DAILY 08/07/19 Furosemide 80 mg PO DAILY 08/07/19 Gabapentin 300 mg PO TID 08/07/19 clonazePAM [Clonazepam] 0.5 mg PO DAILY PM 10/21/19 traMADol [Ultram] 50 mg PO TID PRN 10/21/19 Objective - Vital Signs/Intake & Output Reviewed Vital Signs: Yes Vital Signs: Vital Signs x48h Temp Pulse Resp BP Pulse Ox Pulse Ox 10/26/19 12:00 37.3 C 77 16 120/47 L 95 10/26/19 11:49 95 10/26/19 07:56 37.2 C 80 22 125/50 L 94 Intake & Output: Intake & Output 10/23/19 10/24/19 10/25/19 10/26/19 23:59 23:59 23:59 23:59 Intake Total 2250 2296.667 Output Total 1125 650 Balance 1125 1646.667 - Objective General Appearance: positive: No acute distress, Lethargic Eyes Bilateral: positive: PERRL ENT: positive: Dry mucous membranes Neck: positive: No JVD Respiratory: positive: Chest non-tender, No respiratory distress. negative: Wheezes, Rales, Rhonchi Cardiovascular: positive: Regular rate & rhythm, Gallop/S4, Friction rub Abdomen: positive: Non-tender, No organomegaly, Nml bowel sounds, No distention Skin: positive: Warm, Dry, Pallor, Other (anterior shins with skin tears on admission) Extremities: positive: Non-tender, Pedal edema Neurologic/Psychiatric: positive: CN's nml (2-12), Disoriented to person (off and on), Disoriented to place, Disoriented to time, Slurred/abnml speech. negative: Motor nml (hands do have tremor at rest. not able to sit up for me bc too sleepy but did get up with PT.Was able to get her to sit up at the edge of the bed and use the bed bar with a moderate assist.. He was not able to get her to sit up and he did not trust her balance because she still so sleepy. So he la) - Lab Results Fish Bones: 10/26/19 04:15 10/26/19 04:15 Other Labs: Lab Results x24hrs 10/26/19 10/26/19 10/25/19 Range/Units 04:15 04:15 21:01 WBC 9.1 (4.8-10.8) x10^3/uL RBC 4.03 L (4.20-5.40) 10^6/uL Hgb 11.7 L (12.0-16.0) g/dL Hct 37.4 (37.0-47.0) % MCV 92.8 (81.0-99.0) fL MCH 29.0 (27.0-31.0) pg MCHC 31.3 L (32.0-36.0) g/dL RDW 13.3 (12.0-15.0) % Plt Count 191 (130-450) 10^3/uL MPV 11.9 H (7.9-10.8) fL Neut # (Auto) 5.5 (1.5-6.6) 10^3/uL Lymph # (Auto) 2.2 (1.5-3.5) 10^3/uL Hardee # (Auto) 1.1 H (0.0-1.0) 10^3/uL Eos # (Auto) 0.2 (0.0-0.7) 10^3/uL Baso # (Auto) 0.1 (0.0-0.1) 10^3/uL Absolute Nucleated RBC 0.00 x10^3/uL Nucleated RBC % 0.0 /100WBC Sodium 140 (135-145) mmol/L Potassium 5.1 H 5.9 H (3.5-5.0) mmol/L Chloride 110 (101-111) mmol/L Carbon Dioxide 22 (21-32) mmol/L Anion Gap 8.0 (6-13) BUN 60 H (6-20) mg/dL Creatinine 1.9 H (0.4-1.0) mg/dL Estimated GFR (MDRD) 26 L (>89) Glucose 103 H (70-100) mg/dL Calcium 8.8 (8.5-10.3) mg/dL Coronavirus (PCR) 10/25/19 10/25/19 Range/Units 14:09 10:25 WBC (4.8-10.8) x10^3/uL RBC (4.20-5.40) 10^6/uL Hgb (12.0-16.0) g/dL Hct (37.0-47.0) % MCV (81.0-99.0) fL MCH (27.0-31.0) pg MCHC (32.0-36.0) g/dL RDW (12.0-15.0) % Plt Count (130-450) 10^3/uL MPV (7.9-10.8) fL Neut # (Auto) (1.5-6.6) 10^3/uL Lymph # (Auto) (1.5-3.5) 10^3/uL Hardee # (Auto) (0.0-1.0) 10^3/uL Eos # (Auto) (0.0-0.7) 10^3/uL Baso # (Auto) (0.0-0.1) 10^3/uL Absolute Nucleated RBC x10^3/uL Nucleated RBC % /100WBC Sodium 138 (135-145) mmol/L Potassium 6.1 H* (3.5-5.0) mmol/L Chloride 107 (101-111) mmol/L Carbon Dioxide 20 L (21-32) mmol/L Anion Gap 11.0 (6-13) BUN 80 H* (6-20) mg/dL Creatinine 2.7 H (0.4-1.0) mg/dL Estimated GFR (MDRD) 18 L (>89) Glucose 90 (70-100) mg/dL Calcium 9.0 (8.5-10.3) mg/dL Coronavirus (PCR) NEGATIVE ABX Reporting Has patient been on IV antibiotics over the past 48 hours?: No Assessment/Plan - Problem List (1) Acute renal insufficiency Impression: Impression: From dehydration. Creatinine started at 3.4 then 2.7 and is 1.9 today Expect baseline by tomorrow or 10/27 Plan: Continue 0.9 normal saline Encourage p.o. intake (2) Hyperkalemia Impression: Potassium started at 6.9 then 6.7 then 6.1 then 5.9 and 5.1 today She has received D50 and insulin 3 times. Not able to do much kayexalate. Will continue to monitor and no D50 today. (4) Leg pain Impression: She attributes that to her restless leg syndrome and states is "a 10 out of a 10". In her home lead list I see gabapentin, tramadol. Plan: gabapentin was resumed tramadol was resumed but reduced for renal dosing and that would make it twice daily Clonzepam also resumed. Qualifiers: Laterality: bilateral Qualified Code(s): M79.604 - Pain in right leg; M79.605 - Pain in left leg (5) Candidal intertrigo Impression: It is underneath the pannus of her breast. Skin is red, moist. 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 He feels that she has an atypical presentation of Parkinson's. She has more of a gait disorder even though she does have some mild upper extremity cogwheeling and tremor. 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 They are more likely to get cognitive issues. They have a variable prognosis that is worse than Parkinson's. Whether life longevity is okay, their disability is quite severe. Dementia can be quite profound. And they have more walking problems with increased fall risk. He is also wondering if she has early Lewy body dementia. He feels is okay to stop the Sinemet. He did give her some small doses of clonazepam. I shared with him that I was planning on having an advance care planning conversation with the daughter, and recommending palliative care. He is in agreement with that. He also feels that the Lasix is being used to control her leg edema may need to be titrated down. She has an intact ejection fraction, no diastolic dysfunction, and leg edema may be more due to venous insufficiency that would respond better to lymphedema therapy than diuretics. Plan: social work consultation is helping family decide which SNF for rehab Physical therapy evaluation for rehab needs was done today. She will need more therapy while here. I have recommended outpatient palliative care consultation to help this family cope and this patient cope with the slow deterioration the Parkinson's will bring over the next few months if not years. When she leaves here, Dr. Silva will need to refer. Advanced Care planning conversation held under separate note. Add seroquel to help with crying out and hallucinations
[2019-10-26] MEDS: traMADol 50 MG TABLET PO PRN (14:21)
[2019-10-26] MEDS: ACETAMINOPHEN 325 MG TABLET PO PRN (23:57)
[2019-10-27 05:15] LABS: BASOPHILS # (AUTO) 0.1 10^3/uL (0.0-0.1); BASOPHILS % (AUTO) 0.6 %; EOSINOPHILS # (AUTO) 0.3 10^3/uL (0.0-0.7); EOSINOPHILS % (AUTO) 2.9 %; HGB - HEMOGLOBIN 11.2 g/dL (12.0-16.0); LYMPHOCYTES # (AUTO) 2.4 10^3/uL (1.5-3.5); LYMPHOCYTES % (AUTO) 26.2 %; MEAN CORPUSCULAR HEMOGLOBIN 28.6 pg (27.0-31.0); MEAN CORPUSCULAR HGB CONC 31.5 g/dL (32.0-36.0); MEAN CORPUSCULAR VOLUME 90.8 fL (81.0-99.0); MEAN PLATELET VOLUME 11.5 fL (7.9-10.8); MONOCYTES # (AUTO) 0.9 10^3/uL (0.0-1.0); MONOCYTES % (AUTO) 10.5 %; NEUTROPHILS # (AUTO) 5.3 10^3/uL (1.5-6.6); NEUTROPHILS % (AUTO) 59.5 %; PLT - PLATELET COUNT 163 10^3/uL (130-450); RED BLOOD COUNT 3.92 10^6/uL (4.20-5.40); RED CELL DISTRIBUTION WIDTH 13.3 % (12.0-15.0)
[2019-10-27 05:21] LABS: CALCIUM 8.4 mg/dL (8.5-10.3); CREATININE 1.5 mg/dL (0.4-1.0)
[2019-10-27] MEDS: PANTOPRAZOLE 40 MG TABLET PO SCH (08:01)
[2019-10-27] MEDS: APIXABAN 5 MG TABLET PO SCH ×2 (08:01→21:12)
[2019-10-27] MEDS: GABAPENTIN 300 MG CAPSULE PO SCH ×3 (08:01→21:12)
[2019-10-27] MEDS: QUEtiapine 25 MG TABLET PO SCH ×2 (08:01→21:12)
[2019-10-27] MEDS: atenoloL 25 MG TABLET PO SCH ×2 (08:01→21:11)
[2019-10-27] MEDS: SODIUM CHLORIDE FLUSH 0.9% 10 ML SYRINGE IVP SCH ×3 (09:16→23:57)
[2019-10-27] MEDS: SODIUM CHLORIDE 0.9% 1,000 ML IV SCH ×2 (09:16→19:01)
--- NOTE | 2019-10-27 13:40 | PROVIDER PROGRESS NOTE ---
Subjective - Prog Note Date Prog Note Date: 10/27/19 Prog Note Time: 13:40 - Subjective Subjective: She definitely sundown's. Last night was another agitated night for her. But calm this morning she was alert, oriented, cooperative. Calm. No hallucinat ions. Cooperative with physical therapy. Easily wiped out with fatigue afterwards. Eating her food. Tolerating the Seroquel. Current Medications - Current Medications Current Medications: Active Medications Generic Name Dose Route Start Last Admin Trade Name Freq PRN Reason Stop Dose Admin Acetaminophen 650 mg 10/26/19 23:40 10/26/19 23:57 Tylenol PO 650 mg Q6HR PRN Administration Pain or Fever > 38C (100.4F) Apixaban 5 mg 10/25/19 12:00 10/27/19 08:01 Eliquis PO 5 mg BID AYAZ Administration Atenolol 100 mg 10/25/19 17:00 10/27/19 08:01 Tenormin PO 100 mg BID AYAZ Administration Clonazepam 0.25 mg 10/25/19 11:42 10/26/19 01:18 Klonopin PO 0.25 mg BID PRN Administration Anxiety Gabapentin 300 mg 10/25/19 09:00 10/27/19 08:01 Neurontin PO 300 mg TID AYAZ Administration Sodium Chloride 1,000 mls @ 100 mls/hr 10/25/19 07:00 10/27/19 09:16 Normal Saline 0.9% IV 100 mls/hr .Q10H AYAZ Administration Pantoprazole Sodium 40 mg 10/25/19 07:00 10/27/19 08:01 Protonix PO 40 mg QDAC AYAZ Administration Quetiapine Fumarate 25 mg 10/26/19 10:00 10/27/19 08:01 Seroquel PO 25 mg BID AYAZ Administration Sodium Chloride 10 ml 10/25/19 06:33 Normal Saline Flush 0.9% IVP PRN PRN NEEDED PER PROVIDER ORDERS Sodium Chloride 10 ml 10/25/19 09:00 10/27/19 09:16 Normal Saline Flush 0.9% IVP 10 ml 0100,0900,1700 AYAZ Administration Tramadol HCl 50 - 100 mg 10/25/19 09:00 10/26/19 14:21 Ultram PO 50 mg Q12H PRN Administration PAIN Potassium Chloride 40 meq PO DAILY 02/18/18 atenoloL [Atenolol] 100 mg PO BID 02/18/18 lisinopriL [Lisinopril] 20 mg PO DAILY 02/18/18 Ascorbic Acid [Vitamin C] 1,000 mg PO DAILY 08/07/19 Calcium Carbonate [Calcium] 1,000 mg PO DAILY 08/07/19 Digoxin 125 mcg PO DAILY 08/07/19 Furosemide 80 mg PO DAILY 08/07/19 Gabapentin 300 mg PO TID 08/07/19 clonazePAM [Clonazepam] 0.5 mg PO DAILY PM 10/21/19 traMADol [Ultram] 50 mg PO TID PRN 10/21/19 Objective - Vital Signs/Intake & Output Reviewed Vital Signs: Yes Vital Signs: Vital Signs x48h Temp Pulse Resp BP Pulse Ox 10/27/19 09:00 37.6 C H 96 18 117/52 L 94 Intake & Output: Intake & Output 10/24/19 10/25/19 10/26/19 10/27/19 23:59 23:59 23:59 23:59 Intake Total 2250 4438.334 1798.333 Output Total 1125 1825 400 Balance 1125 2613.334 1398.333 - Objective General Appearance: positive: No acute distress, Alert, Other (Very flat affect, always appears staring but is interactive appropriately.) Eyes Bilateral: positive: PERRL ENT: positive: Pharynx nml Neck: positive: No JVD. negative: Stiff neck Respiratory: positive: Chest non-tender. negative: Wheezes, Rales, Rhonchi Cardiovascular: positive: Regular rate & rhythm, No murmur. negative: Gallop/S4, Friction rub Abdomen: positive: Non-tender, No organomegaly, Nml bowel sounds, No distention Skin: positive: Warm, Dry. negative: Pallor Extremities: positive: Non-tender, Pedal edema, Other (Skin tear of both legs, anterior shins, drying up. Skin will most likely still follow-up. There is no evidence of infection and that there is no surrounding redness, heat, drainage.) Neurologic/Psychiatric: positive: Oriented x3, CN's nml (2-12), Motor nml (She has baseline hand tremor at rest, disappear with reach. Minimal cogwheel ri gidity when I flex and extend at the elbow. Frozen face. Moderate generalized weakness. Needs a Yashira lift. At home she was able to walk with a walker.) - Lab Results Fish Bones: 10/27/19 04:50 10/27/19 04:50 Other Labs: Lab Results x24hrs 10/27/19 10/27/19 Range/Units 04:50 04:50 WBC 9.0 (4.8-10.8) x10^3/uL RBC 3.92 L (4.20-5.40) 10^6/uL Hgb 11.2 L (12.0-16.0) g/dL Hct 35.6 L (37.0-47.0) % MCV 90.8 (81.0-99.0) fL MCH 28.6 (27.0-31.0) pg MCHC 31.5 L (32.0-36.0) g/dL RDW 13.3 (12.0-15.0) % Plt Count 163 (130-450) 10^3/uL MPV 11.5 H (7.9-10.8) fL Neut # (Auto) 5.3 (1.5-6.6) 10^3/uL Lymph # (Auto) 2.4 (1.5-3.5) 10^3/uL [place] # (Auto) 0.9 (0.0-1.0) 10^3/uL Eos # (Auto) 0.3 (0.0-0.7) 10^3/uL Baso # (Auto) 0.1 (0.0-0.1) 10^3/uL Absolute Nucleated RBC 0.00 x10^3/uL Nucleated RBC % 0.0 /100WBC Sodium 140 (135-145) mmol/L Potassium 4.2 (3.5-5.0) mmol/L Chloride 109 (101-111) mmol/L Carbon Dioxide 22 (21-32) mmol/L Anion Gap 9.0 (6-13) BUN 39 H (6-20) mg/dL Creatinine 1.5 H (0.4-1.0) mg/dL Estimated GFR (MDRD) 35 L (>89) Glucose 100 (70-100) mg/dL Calcium 8.4 L (8.5-10.3) mg/dL ABX Reporting Has patient been on IV antibiotics over the past 48 hours?: No Assessment/Plan - Problem List (1) Acute renal insufficiency Impression: From dehydration. Creatinine started at 3.4 then 2.7 then 1.9 and is 1.5 today Expect baseline by 10/27 Plan: Continue 0.9 normal saline Encourage p.o. intake Will begin process for placement for SNF today. Hopefully can be discharged to chose facility tomorrow (2) Hyperkalemia resolved Impression: Potassium started at 6.9 then 6.7 then 6.1 then 5.9 then 5.1 and 4.2 today She has received D50 and insulin 3 times. Not able to do much kayexalate. Will continue to monitor and no D50 since 10/24 (4) Leg pain unchanged Impression: She attributes that to her restless leg syndrome and states is "a 10 out of a 10". In her home lead list I see gabapentin, tramadol. Plan: gabapentin was resumed tramadol was resumed but reduced for renal dosing and that would make it twice daily Clonzepam also resumed. Qualifiers: Laterality: bilateral Qualified Code(s): M79.604 - Pain in right leg; M79.605 - Pain in left leg (5) Candidal intertrigo Impression: It is underneath the pannus of her breast. Skin is red, moist. 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 He feels that she has an atypical presentation of Parkinson's. She has more of a gait disorder even though she does have some mild upper extremity cogwheeling and tremor. 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 They are more likely to get cognitive issues. They have a variable prognosis that is worse than Parkinson's. Whether life longevity is okay, their disability is quite severe. Dementia can be quite profound. And they have more walking problems with i ncreased fall risk. He is also wondering if she has early Lewy body dementia. He feels is okay to stop the Sinemet. He did give her some small doses of clonazepam. I shared with him that I was planning on having an advance care planning conversation with the daughter, and recommending palliative care. He is in agreement with that. He also feels that the Lasix is being used to control her leg edema may need to be titrated down. She has an intact ejection fraction, no diastolic dysfunction, and leg edema may be more due to venous insufficiency that would respond better to lymphedema therapy than diuretics. Plan: social work consultation is helping family decide which SNF for rehab. they have sent requests yesterday to [facility] (which is local) and today will broaden requests until family can decide where. Physical therapy evaluation for rehab needs has been done. She will need more therapy while here and PT feels she will benefit from SNF Rehab. I have recommended outpatient palliative care consultation to help this family cope and this patient cope with the slow deterioration the Parkinson's will bring over the next few months if not years. When she leaves here, Dr. Silva will need to refer. Advanced Care planning conversation held under separate note 10/25. Add seroquel to help with crying out and hallucinations
[2019-10-27] MEDS: ACETAMINOPHEN 325 MG TABLET PO PRN (18:55)
[2019-10-28] MEDS: SODIUM CHLORIDE 0.9% 1,000 ML IV SCH ×3 (04:51→22:32)
[2019-10-28 05:32] LABS: BASOPHILS % (AUTO) 0.5 %; EOSINOPHILS # (AUTO) 0.5 10^3/uL (0.0-0.7); EOSINOPHILS % (AUTO) 5.8 %; HGB - HEMOGLOBIN 11.2 g/dL (12.0-16.0); LYMPHOCYTES # (AUTO) 2.4 10^3/uL (1.5-3.5); LYMPHOCYTES % (AUTO) 28.8 %; MEAN CORPUSCULAR HEMOGLOBIN 28.9 pg (27.0-31.0); MEAN CORPUSCULAR HGB CONC 31.6 g/dL (32.0-36.0); MEAN CORPUSCULAR VOLUME 91.5 fL (81.0-99.0); MEAN PLATELET VOLUME 11.7 fL (7.9-10.8); MONOCYTES # (AUTO) 0.8 10^3/uL (0.0-1.0); MONOCYTES % (AUTO) 10.2 %; NEUTROPHILS # (AUTO) 4.5 10^3/uL (1.5-6.6); NEUTROPHILS % (AUTO) 54.2 %; PLT - PLATELET COUNT 163 10^3/uL (130-450); RED BLOOD COUNT 3.87 10^6/uL (4.20-5.40); RED CELL DISTRIBUTION WIDTH 13.2 % (12.0-15.0); WHITE BLOOD COUNT 8.3 x10^3/uL (4.8-10.8)
[2019-10-28 05:38] LABS: CALCIUM 8.3 mg/dL (8.5-10.3); CREATININE 1.2 mg/dL (0.4-1.0)
[2019-10-28] MEDS: PANTOPRAZOLE 40 MG TABLET PO SCH (06:08)
[2019-10-28] MEDS: GABAPENTIN 300 MG CAPSULE PO SCH ×3 (06:08→21:32)
[2019-10-28] MEDS: APIXABAN 5 MG TABLET PO SCH ×2 (07:58→21:32)
[2019-10-28] MEDS: atenoloL 25 MG TABLET PO SCH ×2 (07:58→21:32)
[2019-10-28] MEDS: QUEtiapine 25 MG TABLET PO SCH ×2 (07:58→21:32)
[2019-10-28] MEDS: ACETAMINOPHEN 325 MG TABLET PO PRN ×2 (08:11→15:51)
[2019-10-28] MEDS: SODIUM CHLORIDE FLUSH 0.9% 10 ML SYRINGE IVP SCH ×2 (11:28→21:28)
--- NOTE | 2019-10-28 12:43 | PROVIDER PROGRESS NOTE ---
Subjective - Prog Note Date Prog Note Date: 10/28/19 Prog Note Time: 12:49 - Subjective Pt reports feeling: Improved Current Medications - Current Medications Current Medications: Active Medications Acetaminophen (Tylenol) 650 mg PO Q6HR PRN PRN Reason: Pain or Fever > 38C (100.4F) Last Admin: 10/28/19 15:51 Dose: 650 mg Documented by: Apixaban (Eliquis) 5 mg PO BID [facility] Last Admin: 10/28/19 07:58 Dose: 5 mg Documented by: Atenolol (Tenormin) 100 mg PO BID [facility] Last Admin: 10/28/19 07:58 Dose: 100 mg Documented by: Clonazepam (Klonopin) 0.25 mg PO BID PRN PRN Reason: Anxiety Last Admin: 10/26/19 01:18 Dose: 0.25 mg Documented by: Gabapentin (Neurontin) 300 mg PO TID [facility] Last Admin: 10/28/19 13:38 Dose: 300 mg Documented by: Sodium Chloride (Normal Saline 0.9%) 1,000 mls @ 100 mls/hr IV .Q10H [facility] Last Admin: 10/28/19 13:38 Dose: 100 mls/hr Documented by: Pantoprazole Sodium (Protonix) 40 mg PO QDAC [facility] Last Admin: 10/28/19 06:08 Dose: 40 mg Documented by: Quetiapine Fumarate (Seroquel) 25 mg PO BID [facility] Last Admin: 10/28/19 07:58 Dose: 25 mg Documented by: Sodium Chloride (Normal Saline Flush 0.9%) 10 ml IVP PRN PRN PRN Reason: NEEDED PER PROVIDER ORDERS Sodium Chloride (Normal Saline Flush 0.9%) 10 ml IVP 0100,0900,1700 [facility] Last Admin: 10/28/19 11:28 Dose: 10 ml Documented by: Tramadol HCl (Ultram) 50 - 100 mg PO Q12H PRN PRN Reason: PAIN Last Admin: 10/26/19 14:21 Dose: 50 mg Documented by: Potassium Chloride 40 meq PO DAILY 02/18/18 atenoloL [Atenolol] 100 mg PO BID 02/18/18 lisinopriL [Lisinopril] 20 mg PO DAILY 02/18/18 Ascorbic Acid [Vitamin C] 1,000 mg PO DAILY 08/07/19 Calcium Carbonate [Calcium] 1,000 mg PO DAILY 08/07/19 Digoxin 125 mcg PO DAILY 08/07/19 Furosemide 80 mg PO DAILY 08/07/19 Gabapentin 300 mg PO TID 08/07/19 clonazePAM [Clonazepam] 0.5 mg PO DAILY PM 10/21/19 traMADol [Ultram] 50 mg PO TID PRN 10/21/19 Objective - Vital Signs/Intake & Output Reviewed Vital Signs: Yes Vital Signs: Vital Signs x48h Temp Pulse Resp BP BP Pulse Ox 10/28/19 11:40 36.3 C L 63 18 122/62 100 10/28/19 07:40 37.0 C 78 17 124/61 95 10/28/19 04:53 36.2 C L 77 16 162/75 H 97 Intake & Output: Intake & Output 10/25/19 10/26/19 10/27/19 10/28/19 23:59 23:59 23:59 23:59 Intake Total 2250 4438.334 3573.333 1713.333 Output Total 1125 1825 1250 350 Balance 1125 2613.334 2323.333 1363.333 - Objective General Appearance: positive: No acute distress, Alert, Other (For the last 2 days she is considerably improved. Today she is lucid, alert, oriented. Comp letely cooperative. Has been this way since yesterday with no owning last night.) Eyes Bilateral: positive: PERRL Neck: positive: No JVD Respiratory: positive: Chest non-tender. negative: Wheezes, Rales, Rhonchi Cardiovascular: positive: Regular rate & rhythm, No murmur. negative: Gallop/S4 Abdomen: positive: Non-tender, No organomegaly, Nml bowel sounds, No distention Skin: positive: Warm, Dry Extremities: positive: Pedal edema Neurologic/Psychiatric: positive: Oriented x3, CN's nml (2-12), Motor nml, Mood/affect nml - Lab Results Fish Bones: 10/28/19 05:13 10/28/19 05:13 Other Labs: Lab Results x24hrs 10/28/19 10/28/19 Range/Units 05:13 05:13 WBC 8.3 (4.8-10.8) x10^3/uL RBC 3.87 L (4.20-5.40) 10^6/uL Hgb 11.2 L (12.0-16.0) g/dL Hct 35.4 L (37.0-47.0) % MCV 91.5 (81.0-99.0) fL MCH 28.9 (27.0-31.0) pg MCHC 31.6 L (32.0-36.0) g/dL RDW 13.2 (12.0-15.0) % Plt Count 163 (130-450) 10^3/uL MPV 11.7 H (7.9-10.8) fL Neut # (Auto) 4.5 (1.5-6.6) 10^3/uL Lymph # (Auto) 2.4 (1.5-3.5) 10^3/uL [place] # (Auto) 0.8 (0.0-1.0) 10^3/uL Eos # (Auto) 0.5 (0.0-0.7) 10^3/uL Baso # (Auto) 0.0 (0.0-0.1) 10^3/uL Absolute Nucleated RBC 0.00 x10^3/uL Nucleated RBC % 0.0 /100WBC Sodium 140 (135-145) mmol/L Potassium 4.2 (3.5-5.0) mmol/L Chloride 113 H (101-111) mmol/L Carbon Dioxide 22 (21-32) mmol/L Anion Gap 5.0 L (6-13) BUN 30 H (6-20) mg/dL Creatinine 1.2 H (0.4-1.0) mg/dL Estimated GFR (MDRD) 45 L (>89) Glucose 98 (70-100) mg/dL Calcium 8.3 L (8.5-10.3) mg/dL ABX Reporting Has patient been on IV antibiotics over the past 48 hours?: No Assessment/Plan - Problem List (1) Acute renal insufficiency Impression: Impression: RESOLVED From dehydration. Creatinine started at 3.4 then 2.7 then 1.9 then 1.5 and is 1.2 today She is at her baseline. Plan: Will stop normal saline and IV Continue to Encourage p.o. intake We began process for placement for [facility] facility yesterday. It was 25 October weekend. Today's facilities are just getting around to looking at referrals. No one can take her today. (2) Hyperkalemia resolved Impression: Potassium started at 6.9 then 6.7 then 6.1 then 5.9 then 5.1 and 4.2 today She has received D50 and insulin 3 times. Not able to do much kayexalate. Will continue to monitor and no D50 Given since 10/24 (4) Leg pain unchanged Impression: She attributes that to her restless leg syndrome and states is "a 10 out of a 10". In her home lead list I see gabapentin, tramadol. Plan: gabapentin was resumed tramadol was resumed but reduced for renal dosing and that would make it twice daily Clonzepam also resumed. Qualifiers: Laterality: bilateral Qualified Code(s): M79.604 - Pain in right leg; M79.605 - Pain in left leg (5) Candidal intertrigo Impression: It is underneath the pannus of her breast. Skin is red, moist. 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 None needed since the second day. Today is day 4 of stay. Today will be an avoidable day. I spoke to her Neurologist 10/24. He feels that she has an atypical presentation of Parkinson's. She has more of a gait disorder even though she does have some mild upper extremity cogwheeling and tremor. 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 They are more likely to get cognitive issues. They have a variable prognosis that is worse than Parkinson's. Whether life longevity is okay, their disability is quite severe. Dementia can be quite profound. And they have more walking problems with increased fall risk. He is also wondering if she has early Lewy body dementia. He feels is okay to stop the Sinemet. He did give her some small doses of clonazepam. I shared with him that I was planning on having an advance care planning conversation with the daughter, and recommending palliative care. He is in agreement with that. He also feels that the Lasix is being used to control her leg edema may need to be titrated down. She has an intact ejection fraction, no diastolic dysfunction, and leg edema may be more due to venous insufficiency that would respond better to lymphedema therapy than diuretics. Plan: social work consultation is helping family decide which SNF for rehab. they have sent requests yesterday to [facility] (which is local) and yesterday, Social work broadened requests. Today will continue to do so until she is accepted at a facility. Physical therapy evaluation for rehab needs has been done. She will need more therapy while here and PT feels she will benefit from SNF Rehab. I have recommended outpatient palliative care consultation to help this family cope and this patient cope with the slow deterioration the Parkinson's will bring over the next few months if not years. When she leaves here, Dr. Silva will need to refer. Advanced Care planning conversation held under separate note 10/25. Added seroquel to help with crying out and hallucinations and she has been very lucid since 10/26. This am she is doing very well.
[2019-10-29] MEDS: SODIUM CHLORIDE FLUSH 0.9% 10 ML SYRINGE IVP SCH ×3 (00:52→16:24)
[2019-10-29] MEDS: GABAPENTIN 300 MG CAPSULE PO SCH ×3 (06:15→20:42)
[2019-10-29] MEDS: PANTOPRAZOLE 40 MG TABLET PO SCH (06:15)
[2019-10-29] MEDS: QUEtiapine 25 MG TABLET PO SCH ×2 (08:37→20:42)
[2019-10-29] MEDS: APIXABAN 5 MG TABLET PO SCH ×2 (08:37→20:42)
[2019-10-29] MEDS: SODIUM CHLORIDE 0.9% 1,000 ML IV SCH (08:38)
[2019-10-29] MEDS: atenoloL 25 MG TABLET PO SCH ×2 (08:39→20:42)
[2019-10-29] MEDS: traMADol 50 MG TABLET PO PRN (10:37)
[2019-10-29] MEDS: ACETAMINOPHEN 325 MG TABLET PO PRN ×2 (11:02→16:23)
--- NOTE | 2019-10-29 15:01 | PROVIDER PROGRESS NOTE ---
Assessment/Plan - Problem List (1) Acute renal insufficiency Assessment/Plan: Resolved. Patient's renal function is as her baseline. Stop intravenous IV fluids. We will continue laboratory chemist, Encourage pt p.o. intake. Patient had a echo done this year July, Which show unremarkable. Patient had 80 mg Lasix daily in her home medication. Patient had chronic venous insufficiency and lymphedema. Patient TRESA is likely induced by diuretics Medication. Will hold Lasix. (2)Chronic venous insufficiency Patient Patient has a chronic venous sufficiency and lymphedema. Patient has no fever and white blood cell is normal arrange. Consult with wound care, will follow up with wound care recommendation for skin care. Patient has no complaint for leg pain today. (3) Hyperkalemia resolved Resolved. We will continue laboratory chemist, It is likely caused by worsening kidney function. (4) restless leg syndrome stable, will continue gabapentin, tramadol, Clonzepam PRN (5) Candidal intertrigo Impression: continue Nystatin powder and cream. It is underneath the pannus of her breast. Skin is red, moist. 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 Per Dr. Acosta discussed with her Neurologist, We will hold Sinemet. 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 Since we stopped Sinemet, patient has no more Hallucination. Patient had physical therapist and occupational therapist evaluation and treatment, their recommendation to patient be D/C to the SNF. social work consultation is helping family decide which SNF for rehab. pt was recommended outpatient palliative care consultation to help this family cope and this patient cope with the slow deterioration the Parkinson's will bring over the next few months if not years. When she leaves here, Dr. Silva will need to refer. Continue seroquel. pt is pending for replacement for SNF, SW is working for pt now. - Current Meds Current Meds: Current Medications Generic Name Dose Route Start Last Admin Trade Name Freq PRN Reason Stop Dose Admin Acetaminophen 650 mg 10/26/19 23:40 10/29/19 11:02 Tylenol PO 650 mg Q6HR PRN Administration Pain or Fever > 38C (100.4F) Apixaban 5 mg 10/25/19 12:00 10/29/19 08:37 Eliquis PO 5 mg BID AYAZ Administration Atenolol 100 mg 10/25/19 17:00 10/29/19 08:39 Tenormin PO 100 mg BID AYAZ Administration Clonazepam 0.25 mg 10/25/19 11:42 10/26/19 01:18 Klonopin PO 0.25 mg BID PRN Administration Anxiety Gabapentin 300 mg 10/25/19 09:00 10/29/19 06:15 Neurontin PO 300 mg TID AYAZ Administration Sodium Chloride 1,000 mls @ 100 mls/hr 10/25/19 07:00 10/29/19 08:38 Normal Saline 0.9% IV 100 mls/hr .Q10H AYAZ Administration Pantoprazole Sodium 40 mg 10/25/19 07:00 10/29/19 06:15 Protonix PO 40 mg QDAC AYAZ Administration Quetiapine Fumarate 25 mg 10/26/19 10:00 10/29/19 08:37 Seroquel PO 25 mg BID AYAZ Administration Sodium Chloride 10 ml 10/25/19 09:00 10/29/19 08:40 Normal Saline Flush 0.9% IVP Not Given 0100,0900,1700 AYAZ Tramadol HCl 50 - 100 mg 10/25/19 09:00 10/29/19 10:37 Ultram PO 50 mg Q12H PRN Administration PAIN - Lab Result [place] Diagrams: 10/28/19 05:13 10/28/19 05:13 - Additional Planning My Orders: My Active Orders 10/30/19 05:00 BMP - BASIC METABOLIC PANEL [CHEM] DAILYLAB CBC - COMP BLD CT W/AUTO DIFF [HEME] DAILYLAB 10/31/19 05:00 BMP - BASIC METABOLIC PANEL [CHEM] DAILYLAB CBC - COMP BLD CT W/AUTO DIFF [HEME] DAILYLAB 11/01/19 05:00 BMP - BASIC METABOLIC PANEL [CHEM] DAILYLAB CBC - COMP BLD CT W/AUTO DIFF [HEME] DAILYLAB 11/02/19 05:00 BMP - BASIC METABOLIC PANEL [CHEM] DAILYLAB CBC - COMP BLD CT W/AUTO DIFF [HEME] DAILYLAB Subjective - Subjective Patient Reports: Feeling Better Nursing Reports: No Complaints Objective Vital Signs: Vital Signs - 24 hr 10/28/19 10/28/19 10/28/19 16:27 20:50 23:53 Temperature 36.4 C L 37.1 C 37.1 C Heart Rate [ 67 61 Brachial] Heart Rate [ 92 Monitoring electrodes] Respiratory 19 18 20 Rate Blood Pressure 125/50 L [Left Brachial artery] Blood Pressure 127/61 [Right Brachial artery] Blood Pressure 133/59 H [Right Radial artery] O2 Saturation 99 98 96 10/29/19 10/29/19 10/29/19 04:45 08:21 12:22 Temperature 36.9 C 36.8 C 36.7 C Heart Rate [ 68 64 80 Brachial] Heart Rate [ Monitoring electrodes] Respiratory 20 18 20 Rate Blood Pressure 136/51 H 141/68 H [Left Brachial artery] Blood Pressure [Right Brachial artery] Blood Pressure 133/56 H [Right Radial artery] O2 Saturation 96 95 98 Oxygen O2 Source [With Activity] Room air O2 Source Room air I&O (Last 24 Hrs): Intake and Output Totals x24h 10/27/19 10/28/19 10/29/19 23:59 23:59 23:59 Intake Total 3573.333 3741.666 2440 Output Total 1250 800 500 Balance 2323.333 2941.666 1940 General: Alert, No acute distress HEENT: Atraumatic Neck: Supple Lymphatic: no adenopathy Neuro: Alert, Non Focal Cardiovascular: Regular rate, Normal S1, Normal S2 Respiratory: Chest non-tender, No respiratory distress, Breath sounds nml Abdomen: Normal bowel sounds, Soft, No tenderness Extremities: Other (bilateral edema, scattered partial with full thickness areas in gaitor region of legs, mostly located at posterior side. Exudate is sero- sang at posterior side.) - Results Results: Laboratory Results WBC 8.3 x10^3/uL (4.8-10.8) 10/28/19 05:13 RBC 3.87 10^6/uL (4.20-5.40) L 10/28/19 05:13 Hgb 11.2 g/dL (12.0-16.0) L 10/28/19 05:13 Hct 35.4 % (37.0-47.0) L 10/28/19 05:13 MCV 91.5 fL (81.0-99.0) 10/28/19 05:13 MCH 28.9 pg (27.0-31.0) 10/28/19 05:13 MCHC 31.6 g/dL (32.0-36.0) L 10/28/19 05:13 RDW 13.2 % (12.0-15.0) 10/28/19 05:13 Plt Count 163 10^3/uL (130-450) 10/28/19 05:13 MPV 11.7 fL (7.9-10.8) H 10/28/19 05:13 Neut # (Auto) 4.5 10^3/uL (1.5-6.6) 10/28/19 05:13 Lymph # (Auto) 2.4 10^3/uL (1.5-3.5) 10/28/19 05:13 [place] # (Auto) 0.8 10^3/uL (0.0-1.0) 10/28/19 05:13 Eos # (Auto) 0.5 10^3/uL (0.0-0.7) 10/28/19 05:13 Baso # (Auto) 0.0 10^3/uL (0.0-0.1) 10/28/19 05:13 Absolute Nucleated RBC 0.00 x10^3/uL 10/28/19 05:13 Nucleated RBC % 0.0 /100WBC 10/28/19 05:13 Sodium 140 mmol/L (135-145) 10/28/19 05:13 Potassium 4.2 mmol/L (3.5-5.0) 10/28/19 05:13 Chloride 113 mmol/L (101-111) H 10/28/19 05:13 Carbon Dioxide 22 mmol/L (21-32) 10/28/19 05:13 Anion Gap 5.0 (6-13) L 10/28/19 05:13 BUN 30 mg/dL (6-20) H 10/28/19 05:13 Creatinine 1.2 mg/dL (0.4-1.0) H 10/28/19 05:13 Estimated GFR (MDRD) 45 (>89) L 10/28/19 05:13 Glucose 98 mg/dL (70-100) 10/28/19 05:13 POC Whole Bld Glucose 90 mg/dL (70 - 100) 10/27/19 07:35 Calcium 8.3 mg/dL (8.5-10.3) L 10/28/19 05:13 Total Bilirubin 0.6 mg/dL (0.2-1.0) 10/25/19 04:50 AST 18 IU/L (10-42) 10/25/19 04:50 ALT 10 IU/L (10-60) 10/25/19 04:50 Alkaline Phosphatase 53 IU/L (42-121) 10/25/19 04:50 Total Protein 7.2 g/dL (6.7-8.2) 10/25/19 04:50 Albumin 3.9 g/dL (3.2-5.5) 10/25/19 04:50 Globulin 3.3 g/dL (2.1-4.2) 10/25/19 04:50 Albumin/Globulin Ratio 1.2 (1.0-2.2) 10/25/19 04:50 Lipase 29 U/L (22-51) 10/25/19 04:50 Urine Color YELLOW 10/25/19 04:53 Urine Clarity CLEAR (CLEAR) 10/25/19 04:53 Urine pH 5.5 PH (5.0-7.5) 10/25/19 04:53 Ur Specific [place] 1.025 (1.002-1.030) 10/25/19 04:53 Urine Protein NEGATIVE mg/dL (NEGATIVE) 10/25/19 04:53 Urine Glucose (UA) NEGATIVE mg/dL (NEGATIVE) 10/25/19 04:53 Urine Ketones NEGATIVE mg/dL (NEGATIVE) 10/25/19 04:53 Urine Occult Blood NEGATIVE (NEGATIVE) 10/25/19 04:53 Urine Nitrite NEGATIVE (NEGATIVE) 10/25/19 04:53 Urine Bilirubin NEGATIVE (NEGATIVE) 10/25/19 04:53 Urine Urobilinogen 0.2 (NORMAL) E.U./dL (NORMAL) 10/25/19 04:53 Ur Leukocyte Esterase NEGATIVE (NEGATIVE) 10/25/19 04:53 Ur Microscopic Review NOT INDICATED 10/25/19 04:53 Urine Culture Comments NOT INDICATED 10/25/19 04:53 Last Dose Date UNKNONW 10/25/19 04:48 Last Dose Time UNKNOWN 10/25/19 04:48 Digoxin 1.4 ng/mL 10/25/19 04:48 Coronavirus (PCR) NEGATIVE 10/25/19 10:25 Sepsis Event Note (H) - Evaluation Current Stage of Sepsis: Ruled out ABX Reporting Has patient been on IV antibiotics over the past 48 hours?: No Current Medications - Current Medications Current Medications: Active Medications Acetaminophen (Tylenol) 650 mg PO Q6HR PRN PRN Reason: Pain or Fever > 38C (100.4F) Last Admin: 10/29/19 11:02 Dose: 650 mg Documented by: Apixaban (Eliquis) 5 mg PO BID [facility] Last Admin: 10/29/19 08:37 Dose: 5 mg Documented by: Atenolol (Tenormin) 100 mg PO BID [facility] Last Admin: 10/29/19 08:39 Dose: 100 mg Documented by: Clonazepam (Klonopin) 0.25 mg PO BID PRN PRN Reason: Anxiety Last Admin: 10/26/19 01:18 Dose: 0.25 mg Documented by: Gabapentin (Neurontin) 300 mg PO TID [facility] Last Admin: 10/29/19 15:18 Dose: Not Given Documented by: Pantoprazole Sodium (Protonix) 40 mg PO QDAC [facility] Last Admin: 10/29/19 06:15 Dose: 40 mg Documented by: Quetiapine Fumarate (Seroquel) 25 mg PO BID [facility] Last Admin: 10/29/19 08:37 Dose: 25 mg Documented by: Sodium Chloride (Normal Saline Flush 0.9%) 10 ml IVP PRN PRN PRN Reason: NEEDED PER PROVIDER ORDERS Sodium Chloride (Normal Saline Flush 0.9%) 10 ml IVP 0100,0900,1700 [facility] Last Admin: 10/29/19 08:40 Dose: Not Given Documented by: Tramadol HCl (Ultram) 50 - 100 mg PO Q12H PRN PRN Reason: PAIN Last Admin: 10/29/19 10:37 Dose: 50 mg Documented by: Potassium Chloride 40 meq PO DAILY 02/18/18 atenoloL [Atenolol] 100 mg PO BID 02/18/18 lisinopriL [Lisinopril] 20 mg PO DAILY 02/18/18 Ascorbic Acid [Vitamin C] 1,000 mg PO DAILY 08/07/19 Calcium Carbonate [Calcium] 1,000 mg PO DAILY 08/07/19 Digoxin 125 mcg PO DAILY 08/07/19 Furosemide 80 mg PO DAILY 08/07/19 Gabapentin 300 mg PO TID 08/07/19 clonazePAM [Clonazepam] 0.5 mg PO DAILY PM 10/21/19 traMADol [Ultram] 50 mg PO TID PRN 10/21/19
[2019-10-29] MEDS ORDERED: diphenhydrAMINE 25 MG CAPSULE PO PRN (20:56)
[2019-10-30] MEDS: SODIUM CHLORIDE FLUSH 0.9% 10 ML SYRINGE IVP SCH ×2 (00:08→08:31)
[2019-10-30 05:28] LABS: BASOPHILS % (AUTO) 0.4 %; EOSINOPHILS # (AUTO) 0.4 10^3/uL (0.0-0.7); EOSINOPHILS % (AUTO) 5.7 %; LYMPHOCYTES # (AUTO) 1.8 10^3/uL (1.5-3.5); LYMPHOCYTES % (AUTO) 23.6 %; MEAN CORPUSCULAR HEMOGLOBIN 29.1 pg (27.0-31.0); MEAN CORPUSCULAR HGB CONC 31.3 g/dL (32.0-36.0); MEAN CORPUSCULAR VOLUME 93.2 fL (81.0-99.0); MEAN PLATELET VOLUME 11.3 fL (7.9-10.8); MONOCYTES # (AUTO) 0.7 10^3/uL (0.0-1.0); MONOCYTES % (AUTO) 9.3 %; NEUTROPHILS # (AUTO) 4.7 10^3/uL (1.5-6.6); NEUTROPHILS % (AUTO) 60.4 %; PLT - PLATELET COUNT 182 10^3/uL (130-450); RED BLOOD COUNT 4.12 10^6/uL (4.20-5.40); RED CELL DISTRIBUTION WIDTH 13.2 % (12.0-15.0); WHITE BLOOD COUNT 7.7 x10^3/uL (4.8-10.8)
[2019-10-30 05:34] LABS: CALCIUM 8.4 mg/dL (8.5-10.3); CREATININE 1.1 mg/dL (0.4-1.0)
[2019-10-30] MEDS: PANTOPRAZOLE 40 MG TABLET PO SCH (05:52)
[2019-10-30] MEDS: GABAPENTIN 300 MG CAPSULE PO SCH (05:52)
[2019-10-30] MEDS: QUEtiapine 25 MG TABLET PO SCH (08:29)
[2019-10-30] MEDS: ACETAMINOPHEN 325 MG TABLET PO PRN (08:29)
[2019-10-30] MEDS: APIXABAN 5 MG TABLET PO SCH (08:29)
[2019-10-30] MEDS: atenoloL 25 MG TABLET PO SCH (08:40)
[2019-10-30] MEDS ORDERED: NYSTATIN POWDER 15 GM TOP SCH (09:00)
--- NOTE | 2019-10-30 10:31 | Discharge Plan ---
"Discharge Plan for SNF / [facility] - Discharge Plan And Transition Orders Problem Reviewed?: Yes Disposition: 03 SNF DC/Xfer Condition: Poor Allergies and Adverse Reactions: Allergies Allergy/AdvReac Type Severity Reaction Status Date / Time warfarin AdvReac Nausea Verified 10/25/19 04:16 Health Concerns: weakness, atypical parkinson's disease, chronic venous insufficiency Plan of Treatment: continue PT/OT in SNF, encourage safely ambulation. consulted with pt's neurologist, advised pt hold her Sinemet. advise her continue followup with her neurologist as out-patient. followup with wound care and RN's instructions for skin care of pt's chronic venous insufficiency. Cleanse lower extremities and remove as much dry skin as possible, Dry legs thoroughly and apply Xeroform sheets (2) to each leg, Cover with roll gauze and elevate, May also use graduated compression hose, lymphedema wraps or SurePress reusable compression wraps, Dressings changes are q 7 days, sooner if breakthrough drainage. Care Goals: stabilization and improvement of pt's medical conditions. Assessment: discussed the care plan and answered questions with pt and pt's daughter at the bedside, they both understood and agreed. - SNF / PENITENTIARY Transition Orders Admit to (Facility): [facility] Under the care of (Name): Ricardo Arita Discharge Diagnosis: TRESA, hallucinations, chronic venous insufficiency, restless leg syndrome, candidal intertrigo, hyperkalemia Medicare Certification Statement: I certify that [facility] long term care is medically necessary on a continuing basis for any of the conditions for which she/he is receiving care during hospitalization. Notify PCP of admission and forward orders to primary provider for signature. Weight on admission and: Daily Call PCP immediately if weight increases by: 2 kg Other Notification Orders: Call PCP immediately if patient develops dyspnea, chest pain/tightness or edema. House Bowel Program: Yes Additional Bowel Program Orders: If no BM after 2 days, nurse may give M.O.M. 30ml PO PRN and/or ducolax Supp 1 MN and/or RAJINDER 250mg P.O., and/or senna 1-2 tabs PO. On day 3 nurse may give repeat above order until residents constipation is resolved. Annual Influenza Vaccine (between Dec 23 and July 22): Yes Two-step PPD per [facility] [phone] or approved exception documents: Yes Treatments & Other Orders: continue PT/OT in SNF, encourage safely ambulation. consulted with pt's neurologist, advised pt hold her Sinemet. advise her continue followup with her neurologist as out-patient. followup with wound care and RN's instructions for skin care of pt's chronic venous insufficiency. Cleanse lower extremities and remove as much dry skin as possible, Dry legs thoroughly and apply Xeroform sheets (2) to each leg, Cover with roll gauze and elevate, May also use graduated compression hose, lymphedema wraps or SurePress reusable compression wraps, Dressings changes are q 7 days, sooner if breakthrough drainage. Medication Orders: PLEASE REFER TO THE DISCHARGE MEDICATION LIST. Insulin Orders?: No - Medications New Prescriptions: Nystatin [Nystop] 1 applic TOP BID #1 bottle - Diet Type: Geriatric Texture: Regular Liquids: Thin May have monthly special meal: Yes - Therapies | Activity Therapy: Evaluation | Treat if indicated: PT, OT Rehabilitation Potential: Maximize functional status Activity: Activity as Tolerated"
--- NOTE | 2019-10-30 10:49 | DISCHARGE SUMMARY ---
Discharge Summary Admit Date: 10/25/19 Discharge Date: 10/30/19 Discharging Provider: Rickey Dickens Primary Care Provider: Dr. Melissa Contreras Condition at Discharge: Poor Discharge Disposition: SNF DC/Xfer Discharge Facility Name: [facility] - DIAGNOSES Admission Diagnoses: (1) Acute renal insufficiency (2) Hyperkalemia (3) Atrial fibrillation (4) Hallucination, drug-induced (5) Parkinson disease (6) Peripheral edema Discharge Diagnoses with Status of Each Condition: (1) Acute renal insufficiency Resolved.Creatinine is 1.1 on today. It is likely the main caused by drug Lasix- induced plus dehydration. Patient had echo showed unremarkable, Patient has history of lymphedema, Venous insufficiency. Lasix is little effect to this hx. Patient Lasix is on hold, patient had 99% O2 sats on room air, patient can walk with a walker without respiratory distress. (2)Chronic venous insufficiency Patient Patient has a chronic venous sufficiency and lymphedema. The skin care and dressing change was in the discharge planning. Patient has no fever and white blood cell is normal arrange. Consult with wound care. follow up with wound care recommendation and dressing change from RN for skin care. Patient has no complaint for leg pain. (3) Hyperkalemia resolved Resolved. It is likely caused by worsening kidney function and home potassium meds. right now kidney function return patient baseline, and home potassium meds is hold. (4) restless leg syndrome stable, will continue gabapentin, tramadol, Clonzepam PRN, Follow up with neurologist (5) Candidal intertrigo Impression: continue Nystatin powder and cream. It is underneath the pannus of her breast and right groin area. Skin is red, moist but intact. encourage pt loss of weight. 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 Per Dr. Acosta discussed with her Neurologist, We will hold Sinemet. 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 Since we stopped Sinemet, patient has no more Hallucination. Patient had physical therapist and occupational therapist evaluation and treatment, their recommendation to patient be D/C to the SNF. pt was recommended outpatient palliative care consultation to help this family cope the slow deterioration the Parkinson's disease. When she leaves here, Dr. Silva will need to refer. Continue seroquel. (7)chronic afib Patient has history of chronic atrial fibrillation on atenolol and digoxin and Eliquis. Will hold digoxin in the hospital at the admission. Patient heart rate has been good control all time in the hospital with digoxin. We will hold digoxin. Continue atenolol and Eliquis (8) Hallucination, drug-induced resolved. it is likely caused by pt's home meds Sinemet. After discussed with the patient's neurologist, the neurologist recommended hold Sinemet. after holding Sinemet, patient has no hallucination, patient mental status return her baseline. patient had a appropriate behavior, patient has no hallucination and patient cooperated with nurse and staff. - [facility] History of Present Illness: refer from Dr. Ordonez's HPI on 10/25/2019 The history below is was mainly provided by the patient's daughter due to the reason for presentation which was hallucination. Patient is a 68-year-old female with Parkinson's disease who is on Sinemet, Atrial fibrillation on Eliquis, chronic lower extremity edema and anxiety who presented to the ED via EMS with hallucinations. Her daughter reports that she has been hallucinating for the past 3 days. Specific examples were the patient thinking that her kitten had gone missing and asking for it to be found when in actuality she does not have a kitten. She would also intermittently shout out calling random names of people who are unknown to her daughter and likely her and are not around. She would sometimes address her daughter with a different name. Other times she would lash out accusing her daughter and her of planning to hurt her still from her. Her daughter is a schoolteacher who lives in [facility] but is currently living with her at her home and [place]. Sometimes she would be insistent on being taken downstairs when she is already downstairs in the house. Other times she would be insistent on going out of the house when she is unable to ambulate any significant distance. Due to the patient's Parkinson's disease she freezes up often and requires assistance moving a few steps to the bathroom. Her daughter uses a walker and wheelchair as needed to aid her in going from one place to the other in the house. She was last admitted in July 2019 with right lower extremity cellulitis. Prior to that admission she had been receiving home health wound care for lower extremity ulcers likely due to chronic edema. She was due to see wound care this coming Monday, October 28, 2019. Work-up in the ED included a BMP which showed a creatinine level of 3.4 and a potassium of 6.9. Patient's baseline creatinine has been in the range of 1.0- 1.7 in the past. As a result she was presented for admission for further treatment. At bedside the patient appears to be resting calmly. She is alert and oriented x3. She denies any chest pain, dyspnea, abdominal pain, nausea, vomiting, fever or chills. She complains of some pain in her right upper extremity due to a fall. She had a CT scan of the brain done with the preliminary reports being unremarkable. - HOSPITAL COURSE Hospital Course: Patient was admitted for hallucination. patient was found acute kidney injury and hypokalemia as well. Patient's home Lasix medication is on hold. Patient was treated intravenous IV fluids for hydration. we Will also call patient's neurologist. per neurology's recommendation, will hold patient home medication Sinemet and Lasix. Patient also has history of lymphedema and lower extremity venous insufficiency. Patient was consulted with wound care. wound care did dressing change and lymphedema wraps, And had follow-up care instruction for patient which we will give it for [facility] facility [facility]. After treatment, patient become hemodynamically stable condition, patient has no more hallucination, patient cooperative with nurse and staff, patient will D/C to [facility]. The detailed hospital course please review discharge diagnosis and the conditions - ALLERGIES Allergies/Adverse Reactions: Allergies Allergy/AdvReac Type Severity Reaction Status Date / Time warfarin AdvReac Nausea Verified 10/25/19 04:16 - MEDICATIONS Home Medications: Ambulatory Orders Medication Instructions Recorded Confirmed atenoloL [Atenolol] 100 mg PO BID 02/18/18 10/25/19 lisinopriL [Lisinopril] 20 mg PO DAILY 02/18/18 10/25/19 Ascorbic Acid [Vitamin C] 1,000 mg PO DAILY 08/07/19 10/25/19 Calcium Carbonate [Calcium] 1,000 mg PO DAILY 08/07/19 10/25/19 Gabapentin 300 mg PO TID 08/07/19 10/25/19 Apixaban [Eliquis] 5 mg PO BID tablet 08/10/19 10/25/19 clonazePAM [Clonazepam] 0.5 mg PO DAILY PM 10/21/19 10/25/19 traMADol [Ultram] 50 mg PO TID PRN 10/21/19 10/25/19 Nystatin [Nystop] 1 applic TOP BID #1 bottle 10/30/19 - PHYSICAL EXAM AT DISCHARGE General Appearance: positive: No acute distress, Alert. negative: Lethargic Eyes Bilateral: positive: Normal inspection, PERRL, No lid inflammation ENT: positive: ENT inspection nml, Pharynx nml, No signs of dehydration. negative: Purulent nasal drainage Neck: positive: Nml inspection, Thyroid nml, No JVD, Trachea midline. negative: Thyromegaly, Stiff neck, Tracheal deviation Respiratory: positive: Chest non-tender, No respiratory distress, Breath sounds nml. negative: Wheezes, Rales, Rhonchi Cardiovascular: positive: Regular rate & rhythm, No murmur, No gallop. negative: Tachycardia, Bradycardia, Systolic murmur, Diastolic murmur Peripheral Pulses: positive: 2+ Abdomen: positive: Non-tender, No organomegaly, Nml bowel sounds. negative: Tenderness, Guarding, Rebound Skin: positive: Warm, Dry. negative: Cyanosis, Diaphoresis, Pallor Extremities: positive: Non-tender, Pedal edema, Other (Bilaterally lower extr emity mild to moderate edema, and Scattered partial and full thickness areas in gaitor region of legs). negative: Calf tenderness, Kaleigh's sign/cords Neurologic/Psychiatric: positive: Oriented x3, Sensation nml, Mood/affect nml. negative: Weakness, Sensory loss, Facial droop, Slurred/abnml speech, Depressed mood/affect - LABS Result Diagrams: 10/30/19 05:15 10/30/19 05:15 - DIAGNOSTIC IMAGING Diagnostic Imaging Results Comments: CT of the head was unremarkable - SEPSIS Current Stage of Sepsis: Ruled out - FOLLOW UP Follow Up: continue PT/OT in SNF, encourage safely ambulation. consulted with pt's neuro logist, advised pt hold her Sinemet. advise her continue followup with her neurologist as out-patient. followup with wound care and RN's instructions for skin care of pt's chronic venous insufficiency. Cleanse lower extremities and remove as much dry skin as possible, Dry legs thoroughly and apply Xeroform sheets (2) to each leg, Cover with roll gauze and elevate, May also use graduated compression hose, lymphedema wraps or SurePress reusable compression wraps, Dressings changes are q 7 days, sooner if breakthrough drainage. - TIME SPENT Time Spent in Discharge (Minutes): 30
[2019-10-30] MEDS: traMADol 50 MG TABLET PO PRN (11:53)
[2019-10-30 12:41] VITALS: BP 151/76
== END 2019-10-30 12:40 | DRG 683 ==
LOC: EDUNIT# → ED 03:58 → MS2 06:33 → OBSVTOIN 10:17
PROVIDERS: ADMIT Internal Medicine; ATTEND Nurse Practitioner Gerontology
DX: N17.9 Acute kidney failure, unspecified (principal); N28.9 Disorder of kidney and ureter, unspecified; I48.11 Longstanding persistent atrial fibrillation; R41.0 Disorientation, unspecified; R44.3 Hallucinations, unspecified; F02.81 Dementia in other diseases classified elsewhere, unspecified severity, with behavioral disturbance; F05 Delirium due to known physiological condition; I48.91 Unspecified atrial fibrillation; F02.80 Dementia in other diseases classified elsewhere, unspecified severity, without behavioral disturbance, psychotic disturbance, mood disturbance, and anxiety; E86.0 Dehydration; T50.1X5A Adverse effect of loop [high-ceiling] diuretics, initial encounter; I87.2 Venous insufficiency (chronic) (peripheral); E87.5 Hyperkalemia; G25.81 Restless legs syndrome; B37.2 Candidiasis of skin and nail; G20 Parkinson's disease; Z79.01 Long term (current) use of anticoagulants; T42.8X5A Adverse effect of antiparkinsonism drugs and other central muscle-tone depressants, initial encounter; F41.9 Anxiety disorder, unspecified; I10 Essential (primary) hypertension; Z99.3 Dependence on wheelchair; G58.7 Mononeuritis multiplex; Z78.1 Physical restraint status; Z20.828 Contact with and (suspected) exposure to other viral communicable diseases; Z79.899 Other long term (current) drug therapy; S81.802A Unspecified open wound, left lower leg, initial encounter; S81.801A Unspecified open wound, right lower leg, initial encounter; I89.0 Lymphedema, not elsewhere classified
CPT/HCPCS: 36415; 51701; 70450; 80048; 80053; 80162; 81003; 81599; 83690; 84132; 85025; 93005; 96361; 96374; 96375; 97163; 97530; 99285; A9270; J1815; U0004; 81001; 87086

== ENCOUNTER 2019-11-05 05:35 | Outpatient (CLI) | payer MEDICARE, BC ==
[2019-11-05 07:27] LABS: CALCIUM 8.7 mg/dL (8.5-10.3)
== END 2019-11-05 23:59 | disposition home or self-care (01) ==
LOC: LAB.R 05:35
DX: I87.2 Venous insufficiency (chronic) (peripheral) (principal)
CPT/HCPCS: 80048

== ENCOUNTER 2019-11-27 13:00 | Outpatient (CLI) | payer MEDICARE, BC ==
[2019-11-27 14:44] LABS: BILIRUBIN,URINE NEGATIVE (NEGATIVE); GLUCOSE, URINE (UA) NEGATIVE (NEGATIVE); KETONES,URINE (UA) NEGATIVE (NEGATIVE); LEUKOCYTE ESTERASE, URINE NEGATIVE (NEGATIVE); NITRITE,URINE NEGATIVE (NEGATIVE); OCCULT BLOOD,URINE NEGATIVE (NEGATIVE); PH,URINE 5.5 PH (5.0-7.5); PROTEIN,URINE NEGATIVE (NEGATIVE); UROBILINOGEN,URINE 0.2 (NORMAL) E.U./dL (NORMAL)
[2019-11-27 14:55] LABS: CLARITY,URINE CLEAR (CLEAR)
== END 2019-11-27 23:59 | disposition home or self-care (01) ==
LOC: LAB.R 13:00
PROVIDERS: ATTEND Family Medicine
DX: R39.9 Unspecified symptoms and signs involving the genitourinary system (principal); N39.0 Urinary tract infection, site not specified
CPT/HCPCS: 81001; 81003; 87086

== ENCOUNTER 2019-12-02 00:14 | Outpatient (CLI) | payer MEDICARE, BC | END 2019-12-02 00:15 | disposition critical access hospital (66) | LOC: EMS 00:14 | PROVIDERS: ATTEND Surgery | DX: M79.605 Pain in left leg (principal); R53.1 Weakness; R20.8 Other disturbances of skin sensation; R60.0 Localized edema | CPT/HCPCS: A0425; A0427 ==

== ENCOUNTER 2019-12-02 00:31 | Inpatient (IN) | payer MEDICARE, BC ==
[2019-12-02] MEDS ORDERED: SODIUM CHLORIDE 0.9% 1,000 ML IV STA (01:39)
[2019-12-02 01:46] LABS: BASOPHILS % (AUTO) 0.4 %; EOSINOPHILS # (AUTO) 0.3 10^3/uL (0.0-0.7); EOSINOPHILS % (AUTO) 4.6 %; HGB - HEMOGLOBIN 11.4 g/dL (12.0-16.0); LYMPHOCYTES # (AUTO) 1.6 10^3/uL (1.5-3.5); MEAN CORPUSCULAR HEMOGLOBIN 28.4 pg (27.0-31.0); MEAN CORPUSCULAR VOLUME 88.6 fL (81.0-99.0); MEAN PLATELET VOLUME 10.8 fL (7.9-10.8); MONOCYTES # (AUTO) 0.7 10^3/uL (0.0-1.0); MONOCYTES % (AUTO) 8.9 %; NEUTROPHILS # (AUTO) 4.8 10^3/uL (1.5-6.6); NEUTROPHILS % (AUTO) 64.7 %; PLT - PLATELET COUNT 230 10^3/uL (130-450); RED BLOOD COUNT 4.02 10^6/uL (4.20-5.40); RED CELL DISTRIBUTION WIDTH 14.5 % (12.0-15.0); WHITE BLOOD COUNT 7.4 x10^3/uL (4.8-10.8)
--- NOTE | 2019-12-02 01:48 | ED Physician Documentation ---
History of Present Illness - Stated complaint Stated Complaint: WEAKNESS - Chief complaint Chief Complaint: Neuro - History obtained from History obtained from: Patient, Family - History of Present Illness Timing: How many days ago (10) - Additonal information Additional information: 69-year-old female with a history of atrial fibrillation on Eliquis and catrachito sonian-like dementia or Lewy body dementia has had a recent admission to the hospital after overdiuresis with Lasix. She has chronic lower extremity lymphedema. She has been on a fluid restriction after stopping her lasix. Her parkinson medications have been adjusted by her neurologist and she is no longer on carbadopa/levodopa as this caused hallucinations. She was discharged from the hospital in improved condition and she was discharged to [facility]. She could not tolerate the longterm and she left the longterm. Her family has been caring for her at home. She was able to walk with a walker but has been unable to get herself out of bed for about one year. She developed pain in the left thigh that is worse with laying on the left and relieved by standing. This started about 10 days ago and is associated with weakness and not being able to walk. She is very "off balance". Review of Systems Constitutional: denies: Fever, Chills, Myalgias Eyes: denies: Decreased vision Ears: denies: Ear pain Nose: denies: Rhinorrhea / runny nose, Congestion Throat: denies: Dental pain / toothache, Sore throat Cardiac: denies: Chest pain / pressure, Palpitations Respiratory: denies: Dyspnea, Cough, Wheezing GI: reports: Constipation (resolved). denies: Abdominal Pain, Nausea, Vomiting, Diarrhea : denies: Dysuria, Frequency Skin: denies: Rash Musculoskeletal: reports: Extremity pain, Joint pain, Extremity swelling. denies: Neck pain, Back pain Neurologic: reports: Generalized weakness. denies: Focal weakness, Numbness, Difficulty speaking, Headache, Head injury, LOC Psychiatric: reports: Depressed, Insomnia. 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: None : None, Chronic bladder infection, Frequency HEENT: None Psych: Anxiety Musculoskeletal: Other Derm: None, Other - Past Surgical History Past Surgical History: Yes - Present Medications Home Medications: Ambulatory Orders Medication Instructions Recorded Confirmed atenoloL [Atenolol] 100 mg PO DAILY 02/18/18 12/02/19 lisinopriL [Lisinopril] 20 mg PO DAILY 02/18/18 12/02/19 Ascorbic Acid [Vitamin C] 1,000 mg PO DAILY 08/07/19 12/02/19 Calcium Carbonate [Calcium] 1,000 mg PO DAILY 08/07/19 12/02/19 Gabapentin 300 mg PO BID 08/07/19 12/02/19 Apixaban [Eliquis] 5 mg PO BID tablet 08/10/19 12/02/19 traMADol [Ultram] 50 mg PO TID PRN 10/21/19 12/02/19 Fluconazole 150 mg PO 12/02/19 - Allergies Allergies/Adverse Reactions: Allergies Allergy/AdvReac Type Severity Reaction Status Date / Time warfarin AdvReac Nausea Verified 10/25/19 04:16 - Social History Does the pt smoke?: No Smoking Status: Never smoker Does the pt drink ETOH?: No Does the pt have substance abuse?: No - Immunizations Immunizations are current?: Yes - POLST Patient has POLST: No POLST Status: Full Code PD ED PE NORMAL - Vitals Vital signs reviewed: Yes (normal ) - General General: Alert and oriented X 3, No acute distress, Well developed/nourished, Other (depressed affect with tears periodically when she is not able to understand why this is happening to her. ) - HEENT HEENT: Atraumatic, PERRL, EOMI - Neck Neck: Supple, no meningeal sign, No bony TTP - Cardiac Cardiac: No murmur, Other (tachy and irregular) - Respiratory Respiratory: No respiratory distress, Clear bilaterally - Abdomen Abdomen: Soft, Non tender, Other (obese) - Back Back: No CVA TTP, No spinal TTP - Derm Derm: Normal color, Warm and dry - Extremities Extremities: No deformity, Other (There is pitting edema to both LE with venous insufficiency. Wheeping has been present and is now less. There is specific t enderness to the medial left thigh that is mild but in the distribution of the pain the patient is experiencing lying on the left side. The hip runs in full ROM without pain. ) - Neuro Neuro: Alert and oriented X 3, collarette separator 2-12 intact, No motor deficit, No sensory deficit, Normal speech, Other (today there is no tremor present. Gait is not tested. ) Eye Opening: Spontaneous Motor: Obeys Commands Verbal: Oriented GCS Score: 15 - Psych Psych: Normal mood, Normal affect Results - Vitals Vitals: Vital Signs - 24 hr 12/02/19 12/02/19 12/02/19 00:32 02:34 03:00 Temperature 36.5 C Heart Rate 99 103 H 116 H Respiratory 24 18 16 Rate Blood Pressure 109/70 112/67 119/65 O2 Saturation 97 98 97 Oxygen O2 Source [] Room air O2 Source Room air - Labs Labs: Laboratory Tests 12/02/19 12/02/19 12/02/19 01:05 01:05 01:05 WBC 7.4 RBC 4.02 L Hgb 11.4 L Hct 35.6 L MCV 88.6 MCH 28.4 MCHC 32.0 RDW 14.5 Plt Count 230 MPV 10.8 Neut # (Auto) 4.8 Lymph # (Auto) 1.6 Highlands # (Auto) 0.7 Eos # (Auto) 0.3 Baso # (Auto) 0.0 Absolute Nucleated RBC 0.00 Nucleated RBC % 0.0 Sodium 137 Potassium 6.0 H* Chloride 109 Carbon Dioxide 20 L Anion Gap 8.0 BUN 107 H* Creatinine 2.6 H Estimated GFR (MDRD) 18 L Glucose 125 H Lactic Acid Calcium 9.4 Total Bilirubin 0.4 AST 21 ALT 21 Alkaline Phosphatase 51 Troponin I High Sens 2.7 Total Protein 7.0 Albumin 3.5 Globulin 3.5 Albumin/Globulin Ratio 1.0 Lipase 62 H Urine Color Urine Clarity Urine pH Ur Specific [place] Urine Protein Urine Glucose (UA) Urine Ketones Urine Occult Blood Urine Nitrite Urine Bilirubin Urine Urobilinogen Ur Leukocyte Esterase Ur Microscopic Review Urine Culture Comments 12/02/19 12/02/19 12/02/19 01:05 01:45 03:37 WBC RBC Hgb Hct MCV MCH MCHC RDW Plt Count MPV Neut # (Auto) Lymph # (Auto) High[place] # (Auto) Eos # (Auto) Baso # (Auto) Absolute Nucleated RBC Nucleated RBC % Sodium 136 Potassium 5.9 H Chloride 110 Carbon Dioxide 18 L Anion Gap 8.0 BUN 105 H* Creatinine 2.4 H Estimated GFR (MDRD) 20 L Glucose 116 H Lactic Acid 1.0 Calcium 9.3 Total Bilirubin AST ALT Alkaline Phosphatase Troponin I High Sens Total Protein Albumin Globulin Albumin/Globulin Ratio Lipase Urine Color YELLOW Urine Clarity CLEAR Urine pH 5.0 Ur Specific [place] 1.020 Urine Protein NEGATIVE Urine Glucose (UA) NEGATIVE Urine Ketones NEGATIVE Urine Occult Blood NEGATIVE Urine Nitrite NEGATIVE Urine Bilirubin NEGATIVE Urine Urobilinogen 0.2 (NORMAL) Ur Leukocyte Esterase NEGATIVE Ur Microscopic Review NOT INDICATED Urine Culture Comments NOT INDICATED Procedures - IVC sono (time) 0035 Bedside IVC sono: IVC measures (cm) (0.88), IVC collapsed c insp (cm) (complete), Dehydration (est 2 liter deficit) PD MEDICAL DECISION MAKING - ED course Complexity details: reviewed old records, reviewed results, re-evaluated patient, considered differential, d/w patient, d/w family ED course: 69-year-old female presents to the emergency department with generalized weakness and left medial thigh pain. She has had similar symptoms previously when she has been dehydrated and she has previously been on high doses of Lasix. She has had a recent admission to the hospital for dehydration with acute kidney injury she recovered she went to a longterm she is come back home and now she is again having some issues with ambulation and weakness. She is found to be dehydrated on interrogation the inferior vena cava on the order of about 2 L. She is administered intravenous saline. Her laboratory results show acute kidney injury with a BUN of 107 and a creatinine of 2.6. Her lactate is normal. She has become dehydrated again this time without Lasix. She also has elevated potassium at 6.0 and she is administered calcium gluconate 1 g intravenously. A venous duplex exam is obtained which is negative for deep venous thrombosis. Dr Acosta is consulted in the case and graciously agrees to care for the patient in the hospital. Departure - Departure Disposition: 66 [facility] DC/Xfer Clinical Impression: Dehydration, Acute kidney injury Condition: Stable
[2019-12-02 02:08] LABS: BILIRUBIN,URINE NEGATIVE (NEGATIVE); GLUCOSE, URINE (UA) NEGATIVE (NEGATIVE); KETONES,URINE (UA) NEGATIVE (NEGATIVE); LEUKOCYTE ESTERASE, URINE NEGATIVE (NEGATIVE); NITRITE,URINE NEGATIVE (NEGATIVE); OCCULT BLOOD,URINE NEGATIVE (NEGATIVE); PROTEIN,URINE NEGATIVE (NEGATIVE); UROBILINOGEN,URINE 0.2 (NORMAL) E.U./dL (NORMAL)
[2019-12-02 02:09] LABS: CLARITY,URINE CLEAR (CLEAR)
[2019-12-02 02:10] LABS: ALBUMIN 3.5 g/dL (3.2-5.5); BILIRUBIN,TOTAL 0.4 mg/dL (0.2-1.0); CALCIUM 9.4 mg/dL (8.5-10.3); CREATININE 2.6 mg/dL (0.4-1.0)
[2019-12-02] MEDS ORDERED: CALCIUM GLUCONATE 1000 MG/10 ML VIAL IVP STA (02:18)
[2019-12-02 04:01] LABS: CALCIUM 9.3 mg/dL (8.5-10.3)
[2019-12-02 04:03] LABS: CREATININE 2.4 mg/dL (0.4-1.0)
[2019-12-02] MEDS ORDERED: traMADol 50 MG TABLET PO STA (04:04)
[2019-12-02] MEDS ORDERED: ONDANSETRON 4 MG/2 ML VIAL IVP PRN (04:11)
[2019-12-02] MEDS ORDERED: ONDANSETRON ODT 4 MG TABLET TL PRN (04:11)
--- NOTE | 2019-12-02 04:23 | HISTORY & PHYSICAL EXAMINATION ---
Chief Complaint - Chief Complaint Chief Complaint: weakness & left thigh pain History of Present Illness - Admitted From Admitted From:: Home/ER - History Obtained From Records Reviewed: [facility] History obtained from: Dr. Kan Exam Limitations: none - History of Present Illness HPI Comment/Other: 69-year-old white female who was recently admitted October 24 for hallucinations and altered mental status. She was found to have a creatinine of 3.4 and a potassium of 6.9. Her usual baseline creatinine is 1.0. She is taking Lasix 80-120 mg a day for pedal edema and that was discontinued. She received D50 and insulin 3 times. No real response to Kayexalate and potassium normalized. We also spoke to her neurologist feels that she has more of a multiple system atrophy than Parkinson's disease. At discharge she was sent to [facility] but only lasted 13 days there because she did not want to be there anymo re. Since being home there is been no change in her status. She has seen a neurologist via Telemed 11/21 and her primary care 11/28 in follow-up since discharge from [facility].There is been no description of decreased p.o. intake, or fever, or cough or chills. She is complaining of left thigh pain. She is not very ambulatory to begin with but any ambulation she did has been ill for a few days now. She is to be followed by Home Health for PT but doesn't remember if they came yet. She did have her Gabapentin resumed 11/21 for her RLS and her clonazepam was held until she could be re-evaluated. Since being home she has not really improved. She is not more mobile. She feels like she is been eating and drinking normally and daughter confirms. She recently developed left groin pain and left thigh pain. Exam in her primary care provider office was negative other than severe vaginitis. Diflucan was ordered.She is not improved. Her weakness is gotten to the point that she is no longer getting out of bed. Family has been trying to talk her into being seen but she has been reticent. They finally were able to talk her into coming in tonight. She was seen in the emergency room by Dr. Kan where she was afebrile, slightly tachycardic with a heart rate of 99 216. Blood pressure has been 109- 119 systolic. she has been saturating well on room air. She had pitting edema on both lower extremities with no weeping. Mild left thigh tenderness. No other findings on physical exam other than her generalized weakness, and no tremor. White cell count was normal at 7.4. Her labs show her to have a return of her acute kidney injury with a potassium of 6.0. Anion gap 8. BUN 107 and creatinine 2.6. Urinalysis is negative for infection. Preliminary ultrasound report for the left thigh shows no DVT. She is now admitted for dehydration and acute kidney injury. Other than reduced p.o. intake, which the patient denies, there is no other mechanism of injury identified. History - Past Medical History Cardiovascular: reports: Hypertension (Norvasc stopped bd edema worse, then tired on hydralazine stopped bc low BP ), Atrial fibrillation (New onset 10/05. Echo September 2013 shows mild concentric LVH. EF 65%. Nml RV. mild pulm HTN w RVSP 43 mm hg.Seen by Babar and in sinus by then. ), Other (Morbid obesity) Respiratory: reports: Other (Mild pulm HTN and seen by cadiologist 2013. Two Prev sleep study at [facility] ~2003 w severe RLS but no apnea. Repeat sleep study ordered 01/2019. not done. ) Neuro: reports: Other (Multiple System atrophy diagnosed 08/2019 with ques if atypical Parkinsons. RLS since 2012. 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 ) : reports: Chronic bladder infection, Frequency HEENT: reports: Chronic hearing loss (High frequency loss left ear 2014. ) Psych: reports: Depression, Anxiety, Other (hallucinations with carbidopa- levodopha) Musculoskeletal: reports: Osteoarthritis, Gout, Other Derm: reports: Other (venous stasis of legs w boughts of cellulitis. Admit 2019 for that.) MRSA Hx?: No - Past Surgical History General: reports: Colonoscopy (03/2007 w no polyps. ) Ortho: reports: Other (ORIF left ankle) - Family & Social History Family History: Mother: , Father: Family History Comment/Other: mom of ovarian in 70s. dad of [place] age 56. she has 2 brothers and doesn't speak to them. 2 children. healthy Living arrangement: At home Living Situation: With family Social History Notes: . Nonsmoker. Rare alcohol drinker. 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 Lived alone on [place] since 1971 until she became ill. Daughter is now living with her to take care of her. Son also comes from [facility] to help take care of her in her own home. - Substance History Use: Uses substance without health or social issues: NONE Abuse: Recurrent use of substance despite neg consequences: NONE Dependence: Experiences withdrawal or developed tolerances: NONE - POLST Patient has POLST: No POLST Status: DNR Meds/Allgy - Home Medications Home Medications: Ambulatory Orders Medication Instructions Recorded Confirmed atenoloL [Atenolol] 100 mg PO DAILY 02/18/18 12/02/19 lisinopriL [Lisinopril] 20 mg PO DAILY 02/18/18 12/02/19 Ascorbic Acid [Vitamin C] 1,000 mg PO DAILY 08/07/19 12/02/19 Calcium Carbonate [Calcium] 1,000 mg PO DAILY 08/07/19 12/02/19 Gabapentin 300 mg PO BID 08/07/19 12/02/19 Apixaban [Eliquis] 5 mg PO BID tablet 08/10/19 12/02/19 traMADol [Ultram] 50 mg PO TID PRN 10/21/19 12/02/19 Fluconazole 150 mg PO DAILY 12/02/19 12/02/19 - Allergies Allergies/Adverse Reactions: Allergies Allergy/AdvReac Type Severity Reaction Status Date / Time warfarin AdvReac Nausea Verified 10/25/19 04:16 Review of Systems - Constitutional Constitutional: reports: Fatigue, Malaise, Weakness, Other (daughter reports eating and oral intake of liquids normal for her. no recent reduction). denies: Fever, Chills - Eyes Eyes: reports: Vision loss (chronic). denies: Pain, Irritation, Amaurosis, Blurred vision - Ears, Nose & Throat Ears, Nose & Throat: reports: Vertigo. denies: Nosebleeds, Sore throat, Hoarsen ess - Cardiovascular Cariovascular: reports: Irregular heart rate (but none for a while. doesn't feel if in afib), Edema, Exertional dyspnea, Decr. exercise tolerance (worse and worse over the last few months.). denies: Palpitations, Chest pain - Respiratory Respiratory: reports: Snoring, SOB with exertion, Apnea. denies: Cough, Sputum production, Wheezing - Gastrointestinal Gastrointestinal: reports: Poor appetite. denies: Abdominal pain, Abdominal distention, Diarrhea, Change in bowel habits, Nausea, Vomiting - Genitourinary Genitourinary: reports: Urgency, Incontinence, Nocturia. denies: Dysuria, Frequency, Hematuria, Flank pain - Musculoskeletal Musculoskeletal: reports: Muscle pain (all over all the time), Muscle aches (same as pain, recent worse left groin and thigh pain from hip to knee), Limited range of motion, Muscle weakness. denies: Joint pain - Integumentary Integumentary: reports: Rash (lower legs red, blistering) - Neurological Neurological: reports: General weakness, Memory problems, Pre-existing deficit, Incoordination, Other (restless legs worse off of meds so gabapentin resumed. Saw her Neurologist via Telemed). denies: Focal weakness, Headache, Dizziness - Psychiatric Psychiatric: reports: Depression, Anxiety, Other (insomnia due to RLS). denies: Hallucinations (none since her last hospitalization and sinemet stopped) - Endocrine Endocrine: denies: Polyuria, Polydypsia - Hematologic/Lymphatic Hematologic/Lymphatic: denies: Anemia, Bruising Prior Level of Functionality: Patient has Parkinson's disease and freezes up often. She was requiring assistance to get to the bathroom. She also required a wheelchair and also a walker to accomplish getting from one place in the house to the other. [place] her in patient's house in [place]. She is being cared for by son and daughter. They are using lap belt but it's not working since legs too weak at times. Her daughter explains that the patient has been assessed by [facility] in [place] and think she would be a candidate for assisted living. Although the patient is been failing, daughter has been reluctant to place mom and has been hoping to keep her at home. In the last month is essentially bedbound and not getting up. Exam - Vital Signs Reviewed Vital Signs: Yes Vital Signs: Vital Signs x48h Temp Pulse Resp BP Pulse Ox 12/02/19 03:00 116 H 16 119/65 97 12/02/19 02:34 103 H 18 112/67 98 12/02/19 00:32 36.5 C 99 24 109/70 97 - Physical Exam General Appearance: positive: Alert, Mild distress (emotional, crying as she discusses her deterioration), Other (5'5" obese female, who doesn't have the strenght to roll over and can barely lift head to drink from straw, 104.3 kg) Eyes Bilateral: positive: PERRL, EOMI ENT: positive: Dry mucous membranes, Other (white exudate at corners of her lips, cracked corners) Neck: positive: No JVD. negative: Stiff neck Respiratory: positive: Chest non-tender, Other (slow shallow respiration). negative: Wheezes, Rales, Rhonchi Cardiovascular: positive: Regular rate & rhythm. negative: Systolic murmur, Gallop/S4, Friction rub Peripheral Pulses: positive: 1+ Abdomen: positive: Non-tender, Nml bowel sounds, No distention, Other (large panus with alka intertrigo) Skin: positive: Warm, Dry, Other (venous stasis bullae of both lower shins with red skin there, areas of peeling, and one small area of oozing right upper jones, slightly lateral of center) Extremities: positive: Pedal edema, Other (tender to touch the hot skin of her shins) Neurologic/Psychiatric: positive: Oriented x3 (much improved from her last stay with us where she was screaming, delusional, paranoid and needed haldol and r estraints. Today she is tearful, sad, not wanting to be here and discussing maybe it's time for Hospice), CN's nml (2-12). negative: Motor nml (slow overall motor skills, face slack and only moves when she cries with grief over her status. Limbs stiff to move but no cogwheel rigidity and no tremors. So weak, she can't turn over or sit up. can barely lift head to sip thru straw and no dysphagia or choking noted.) Conclusion/Plan - Problem List (1) Dehydration Conclusion/Plan: Unclear of why she is presenting this way. Both she and daughter describe adequate oral intake and fluid intake. She is no longer on Lasix. Elevation of BUN in relation to creatinine indicates prerenal status compatible with dehydration. Plan: Inpatient status since anticipate greater than 2 midnights to treat IV fluids Nutrition evaluation to see if we can tease out what her intake may be at home (2) Acute kidney injury Conclusion/Plan: Secondary to the dehydration. Accompanied by hyperkalemia again. With last admission, and appropriate IV hydration, her creatinine became normal. Plan: Normal saline D50 followed by IV push insulin x1 Daily labs to follow Check post void residual and retroperitoneal ultrasound to see if there is any element of retention or obstruction (3) Hyperkalemia Conclusion/Plan: As above. D50, 1 amp, followed by 10 units of IV push insulin. Repeat labs in the morning. (4) Left thigh pain Conclusion/Plan: Probable musculoskeletal pain. Unrelated to DVT. Distribution of pain indicates some possibility of sciatica. 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 Today is Monday. When we last saw her, differential diagnosis of Lewy body dementia, multiple system atrophy, versus Parkinson's disease was discussed. Neurologically she started having problems with her walking and leg movement that she associated with restless leg syndrome in 2014. Then she had dizziness and vertigo and was felt to be benign positional vertigo. When she began having falls and gait instability she was then seen by neurology and given the diagnosis of possible atypical Parkinson's back in August 2019. Poor response to Sinemet with hallucinations induced. Now the diagnosis may be multiple system atrophy. The patient still feels that she has Parkinson's but the neurology notes do state that the patient most likely has MSA. She says that was last 's visits, she was told that she does not have Lewy body dementia. That she does have Parkinson's but medications were not started because of her bad side effect with them last time. Plan: We will call Dr. Dillard to assess diagnosis and prognosis. The patient herself feels that there is nothing to do. She is tearful, grieving her loss of independence and functionality. She is grieving that she is a burden to her daughter. They did discuss hospice this morning. However in speaking to her the daughter, the hospice topic came up more as a need for more information. Rather than refer to hospice, which the daughter is not ready to do, I will refer for palliative care consultation. She does state and daughter confirms, that she wants to be DNR. No intubation, no CPR. (6) Atrial fibrillation Conclusion/Plan: Rate is not controlled with mild tachycardia. She is on atenolol 100 mg. She is on anticoagulation. Eliquis is 2.5 mg twice daily with renal failure. Currently on 5 mg twice daily. Will adjust dose temporarily until creatinine normalizes. will resume atenolol. HOld for systolic <90 and pulse <60. Qualifiers: Atrial fibrillation type: longstanding persistent Qualified Code(s): I48.11 - Longstanding persistent atrial fibrillation (7) Candidal intertrigo Conclusion/Plan: Nystatin powder and cream. She was on fluconazole when she left here last time. (8) HTN (hypertension) Conclusion/Plan: With her last admission, her TUTU inhibitor was held because of the rising creatinine. In looking at her medication list on her PCP office visit for November 28, the patient is still on lisinopril and that was resumed. Plan: At this time blood pressure is stable if not mildly low. Will hold lisinopril in view of creatinine. Qualifiers: Hypertension type: essential hypertension Qualified Code(s): I10 - Essential (primary) hypertension - Lab Results Lab results reviewed: Yes Fish Bones: 12/02/19 01:05 12/02/19 03:37 - Diagnostic Imaging Results Diagnostic Imaging Results: positive: Prelim report reviewed Diagnostic Imaging Results Comments: Preliminary ultrasound report of venous duplex left lower extremity. Negative for DVT. Core Measures - Anticipated LOS I expect patient to be DC'd or transferred within 96 hours.: Yes - DVT/VTE - Prophylaxis VTE/DVT Device ordered at admit?: Yes
[2019-12-02] MEDS: SODIUM CHLORIDE 0.9% 1,000 ML IV SCH ×2 (05:34→16:18)
[2019-12-02] MEDS ORDERED: DEXTROSE 50% ABBOJECT 25 GM/50 ML SYRINGE IVP ONE (05:40)
[2019-12-02] MEDS ORDERED: INSULIN REGULAR HUMAN 300 UNIT/3 ML VIAL IVP ONE ×2 (05:40→13:34)
[2019-12-02] MEDS: ACETAMINOPHEN 325 MG TABLET PO PRN ×3 (07:03→18:03)
--- NOTE | 2019-12-02 07:11 | Ultrasound Report ---
PROCEDURE: Duplex Ext Veins Left INDICATIONS: medial left thigh pain leg swelling TECHNIQUE: Real-time imaging, as well as color and pulse Doppler interrogation, were performed of the lower extr emity deep veins from the inguinal ligament to the popliteal fossa. COMPARISON: None. FINDINGS: The deep veins are normally compressible, and free of intraluminal thrombus. Color and pu lse Doppler demonstrate normal phasic intraluminal flow. There is normal augmentation response to di stal compression maneuver. IMPRESSION: No evidence of deep vein thrombosis involving the left lower extremity. Reviewed by: Alia Zhang MD, PhD on 12/02/2019 7:10 AM PDT Approved by: Alia Zhang MD, PhD on 12/02/2019 7:10 AM PDT Station ID: [id number]
[2019-12-02] MEDS: APIXABAN 2.5 MG TABLET PO SCH ×2 (08:57→20:05)
[2019-12-02] MEDS: GABAPENTIN 300 MG CAPSULE PO SCH ×2 (08:57→20:05)
[2019-12-02] MEDS ORDERED: NYSTATIN POWDER 15 GM TOP SCH (09:00)
[2019-12-02] MEDS: NYSTATIN CREAM 15 GM TUBE TOP SCH ×2 (09:01→20:06)
[2019-12-02] MEDS: atenoloL 25 MG TABLET PO SCH (09:02)
[2019-12-02] MEDS: SODIUM CHLORIDE FLUSH 0.9% 10 ML SYRINGE IVP SCH ×2 (09:02→16:48)
--- NOTE | 2019-12-02 10:19 | PHARMACY PROGRESS NOTE ---
- Best Possible Medication History Admit Date and Time: 12/02/19 0411 Processed by: Pharmacy Medication History completed: Yes Patient Interview: Completed Secondary Source(s): Pharmacy records, Insurance records As the person ultimately responsible for medication therapy, providers are able to order a medication from an existing home medication list in [facility] via the "Reconcile Routine" prior to Confirmation of that medication by it support technician. Such practice is discouraged except when the physician, in their clinical judgment, deems that a medical need exists for a medication without regard to previous use.
[2019-12-02] MEDS ORDERED: oxyCODONE 5 MG TABLET PO PRN (12:57)
[2019-12-02 13:24] LABS: CALCIUM 9.5 mg/dL (8.5-10.3)
[2019-12-02] MEDS ORDERED: DEXTROSE 10% 250 ML IV STA (13:34)
--- NOTE | 2019-12-02 14:25 | XRAY Report ---
PROCEDURE: Hip w/Pelvis 2-3V LT INDICATIONS: Left hip pain. TECHNIQUE: AP pelvis with lateral view(s) of the left hip(s). COMPARISON: None. FINDINGS: Bones: No fractures or dislocations. Left hip joint osteoarthritic changes are seen. No evidence of avascular necrosis of femoral head. Pelvic ring appears intact. No suspicious bony lesions. Soft tissues: The visualized bowel gas pattern is normal. No suspicious soft tissue calcifications. IMPRESSION: No acute left hip fracture or dislocation. Left hip joint osteoarthritis. No evidence of avascular necrosis. Reviewed by: Buck Reed MD on 12/02/2019 1:24 PM AKDT Approved by: Buck Reed MD on 12/02/2019 1:24 PM AKDT Station ID: [id number]
[2019-12-02] MEDS: HYDROmorphone 1 MG/ML CARPUJECT IVP PRN ×2 (16:48→20:05)
--- NOTE | 2019-12-02 18:20 | PROVIDER PROGRESS NOTE ---
Hospitalist Cross-cover Note - Cross-Cover Note Cross-Cover Note: Patient continues to complain of left thigh pain. I ordered an x-ray of the left hip which was negative for acute fracture. We are treating her pain with Dilaudid IV as needed. No NSAIDs due to her acute kidney injury. Her renal function is improving but her potassium remains elevated. She was given insulin and dextrose this morning and repeat potassium remains elevated. I treated her once again with insulin and dextrose and we will recheck a BMP this evening. She remains on IV fluids. I discussed with the patient and daughter regarding goals of care. The patient would like to be a DNR for the time being. She asked questions regarding POLST form. We discussed what this form entails and she will think about what her wishes are. Palliative care has been consulted and will see the patient tomorrow. POLST form can be completed at that time after the patient decides on her wishes.
[2019-12-02 20:14] LABS: CREATININE 1.8 mg/dL (0.4-1.0)
[2019-12-03] MEDS: SODIUM CHLORIDE FLUSH 0.9% 10 ML SYRINGE IVP SCH ×3 (01:52→16:34)
[2019-12-03] MEDS: HYDROmorphone 1 MG/ML CARPUJECT IVP PRN ×2 (03:31→06:49)
[2019-12-03 05:36] LABS: BASOPHILS % (AUTO) 0.3 %; EOSINOPHILS # (AUTO) 0.3 10^3/uL (0.0-0.7); EOSINOPHILS % (AUTO) 4.2 %; HGB - HEMOGLOBIN 10.4 g/dL (12.0-16.0); LYMPHOCYTES # (AUTO) 1.7 10^3/uL (1.5-3.5); LYMPHOCYTES % (AUTO) 28.5 %; MEAN CORPUSCULAR HEMOGLOBIN 27.5 pg (27.0-31.0); MEAN CORPUSCULAR HGB CONC 30.3 g/dL (32.0-36.0); MEAN CORPUSCULAR VOLUME 90.7 fL (81.0-99.0); MEAN PLATELET VOLUME 10.6 fL (7.9-10.8); MONOCYTES # (AUTO) 0.7 10^3/uL (0.0-1.0); MONOCYTES % (AUTO) 11.1 %; NEUTROPHILS # (AUTO) 3.3 10^3/uL (1.5-6.6); NEUTROPHILS % (AUTO) 55.6 %; PLT - PLATELET COUNT 184 10^3/uL (130-450); RED BLOOD COUNT 3.78 10^6/uL (4.20-5.40); RED CELL DISTRIBUTION WIDTH 14.6 % (12.0-15.0)
[2019-12-03 05:53] LABS: CALCIUM 9.2 mg/dL (8.5-10.3); CREATININE 1.6 mg/dL (0.4-1.0); MAGNESIUM 2.6 mg/dL (1.7-2.8); PHOSPHORUS 4.1 mg/dL (2.5-4.6)
[2019-12-03] MEDS: SODIUM CHLORIDE FLUSH 0.9% 10 ML SYRINGE IVP PRN ×3 (08:38→10:31)
[2019-12-03] MEDS: GABAPENTIN 300 MG CAPSULE PO SCH ×2 (08:38→20:33)
[2019-12-03] MEDS: APIXABAN 2.5 MG TABLET PO SCH (08:38)
[2019-12-03] MEDS: atenoloL 25 MG TABLET PO SCH (08:38)
[2019-12-03] MEDS: traMADol 50 MG TABLET PO PRN ×2 (08:38→16:25)
[2019-12-03] MEDS: NYSTATIN CREAM 15 GM TUBE TOP SCH ×2 (08:43→20:33)
[2019-12-03] MEDS ORDERED: SODIUM CHLORIDE 0.9% 1,000 ML IV SCH (09:00)
--- NOTE | 2019-12-03 09:01 | PROVIDER PROGRESS NOTE ---
Subjective - Prog Note Date Prog Note Date: 12/03/19 Prog Note Time: 08:56 - Subjective Subjective: "I just want to go home, I feel like I'm always bothering the nurses, feel like I'm always sliding down the mattress, I want to get up to the recliner Chronic R shoulder pain ~ baseline, Left hip pain not currently an issue, today feels like R foot hurts, but not tender on exam or with toe wiggle, "its too big to move Would like compression on LEs (e.g. TUTU wrap) Current Medications - Current Medications Current Medications: Active Medications Generic Name Dose Route Start Last Admin Trade Name Freq PRN Reason Stop Dose Admin Acetaminophen 650 mg 12/02/19 04:11 12/02/19 18:03 Tylenol PO 650 mg Q4HR PRN Administration Pain 1 to 4 Apixaban 2.5 mg 12/02/19 09:00 12/03/19 08:38 Eliquis PO 2.5 mg BID AYAZ Administration Atenolol 50 mg 12/02/19 09:00 12/03/19 08:38 Tenormin PO 50 mg DAILY AYAZ Administration Gabapentin 300 mg 12/02/19 09:00 12/03/19 08:38 Neurontin PO 300 mg BID AYAZ Administration Hydromorphone HCl 1 mg 12/02/19 12:57 12/03/19 06:49 Dilaudid Inj Carp IVP 1 mg Q2HR PRN Administration PAIN Sodium Chloride 1,000 mls @ 75 mls/hr 12/03/19 09:00 Normal Saline 0.9% IV 12/03/19 22:19 .[id number] AYAZ Nystatin 1 applic 12/02/19 09:00 12/03/19 08:43 Mycostatin Cream TOP 1 applic BID AYAZ Administration Ondansetron HCl 4 mg 12/02/19 04:11 Zofran Odt TL Q6HR PRN Nausea / Vomiting Ondansetron HCl 4 mg 12/02/19 04:11 Zofran Inj IVP Q6HR PRN Nausea / Vomiting Oxycodone HCl 5 mg 12/02/19 12:57 Roxicodone PO Q4HR PRN PAIN Sodium Chloride 10 ml 12/02/19 04:11 12/03/19 08:42 Normal Saline Flush 0.9% IVP 10 ml PRN PRN Administration NEEDED PER PROVIDER ORDERS Sodium Chloride 10 ml 12/02/19 09:00 12/03/19 03:31 Normal Saline Flush 0.9% IVP 10 ml 0100,0900,1700 AYAZ Administration Tramadol HCl 50 mg 12/02/19 09:59 12/03/19 08:38 Ultram PO 50 mg TID PRN Administration PAIN atenoloL [Atenolol] 100 mg PO BID 02/18/18 lisinopriL [Lisinopril] 20 mg PO DAILY 02/18/18 Ascorbic Acid [Vitamin C] 1,000 mg PO DAILY 08/07/19 Gabapentin 300 mg PO BID 08/07/19 traMADol [Ultram] 50 mg PO TID PRN 10/21/19 Calcium Carbonate [Calcium] 600 mg PO DAILY 12/02/19 Objective - Vital Signs/Intake & Output Reviewed Vital Signs: Yes Vital Signs: Vital Signs x48h Temp Pulse Resp BP BP Pulse Ox 12/03/19 08:00 37.0 C 103 H 20 120/65 96 12/03/19 01:45 36.8 C 91 18 125/68 100 Intake & Output: Intake & Output 11/30/19 12/01/19 12/02/19 12/03/19 23:59 23:59 23:59 23:59 Intake Total 2670 1000 Output Total 2000 650 Balance 670 350 - Objective General Appearance: positive: Mild distress, Other (being fed breakfast , somewhat weepy when I entered "I dont want to eat, I'm not hungry" Later seen up in recliner when daughter in, much more animated and comfortable. she ascribes that to the recliner, said she did ok getting up with Chitra from PT with the sit/ stand device) Eyes Bilateral: positive: Normal inspection Neck: positive: Other (Full neck) Respiratory: positive: Chest non-tender, No respiratory distress, Breath sounds nml Cardiovascular: positive: No murmur, Irregularly irregular Abdomen: positive: Nml bowel sounds, No distention Skin: positive: Warm, Dry, Other (LE skin bilaterally with some cracking over feet, heels Cling around shins, dressing does not look wet, no weeping visible) Extremities: positive: Pedal edema (gross 4+ pretibial and pedal edema) Neurologic/Psychiatric: positive: Oriented x3, Other (aware of plan today to meet with [place] Awad). 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, holding Cellphone on L (R 3/5, L 4/5), no tremor noted) - Lab Results Fish Bones: 12/03/19 05:20 12/03/19 15:55 Other Labs: Lab Results x24hrs 12/03/19 12/03/19 12/02/19 Range/Units 05:20 05:20 19:55 WBC 6.0 (4.8-10.8) x10^3/uL RBC 3.78 L (4.20-5.40) 10^6/uL Hgb 10.4 L (12.0-16.0) g/dL Hct 34.3 L (37.0-47.0) % MCV 90.7 (81.0-99.0) fL MCH 27.5 (27.0-31.0) pg MCHC 30.3 L (32.0-36.0) g/dL RDW 14.6 (12.0-15.0) % Plt Count 184 (130-450) 10^3/uL MPV 10.6 (7.9-10.8) fL Neut # (Auto) 3.3 (1.5-6.6) 10^3/uL Lymph # (Auto) 1.7 (1.5-3.5) 10^3/uL [place] # (Auto) 0.7 (0.0-1.0) 10^3/uL Eos # (Auto) 0.3 (0.0-0.7) 10^3/uL Baso # (Auto) 0.0 (0.0-0.1) 10^3/uL Absolute Nucleated RBC 0.00 x10^3/uL Nucleated RBC % 0.0 /100WBC Sodium 140 (135-145) mmol/L Potassium 5.7 H (3.5-5.0) mmol/L Chloride 113 H (101-111) mmol/L Carbon Dioxide 20 L (21-32) mmol/L Anion Gap 7.0 (6-13) BUN 79 H (6-20) mg/dL Creatinine 1.6 H (0.4-1.0) mg/dL Estimated GFR (MDRD) 32 L (>89) Glucose 104 H (70-100) mg/dL Calcium 9.2 (8.5-10.3) mg/dL Phosphorus 4.1 (2.5-4.6) mg/dL Magnesium 2.6 (1.7-2.8) mg/dL Total Creatine Kinase 414 H (22-269) IU/L 12/02/19 12/02/19 Range/Units 19:55 13:10 WBC (4.8-10.8) x10^3/uL RBC (4.20-5.40) 10^6/uL Hgb (12.0-16.0) g/dL Hct (37.0-47.0) % MCV (81.0-99.0) fL MCH (27.0-31.0) pg MCHC (32.0-36.0) g/dL RDW (12.0-15.0) % Plt Count (130-450) 10^3/uL MPV (7.9-10.8) fL Neut # (Auto) (1.5-6.6) 10^3/uL Lymph # (Auto) (1.5-3.5) 10^3/uL [place] # (Auto) (0.0-1.0) 10^3/uL Eos # (Auto) (0.0-0.7) 10^3/uL Baso # (Auto) (0.0-0.1) 10^3/uL Absolute Nucleated RBC x10^3/uL Nucleated RBC % /100WBC Sodium 139 136 (135-145) mmol/L Potassium 5.8 H 6.1 H* (3.5-5.0) mmol/L Chloride 111 109 (101-111) mmol/L Carbon Dioxide 19 L 20 L (21-32) mmol/L Anion Gap 9.0 7.0 (6-13) BUN 84 H* 96 H* (6-20) mg/dL Creatinine 1.8 H 2.0 H (0.4-1.0) mg/dL Estimated GFR (MDRD) 28 L 25 L (>89) Glucose 129 H 107 H (70-100) mg/dL Calcium 9.0 9.5 (8.5-10.3) mg/dL Phosphorus (2.5-4.6) mg/dL Magnesium (1.7-2.8) mg/dL Total Creatine Kinase (22-269) IU/L Assessment/Plan - Problem List (1) Acute kidney injury Impression: BUN/Cr ration most c/w volume depletion, prerenal, but patient denies having significantly reduced PO intake, likey combined effect of reduced pO AND ACEi improving 96/2.0>> 84/1.8>>79/1.6 with hydration. Unfortunately IVF written for 2 L intially and was not continued when 2L completed at 2am. Resuming at 75cc/hr this morning. K improving as well though still elevated. Re check K at 4p, expect continued improvement, will not address acutely right now (Addendum; 4p 5.7 still, will continue iVf and not acutely address), recheck in am Stop ACEI (stopped on admit), no plans to resume If continues to improve, clinically could d/c in am, if plans in place, resources after palliative care consult (2) Volume depletion Impression: related to reduced PO intake no hypotension continuing (resumed this AM) IV fluid Given LE edema, will reduce rate to 75cc/hr (3) Hyperkalemia Impression: Stable; related to ACEI (d/c'd on admit) and TRESA Stable at 5.7; does not urgently need treatment, but given hopes to d/c in am, will give additional dose d50/ insulin , not on any exogenous K REcheck in am stop daily mag , phos (4) Atrial fibrillation Impression: Rate suboptimally controlled Atenolol reduced from 100/day to 50/day on admit w/ modest hypotention BP allows return to 100mg/ day will give additonal 25 mg today and resume 100 mg/ day tmorrow On eliquis for stroke risk ([id number]; ); eliquis qs reduced to 2.5 bid w/ elevated Cron admit, but Cr improving, weight and age allow; resume 5 mg bid eliqis Qualifiers: Atrial fibrillation type: longstanding persistent Qualified Code(s): I48.11 - Longstanding persistent atrial fibrillation (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 Neurologist considered atypical PD 08/2019(patient hallucinated though on Sinemet) and is now favoiring Multiple system Atrophy as primary reason for decline Patient and daughter will have pallicative care consult today. Shannon Finn evaluated patient and d/w me Plan , if continues to clinically improve d/c home tomorrow w/ added support with HHPT, HHOT, HH aide, (with family training on any DME) hopefully can get sit stand device as DME, has hospital bed, may need commode will need Wheel chair van for discharge possible visiting [facility] support, but they can only offer 20 hrs per month per SW Shannon will get referral from PCP for continued outpatient palliative care Shannon gave patient Polst to still determine her wishes (her plan to increase independence is not likley realistic give neurologist dx of MSA) Patient still DNR
[2019-12-03] MEDS ORDERED: APIXABAN 5 MG TABLET PO SCH (10:24)
[2019-12-03] MEDS ORDERED: atenoloL 25 MG TABLET PO ONE (15:14)
--- NOTE | 2019-12-03 16:33 | CONSULTATION NOTE ---
Palliative Care Consultation - Referral Referring Provider: CAESAR Pope Time of Visit: [id number] Referral setting: Hospitalized patient Referral Reason: Goals of care/Advanced Care Planning - Information Sources Records reviewed: Previous records reviewed History/Review of Systems obtained from: Patient, Family (daughterRozina) - History of Present Illness Brief History of Present Illness: This is a 69-year-old female who was seen and evaluated today for initial palliative care consultation while inpatient with her daughterCamila present at the bedside for discussion regarding goals of care and advance care planning. The patient was admitted Due to dehydration and acute kidney injury. The patient was seen in early October 2019 with an admission due to also dehydration and acute injury secondary to diuretic therapy which was subsequently discontinued. She was previously taking Lasix 80 to 120 mg daily for lower extremity edema. In October 2019 she was discharged to [facility] but due to her underlying claustrophobia she left the facility to return home. Prior to this present admission the patient was having difficulty ambulating and was becoming progressively weaker over about a 10-day timeframe and feeling "off balance." This resulted in her being admitted for acute kidney injury and dehydration. The patient has had a functional decline over the last 1.5 years. She is followed by neurologist, Dr. Seferino Dillard.The patient's and her daughter report that beginning about 2 to 3 years ago the patient started with some night terrors. Then sometime after that presentation she developed some intermittent hand tremors. That approximately 1.5 years ago she began having drooling and shuffling of her feet. She was seen by neurology with initial working diagnosis of Parkinson's disease. She was initiated on carbidopa/levodopaFor Parkinson's disease but developed hallucinations and this was subsequently discontinued. 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 This is presently the patient's third hospitalization this year. Her daughter reports that each hospitalization gives her extreme anxiety. The patient hersel f also has underlying claustrophobia which is so longstanding history. The patient herself wishes to avoid hospitalizations due to this underlying anxiety anxiety. The patient is seen sitting out of bed in her recliner receiving IV fluids through a peripheral IV. She has a labile mood with a tearful affect discussing her decline in recent years. Medical/Surgical History - Past Medical History Cardiovascular: reports: Hypertension, Atrial fibrillation, Other Respiratory: reports: Other (Mild pulm HTN and seen by cadiologist 2013. Two Prev sleep study at [facility] ~2004 w severe RLS but no apnea. Repeat sleep study ordered 01/2019. not done. ) Neuro: Parkinson's, Other Endocrine/Autoimmune: reports: None GI: reports: None TIP BANDER: reports: Other ( with recent alka vaginitis on fluconozole, ASCUS . ) : reports: Chronic bladder infection, Frequency HEENT: reports: Chronic hearing loss (High frequency loss left ear 2014. ) Psych: reports: Depression, Anxiety, Other Musculoskeletal: reports: Osteoarthritis, Gout, Other Derm: reports: Other (venous stasis of legs w boughts of cellulitis. Admit 07/2019 for that.) MRSA Hx?: No - Past Surgical History General: reports: Colonoscopy Ortho: reports: Other - Substance History Use: Uses substance without health or social issues: NONE Abuse: Recurrent use of substance despite neg consequences: NONE Dependence: Experiences withdrawal or developed tolerances: NONE Social History - Living Situation Living arrangement: At home Living Situation: With family Support System: Patient is . 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 Her daughter moved into the patient's home with her to assist taking care of the patient for the last 1.5 years. The patient's son, Josiah is presently on FMLA and is within the home to assist with care as well. The patient's daughter, Camila recognizes the patient's progressive decline and during this hospitalization has been working with social work to apply for tailored support program within the community and are waiting to hear back regarding this application. The daughter is also looking into visiting [place] for additional caregiving support. The patient's son-in-law is presently able to store worker and her daughter is a algebra teacher and has a likely limited schedule for the upcoming school year due to the coronavirus pandemic but the patient cannot be a left alone unattended. Family History - Family History Family History: Mother: , Father: Family History Comment/Other: Mother in her 70s. Father at age 56 due to an ME. Medications/Allergies - Medications Active Medication List: Active Medications Acetaminophen (Tylenol) 650 mg PO Q4HR PRN PRN Reason: Pain 1 to 4 Last Admin: 12/02/19 18:03 Dose: 650 mg Documented by: Apixaban (Eliquis) 5 mg PO BID [facility] Atenolol (Tenormin) 100 mg PO DAILY [facility] Gabapentin (Neurontin) 300 mg PO BID [facility] Last Admin: 12/03/19 08:38 Dose: 300 mg Documented by: Hydromorphone HCl (Dilaudid Inj Carp) 1 mg IVP Q2HR PRN PRN Reason: PAIN Last Admin: 12/03/19 06:49 Dose: 1 mg Documented by: Sodium Chloride (Normal Saline 0.9%) 1,000 mls @ 75 mls/hr IV .[id number] [facility] Stop: 12/03/19 22:19 Last Admin: 12/03/19 10:31 Dose: 75 mls/hr Documented by: Nystatin (Mycostatin Cream) 1 applic TOP BID [facility] Last Admin: 12/03/19 08:43 Dose: 1 applic Documented by: Ondansetron HCl (Zofran Odt) 4 mg TL Q6HR PRN PRN Reason: Nausea / Vomiting Ondansetron HCl (Zofran Inj) 4 mg IVP Q6HR PRN PRN Reason: Nausea / Vomiting Oxycodone HCl (Roxicodone) 5 mg PO Q4HR PRN PRN Reason: PAIN Sodium Chloride (Normal Saline Flush 0.9%) 10 ml IVP PRN PRN PRN Reason: NEEDED PER PROVIDER ORDERS Last Admin: 12/03/19 10:31 Dose: 10 ml Documented by: Sodium Chloride (Normal Saline Flush 0.9%) 10 ml IVP 0100,0900,1700 [facility] Last Admin: 12/03/19 03:31 Dose: 10 ml Documented by: Tramadol HCl (Ultram) 50 mg PO TID PRN PRN Reason: PAIN Last Admin: 12/03/19 16:25 Dose: 50 mg Documented by: atenoloL [Atenolol] 100 mg PO BID 02/18/18 lisinopriL [Lisinopril] 20 mg PO DAILY 02/18/18 Ascorbic Acid [Vitamin C] 1,000 mg PO DAILY 08/07/19 Gabapentin 300 mg PO BID 08/07/19 traMADol [Ultram] 50 mg PO TID PRN 10/21/19 Calcium Carbonate [Calcium] 600 mg PO DAILY 12/02/19 - Allergies Allergies/Adverse Reactions: Allergies Allergy/AdvReac Type Severity Reaction Status Date / Time warfarin AdvReac Nausea Verified 10/25/19 04:16 Review of Systems - Constitutional Constitutional: reports: Fatigue, Weight gain (Reports a weight gain of about 25 to 30 pounds over the last year). denies: Fever - Eyes Eyes: reports: Vision loss (chronic). denies: Irritation - Ears, Nose & Throat Ears, Nose & Throat: denies: Hearing loss - Cardiovascular Cardiovascular: reports: Edema, Exertional dyspnea, Decr. exercise tolerance. denies: Palpitations, Chest pain - Respiratory Respiratory: denies: Cough - Gastrointestinal Gastrointestinal: denies: Abdominal pain, Constipation - Genitourinary Genitourinary: reports: Other (birmingham catheter in place) - Musculoskeletal Musculoskeletal: reports: Assistive devices, Transfer issues. denies: Joint pain - Neurological Neurological: reports: General weakness, Abnormal gait - Psychiatric Psychiatric: reports: Depression, Anxiety, Other (RLS). denies: Hallucinations - All Other Systems All Other Systems: reports: Reviewed and negative Physical Exam - Vital Signs Vital Signs: Vital Signs x48h Temp Pulse Pulse Resp BP Pulse Ox 12/03/19 16:00 36.8 C 106 H 22 135/67 H 97 12/03/19 10:48 37.0 C 94 16 - Physical Exam General Appearance: positive: Alert, Other (Obese, OOB in recliner, labile mood with tearful episodes) Eyes Bilateral: positive: Normal inspection ENT: positive: No signs of dehydration Neck: positive: No JVD, Trachea midline Cardiovascular: positive: Regular rate & rhythm, No murmur Respiratory: positive: No respiratory distress, Breath sounds nml. negative: Rales Abdomen: positive: Non-tender, Soft, Nml bowel sounds, Obese Skin: positive: Other (TUTU wraps to BLE in place) Extremities: positive: Pedal edema Neurologic/Psychiatric: positive: Oriented x3, Flat affect (with tearful episodes when discussing her decline and expressing that she fears she is a burden to her family), Other (Sit to stand used to transfer to [facility] with noted weakness. No obvious tremors.) Palliative Care - POLST Patient has POLST: No POLST Status: DNR Feelings of wellbeing/Perceived Quality of Life: Poor Sleep: Variable sleep pattern Constipation: No Performance Status: Has had a decline in functional status over 1.5 years. Unable to ambulate independently and requiring a sit to stand to get out of bed. Able to self feed. - Palliative Care Discussion: The patient has had aGeneral decline over 1.5 years in her function. She is followed by neurology at the present time and both she and her daughter are finding it frustrating that there is not a definitive diagnosis at the present time for what has been occurring to cause the patient to have this declined. 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 However, when discussed with the patient and her daughter today their understanding is the patient still has a diagnosis of Parkinson's disease but was not tolerant to carbidopa/levodopa due to hallucinations. The patient is worried about trajectory and where she goes from here. It is becoming increasingly difficult for the patient's daughter and family to care for the patient at home due to her body habitus and physical deconditioning due to an underlying neurological deficit. The patient has a goal to be able to be ambulatory again. She is quite tearful in discussing that she feels that she is a burden especially to her daughter who has been providing care for the patient. The patient is quite clear that she does not wish to return to a residential facility due to her previous experience in October 2019 which exacerbated her anxiety and claustrophobia. The patient has a desire to remain at home with her family. She is motivated to work with physical therapy and occupational therapy to gain her strength. The patient's daughter also does not wish to consider facility placement at this time given the coronavirus and visitor limitations and wishes to work with obtaining private caregivers to supplement which she and her family are able to provide for the patient within the home. Hospitalist began a discussion for regarding the POLST yesterday with the patient and her daughter. The patient wishes to be a DN AR per that conversation. Explored POLST today and CODE STATUS. Patient feels that with the prior conversation she needed to make a decision regarding her CODE STATUS as she has potentially limited time with her understanding. Upon further review the patient does not wish to be on an knee mechanical assistive devices for a length of time and when asked if she wishes to return to a full code she declined and wishes to remain DN AR at the present time and to think up on her CODE STATUS further. The patient is aware to relay if she wishes to change her CODE STATUS to facility staff in order to have this changed and her daughter also understood stands and verbalizes. Provided hard choices for loving People booklets to both the patient and her daughter for further review and discussion Ada further date within her home setting as this is not an immediate need. However, the patient needs to explore goals of care and end-of-life planning given her overall functional decline over the last 1.5 years. Results - Lab Results Fish Bones: 12/03/19 05:20 12/03/19 15:55 Lab and Imaging Results: Lab Results x24hrs 12/03/19 12/03/19 12/03/19 Range/Units 15:55 05:20 05:20 WBC 6.0 (4.8-10.8) x10^3/uL RBC 3.78 L (4.20-5.40) 10^6/uL Hgb 10.4 L (12.0-16.0) g/dL Hct 34.3 L (37.0-47.0) % MCV 90.7 (81.0-99.0) fL MCH 27.5 (27.0-31.0) pg MCHC 30.3 L (32.0-36.0) g/dL RDW 14.6 (12.0-15.0) % Plt Count 184 (130-450) 10^3/uL MPV 10.6 (7.9-10.8) fL Neut # (Auto) 3.3 (1.5-6.6) 10^3/uL Lymph # (Auto) 1.7 (1.5-3.5) 10^3/uL [place] # (Auto) 0.7 (0.0-1.0) 10^3/uL Eos # (Auto) 0.3 (0.0-0.7) 10^3/uL Baso # (Auto) 0.0 (0.0-0.1) 10^3/uL Absolute Nucleated RBC 0.00 x10^3/uL Nucleated RBC % 0.0 /100WBC Sodium 140 (135-145) mmol/L Potassium 5.7 H 5.7 H (3.5-5.0) mmol/L Chloride 113 H (101-111) mmol/L Carbon Dioxide 20 L (21-32) mmol/L Anion Gap 7.0 (6-13) BUN 79 H (6-20) mg/dL Creatinine 1.6 H (0.4-1.0) mg/dL Estimated GFR (MDRD) 32 L (>89) Glucose 104 H (70-100) mg/dL Calcium 9.2 (8.5-10.3) mg/dL Phosphorus 4.1 (2.5-4.6) mg/dL Magnesium 2.6 (1.7-2.8) mg/dL Total Creatine Kinase (22-269) IU/L 12/02/19 12/02/19 Range/Units 19:55 19:55 WBC (4.8-10.8) x10^3/uL RBC (4.20-5.40) 10^6/uL Hgb (12.0-16.0) g/dL Hct (37.0-47.0) % MCV (81.0-99.0) fL MCH (27.0-31.0) pg MCHC (32.0-36.0) g/dL RDW (12.0-15.0) % Plt Count (130-450) 10^3/uL MPV (7.9-10.8) fL Neut # (Auto) (1.5-6.6) 10^3/uL Lymph # (Auto) (1.5-3.5) 10^3/uL [place] # (Auto) (0.0-1.0) 10^3/uL Eos # (Auto) (0.0-0.7) 10^3/uL Baso # (Auto) (0.0-0.1) 10^3/uL Absolute Nucleated RBC x10^3/uL Nucleated RBC % /100WBC Sodium 139 (135-145) mmol/L Potassium 5.8 H (3.5-5.0) mmol/L Chloride 111 (101-111) mmol/L Carbon Dioxide 19 L (21-32) mmol/L Anion Gap 9.0 (6-13) BUN 84 H* (6-20) mg/dL Creatinine 1.8 H (0.4-1.0) mg/dL Estimated GFR (MDRD) 28 L (>89) Glucose 129 H (70-100) mg/dL Calcium 9.0 (8.5-10.3) mg/dL Phosphorus (2.5-4.6) mg/dL Magnesium (1.7-2.8) mg/dL Total Creatine Kinase 414 H (22-269) IU/L Impression and Recommendations - Palliative Care Impression: This is a 69-year-old female seen for initial palliative care consultation due to functional decline admitted for TRESA and dehydration which is the third hospitalization in 2020. She has had a functional decline due to a neurologic dysfunction and now with a working diagnosis of multiple system atrophy. The patient has some underlying feelings of being a burden to her family. She wishes to return home with home health services in place. Palliative care to continue to provide support, exploration of goals of care, symptom management and advance care planning. Recommendations/Counseling Done: 1. Dehydration. Unclear underlying adult allergy as the patient had her furosemide discontinued prior to this admission and this was not a contributing factor. The patient reports an adequate fluid intake while at home. Continue to be followed by inpatient hospitalist service for management and continues on IV fluids. 2. Acute kidney injury. Secondary to dehydration. Has a [place] in place which will need to be discontinued prior to her discharge and to ensure that she is voiding independently. To be followed by an patient hospitalist service for management. 3. Multiple system atrophy. Per hospitalist this is the present working diagnosis from the neurologist, Dr. Dillard. The patient previously was b elieved to have Parkinson's disease. She did develop hallucinations while on levodopa/carbidopa and this was subsequently discontinued. The patient and her daughter believe that the patient continues to have a diagnosis of Parkinson's since disease. Both the patient and her daughter wish to understand what the underlying diagnosis is for the patient's functional decline in order to have an estimate on what the course and trajectory is regarding the patient's underlying functionality. The patient will benefit from additional support within the home. Social work within the hospital has assisted the daughter with applications for the tailored support program and the daughter is looking into visiting [facility] caregivers and relayed to daughter that medication management is not feasible with [facility] care with understanding verbalized. At the present time the patient and her daughter declined facility placement were skilled services. Plan is for the patient to be discharged with home health physical therapy occupational therapy and a bath aide. Would benefit from a sit to manager business intelligence the home with home health PT providing education on equipment and additional equipment recommendations. We will continue to follow patient and tease out potential trajectory to assist with advanced care planning and goals of care. 4. Advance care planning. Begun to have goals of care discussion and patient wishes to regain her ability to ambulate with an assistive device. Unclear if this is an achievable goal if she has an underlying diagnosis of multiple system atrophy. Patient became fatigued when exploring POLST and and was going back and forth regarding her decision of full code versus DN AR. Patient is aware that she is presently a DN AR and this would entail not performing CPR. At the present time she wishes to remain a DN AR but is aware to make the staff at the hospital aware if she wishes to change her mind to change CODE STATUS. Provided hard choices for loving people to the patient and her daughter for review. The patient and the daughter wish to have an open discussion regarding POLST and goals of care moving forward before reevaluating POLST. Reviewed palliative care services and patient and her daughter wish to continue on service upon discharge for support within the community. Will request outpatient referral from patient's PCP for continuity of care. 5. Grief. Some possible underlying depression. Patient displays appropriate grief for loss of her independence and function. She feels that she is a burden to her family. Supportive listening provided. Consider SSRI medication in the future as a potential benefit. Also would benefit from medical social work for psychosocial support and counseling. Time Spent: Total time spent 60 minutes with greater than 50% of this spent in counseling and coordination of care with patient and daughter Rozina; review of palliative and hospice philosophies; symptom management and anticipatory guidance. Disclaimer: The chart note was formulated using voice recognition technology and unfortunately sound alike errors may occur.
[2019-12-03] MEDS ORDERED: DEXTROSE 50% ABBOJECT 25 GM/50 ML SYRINGE IVP ONE ×2 (16:42→17:00)
[2019-12-03] MEDS ORDERED: DEXTROSE IVP ONE (17:00)
[2019-12-03] MEDS ORDERED: INSULIN REGULAR HUMAN 300 UNIT/3 ML VIAL IVP ONE (17:00)
[2019-12-03] MEDS: APIXABAN 5 MG TABLET PO SCH (20:33)
[2019-12-03] MEDS: ACETAMINOPHEN 325 MG TABLET PO PRN (20:33)
[2019-12-04] MEDS: HYDROmorphone 1 MG/ML CARPUJECT IVP PRN (01:44)
[2019-12-04] MEDS: SODIUM CHLORIDE FLUSH 0.9% 10 ML SYRINGE IVP SCH ×2 (01:44→13:09)
[2019-12-04] MEDS ORDERED: INSULIN REGULAR HUMAN 300 UNIT/3 ML VIAL IVP ONE (03:12)
[2019-12-04] MEDS ORDERED: DEXTROSE 10% 250 ML IV STA (03:13)
[2019-12-04] MEDS: SODIUM CHLORIDE FLUSH 0.9% 10 ML SYRINGE IVP PRN (04:12)
[2019-12-04] MEDS: traMADol 50 MG TABLET PO PRN ×2 (04:48→12:55)
[2019-12-04 05:38] LABS: BASOPHILS % (AUTO) 0.2 %; EOSINOPHILS # (AUTO) 0.3 10^3/uL (0.0-0.7); EOSINOPHILS % (AUTO) 3.3 %; HGB - HEMOGLOBIN 9.9 g/dL (12.0-16.0); LYMPHOCYTES # (AUTO) 2.5 10^3/uL (1.5-3.5); LYMPHOCYTES % (AUTO) 29.6 %; MEAN CORPUSCULAR HEMOGLOBIN 27.3 pg (27.0-31.0); MEAN CORPUSCULAR HGB CONC 29.9 g/dL (32.0-36.0); MEAN CORPUSCULAR VOLUME 91.2 fL (81.0-99.0); MEAN PLATELET VOLUME 10.6 fL (7.9-10.8); MONOCYTES # (AUTO) 0.9 10^3/uL (0.0-1.0); MONOCYTES % (AUTO) 10.7 %; NEUTROPHILS # (AUTO) 4.7 10^3/uL (1.5-6.6); NEUTROPHILS % (AUTO) 55.7 %; PLT - PLATELET COUNT 191 10^3/uL (130-450); RED BLOOD COUNT 3.63 10^6/uL (4.20-5.40); RED CELL DISTRIBUTION WIDTH 14.5 % (12.0-15.0); WHITE BLOOD COUNT 8.5 x10^3/uL (4.8-10.8)
[2019-12-04 05:44] LABS: CALCIUM 9.2 mg/dL (8.5-10.3); CREATININE 1.3 mg/dL (0.4-1.0)
[2019-12-04] MEDS: ACETAMINOPHEN 325 MG TABLET PO PRN ×2 (08:46→12:55)
[2019-12-04] MEDS: GABAPENTIN 300 MG CAPSULE PO SCH (08:46)
[2019-12-04] MEDS: APIXABAN 5 MG TABLET PO SCH (08:46)
[2019-12-04] MEDS: NYSTATIN CREAM 15 GM TUBE TOP SCH (08:49)
[2019-12-04] MEDS ORDERED: atenoloL 25 MG TABLET PO SCH (09:00)
--- NOTE | 2019-12-04 11:24 | Discharge Plan ---
Discharge Plan Problem Reviewed?: Yes Disposition: Home Health Service Condition: Stable Diet: Regular Activity Restrictions: as tolerated Shower Restrictions: Yes (if in shower, only with shower chair) Driving Restrictions: Yes Assistance Devices: Wheelchair (has) Weight Bearing: astolerated w/full assist Instruction Topics: Injury Acute Kidney Dc, COVID-19 [facility], COVID-[address] [facility] Statement Health Concerns: Progressive Weakness: your neurologist feels this is most likely attributed to "Multisystem Atrophy" To help maintain function, maximize your abilities, Home Health PT and Home Health OT are being ordered as well as Home Health Aide. Home Health Services will look into whether a sit stand device might be covered at home. Social work and Palliative Care also looking into possible additional resources for help at home Acute kidney Injury and Dehydration; this was likely the combined effect of your Lisinopril along with not taking in enough liquid by mouth (even though you may have not felt dehydrated and even though the diuretic (lasix ) waas stopped in October This improved with IV hydratin. We are stopping your Lisinopril Elevated Potassium: due to lisinopril combined with slow kidneys. (over 6.0 on admission) This improved (high end of normal 5.0) by today 12/03. BUN/ Cr 107/ 2.6 on admission 52/1.3 on discharge Stop Lisinopril as above Drink plenty of fluid during the day. (Take the straw cup from the hospital as a convenient measure) Atrial Fibrilllation; Continue your apixaban and atenolol for heart rate control Your daughter notes she was only giving 1 Atenolol pill daily. Take 1 pill in the morning (100 mg) and 1/2 pill in the pm (50 mg) for total of 150mg/ day Leg swelling.; Unfortunately we cannot resume the lasix to help with this. Use moderatly compressed TUTU wraps around legs to help with compression to reduce the swelling, and leg elevation Keep groin folds clean and dry You had several days of nystatin creme during hospitalization (anti fungal) ; Care Goals: Try to maintain comfort at home, and minimize need for hospitalization Shannon Finn (Palliative Care) is getting a referral from your PCP to continue seeing you as an outpatient to ensure your needs are met We will also ask home care services to arrange a Social Work visit at home Follow-Up Care: Home Health - PT, Home Health - OT No Smoking: If you smoke, Please STOP! Call for help. Follow-up with: Benita Contreras DO [Primary Care Provider] -
[2019-12-04 12:37] VITALS: BP 141/90
--- NOTE | 2019-12-05 05:57 | DISCHARGE SUMMARY ---
"Discharge Summary Admit Date: 12/02/19 Discharge Date: 12/05/19 Discharging Provider: CAESAR Negrete, ACNP Primary Care Provider: Dr Melissa Contreras Code Status: Do Not Attempt Resuscitation Condition at Discharge: Stable Discharge Disposition: Home Health Service Discharge Facility Name: [facility] - DIAGNOSES Admission Diagnoses: Dehydration/ Intravascular Volume Depletion Acute Kidney injury hyperkalemia Left thigh pain Multiple system atrophy with cerebellar features Atrial fibrillation Candidal intertrio Hypertension Discharge Diagnoses with Status of Each Condition: Dehydration/ Intravascular Volume Depletion; resolved with IV volume repletion Acute Kidney injury; improving with volume repletion and holding ACEI Discharge BUn/Cr 52/1.3 hyperkalemia; resolved 5.0 on discharge, ACEI stopped Left thigh pain ;continues intermittant but not as severe Multiple system atrophy with cerebellar features; stable Atrial fibrillation; rate controlled, continues eliquis Candidal intertrio resolved Hypertension stable - HPI History of Present Illness: 69-year-old white female who was recently admitted October 24 for hallucinations and altered mental status. She was found to have a creatinine of 3.4 and a po tassium of 6.9. Her usual baseline creatinine is 1.0. She is taking Lasix 80- 120 mg a day for pedal edema and that was discontinued. She received D50 and insulin 3 times. No real response to Kayexalate and potassium normalized. We also spoke to her neurologist feels that she has more of a multiple system atrophy than Parkinson's disease. At discharge she was sent to [facility] but only lasted 13 days there because she did not want to be there anymore. Since being home there is been no change in her status. She has seen a neurologist via Telemed 11/21 and her primary care 11/28 in follow-up since discharge from [facility].There is been no description of decreased p.o. intake, or fever, or cough or chills. She is complaining of left thigh pain. She is not very ambulatory to begin with but any ambulation she did has been ill for a few days now. She is to be followed by Home Health for PT but doesn't remember if they came yet. She did have her Gabapentin resumed 11/21 for her RLS and her clonazepam was held until she could be re-evaluated. Since being home she has not really improved. She is not more mobile. She feels like she is been eating and drinking normally and daughter confirms. She recently developed left groin pain and left thigh pain. Exam in her primary care provider office was negative other than severe vaginitis. Diflucan was ordered.She is not improved. Her weakness is gotten to the point that she is no longer getting out of bed. Family has been trying to talk her into being seen but she has been reticent. They finally were able to talk her into coming in tonight. She was seen in the emergency room by Dr. Kan where she was afebrile, sli ghtly tachycardic with a heart rate of 99 216. Blood pressure has been 109-119 systolic. she has been saturating well on room air. She had pitting edema on both lower extremities with no weeping. Mild left thigh tenderness. No other findings on physical exam other than her generalized weakness, and no tremor. White cell count was normal at 7.4. Her labs show her to have a return of her acute kidney injury with a potassium of 6.0. Anion gap 8. BUN 107 and creatinine 2.6. Urinalysis is negative for infection. Preliminary ultrasound report for the left thigh shows no DVT. She is now admitted for dehydration and acute kidney injury. Other than reduced p.o. intake, which the patient denies, there is no other mechanism of injury identified - CONSULTS | PROCEDURES Consultations: physical therapy, occupational therapy, social work Procedures: none - HOSPITAL COURSE Hospital Course: (1) Acute kidney injury Impression: Due to reduced PO intake at home/ volume depletion combined with ACEI improving 105/2.4>> 96/2.0>> 84/1.8>>79/1.6 >>52/1.3 on discharge with hydration. Lasix was already stopped last admission Patient instructed to not resume ACEI (2) Volume depletion due to reduced PO intake, resolved with IV volume repletion (3) Hyperkalemia Impression: K 6.0 on admit 5.0 on discharge No EKG changes, no \\Resolved with insulin/D50 x 3 over several days, and IV volume repletion and holding ACEI (4) Atrial fibrillation Continues on home atenolol for rate control Dose reduced on admission due to modest hypotension. Daughter noted she was giving 100 mg once daily at home (100 bid prescribed) By time of discharge, BP permitted increaseddose REcommending 100 mg each am, and 50 mg in pm and reevaluate rte controlmodest hypotention On eliquis for stroke risk (5) Multiple system atrophy with cerebellar features Impression: Patients neurologist, Dr Dillard has t considered atypical Parkinsons disease in August 2019 Patient had severe hallucinations on Sinemet. 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 This may not be sustainable with continued physical decline Patient and daughter have copy of POLST and are deciding on responses/wishes Additional support services arranged at home. , Home Health physical therapy HHOT, HH aide, (with family training on any DME) hopefully can get sit stand device as DME, has hospital bed, may need commode will need Wheel chair van for discharge possible visiting angels Possible Tailored support, but they can only offer 20 hrs per month per SW Shannon will get referral from PCP for continued outpatient palliative care Shannon gave patient Polst to still determine her wishes (her plan to increase independence is not likley realistic give neurologist dx of MSA) Patient still DNR Left thigh pain imaging shows no acute process, She was more tolerant of movement, no DVT, no fracture or dislocation Lower extremity edema; Intermittant ACEI wraps and leg elevation, unfortunately no longer able to use lasix, On discharge , Marli from [facility] clinic rplaced Tubigrip stockings - ALLERGIES Allergies/Adverse Reactions: Allergies Allergy/AdvReac Type Severity Reaction Status Date / Time warfarin AdvReac Nausea Verified 10/25/19 04:16 - MEDICATIONS Home Medications: Ambulatory Orders Medication Instructions Recorded Confirmed Ascorbic Acid [Vitamin C] 1,000 mg PO DAILY 08/07/19 12/02/19 Gabapentin 300 mg PO BID 08/07/19 12/02/19 Apixaban [Eliquis] 5 mg PO BID tablet 08/10/19 12/02/19 traMADol [Ultram] 50 mg PO TID PRN 10/21/19 12/02/19 Calcium Carbonate [Calcium] 600 mg PO DAILY 12/02/19 12/02/19 Acetaminophen [Tylenol] 650 mg PO Q4HR PRN tablet 12/04/19 atenoloL [Atenolol] 100 mg PO BID #0 12/04/19 12/02/19 - PHYSICAL EXAM AT DISCHARGE General Appearance: positive: Other (Patient intermittantly weepy, but much calmer today, daughter at bedside, eating some breakfast while propped up sit ting) Eyes Bilateral: positive: Normal inspection Neck: positive: Other (very full neck) Respiratory: positive: Chest non-tender, No respiratory distress, Breath sounds nml Cardiovascular: positive: No murmur, Irregularly irregular Abdomen: positive: No organomegaly (no appreciable organomegaly), Nml bowel sounds, No distention, Other (morbidly obese, ). negative: Tenderness Skin: positive: Warm, Dry Extremities: positive: Other (4+ pedal pitting edema, no weeping, tubigrip to bilateral lower extremities) Neurologic/Psychiatric: positive: Oriented x3, Other (emotionally labile,sometimes tearful and anxious). negative: Motor nml (bilateral hand regulator operator 4/5, feeding self sausage with Right hand, needs heavy 2 person assist to sit) - LABS Result Diagrams: 12/04/19 05:10 12/04/19 05:10 - DIAGNOSTIC IMAGING Diagnostic Imaging Results: Final report reviewed Diagnostic Imaging Results Comments: Veous duplex Left leg 12/02/19 No evidence of DVT Hip Xray 2-3 view 12/02/19 No acute left hip fracture or dislocation, Left hip OA , No AVN - QUALITY (Female Hip Fx Only) Was patient sent home on osteoporosis medication?: No - FOLLOW UP Follow Up: Follow up with Dr Don by phone 1 week - TIME SPENT Time Spent in Discharge (Minutes): 60 (over 60 minutes spent evaluating patient, discussing needs with Pt, SW, palliative care,daughter)"
== END 2019-12-04 14:50 | disposition home health service (06) | DRG 683 ==
LOC: EDUNIT# → ED 00:31 → MS2 04:11
PROVIDERS: ADMIT Specialist; ATTEND Nurse Practitioner
DX: N17.9 Acute kidney failure, unspecified (principal); I48.11 Longstanding persistent atrial fibrillation; G31.89 Other specified degenerative diseases of nervous system; F02.80 Dementia in other diseases classified elsewhere, unspecified severity, without behavioral disturbance, psychotic disturbance, mood disturbance, and anxiety; R26.2 Difficulty in walking, not elsewhere classified; I48.91 Unspecified atrial fibrillation; E86.0 Dehydration; I89.0 Lymphedema, not elsewhere classified; G20 Parkinson's disease; E87.5 Hyperkalemia; M79.652 Pain in left thigh; B37.3 Candidiasis of vulva and vagina; R53.1 Weakness; I73.9 Peripheral vascular disease, unspecified; F41.9 Anxiety disorder, unspecified; F32.9 Major depressive disorder, single episode, unspecified; I10 Essential (primary) hypertension; F40.240 Claustrophobia; I87.8 Other specified disorders of veins; N30.20 Other chronic cystitis without hematuria; G25.81 Restless legs syndrome; E66.01 Morbid (severe) obesity due to excess calories; Z68.38 Body mass index [BMI] 38.0-38.9, adult; R35.0 Frequency of micturition; R39.15 Urgency of urination; R32 Unspecified urinary incontinence; R35.1 Nocturia; H91.90 Unspecified hearing loss, unspecified ear; H54.7 Unspecified visual loss; Z51.5 Encounter for palliative care; Z66 Do not resuscitate; Z74.01 Bed confinement status; Z79.01 Long term (current) use of anticoagulants; Z79.899 Other long term (current) drug therapy; Z91.81 History of falling
CPT/HCPCS: 36415; 51702; 73502; 80048; 80053; 81003; 82550; 83605; 83690; 83735; 84100; 84132; 84484; 85025; 87040; 93971; 96361; 96374; 97162; 97166; 97530; 99222; 99285; A9270; J1170; J1815; J3490; 81001; 87086

== ENCOUNTER 2019-12-04 14:56 | Outpatient (CLI) | payer MEDICARE, BC | END 2019-12-04 14:57 | disposition home or self-care (01) | LOC: EMS 14:56 | PROVIDERS: ATTEND Surgery | DX: R53.1 Weakness (principal); R53.83 Other fatigue; R60.0 Localized edema | CPT/HCPCS: A0425; A0428 ==

== ENCOUNTER 2019-12-24 09:05 | Outpatient (CLI) | payer MEDICARE, BC ==
--- NOTE | 2019-12-24 11:23 | CONSULTATION NOTE ---
Palliative Care Follow Up - Referral Referring Provider: Dr. Benita Contreras Time of Visit: 9612-9393 Referral setting: Home Referral Reason: Debility/Right shoulder and left hip pain/?Multiple System Atrophy - Information Sources Records reviewed: Previous records reviewed History/Review of Systems obtained from: Patient, Family (daughter, Rozina) Exam limitations: No limitations - History of Present Illness Update Brief HPI Update: This is a 69-year-old female who is seen in follow-up today within her home with her daughterCamila present due to increasing debility due to questionable underlying multiple system atrophy, right shoulder/arm pain, insomnia and now with worsening left hip and thigh pain. Last week, the patient was able to ambulate within her home. However, this week she is unable to ambulate with her Rollator. She is reporting that she is unable to weight-bear fully on her left side due to discomfort. Of note, the patient spends all of her time in her lift recliner in the family room. The family has now gotten the hospital bed into the family room with a pole but the patient is unable to get into the bed due to her lack of upper body strength and now with her inability to fully ambulate independently. She continues to work with home health physical therapy for strengthening. Of note, the patient leans to the left side and this may be a contributing factor to her left hip/thigh pain. She was last hospitalized from 12/01 to 12/05/2019 and she also complained of left thigh pain. An x-ray was obtained of the left hip which was negative for an acute fracture while inpatient. The patient has right shoulder and bicep pain that has been present after she sustained a fall in the spring 2019. She reports that she had a fall which she landed on her right side and shoulder. She had an x-ray performed 08/08/2019 that did not demonstrate an acute fracture. She is right-handed. She was recently seen by her PCP who recommended increasing her acetaminophen to 1 g 3 times daily from her previous twice daily dosing. The patient is unaware of she is receiving full benefit of the acetaminophen. Due to her history of hallucinations she is very leery of taking any opioid medication. She has taken tramadol in the past as well as hydrocodone/acetaminophen for acute discomfort. It has been recommended by her PCP to see an reimbursement specialist but she has not scheduled as of this time. She does report increased pain when lowering her right arm slowly and controlled. The patient has been suffering from insomnia chronically for years. She never sleeps and the dark and always has a light on. She denies any past childhood trauma to result in her inability to sleep in the dark. She did undergo a sleep study approximately 15 years ago but was unable to fully completed due to her underlying anxiety and history of claustrophobia. She has underlying restless leg syndrome and was initiated on gabapentin which is hit or miss on how effective it is been depending on the day. She has been recommended by her PCP that she may taking afternoon dose if needed for her restless leg. In relation to her insomnia the patient also has a history of night terrors for the last several years. Please see detailed history obtained from visit 12/16/2019 for full details. Patient is seen in her living room in her lift chair, well groomed and in no acute distress. She had to stand and reposition herself several times due to the course of the visit. Patient has a past medical history of hypertension, atrial fibrillation on Eliquis, mild pulmonary hypertension, severe restless leg syndrome, chronic hearing loss with high-frequency to left ear, depression, anxiety, oste oarthritis, gout, venous stasis to lower extremities, hyperlipidemia, obesity, questionable multiple system atrophy versus atypical Parkinson's. Social History - Living Situation Living arrangement: At home Living Situation: With family (Presently the patient's daughterCamila and her son-in-law live with her.) Support System: Patient is . 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 The patient's daughter, Camila moved into the patient's home with her to assist taking care of the patient in the last 1.5 years. The patient's son, Josiah also provides assistance with care. The patient has and her family have been looking into caregiving options. The patient does not desire to be in a facility setting. [facility], bedside commode, lift recliner, transfer pole and rollator in home. Medications/Allergies - Medications Home Medications: Ambulatory Orders Medication Instructions Recorded Confirmed Gabapentin 300 mg PO BID 08/07/19 12/02/19 Apixaban [Eliquis] 5 mg PO BID tablet 08/10/19 12/02/19 traMADol [Ultram] 50 mg PO TID PRN 10/21/19 12/02/19 atenoloL [Atenolol] 100 mg PO BID #0 12/04/19 12/02/19 Acetaminophen [Tylenol Extra 1,000 mg PO TID MDD NTE 3g 12/16/19 12/16/19 Strength] daily/24hous all source Hydrocodone/Acetaminophen 1 tab PO Q4H PRN 12/16/19 12/16/19 [Hydrocodone-Acetamin 5-325 mg] polyethylene glycoL 3350 [Miralax] 17 g PO DAILY PRN 12/16/19 12/16/19 Gabapentin 300 mg PO .AFTERNOON PRN 12/24/19 12/24/19 Melatonin 3 mg PO QPM 12/24/19 12/24/19 Menthol [Biofreeze] TP 12/24/19 Methyl Salicylate/Menthol 1 patch TP DAILY MDD left hip qAM 12/24/19 12/24/19 [Salonpas Patch] remove qPM - Allergies Allergies/Adverse Reactions: Allergies Allergy/AdvReac Type Severity Reaction Status Date / Time warfarin AdvReac Nausea Verified 12/16/19 17:31 Review of Systems - Constitutional Constitutional: reports: Fatigue. denies: Fever - Eyes Eyes: reports: Corrective lenses - Ears, Nose & Throat Ears, Nose & Throat: reports: Hearing loss - Cardiovascular Cardiovascular: reports: Edema. denies: Chest pain - Respiratory Respiratory: denies: Cough, SOB at rest - Gastrointestinal Gastrointestinal: denies: Abdominal pain, Constipation (reports improved and has PRN miralax for use in the home), Diarrhea, Vomiting - Genitourinary Genitourinary: denies: Incontinence - Musculoskeletal Musculoskeletal: reports: Limited range of motion (right arm), Muscle weakness, Joint pain (left hip/thigh and right shoulder--see HPI for full details), Assistive devices, Transfer issues - Integumentary Integumentary: denies: Rash - Neurological Neurological: reports: General weakness. denies: Headache, Dizziness - Psychiatric Psychiatric: reports: Other (Claustophobia) - Endocrine Endocrine: denies: Diabetes type 2 - All Other Systems All Other Systems: reports: Reviewed and negative Physical Exam - Vital Signs Temperature: 36.6 C Pulse Rate: 90 O2 Saturation: 96 (on RA at rest) Blood Pressure: 109/71 (right wrist cuff) - Physical Exam General Appearance: positive: No acute distress, Alert, Other (Obese, OOB in lift chair) Eyes Bilateral: positive: Normal inspection ENT: positive: No signs of dehydration Neck: positive: Trachea midline Cardiovascular: positive: Regular rate & rhythm, No murmur Respiratory: positive: No respiratory distress, Breath sounds nml. negative: Rales Abdomen: positive: Non-tender, Soft, Nml bowel sounds, Obese Skin: positive: Other (coban wraps in place to BLE) Extremities: positive: Other (+1 edema to B/l hands with left > right; +2 BLE pitting edema feet to mid-calf). negative: Full ROM (RUE: decreased ROM with right shoulder) Neurologic/Psychiatric: positive: Oriented x3, Flat affect, Other (No obvious tremors. +rigidity noted when standing up.) Palliative Care - POLST Patient has POLST: No Pain: Pain unchanged (see HPI for full details) Tiredness/Fatigue: Comment (Noted due to insomnia) Nausea: None Anorexia: None Dyspnea: None Sleep: Sleeps poorly Constipation: Yes, Managed Performance Status: From last week to this week, patient is not able to ambulate with her rollator. PPS 50% - Palliative Care Discussion: Patient has had a general decline over the last 1.5 years in her function. She is followed by neurology, Dr. Dillard in [place] and has had several working diagnoses of Parkinson's disease, atypical Parkinson's and possibly now multiple system atrophy. The patient was taken off carbidopa/levodopa due to possible hallucinations which have resolved since the discontinuation of the medication. The patient herself is quite frustrated as she does not have a "title" for diagnosis and without a diagnosis is unable to plan and see prognosis. She does recognize as well as her daughterCamila that any of the diagnoses that have been working on presented all are progressive in nature. The patient is also reflective of questioning why this is occurred to her. She wishes to have a more definitive diagnosis and plans to follow-up with her neurologist to check- in as to where they "go from here." She is disheartened that she is unable to ambulate independently at the present time due to pain in her left hip/thigh and difficulty transferring due to her right shoulder pain. She has been to this point several times previously and has been able to regain some ability in her ambulation with her Rollator. The patient herself is quite fearful of taking any new medications that may lead to her developing hallucinations. She has tolerated tramadol in the past without any adverse effects noted. Discussed with the patient at the present time she is having Some noted relief from acetaminophen 3 g total daily from all sources and will continue to work with topical applications for pain relief but in the future may need to consider weighing benefits versus burdens to optimize the patient's comfort level and do a trial of medications for pain relief at low doses to attempt to avoid any adverse effects. Impression and Recommendations - Palliative Care Impression: This is a unfortunate 69-year-old female with a steady functional decline with a working diagnosis of multiple system atrophy followed by home health services and neurology. She presently has left hip/thigh pain as well as right shoulder/bicep pain with negative imaging for acute fracture in the past. She continues to be burdened by symptoms of insomnia and likely underlying REM behavior disorder.Patient is still exploring her goals of care weighing benefits versus burdens of interventions and at the present time is quite frustrated that she does not have a definitive diagnosis for what is contributing to her functional decline. Palliative care to continue to provide support, exploration of goals of care, symptom management and advance care planning. Recommendations/Counseling Done: 1. Questionable multiple system atrophy. This is presently the working diagnosis from the patient's neurologist, mom with Dr. Dillard versus atypical Parkinson's disease. The patient developed hallucinations possibly exacerbated by carbidopa/levodopa and is presently off this medication with resolution of her hallucinations. She continues to have a functional decline. She is presently working with home health physical therapy and Occupational Therapy to optimize her underlying physical strength, fall prevention and overall support within the home. However, the patient continues to remain in her lift recliner chair 14/11. Strongly encouraged patient and daughter to contact Dr. Dillard for follow-up with virtual visit to discuss next steps as it would be extremely tiring journey for the patient to be seen in the neurologist [place] office. 2. Right shoulder/right bicep pain possibly rotator cuff impingement given the patient's pain when slowly lowering her right arm versus tendinitis versus frozen shoulder. Negative x-ray for acute fracture in spring 2019. Strongly encouraged the patient and daughter to schedule appointment with orthopedics for evaluation that had been initially encouraged by the patient's PCP. Possibly may benefit from cortisone injection. Continue acetaminophen 500 mg take 2 tablets by mouth 3 times daily not to exceed 3 g of Tylenol daily from all sources. Also recommend discontinue Aspercreme as assist not been effective. To try Biofreeze to the right shoulder as directed on the package. Would give this an adequate trial and if ineffective then may try capsaicin cream again to be applied as directed on the package and patient and daughter aware of that this is [id number]. The patient is quite reluctant to try any oral medications given her fear of hallucinations. May need to readdress pain management further after the patient has been evaluated by orthopedics. 3. Left hip/thigh pain. X-ray obtained while hospitalized November 2019- for fracture. No recent falls since early spring 2019. As the patient favors her left side in her reclining chair this is likely a contributing factor with pressure and the patient's underlying edema. Recommend obtainment of roho cushion for support. Continue to work with physical therapy. Fall precautions. Recommend application of salonpas 4% patch apply to left hip qAM and remove qPM for pain as trial. 4. Insomnia, possible REM sleep behavior disorder. Patient has had a longstanding history of insomnia that has occurred most of her adult life. She is unable to sleep in the dark likely impacting her circadian rhythm. There is also an underlying possible CODY contributing as well as her restless leg. Given the patient's description as well as her daughters in recent years as the patient's dreams and awakening from sleep possible [place] has an underlying REM sleep behavior disorder. As the patient is reluctant to trial any benzodiazepine recommend initiation of melatonin 3 mg nightly 1 hour before bed for insomnia and REM sleep behavior disorder. Advised that this dose is starting and will likely be titrated up. Upon review of the literature in Up-to-Date regarding REM sleep behavior disorder melatonin is first-line therapy. Patient and daughter are willing to try melatonin and are aware that this is [id number]. Also discussed with the patient to have a relaxing structured bedtime routine such as avoiding electronics with her phone and TV 1 hour before bed, may use aromatherapy with lavender, relaxing music, etc. CTM. 5. Advance care planning. Patient expressed her frustration today in regards to not having a definitive diagnosis for her functional and progressive decline. She is open to working out 1 step at bedtime with first addressing her underlying discomfort and becoming more functional by working with home health services. Then, she wishes to continue to work on further exploration of her neurologic disorder with neurology. Palliative care to continue to explore goals of care and provide support to patient and her family. CC: [facility] Time Spent: F/u 4-6 weeks or prn if new/worsening symptoms. Total time spent 50 minutes with greater than 50% of this spent in counseling and coordination of care with patient and daughter Rozina; examination of pat ient; review of REM sleep behavior disorder; supportive listening; review symptom management and anticipatory guidance. Disclaimer: The chart note was formulated using voice recognition technology and unfortunately sound alike errors may occur.
== END 2019-12-24 09:06 | disposition home or self-care (01) ==
LOC: PC 09:05
PROVIDERS: ATTEND Nurse Practitioner Family
DX: Z51.5 Encounter for palliative care (principal); G98.8 Other disorders of nervous system; M62.81 Muscle weakness (generalized); M25.552 Pain in left hip; M25.511 Pain in right shoulder; G47.00 Insomnia, unspecified; G25.81 Restless legs syndrome; K59.00 Constipation, unspecified; R26.89 Other abnormalities of gait and mobility; R26.2 Difficulty in walking, not elsewhere classified; R60.0 Localized edema; I48.91 Unspecified atrial fibrillation; I87.8 Other specified disorders of veins; Z79.899 Other long term (current) drug therapy; Z79.01 Long term (current) use of anticoagulants; Z91.81 History of falling
CPT/HCPCS: 99349

== ENCOUNTER 2019-12-26 07:08 | Outpatient (CLI) | payer MEDICARE, BC | END 2019-12-26 07:09 | disposition EMS.NT | LOC: EMS 07:08 | PROVIDERS: ATTEND Surgery | DX: Z03.89 Encounter for observation for other suspected diseases and conditions ruled out (principal) ==

== ENCOUNTER 2019-12-26 22:47 | Outpatient (CLI) | payer MEDICARE, BC | END 2019-12-26 22:48 | disposition critical access hospital (66) | LOC: EMS 22:47 | PROVIDERS: ATTEND Surgery | DX: R06.02 Shortness of breath (principal); R51 Headache; R60.0 Localized edema; Z03.89 Encounter for observation for other suspected diseases and conditions ruled out | CPT/HCPCS: A0425; A0429 ==

== ENCOUNTER 2019-12-26 23:03 | Emergency (ER) | payer MEDICARE, BC ==
[2019-12-26 23:52] LABS: BASOPHILS % (AUTO) 0.4 %; EOSINOPHILS % (AUTO) 0.3 %; HGB - HEMOGLOBIN 10.6 g/dL (12.0-16.0); LYMPHOCYTES % (AUTO) 7.8 %; MEAN CORPUSCULAR HEMOGLOBIN 27.8 pg (27.0-31.0); MEAN CORPUSCULAR HGB CONC 31.2 g/dL (32.0-36.0); MEAN CORPUSCULAR VOLUME 89.2 fL (81.0-99.0); MONOCYTES % (AUTO) 5.5 %; PLT - PLATELET COUNT 220 10^3/uL (130-450); RED BLOOD COUNT 3.81 10^6/uL (4.20-5.40); RED CELL DISTRIBUTION WIDTH 15.7 % (12.0-15.0); WHITE BLOOD COUNT 22.5 x10^3/uL (4.8-10.8)
[2019-12-26 23:58] LABS: ABNORMAL LYMPHS % (MANUAL) 0 %
[2019-12-27 00:04] LABS: ALBUMIN 3.7 g/dL (3.2-5.5); ALBUMIN/GLOBULIN RATIO 1.2 (1.0-2.2); BILIRUBIN,TOTAL 0.8 mg/dL (0.2-1.0); CALCIUM 8.8 mg/dL (8.5-10.3); CREATININE 1.1 mg/dL (0.4-1.0); MAGNESIUM 2.1 mg/dL (1.7-2.8); TOTAL PROTEIN 6.8 g/dL (6.7-8.2)
[2019-12-27 00:29] LABS: BAND NEUTROPHILS % (MANUAL) 4 %; DIFFERENTIAL COMMENT MANUAL DIFFERENTIAL; LYMPHOCYTES % (MANUAL) 9 %; MONOCYTES # (MANUAL) 1.8 10^3/uL (0.0-1.0); PLATELET ESTIMATE, MANUAL NORMAL (130-450,000) (NORMAL); RBC MORPHOLOGY (MULTIPLE) NORMAL APPEARANCE (NORMAL)
[2019-12-27 00:49] LABS: BILIRUBIN,URINE NEGATIVE (NEGATIVE); GLUCOSE, URINE (UA) NEGATIVE (NEGATIVE); KETONES,URINE (UA) TRACE mg/dL (NEGATIVE); LEUKOCYTE ESTERASE, URINE NEGATIVE (NEGATIVE); NITRITE,URINE NEGATIVE (NEGATIVE); OCCULT BLOOD,URINE NEGATIVE (NEGATIVE); PH,URINE 5.5 PH (5.0-7.5); PROTEIN,URINE NEGATIVE (NEGATIVE); UROBILINOGEN,URINE 0.2 (NORMAL) E.U./dL (NORMAL)
[2019-12-27 00:57] LABS: CLARITY,URINE CLEAR (CLEAR)
--- NOTE | 2019-12-27 01:24 | ED Physician Documentation ---
History of Present Illness - Stated complaint Stated Complaint: SOA/ COMBS - Chief complaint Chief Complaint: Resp - History obtained from History obtained from: Patient, EMS - History of Present Illness Timing: Today Pain level now: 5 Improved by: nothing Worsened by: no exacerbating factors - Additonal information Additional information: c/o dyspnea and generalized headache since this afternoon. BIBA. 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 she has no pulmonary diagnoses and the dyspnea is new for her. denies cough but says she has a cold, indicates mild sinus and upper respiratory congestion. Review of Systems Constitutional: reports: Reviewed and negative Ears: denies: Ear pain Nose: reports: Congestion. denies: Sinus pressure / pain Throat: denies: Sore throat Cardiac: reports: Reviewed and negative Respiratory: reports: Dyspnea. 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: Other : Chronic bladder infection, Frequency HEENT: Chronic hearing loss Psych: Depression, Anxiety, Other Musculoskeletal: Osteoarthritis, Gout, Other Derm: Other - Past Surgical History Past Surgical History: Yes General: Colonoscopy Ortho: Other - Present Medications Home Medications: Ambulatory Orders Medication Instructions Recorded Confirmed Gabapentin 300 mg PO BID 08/07/19 12/02/19 Apixaban [Eliquis] 5 mg PO BID tablet 08/10/19 12/02/19 traMADol [Ultram] 50 mg PO TID PRN 10/21/19 12/02/19 atenoloL [Atenolol] 100 mg PO BID #0 12/04/19 12/02/19 Acetaminophen [Tylenol Extra 1,000 mg PO TID MDD NTE 3g 12/16/19 12/16/19 Strength] daily/24hous all source Hydrocodone/Acetaminophen 1 tab PO Q4H PRN 12/16/19 12/16/19 [Hydrocodone-Acetamin 5-325 mg] polyethylene glycoL 3350 [Miralax] 17 g PO DAILY PRN 12/16/19 12/16/19 Gabapentin 300 mg PO .AFTERNOON PRN 12/24/19 12/24/19 Melatonin 3 mg PO QPM 12/24/19 12/24/19 Menthol [Biofreeze] TP 12/24/19 Methyl Salicylate/Menthol 1 patch TP DAILY MDD left hip qAM 12/24/19 12/24/19 [Salonpas Patch] remove qPM Azithromycin [Zithromax] 250 mg PO DAILY #4 tablet 12/27/19 - Allergies Allergies/Adverse Reactions: Allergies Allergy/AdvReac Type Severity Reaction Status Date / Time warfarin AdvReac Nausea Verified 12/16/19 17:31 - Social History Does the pt smoke?: No Smoking Status: Never smoker Does the pt drink ETOH?: No Does the pt have substance abuse?: No - Immunizations Immunizations are current?: Yes - POLST Patient has POLST: No POLST Status: DNR PD ED PE NORMAL - Vitals Vital signs reviewed: Yes - General General: Alert and oriented X 3, No acute distress, Other (obese) - HEENT HEENT: PERRL, EOMI, Moist mucous membranes - Neck Neck: Supple, no meningeal sign - Cardiac Cardiac: RRR - Respiratory Respiratory: No respiratory distress, Other (course breath sounds bilaterally) - Abdomen Abdomen: Soft, Non tender, Non distended - Derm Derm: No rash PD ED PE EXPANDED - Extremities Extremities: Pedal edema bilateral Results - Vitals Vitals: Oxygen O2 Source [With Activity] Room air O2 Source Room air - EKG (time done) No standard instances Rate: Rate (enter#) (140) Rhythm: Atrial fibrillation [place]: Normal QRS: Normal Ischemia: Normal ST segments - Labs Labs: Laboratory Tests 12/26/19 12/26/19 12/26/19 23:18 23:18 23:18 WBC 22.5 H RBC 3.81 L Hgb 10.6 L Hct 34.0 L MCV 89.2 MCH 27.8 MCHC 31.2 L RDW 15.7 H Plt Count 220 MPV 12.0 H Neut # (Auto) Not Reportable Lymph # (Auto) Not Reportable [place] # (Auto) Not Reportable Eos # (Auto) Not Reportable Baso # (Auto) Not Reportable Absolute Nucleated RBC Not Reportable Total Counted 100 Band Neuts % (Manual) 4 Abnorm Lymph % (Manual) 0 Nucleated RBC % Not Reportable Neutrophils # (Manual) 18.7 H Lymphocytes # (Manual) 2.0 Monocytes # (Manual) 1.8 H Eosinophils # (Manual) 0.0 Basophils # (Manual) 0.0 Differential Comment MANUAL DIFFERENTIAL Platelet Estimate NORMAL (130-450,000) RBC Morph Micro Appear NORMAL APPEARANCE Sodium 135 Potassium 4.1 Chloride 105 Carbon Dioxide 22 Anion Gap 8.0 BUN 33 H Creatinine 1.1 H Estimated GFR (MDRD) 49 L Glucose 112 H Lactic Acid Calcium 8.8 Phosphorus 3.0 Magnesium 2.1 Total Bilirubin 0.8 AST 17 ALT 18 Alkaline Phosphatase 43 B-Natriuretic Peptide 533 H Total Protein 6.8 Albumin 3.7 Globulin 3.1 Albumin/Globulin Ratio 1.2 Lipase 27 Urine Color Urine Clarity Urine pH Ur Specific [place] Urine Protein Urine Glucose (UA) Urine Ketones Urine Occult Blood Urine Nitrite Urine Bilirubin Urine Urobilinogen Ur Leukocyte Esterase Ur Microscopic Review Urine Culture Comments 12/26/19 12/27/19 23:18 00:40 WBC RBC Hgb Hct MCV MCH MCHC RDW Plt Count MPV Neut # (Auto) Lymph # (Auto) [place] # (Auto) Eos # (Auto) Baso # (Auto) Absolute Nucleated RBC Total Counted Band Neuts % (Manual) Abnorm Lymph % (Manual) Nucleated RBC % Neutrophils # (Manual) Lymphocytes # (Manual) Monocytes # (Manual) Eosinophils # (Manual) Basophils # (Manual) Differential Comment Platelet Estimate RBC Morph Micro Appear Sodium Potassium Chloride Carbon Dioxide Anion Gap BUN Creatinine Estimated GFR (MDRD) Glucose Lactic Acid 1.1 Calcium Phosphorus Magnesium Total Bilirubin AST ALT Alkaline Phosphatase B-Natriuretic Peptide Total Protein Albumin Globulin Albumin/Globulin Ratio Lipase Urine Color YELLOW Urine Clarity CLEAR Urine pH 5.5 Ur Specific [place] 1.025 Urine Protein NEGATIVE Urine Glucose (UA) NEGATIVE Urine Ketones TRACE Urine Occult Blood NEGATIVE Urine Nitrite NEGATIVE Urine Bilirubin NEGATIVE Urine Urobilinogen 0.2 (NORMAL) Ur Leukocyte Esterase NEGATIVE Ur Microscopic Review NOT INDICATED Urine Culture Comments NOT INDICATED - Rads (name of study) chest xray Radiology: Prelim report reviewed, See rad report PD MEDICAL DECISION MAKING - ED course Complexity details: reviewed old records, reviewed results, re-evaluated patient, considered differential, d/w patient ED course: HPI s/o URI/bronchitis (although lack of cough would be somewhat atypical for bronchitis). patient reported improvement in dyspnea with duoneb. heart rate improved with gentle IV hydration and IV metoprolol followed by IV cardizem. she is on eliquis for anticoagulation. the most significant finding on testing tonight is leukocytosis of 22 although no specific source suggested on other tests (UA, CXR). will rx zithromax for possible respiratory infectious etiology and test for COVID. patient comfortable with discharge, instructed to return if worse Departure - Departure Disposition: 01 Home, Self Care Clinical Impression: Leukocytosis Qualifiers: Leukocytosis type: unspecified Qualified Code(s): D72.829 - Elevated white blood cell count, unspecified Atrial fibrillation Qualifiers: Atrial fibrillation type: longstanding persistent Qualified Code(s): I48.11 - Longstanding persistent atrial fibrillation Condition: Stable Instructions: ED Afib, ED Upper Resp Infec Abx Tx Follow-Up: Benita Contreras DO [Primary Care Provider] - Prescriptions: Azithromycin [Zithromax] 250 mg PO DAILY #4 tablet Discharge Date/Time: 12/27/19 06:35
[2019-12-27] MEDS ORDERED: IPRATROPIUM/ALBUTEROL 3 ML NEB INH STA (02:18)
[2019-12-27] MEDS ORDERED: SODIUM CHLORIDE 0.9% 500 ML IV STA (02:20)
[2019-12-27] MEDS ORDERED: METOPROLOL 5 MG/5 ML VIAL IVP STA (02:20)
[2019-12-27] MEDS ORDERED: MORPHINE 2 MG/ML CARPUJECT IVP STA (02:43)
[2019-12-27] MEDS ORDERED: DILTIAZEM 50 MG/10 ML VIAL IVP STA ×2 (02:45→02:55)
[2019-12-27] MEDS ORDERED: AZITHROMYCIN INJ 500 MG in SODIUM CHLORIDE 0.9% 250 ML IV STA (04:20)
[2019-12-27] MEDS ORDERED: ACETAMINOPHEN 500 MG TABLET PO STA (05:13)
[2019-12-27 06:42] VITALS: BP 125/78
--- NOTE | 2019-12-27 07:49 | XRAY Report ---
PROCEDURE: Chest 1 View X-Ray INDICATIONS: chest pain TECHNIQUE: One view of the chest was acquired. COMPARISON: 08/08/2019 FINDINGS: Surgical changes and devices: None. Lungs and pleura: No pleural effusions or pneumothorax. Lungs are clear. Mild central bronchial wal l thickening noted. Mediastinum: Mediastinal contours appear normal. Heart is enlarged. Bones and chest wall: No suspicious bony lesions. Overlying soft tissues appear unremarkable. IMPRESSION: 1. Mild central bronchial wall thickening which could be inflammatory or infectious. 2. Cardiomegaly. Reviewed by: Alia Zhang MD, PhD on 12/27/2019 7:48 AM PDT Approved by: Alia Zhang MD, PhD on 12/27/2019 7:48 AM PDT Station ID: [id number]
== END 2019-12-27 06:35 | disposition home or self-care (01) ==
LOC: EDUNIT# → ED 23:03
DX: J06.9 Acute upper respiratory infection, unspecified (principal); D72.829 Elevated white blood cell count, unspecified; I48.11 Longstanding persistent atrial fibrillation; Z79.01 Long term (current) use of anticoagulants; I10 Essential (primary) hypertension; G20 Parkinson's disease; R60.0 Localized edema
CPT/HCPCS: 36415; 51701; 71045; 80053; 81003; 83605; 83690; 83735; 83880; 84100; 85025; 93005; 94640; 96361; 96365; 96375; 99284; A9270; 81001; 87086

== ENCOUNTER 2019-12-27 06:37 | Outpatient (CLI) | payer MEDICARE, BC | END 2019-12-27 06:38 | disposition home or self-care (01) | LOC: EMS 06:37 | PROVIDERS: ATTEND Surgery | DX: R06.02 Shortness of breath (principal); Z74.01 Bed confinement status | CPT/HCPCS: A0425; A0428 ==

== ENCOUNTER 2020-01-19 23:33 | Outpatient (CLI) | payer MEDICARE, BC | END 2020-01-19 23:59 | disposition critical access hospital (66) | LOC: EMS 23:33 | PROVIDERS: ATTEND Surgery | DX: R06.00 Dyspnea, unspecified (principal) | CPT/HCPCS: A0425; A0429 ==

== ENCOUNTER 2020-01-19 23:49 | Inpatient (IN) | payer MEDICARE, BC ==
--- NOTE | 2020-01-20 00:02 | ED Physician Documentation ---
History of Present Illness - Stated complaint Stated Complaint: SOA/EDEMA - History obtained from History obtained from: Patient, Family - Additonal information Additional information: Patient is a 69-year-old female brought in by ambulance complaining of severe shortness of breath and lower extremity swelling as well as worsening cough and difficulty breathing. She reports she has progressively worsening shortness of breath and swelling she is unable to ambulate unable to get out of bed. She reports she has worsening and progressive Parkinson's and is now having worsening lower extremity swelling and dyspnea.She does have a known history of atrial fibrillation she takes 5 mg of Eliquis twice daily for this. She went to her doctor last week who increased her home dose of Lasix but she continues to have worsening lower extremity swelling and difficulty breathing. She denies fevers currently. Review of Systems Constitutional: reports: Reviewed and negative Eyes: reports: Reviewed and negative Ears: reports: Reviewed and negative Nose: reports: Reviewed and negative Throat: reports: Reviewed and negative Cardiac: reports: Palpitations Respiratory: reports: Dyspnea, Cough GI: reports: Reviewed and negative : reports: Reviewed and negative Skin: reports: Other (Bilateral lower extremity edema) Musculoskeletal: reports: Extremity swelling Neurologic: reports: Reviewed and negative Psychiatric: reports: Reviewed and negative Endocrine: reports: Reviewed and negative Immunocompromised: reports: Reviewed and negative PD PAST MEDICAL HISTORY - Past Medical History Cardiovascular: Hypertension, Atrial fibrillation, Other Respiratory: Other Neuro: Parkinson's, Other Endocrine/Autoimmune: None GI: None 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: Other : Chronic bladder infection, Frequency HEENT: Chronic hearing loss Psych: Depression, Anxiety, Other Musculoskeletal: Osteoarthritis, Gout, Other Derm: Other - Past Surgical History Past Surgical History: Yes General: Colonoscopy Ortho: Other - Present Medications Home Medications: Ambulatory Orders Medication Instructions Recorded Confirmed Gabapentin 300 mg PO BID 08/07/19 12/02/19 Apixaban [Eliquis] 5 mg PO BID tablet 08/10/19 12/02/19 traMADol [Ultram] 50 mg PO TID PRN 10/21/19 12/02/19 atenoloL [Atenolol] 100 mg PO BID #0 12/04/19 12/02/19 Acetaminophen [Tylenol Extra 1,000 mg PO TID MDD NTE 3g 12/16/19 12/16/19 Strength] daily/24hous all source Hydrocodone/Acetaminophen 1 tab PO Q4H PRN 12/16/19 12/16/19 [Hydrocodone-Acetamin 5-325 mg] polyethylene glycoL 3350 [Miralax] 17 g PO DAILY PRN 12/16/19 12/16/19 Gabapentin 300 mg PO .AFTERNOON PRN 12/24/19 12/24/19 Melatonin 3 mg PO QPM 12/24/19 12/24/19 Menthol [Biofreeze] TP 12/24/19 Methyl Salicylate/Menthol 1 patch TP DAILY MDD left hip qAM 12/24/19 12/24/19 [Salonpas Patch] remove qPM Azithromycin [Zithromax] 250 mg PO DAILY #4 tablet 12/27/19 - Allergies Allergies/Adverse Reactions: Allergies Allergy/AdvReac Type Severity Reaction Status Date / Time warfarin AdvReac Nausea Verified 12/16/19 17:31 - Social History Does the pt smoke?: No Smoking Status: Never smoker Does the pt drink ETOH?: No Does the pt have substance abuse?: No - Immunizations Immunizations are current?: Yes - POLST Patient has POLST: No POLST Status: DNR PD ED PE NORMAL - Vitals Vital signs reviewed: Yes - General General: Alert and oriented X 3, Other (Ill-appearing 69-year-old female with difficulty breathing but no distress nontoxic and nonseptic appearing) - HEENT HEENT: PERRL - Neck Neck: Supple, no meningeal sign, Other (Letter for JVD) - Cardiac Cardiac: No murmur, Other (Tachycardic and irregularly irregular) - Respiratory Respiratory: Other (Crackles at the bases bilaterally tachypnea trachea midline) - Abdomen Abdomen: Normal bowel sounds, Soft, Other (Obese, no midline abdominal pulsatile mass) - Derm Derm: Other (4+ bilateral lower extremity pitting edema) - Extremities Extremities: Other (4+ bilateral lower extremity pitting edema) - Neuro Neuro: Alert and oriented X 3 - Psych Psych: Normal mood, Normal affect Results - Vitals Vitals: Vital Signs - 24 hr 01/19/20 01/20/20 01/20/20 23:58 00:04 01:58 Temperature 36.9 C 36.9 C Heart Rate 145 H 145 H 95 Respiratory 23 23 23 Rate Blood Pressure 119/75 119/75 130/88 H O2 Saturation 99 99 97 01/20/20 03:09 Temperature Heart Rate 106 H Respiratory 33 H Rate Blood Pressure 121/97 H O2 Saturation 100 Oxygen O2 Source [With Activity] Room air O2 Source Room air - EKG (time done) 00:17 Rate: Other (no stemi) Rhythm: Atrial fibrillation - Labs Labs: Laboratory Tests 01/20/20 01/20/20 01/20/20 00:04 00:21 00:21 WBC 13.7 H RBC 3.75 L Hgb 10.1 L Hct 33.4 L MCV 89.1 MCH 26.9 L MCHC 30.2 L RDW 16.4 H Plt Count 244 MPV 11.7 H Neut # (Auto) 11.1 H Lymph # (Auto) 1.2 L [place] # (Auto) 1.1 H Eos # (Auto) 0.2 Baso # (Auto) 0.1 Absolute Nucleated RBC 0.00 Nucleated RBC % 0.0 PT 30.0 H INR 2.9 H APTT 36.9 H Sodium Potassium Chloride Carbon Dioxide Anion Gap BUN Creatinine Estimated GFR (MDRD) Glucose Lactic Acid Calcium Magnesium Total Bilirubin AST ALT Alkaline Phosphatase Total Creatine Kinase Troponin I High Sens B-Natriuretic Peptide Total Protein Albumin Globulin Albumin/Globulin Ratio Lipase Urine Color YELLOW Urine Clarity CLEAR Urine pH 5.0 Ur Specific [place] 1.020 Urine Protein NEGATIVE Urine Glucose (UA) NEGATIVE Urine Ketones NEGATIVE Urine Occult Blood MODERATE H Urine Nitrite NEGATIVE Urine Bilirubin NEGATIVE Urine Urobilinogen 0.2 (NORMAL) Ur Leukocyte Esterase NEGATIVE Urine RBC 6-10 H Urine WBC 0-3 Ur Squamous Epith Cells MANY Squamous H Urine Bacteria Rare Urine Casts 3-5 Hyaline Casts Ur Microscopic Review INDICATED Urine Culture Comments NOT INDICATED 01/20/20 01/20/20 01/20/20 00:21 00:21 00:21 WBC RBC Hgb Hct MCV MCH MCHC RDW Plt Count MPV Neut # (Auto) Lymph # (Auto) [place] # (Auto) Eos # (Auto) Baso # (Auto) Absolute Nucleated RBC Nucleated RBC % PT INR APTT Sodium 136 Potassium 4.4 Chloride 102 Carbon Dioxide 25 Anion Gap 9.0 BUN 35 H Creatinine 1.3 H Estimated GFR (MDRD) 41 L Glucose 112 H Lactic Acid Calcium 8.9 Magnesium 2.2 Total Bilirubin 0.9 AST 18 ALT 21 Alkaline Phosphatase 47 Total Creatine Kinase 93 Troponin I High Sens 5.0 B-Natriuretic Peptide 565 H Total Protein 7.1 Albumin 3.3 Globulin 3.8 Albumin/Globulin Ratio 0.9 L Lipase 24 Urine Color Urine Clarity Urine pH Ur Specific [place] Urine Protein Urine Glucose (UA) Urine Ketones Urine Occult Blood Urine Nitrite Urine Bilirubin Urine Urobilinogen Ur Leukocyte Esterase Urine RBC Urine WBC Ur Squamous Epith Cells Urine Bacteria Urine Casts Ur Microscopic Review Urine Culture Comments 01/20/20 01:45 WBC RBC Hgb Hct MCV MCH MCHC RDW Plt Count MPV Neut # (Auto) Lymph # (Auto) [place] # (Auto) Eos # (Auto) Baso # (Auto) Absolute Nucleated RBC Nucleated RBC % PT INR APTT Sodium Potassium Chloride Carbon Dioxide Anion Gap BUN Creatinine Estimated GFR (MDRD) Glucose Lactic Acid 1.3 Calcium Magnesium Total Bilirubin AST ALT Alkaline Phosphatase Total Creatine Kinase Troponin I High Sens B-Natriuretic Peptide Total Protein Albumin Globulin Albumin/Globulin Ratio Lipase Urine Color Urine Clarity Urine pH Ur Specific [place] Urine Protein Urine Glucose (UA) Urine Ketones Urine Occult Blood Urine Nitrite Urine Bilirubin Urine Urobilinogen Ur Leukocyte Esterase Urine RBC Urine WBC Ur Squamous Epith Cells Urine Bacteria Urine Casts Ur Microscopic Review Urine Culture Comments PD MEDICAL DECISION MAKING - ED course Complexity details: reviewed old records, reviewed results, re-evaluated patient, considered differential, d/w patient, d/w family ED course: 69-year-old female brought in from home with worsening lower extremity swelling and difficulty breathing chest x-ray shows cardiomegaly as well as left-sided infiltrate her BNP is elevated as well. She has bilateral lower extremity edema she also has been in A. fib RVR she was given a diltiazem bolus and then started on a diltiazem drip also blood cultures were drawn x2 as well as lactate and IV antibiotics initiated with IV Rocephin IV azithromycin spoke with the hospitalist who graciously agreed to admit this patient to the intensive care unit. Patient updated and agreeable to plan. - Consults Consults: Discussed case with (dr. mena. will admit to icu. ) - Critical Care Time(min): 30 Time Includes: Direct patient care, Review records, Reassess patient, Document care, Coordinate care, Medical consult, Family consult for tx dec Procedures included in critical care time: Peripheral IV Procedures excluded from critical care time: EKG Departure - Departure Disposition: 66 [facility] DC/Xfer Clinical Impression: A-fib Qualifiers: Atrial fibrillation type: unspecified Qualified Code(s): I48.91 - Unspecified atrial fibrillation Congestive heart failure Qualifiers: Heart failure type: unspecified Heart failure chronicity: unspecified Qualified Code(s): I50.9 - Heart failure, unspecified Pneumonia Qualifiers: Pneumonia type: due to unspecified organism Laterality: left Lung location: unspecified part of lung Qualified Code(s): J18.9 - Pneumonia, unspecified organism Condition: Stable
[2020-01-20] MEDS ORDERED: FUROSEMIDE 40 MG/4 ML VIAL IVP STA ×2 (00:05→03:46)
[2020-01-20 00:37] LABS: BASOPHILS # (AUTO) 0.1 10^3/uL (0.0-0.1); BASOPHILS % (AUTO) 0.5 %; EOSINOPHILS # (AUTO) 0.2 10^3/uL (0.0-0.7); EOSINOPHILS % (AUTO) 1.6 %; HGB - HEMOGLOBIN 10.1 g/dL (12.0-16.0); LYMPHOCYTES # (AUTO) 1.2 10^3/uL (1.5-3.5); LYMPHOCYTES % (AUTO) 8.5 %; MEAN CORPUSCULAR HEMOGLOBIN 26.9 pg (27.0-31.0); MEAN CORPUSCULAR HGB CONC 30.2 g/dL (32.0-36.0); MEAN CORPUSCULAR VOLUME 89.1 fL (81.0-99.0); MEAN PLATELET VOLUME 11.7 fL (7.9-10.8); MONOCYTES # (AUTO) 1.1 10^3/uL (0.0-1.0); MONOCYTES % (AUTO) 7.8 %; NEUTROPHILS # (AUTO) 11.1 10^3/uL (1.5-6.6); NEUTROPHILS % (AUTO) 80.8 %; PLT - PLATELET COUNT 244 10^3/uL (130-450); RED BLOOD COUNT 3.75 10^6/uL (4.20-5.40); RED CELL DISTRIBUTION WIDTH 16.4 % (12.0-15.0); WHITE BLOOD COUNT 13.7 x10^3/uL (4.8-10.8)
[2020-01-20 00:40] LABS: INR 2.9 (0.8-1.2)
[2020-01-20 00:47] LABS: ALBUMIN 3.3 g/dL (3.2-5.5); ALBUMIN/GLOBULIN RATIO 0.9 (1.0-2.2); BILIRUBIN,TOTAL 0.9 mg/dL (0.2-1.0); CALCIUM 8.9 mg/dL (8.5-10.3); CREATININE 1.3 mg/dL (0.4-1.0); MAGNESIUM 2.2 mg/dL (1.7-2.8); PARTIAL THROMBOPLASTIN TIME 36.9 secs (24.9-33.3); TOTAL PROTEIN 7.1 g/dL (6.7-8.2)
[2020-01-20] MEDS ORDERED: AZITHROMYCIN INJ 500 MG in SODIUM CHLORIDE 0.9% 250 ML IV STA (01:16)
[2020-01-20] MEDS ORDERED: cefTRIAXone 1 GM VIAL IVP STA (01:16)
[2020-01-20] MEDS ORDERED: DILTIAZEM 50 MG/10 ML VIAL IVP ONE (01:16)
[2020-01-20 01:21] LABS: BILIRUBIN,URINE NEGATIVE (NEGATIVE); CLARITY,URINE CLEAR (CLEAR); GLUCOSE, URINE (UA) NEGATIVE (NEGATIVE); KETONES,URINE (UA) NEGATIVE (NEGATIVE); LEUKOCYTE ESTERASE, URINE NEGATIVE (NEGATIVE); NITRITE,URINE NEGATIVE (NEGATIVE); OCCULT BLOOD,URINE MODERATE (NEGATIVE); PROTEIN,URINE NEGATIVE (NEGATIVE); UROBILINOGEN,URINE 0.2 (NORMAL) E.U./dL (NORMAL)
[2020-01-20 01:24] LABS: BACTERIA,URINE Rare /HPF (None Seen); CASTS, URINE 3-5 Hyaline Casts /LPF; SQUAMOUS EPITHELIAL CELL,UR MANY Squamous (<= Few)
[2020-01-20] MEDS ORDERED: DILTIAZEM 125 MG in DEXTROSE 5% 100 ML IV STA (01:46)
[2020-01-20] MEDS ORDERED: IOVERSOL 320 100 ML VIAL IVP ONE ×2 (02:22→03:16)
[2020-01-20] MEDS ORDERED: DILTIAZEM 50 MG/10 ML VIAL ONE (03:57)
--- NOTE | 2020-01-20 04:17 | HISTORY & PHYSICAL EXAMINATION ---
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 Her symptoms have been going on for the past 2 days and worsening. She has been wheezing and has a mild cough. She denies chest pain, abdominal pain, nausea, vomiting, fever or chills. However she complains of feeling hot. She was last admitted to the hospital in November with dehydration. Due to her MSA she normally gets around her house using a walker or a wheelchair with the assistance of another person. Lately her daughter who is a high school hvac r instructor and lives in [place] has been living with her in her house in [place]. However over the past 2 weeks the patient has been bedridden. She has chronic lymphedema and today upon presentation she has significant anasarca with weeping lower extremities. Her wheeze is audible. She was also found to be in atrial fibrillation with rapid ventricular rhythm. With a heart rate as high as 150. She has history of atrial fibrillation and is on Eliquis, digoxin and atenolol. Finally work-up included a chest x-ray which reported infiltrates suggestive of pneumonia. He also had a white blood cell count of 13.5. As a result of the above she was started on diltiazem and is being admitted for further treatment. 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 Father of [place] age 56. she has 2 brothers and doesn't speak to them. 2 children. healthy Social History Notes: . Nonsmoker. Rare alcohol drinker. 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 Lived alone on [address] since [address] until she became ill. Daughter is now living with her to take care of her. Son also comes from [facility] to help take care of her in her own home. - Substance History Use: Uses substance without health or social issues: NONE - POLST Patient has POLST: No POLST Status: Full Code Meds/Allgy - Home Medications Home Medications: Ambulatory Orders Medication Instructions Recorded Confirmed Gabapentin 300 mg PO BID 08/07/19 12/02/19 Apixaban [Eliquis] 5 mg PO BID tablet 08/10/19 12/02/19 traMADol [Ultram] 50 mg PO TID PRN 10/21/19 12/02/19 atenoloL [Atenolol] 100 mg PO BID #0 12/04/19 12/02/19 Acetaminophen [Tylenol Extra 1,000 mg PO TID MDD NTE 3g 12/16/19 12/16/19 Strength] daily/24hous all source Hydrocodone/Acetaminophen 1 tab PO Q4H PRN 12/16/19 12/16/19 [Hydrocodone-Acetamin 5-325 mg] polyethylene glycoL 3350 [Miralax] 17 g PO DAILY PRN 12/16/19 12/16/19 Gabapentin 300 mg PO .AFTERNOON PRN 12/24/19 12/24/19 Melatonin 3 mg PO QPM 12/24/19 12/24/19 Menthol [Biofreeze] TP 12/24/19 Methyl Salicylate/Menthol 1 patch TP DAILY MDD left hip qAM 12/24/19 12/24/19 [Salonpas Patch] remove qPM Azithromycin [Zithromax] 250 mg PO DAILY #4 tablet 12/27/19 - Allergies Allergies/Adverse Reactions: Allergies Allergy/AdvReac Type Severity Reaction Status Date / Time warfarin AdvReac Nausea Verified 12/16/19 17:31 Review of Systems - Constitutional Constitutional: reports: Fatigue, Weakness. denies: Fever, Chills - Eyes Eyes: denies: Pain - Ears, Nose & Throat Ears, Nose & Throat: denies: Ear pain - Cardiovascular Cariovascular: reports: Irregular heart rate, Edema (anasarca). denies: Chest pain, Lightheadedness, Syncope - Respiratory Respiratory: reports: Wheezing, SOB at rest - Gastrointestinal Gastrointestinal: denies: Abdominal pain, Abdominal distention, Constipation, Nausea, Vomiting - Genitourinary Genitourinary: denies: Dysuria, Frequency, Urgency, Hematuria - Musculoskeletal Musculoskeletal: reports: Joint pain (right shoulder pain. Chronic). denies: Muscle pain, Back pain, Muscle aches, Stiffness - Neurological Neurological: reports: General weakness, Abnormal gait (due to Multisystem atrophy with cerebellar features) - Psychiatric Psychiatric: reports: Depression - Endocrine Endocrine: denies: Polyuria, Polydypsia - Hematologic/Lymphatic Hematologic/Lymphatic: denies: Anemia, Bruising Prior Level of Functionality: She continues to ambulate with the help of a walker and sometimes uses a wheelchair but usually requires assistance. However over the past 2 weeks she has been bedridden Exam - Vital Signs Vital Signs: Vital Signs x48h Temp Pulse Resp BP Pulse Ox 01/20/20 03:09 106 H 33 H 121/97 H 100 01/20/20 01:58 95 23 130/88 H 97 01/20/20 00:04 36.9 C 145 H 23 119/75 99 01/19/20 23:58 36.9 C 145 H 23 119/75 99 - Physical Exam General Appearance: positive: Alert, Moderate distress (respiratory distress) Eyes Bilateral: positive: PERRL, EOMI ENT: positive: No signs of dehydration Neck: positive: No JVD, Trachea midline Respiratory: positive: Chest non-tender, Wheezes. negative: No respiratory distress, Breath sounds nml Cardiovascular: positive: Irregularly irregular, Tachycardia Abdomen: positive: Non-tender, No organomegaly, Nml bowel sounds, No distention. negative: Guarding, Rebound Skin: positive: Color nml, Other (weeping blisters on lower extremities) Extremities: positive: Pedal edema (Anasarca) Neurologic/Psychiatric: positive: Oriented x3, Weakness (generalized) Conclusion/Plan - Problem List (1) Atrial fibrillation with RVR Conclusion/Plan: Likely exacerbated by anasarca and possibly pneumonia. Patient started on diltiazem drip. Will continue. Patient is on Eliquis, atenolol and digoxin. Will resume once verified. 2D echocardiogram ordered. Lasix 40 mg IV twice daily ordered. Patient received an initial 80 mg of Lasix IV in the ED. (2) Anasarca Conclusion/Plan: Patient was last admitted to the hospital in November 2019. At that time she was admitted for dehydration. It appears her Lasix has been discontinued. Patient received Lasix 80 mg IV in the ED. We will continue Lasix 40 mg IV twice daily. Daily weights. Strict I's and O's. Fluid restriction to 2000 mils daily. Low sodium diet. 2D echo pending. Will check BNP daily. (3) Pneumonia Conclusion/Plan: Patient was started on Rocephin and azithromycin. Will continue. Blood cultures pending. Qualifiers: Pneumonia type: due to unspecified organism Laterality: left Lung location: unspecified part of lung Qualified Code(s): J18.9 - Pneumonia, unspecified organism (4) Multiple system atrophy with cerebellar features Conclusion/Plan: Initially the her neurologist Dr. Castrejon thought the patient had atypical Parkinson's. However the patient had a poor response to Sinemet with severe hallucinations. Subsequently Dr. Dillard made the diagnosis of multiple system atrophy. - Lab Results Fish Bones: 01/20/20 00:21 01/20/20 00:21 Core Measures - Anticipated LOS I expect patient to be DC'd or transferred within 96 hours.: Yes - DVT/VTE - Prophylaxis VTE/DVT Device ordered at admit?: No VTE/DVT Prophylaxis med ordered at admit?: Yes
[2020-01-20] MEDS: DILTIAZEM 125 MG in DEXTROSE 5% 100 ML IV SCH (04:50)
[2020-01-20 06:20] LABS: BASOPHILS % (AUTO) 0.2 %; EOSINOPHILS # (AUTO) 0.1 10^3/uL (0.0-0.7); EOSINOPHILS % (AUTO) 0.5 %; HGB - HEMOGLOBIN 9.6 g/dL (12.0-16.0); LYMPHOCYTES # (AUTO) 0.9 10^3/uL (1.5-3.5); LYMPHOCYTES % (AUTO) 6.9 %; MEAN CORPUSCULAR HEMOGLOBIN 27.3 pg (27.0-31.0); MEAN CORPUSCULAR VOLUME 88.1 fL (81.0-99.0); MEAN PLATELET VOLUME 11.6 fL (7.9-10.8); MONOCYTES % (AUTO) 7.4 %; NEUTROPHILS # (AUTO) 10.8 10^3/uL (1.5-6.6); NEUTROPHILS % (AUTO) 84.2 %; PLT - PLATELET COUNT 219 10^3/uL (130-450); RED BLOOD COUNT 3.52 10^6/uL (4.20-5.40); RED CELL DISTRIBUTION WIDTH 16.3 % (12.0-15.0); WHITE BLOOD COUNT 12.8 x10^3/uL (4.8-10.8)
[2020-01-20] MEDS: PANTOPRAZOLE 40 MG TABLET PO SCH (06:24)
[2020-01-20 06:30] LABS: CALCIUM 8.8 mg/dL (8.5-10.3); CREATININE 1.3 mg/dL (0.4-1.0)
[2020-01-20 06:41] LABS: MAGNESIUM 2.3 mg/dL (1.7-2.8)
--- NOTE | 2020-01-20 08:32 | CT Report ---
PROCEDURE: ANGIO CHEST W/WO INDICATIONS: SOB CONTRAST: IV CONTRAST: Optiray 320 ml: 100 PO CONTRAST: *NO PO CONTRAST TECHNIQUE: After the administration of intravenous contrast, 2 mm thick sections acquired from the pulmonary api danna to the posterior costophrenic angles. 3-dimensional maximum intensity projection (MIP) coronal a nd sagittal reformats were then acquired through the thorax. For radiation dose reduction, the follow ing was used: automated exposure control, adjustment of mA and/or kV according to patient size. COMPARISON: Chest x-ray 01/20/2020. FINDINGS: Image quality: Motion and artifact are present significantly limiting evaluation. Pulmonary arteries: Pulmonary arteries are normal in size, and demonstrate no intraluminal filling d efects to suggest central pulmonary embolism. Motion artifact preventing evaluation of segmental bra nches. Lungs and pleura: Questionable perihilar atelectasis versus motion artifact. No pleural effusions or pneumothorax. Central and peripheral airways are patent. Mediastinum: Heart size is normal, without pericardial effusion. No mediastinal or hilar adenopathy . Thoracic aorta is normal in caliber and enhancement. Esophagus is normal in caliber, without hiat al hernia. Bones and chest wall: No suspicious bony lesions. Ribs and thoracic spine appear intact throughout. The thyroid is normal. No axillary or supraclavicular adenopathy. Anasarca is present. Abdomen: Visualized upper abdominal solid organs appear normal in the early arterial phase of enhanc ement. IMPRESSION: 1. Prominent motion, limiting evaluation. 2. No central pulmonary emboli. 3. Anasarca. 4. Questionable perihilar atelectasis versus motion. The above findings are concordant with preliminary report. Reviewed by: Shanice Bliss MD on 01/20/2020 8:31 AM PDT Approved by: Shanice Bliss MD on 01/20/2020 8:31 AM PDT Station ID: [id number]
--- NOTE | 2020-01-20 08:58 | XRAY Report ---
PROCEDURE: Chest 1 View X-Ray INDICATIONS: SOB TECHNIQUE: One view of the chest was acquired. COMPARISON: Chest x-ray 12/26/2019 CT chest 01/20/2020 FINDINGS: Surgical changes and devices: None. Lungs and pleura: No pleural effusions or pneumothorax. Minimal appearance of increased left lingula r opacity. Mediastinum: Mediastinal contours appear normal. Heart size is enlarged. Bones and chest wall: No suspicious bony lesions. Overlying soft tissues appear unremarkable. IMPRESSION: Minimal increased left lingular opacity. Please see CT chest report of 01/20/2020 for further details. The above findings are concordant with preliminary report. Reviewed by: Shanice Bliss MD on 01/20/2020 8:56 AM PDT Approved by: Shanice Bliss MD on 01/20/2020 8:56 AM PDT Station ID: [id number]
--- NOTE | 2020-01-20 12:41 | PHARMACY PROGRESS NOTE ---
- Best Possible Medication History Admit Date and Time: 01/20/20 0351 Processed by: Pharmacy Medication History completed: Yes Patient Interview: Completed Secondary Source(s): Physician records (PATIENT INTERVIEWED BY AV SPECIALIST. PATIENT ABLE TO CONFIRM HOME MEDICATIONS ), Pharmacy records, Insurance records As the person ultimately responsible for medication therapy, providers are able to order a medication from an existing home medication list in [facility] via the "Reconcile Routine" prior to Confirmation of that medication by field support specialist. Such practice is discouraged except when the physician, in their clinical judgment, deems that a medical need exists for a medication without regard to previous use.
[2020-01-20] MEDS: FUROSEMIDE 40 MG/4 ML VIAL IVP SCH (14:28)
[2020-01-20] MEDS: ACETAMINOPHEN 325 MG TABLET PO PRN (16:21)
[2020-01-20] MEDS: NYSTATIN POWDER 15 GM TOP SCH ×2 (16:40→21:24)
[2020-01-20] MEDS: SODIUM CHLORIDE FLUSH 0.9% 10 ML SYRINGE IVP SCH ×2 (16:40→16:44)
[2020-01-20] MEDS: GABAPENTIN 300 MG CAPSULE PO SCH (21:24)
[2020-01-20] MEDS: APIXABAN 5 MG TABLET PO SCH (21:24)
[2020-01-21] MEDS ORDERED: atenoloL 25 MG TABLET PO STA (00:01)
[2020-01-21] MEDS: SODIUM CHLORIDE FLUSH 0.9% 10 ML SYRINGE IVP SCH ×3 (00:16→15:00)
[2020-01-21] MEDS ORDERED: VANCOMYCIN INJ 1.5 GM in SODIUM CHLORIDE 0.9% 500 ML IV SCH (01:00)
[2020-01-21] MEDS: SODIUM CHLORIDE FLUSH 0.9% 10 ML SYRINGE IVP PRN ×4 (03:11→21:19)
[2020-01-21] MEDS: ACETAMINOPHEN 325 MG TABLET PO PRN ×4 (04:50→21:49)
[2020-01-21 05:22] LABS: BASOPHILS % (AUTO) 0.3 %; EOSINOPHILS # (AUTO) 0.6 10^3/uL (0.0-0.7); EOSINOPHILS % (AUTO) 4.7 %; HGB - HEMOGLOBIN 8.8 g/dL (12.0-16.0); LYMPHOCYTES # (AUTO) 2.1 10^3/uL (1.5-3.5); LYMPHOCYTES % (AUTO) 17.6 %; MEAN CORPUSCULAR HEMOGLOBIN 26.3 pg (27.0-31.0); MEAN CORPUSCULAR VOLUME 87.7 fL (81.0-99.0); MEAN PLATELET VOLUME 11.7 fL (7.9-10.8); MONOCYTES # (AUTO) 1.2 10^3/uL (0.0-1.0); MONOCYTES % (AUTO) 9.9 %; NEUTROPHILS # (AUTO) 7.8 10^3/uL (1.5-6.6); PLT - PLATELET COUNT 223 10^3/uL (130-450); RED BLOOD COUNT 3.34 10^6/uL (4.20-5.40); RED CELL DISTRIBUTION WIDTH 16.3 % (12.0-15.0); WHITE BLOOD COUNT 11.8 x10^3/uL (4.8-10.8)
[2020-01-21 05:36] LABS: CALCIUM 8.7 mg/dL (8.5-10.3); CREATININE 1.3 mg/dL (0.4-1.0); MAGNESIUM 2.3 mg/dL (1.7-2.8)
[2020-01-21] MEDS: DILTIAZEM 125 MG in DEXTROSE 5% 100 ML IV SCH (06:27)
[2020-01-21] MEDS: FUROSEMIDE 40 MG/4 ML VIAL IVP SCH ×2 (06:28→14:33)
[2020-01-21] MEDS: PANTOPRAZOLE 40 MG TABLET PO SCH (06:28)
--- NOTE | 2020-01-21 08:10 | PROVIDER PROGRESS NOTE ---
Objective - Vital Signs/Intake & Output Vital Signs: Vital Signs x48h Temp Pulse Resp BP Pulse Ox 01/21/20 08:00 37.1 C 114 H 21 114/78 97 01/21/20 07:00 108 H 13 111/76 99 01/21/20 06:00 93 15 98/68 97 01/21/20 05:00 104 H 14 103/63 95 01/21/20 04:00 36.8 C 106 H 18 110/67 96 01/21/20 03:00 104 H 25 H 102/75 96 01/21/20 02:00 88 14 93/57 L 97 01/21/20 01:00 92 13 91/65 100 01/21/20 00:39 37.2 C 110 H 19 112/81 H 97 Intake & Output: Intake & Output 01/18/20 01/19/20 01/20/20 01/21/20 23:59 23:59 23:59 23:59 Intake Total 1197 753.5 Output Total 1435 839 Balance -238 -85.5 - Lab Results Fish Bones: 01/21/20 04:59 01/21/20 04:59 Other Labs: Lab Results x24hrs 01/21/20 01/21/20 01/21/20 Range/Units 04:59 04:59 04:59 WBC 11.8 H (4.8-10.8) x10^3/uL RBC 3.34 L (4.20-5.40) 10^6/uL Hgb 8.8 L (12.0-16.0) g/dL Hct 29.3 L (37.0-47.0) % MCV 87.7 (81.0-99.0) fL MCH 26.3 L (27.0-31.0) pg MCHC 30.0 L (32.0-36.0) g/dL RDW 16.3 H (12.0-15.0) % Plt Count 223 (130-450) 10^3/uL MPV 11.7 H (7.9-10.8) fL Neut # (Auto) 7.8 H (1.5-6.6) 10^3/uL Lymph # (Auto) 2.1 (1.5-3.5) 10^3/uL Swisher # (Auto) 1.2 H (0.0-1.0) 10^3/uL Eos # (Auto) 0.6 (0.0-0.7) 10^3/uL Baso # (Auto) 0.0 (0.0-0.1) 10^3/uL Absolute Nucleated RBC 0.00 x10^3/uL Nucleated RBC % 0.0 /100WBC Sodium 138 (135-145) mmol/L Potassium 3.9 (3.5-5.0) mmol/L Chloride 105 (101-111) mmol/L Carbon Dioxide 22 (21-32) mmol/L Anion Gap 11.0 (6-13) BUN 44 H (6-20) mg/dL Creatinine 1.3 H (0.4-1.0) mg/dL Estimated GFR (MDRD) 41 L (>89) Glucose 115 H (70-100) mg/dL Calcium 8.7 (8.5-10.3) mg/dL Phosphorus 4.0 (2.5-4.6) mg/dL Magnesium 2.3 (1.7-2.8) mg/dL B-Natriuretic Peptide 346 H (5-100) pg/mL
[2020-01-21] MEDS: cefTRIAXone 1 GM in SODIUM CHLORIDE 0.9% MINIBAG 100 ML IV SCH (09:55)
[2020-01-21] MEDS: atenoloL 25 MG TABLET PO SCH (10:09)
[2020-01-21] MEDS: GABAPENTIN 300 MG CAPSULE PO SCH ×2 (10:10→21:18)
[2020-01-21] MEDS: APIXABAN 5 MG TABLET PO SCH ×2 (10:11→21:18)
[2020-01-21] MEDS ORDERED: VANCOMYCIN INJ 1 GM, VANCOMYCIN INJ 500 MG in SODIUM CHLORIDE 0.9% 500 ML IV SCH (12:00)
[2020-01-21] MEDS: NYSTATIN POWDER 15 GM TOP SCH ×2 (13:22→21:18)
--- NOTE | 2020-01-21 16:23 | CONSULTATION NOTE ---
Palliative Care Follow Up - Referral Referring Provider: Dr. Dinora Martines Time of Visit: [id number] Referral setting: Hospitalized patient Referral Reason: Pneumonia/Debility - Information Sources Records reviewed: Previous records reviewed History/Review of Systems obtained from: Patient, Other (APPLICATIONS CONSULTANT) Exam limitations: No limitations - History of Present Illness Update Brief HPI Update: This is a 69 year old female who is seen today in hospital after she was admitted with afib, anascaraca and pneumonia. The patient is known to this palliative care provider due to her history of atypical Parkinson's disease/Multiple system atrophy. She has a history of LE edema and due to a hospitalization with dehydration her diuretics were discontinued and she has been working with home health nursing with compression wraps and LE wounds. She was seen by her PCP last week and due to her increasing edema she was restarted on oral lasix. On presentation to the emergency department the patient was short of breath and found to be in A. fib with RVR and imaging indicative of pneumonia. She is presently on IV Lasix and her output is being monitored with a Torrez catheter in place. She is presently on oral antibiotic therapy for pneumonia. However, her lower extremities have more of the purulence of cellulitis underlying. Presently her blood cultures have been negative. The patient has a history of claustrophobia and history of hallucinations and is very sensitive to medications. She developed hallucinations with levodopa/carbidopa. She reports last evening she was given a pain medication and developed hallucinations and became tearful in recalling this. She has become increasingly weaker at home despite working with home health physical therapy. She has had a reduction in her ambulation. She is pending evaluation with rehabilitation services while inpatient. The patient also has a longstanding history of insomnia that has been chronic for years. When this [facility] last saw the patient she was initiated on melatonin to begin in the evenings. However, the patient reports that she did not init iate this medication due to fear of side effects. Please see detailed history obtained from visit 12/16/2019 for full details. The patient is seen sitting up in bed being assisted with her lunch by APPLICATIONS CONSULTANT. Not on any oxygen supplementation. No evidence of acute distress. The patient herself reports that her breathing has improved since being admission admitted to the hospital. Patient has a past medical history of hypertension, atrial fibrillation on Eliquis, mild pulmonary hypertension, severe restless leg syndrome, chronic hearing loss with high-frequency to left ear, depression, anxiety, o steoarthritis, gout, venous stasis to lower extremities, hyperlipidemia, obesity, questionable multiple system atrophy versus atypical Parkinson's. Social History - Living Situation Living arrangement: At home Living Situation: With family Support System: Patient is . 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 The patient's daughter, Camila moved into the patient's home with her to assist taking care of the patient in the last 1.5 years. The patient's son, Josiah also provides assistance with care and is presently on FMLA to assist with care. The patient and her family have been looking at caregiver options. They have been working with home health social work. The patient has a hospital bed, bedside commode, left require owner operator, transfer pole and Rollator in the home. Medications/Allergies - Medications Active Medication List: Active Medications Acetaminophen (Tylenol) 650 mg PO Q4HR PRN PRN Reason: Pain or Fever > 38C (100.4F) Last Admin: 01/21/20 15:40 Dose: 650 mg Documented by: Apixaban (Eliquis) 5 mg PO BID [facility] Last Admin: 01/21/20 10:11 Dose: 5 mg Documented by: Atenolol (Tenormin) 150 mg PO DAILY [facility] Last Admin: 01/21/20 10:09 Dose: 150 mg Documented by: Furosemide (Lasix Inj 40 Mg Vial) 40 mg IVP BIDDIURETIC [facility] Last Admin: 01/21/20 14:33 Dose: 40 mg Documented by: Gabapentin (Neurontin) 300 mg PO BID [facility] Last Admin: 01/21/20 10:10 Dose: 300 mg Documented by: Ceftriaxone Sodium 1 gm/ (Sodium Chloride) 100 mls @ 200 mls/hr IV DAILY [facility] Last Infusion: 01/21/20 10:25 Dose: Infused Documented by: Azithromycin 500 mg/ Sodium (Chloride) 250 mls @ 250 mls/hr IV Q24H [facility] Stop: 01/22/20 21:59 Diltiazem HCl 125 mg/ Dextrose 125 mls @ 5 mls/hr IV .Q25H [facility]; Protocol Last Admin: 01/21/20 06:27 Dose: Not Given Documented by: Vancomycin HCl 2 gm/ Sodium (Chloride) 500 mls @ 250 mls/hr IV Q24H [facility] Nystatin (Nystop) 1 applic TOP BID [facility] Last Admin: 01/21/20 13:22 Dose: 1 applic Documented by: Pantoprazole Sodium (Protonix) 40 mg PO QDAC [facility] Last Admin: 01/21/20 06:28 Dose: 40 mg Documented by: Sodium Chloride (Normal Saline Flush 0.9%) 10 ml IVP 0100,0900,1700 [facility] Last Admin: 01/21/20 10:11 Dose: 10 ml Documented by: Sodium Chloride (Normal Saline Flush 0.9%) 10 ml IVP PRN PRN PRN Reason: NEEDED PER PROVIDER ORDERS Last Admin: 01/21/20 14:34 Dose: 10 ml Documented by: Gabapentin 300 mg PO BID 08/07/19 Furosemide [Lasix] 20 mg PO DAILY 01/20/20 atenoloL [Atenolol] 150 mg PO DAILY 01/20/20 - Allergies Allergies/Adverse Reactions: Allergies Allergy/AdvReac Type Severity Reaction Status Date / Time warfarin AdvReac Nausea Verified 12/16/19 17:31 Review of Systems - Constitutional Constitutional: reports: Weight gain (LE edema). denies: Fever - Eyes Eyes: reports: Corrective lenses - Ears, Nose & Throat Ears, Nose & Throat: reports: Hearing loss. denies: Hearing aids - Cardiovascular Cardiovascular: reports: Edema, Decr. exercise tolerance. denies: Palpitations, Chest pain - Respiratory Respiratory: denies: Wheezing, SOB at rest - Gastrointestinal Gastrointestinal: reports: Good appetite. denies: Abdominal pain, Constipation (reports constipation at home but improved since admitted), Vomiting - Genitourinary Genitourinary: reports: Other (torrez catheter in place) - Musculoskeletal Musculoskeletal: reports: Limited range of motion (right arm), Joint pain, Ab tive devices, Transfer issues - Integumentary Integumentary: reports: Other (weeping to LE, lymphedema) - Neurological Neurological: reports: General weakness - Psychiatric Psychiatric: reports: Anxiety, Other (Claustophobia) - All Other Systems All Other Systems: reports: Reviewed and negative Physical Exam - Vital Signs Vital Signs: Vital Signs x48h Temp Pulse Pulse Resp BP BP Pulse Ox 01/21/20 16:00 36.5 C 108 H 20 115/66 97 01/21/20 15:00 108 H 12 115/66 100 01/21/20 14:35 107 H 106/74 01/21/20 14:31 107 H 106/74 01/21/20 14:00 93 12 106/74 100 01/21/20 13:00 101 H 22 119/77 100 01/21/20 11:58 36.6 C 89 15 98 01/21/20 11:00 98 14 101/56 L 97 01/21/20 10:00 109 H 13 103/65 97 - Physical Exam General Appearance: positive: No acute distress, Alert, Other (Obese, sitting up in hospital bed) Eyes Bilateral: positive: Normal inspection ENT: positive: No signs of dehydration Neck: positive: Trachea midline Cardiovascular: positive: No murmur, Irregularly irregular Respiratory: positive: No respiratory distress, Breath sounds nml. negative: Wheezes Abdomen: positive: Non-tender, Soft, Nml bowel sounds, Obese Skin: positive: Other (weeping to LE with noted erythmea ? cellulitis) Extremities: positive: Other (Diffuse edema consistent with anascara to BUE and BLE) Neurologic/Psychiatric: positive: Oriented x3, Flat affect Palliative Care - POLST Patient has POLST: Yes POLST Status: Full Code - Palliative Care Discussion: The patient has had a general decline over the last 1.5 years in her function. She has been followed by neurology, Dr. Dillard in [place] and presently has a working diagnosis of atypical Parkinson's disease. The patient is very sensitive to medications and developed hallucinations while taking carbidopa/levodopa. Due to her fear of medication side effects she did not begin taking melatonin as suggested [id number] for her REM sleep behavior disorder by this SALES ESTIMATOR. The patient's primary goal is to be able to regain her ability to walk and be more independent. She is recognizing that in her present a decline state it is too much for her daughter, Camila to care for her within the home. The patient is open to transferring to a penitentiary facility for intensive rehabilitation that would be offered versus home health but is quite clear that she does not wish to be admitted to [facility]. In the past, she had been at a skilled facility but left early due to her history of claustrophobia. Results - Lab Results Fish Bones: 01/21/20 04:59 01/21/20 04:59 Lab and Imaging Results: Lab Results x24hrs 01/21/20 01/21/20 01/21/20 Range/Units 04:59 04:59 04:59 WBC (4.8-10.8) x10^3/uL RBC (4.20-5.40) 10^6/uL Hgb (12.0-16.0) g/dL Hct (37.0-47.0) % MCV (81.0-99.0) fL MCH (27.0-31.0) pg MCHC (32.0-36.0) g/dL RDW (12.0-15.0) % Plt Count (130-450) 10^3/uL MPV (7.9-10.8) fL Neut # (Auto) (1.5-6.6) 10^3/uL Lymph # (Auto) (1.5-3.5) 10^3/uL [place] # (Auto) (0.0-1.0) 10^3/uL Eos # (Auto) (0.0-0.7) 10^3/uL Baso # (Auto) (0.0-0.1) 10^3/uL Absolute Nucleated RBC x10^3/uL Nucleated RBC % /100WBC Sodium 138 (135-145) mmol/L Potassium 3.9 (3.5-5.0) mmol/L Chloride 105 (101-111) mmol/L Carbon Dioxide 22 (21-32) mmol/L Anion Gap 11.0 (6-13) BUN 44 H (6-20) mg/dL Creatinine 1.3 H (0.4-1.0) mg/dL Estimated GFR (MDRD) 41 L (>89) Glucose 115 H (70-100) mg/dL Calcium 8.7 (8.5-10.3) mg/dL Phosphorus 4.0 (2.5-4.6) mg/dL Magnesium 2.3 (1.7-2.8) mg/dL C-Reactive Protein 21.4 H (0-1.0) mg/dL B-Natriuretic Peptide 346 H (5-100) pg/mL 01/21/20 Range/Units 04:59 WBC 11.8 H (4.8-10.8) x10^3/uL RBC 3.34 L (4.20-5.40) 10^6/uL Hgb 8.8 L (12.0-16.0) g/dL Hct 29.3 L (37.0-47.0) % MCV 87.7 (81.0-99.0) fL MCH 26.3 L (27.0-31.0) pg MCHC 30.0 L (32.0-36.0) g/dL RDW 16.3 H (12.0-15.0) % Plt Count 223 (130-450) 10^3/uL MPV 11.7 H (7.9-10.8) fL Neut # (Auto) 7.8 H (1.5-6.6) 10^3/uL Lymph # (Auto) 2.1 (1.5-3.5) 10^3/uL [place] # (Auto) 1.2 H (0.0-1.0) 10^3/uL Eos # (Auto) 0.6 (0.0-0.7) 10^3/uL Baso # (Auto) 0.0 (0.0-0.1) 10^3/uL Absolute Nucleated RBC 0.00 x10^3/uL Nucleated RBC % 0.0 /100WBC Sodium (135-145) mmol/L Potassium (3.5-5.0) mmol/L Chloride (101-111) mmol/L Carbon Dioxide (21-32) mmol/L Anion Gap (6-13) BUN (6-20) mg/dL Creatinine (0.4-1.0) mg/dL Estimated GFR (MDRD) (>89) Glucose (70-100) mg/dL Calcium (8.5-10.3) mg/dL Phosphorus (2.5-4.6) mg/dL Magnesium (1.7-2.8) mg/dL C-Reactive Protein (0-1.0) mg/dL B-Natriuretic Peptide (5-100) pg/mL Impression and Recommendations - Palliative Care Impression: This is an unfortunate 69-year-old female with a steady functional decline with atypical Parkinson's disease presently admitted for A. fib with RVR, pneumonia, and diffuse anasarca. Her breathing has overall improved. She has further declined from her baseline function and would benefit from increased rehabilitation. Patient has multiple underlying symptoms burdened by insomnia, anxiety, REM sleep behavior disorder, claustrophobia, and fear of new medications due to side effects. Palliative care to continue provide support, exploration of goals of care, symptom management and advance care planning. Recommendations/Counseling Done: 1. Atypical Parkinson's disease with questionable multiple system atrophy. Patient is followed by Dr. Dillard in [place]. She developed hallucinations possibly exacerbated by carbidopa/levodopa and is off of this medication. She continues to have a functional decline. She has been working with home health physical therapy and Occupational Therapy to optimize her physical strength since her last discharge from [facility]. However, with this recent hospitalization she has had further functional decline and is open to skilled rehabilitation to have an achievement of regaining her ability to walk. The patient does recognize her overall decline and feels like this is too much for her daughter to manage presently with in the home setting. Did relay this to social work regarding the patient's openness to be transferred to a SNF for rehabilitation status post discharge from this hospitalization. Did relay that with each continued hospitalization the patient is unlikely to continue to regain her previous functional status.Continue to monitor and provide support. 2. Anasarca. Diffuse. Patient has underlying history of lymphedema. Reports shortness of breath has improved with initiation of IV Lasix with urinary output being monitored by hospitalist. Continue to be followed by hospitalist. 3. Insomnia, possible REM sleep behavior disorder. Patient has a longstanding history of insomnia that has occurred most of her adult life. She did not initiate melatonin 3 mg nightly as recommended by this SALES ESTIMATOR during last home visit. Offered to have this initiated during her hospitalization but declined as she is quite fearful regarding any potential side effects of any new medications despite reassurance. We will continue to monitor and readdress. 4. Advanced care planning. Patient completed POLST with her PCP on 01/16/2020 as full code and full interventions. The patient continues to have a progressive functional decline. Her ultimate goal is to be able to regain her ability to walk and maintain independence. However, the patient continues to have frequent hospitalization with exacerbation of her symptoms and losing functional ground with her capabilities. Palliative care will continue to explore goals of care and assist the patient and her family on her journey. Time Spent: Total time spent 35 minutes with greater than 50% of this spent in counseling and coordination of care with patient, hospitalist, social work, RN; review of medical record; examination of patient; review symptom management and anticipatory guidance. Message left for patient's daughter Rozina at patient's request at [phone] to discuss patient's potential goal to go to SNF if rehab services make recommendation for discharge. Disclaimer: The chart note was formulated using voice recognition technology and unfortunately sound alike errors may occur.
[2020-01-21] MEDS ORDERED: AZITHROMYCIN INJ 500 MG in SODIUM CHLORIDE 0.9% 250 ML IV SCH (21:00)
--- NOTE | 2020-01-21 21:56 | PROVIDER PROGRESS NOTE ---
Assessment/Plan - Problem List (1) Atrial fibrillation with RVR Assessment/Plan: Patient's heart rate improved and patient was taken off diltiazem drip. Heart rate is currently between 100 and 117 Patient's atenolol 150 mg p.o. daily resumed. Eliquis 5 mg p.o. twice daily (2) Anasarca Assessment/Plan: Continue Lasix 40 mg IV twice daily Patient has had almost 3 L of urine output since admission. Patient still has significant lower extremity edema. Patient's respiratory status has improved. (3) Pneumonia Qualifiers: Pneumonia type: due to unspecified organism Laterality: left Lung location: unspecified part of lung Qualified Code(s): J18.9 - Pneumonia, unspecified organism Assessment/Plan: On vancomycin, Rocephin and azithromycin Blood cultures grew gram positive cocci. Awaiting sensitivities (4) Cellulitis Qualifiers: Site of cellulitis of extremity: lower extremity Laterality: unspecified laterality Assessment/Plan: On vancomycin, Rocephin and azithromycin Blood cultures grew gram positive cocci. 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 - Current Meds Current Meds: Current Medications Generic Name Dose Route Start Last Admin Trade Name Freq PRN Reason Stop Dose Admin Acetaminophen 650 mg 01/20/20 16:09 01/21/20 21:49 Tylenol PO 650 mg Q4HR PRN Administration Pain or Fever > 38C (100.4F) Apixaban 5 mg 01/20/20 21:00 01/21/20 21:18 Eliquis PO 5 mg BID AYAZ Administration Atenolol 150 mg 01/21/20 09:00 01/21/20 10:09 Tenormin PO 150 mg DAILY AYAZ Administration Furosemide 40 mg 01/20/20 14:00 01/21/20 14:33 Lasix Inj 40 Mg Vial IVP 40 mg BIDDIURETIC AYAZ Administration Gabapentin 300 mg 01/20/20 21:00 01/21/20 21:18 Neurontin PO 300 mg BID AYAZ Administration Ceftriaxone Sodium 1 gm/ 100 mls @ 200 mls/hr 01/21/20 09:00 01/21/20 10:25 Sodium Chloride IV Infused DAILY AYAZ Infusion Azithromycin 500 mg/ Sodium 250 mls @ 250 mls/hr 01/21/20 21:00 01/21/20 21:19 Chloride IV 01/22/20 21:59 250 mls/hr Q24H AYAZ Administration Nystatin 1 applic 01/20/20 16:10 01/21/20 21:18 Nystop TOP 1 applic BID AYAZ Administration Pantoprazole Sodium 40 mg 01/20/20 07:00 01/21/20 06:28 Protonix PO 40 mg QDAC AYAZ Administration Sodium Chloride 10 ml 01/20/20 09:00 01/21/20 15:00 Normal Saline Flush 0.9% IVP 10 ml 0100,0900,1700 AYAZ Administration Sodium Chloride 10 ml 01/20/20 03:51 01/21/20 21:19 Normal Saline Flush 0.9% IVP 10 ml PRN PRN Administration NEEDED PER PROVIDER ORDERS - Lab Result Fish Bone Diagrams: 01/21/20 04:59 01/21/20 04:59 - Additional Planning My Orders: My Active Orders 01/20/20 21:00 Apixaban [Eliquis] 5 mg PO BID Gabapentin [Neurontin] 300 mg PO BID 01/21/20 09:00 atenoloL [Tenormin] 150 mg PO DAILY cefTRIAXone [Rocephin] 1 gm Sodium Chloride 0.9% Minibag [Normal Saline 0.9% Minibag] 100 ml IV DAILY 01/21/20 21:00 Azithromycin Inj [Zithromax Inj] 500 mg Sodium Chloride 0.9% [Normal Saline 0.9%] 250 ml IV Q24H 01/22/20 05:00 BMP - BASIC METABOLIC PANEL [CHEM] DAILYLAB BNP - B-NATRIURETIC PEPTIDE [IAI] DAILYLAB CBC - COMP BLD CT W/AUTO DIFF [HEME] DAILYLAB MAGNESIUM [CHEM] DAILYLAB PHOSPHORUS [CHEM] DAILYLAB 01/23/20 05:00 BMP - BASIC METABOLIC PANEL [CHEM] DAILYLAB CBC - COMP BLD CT W/AUTO DIFF [HEME] DAILYLAB MAGNESIUM [CHEM] DAILYLAB PHOSPHORUS [CHEM] DAILYLAB 01/24/20 05:00 BMP - BASIC METABOLIC PANEL [CHEM] DAILYLAB CBC - COMP BLD CT W/AUTO DIFF [HEME] DAILYLAB Subjective - Subjective Patient Reports: Other (Patient complained of significant lower extremity pain due to stretching of her skin from the edema and restless leg. Her lower extremities are also hyperemic raising a concern for cellulitis. Patient declines to take any narcotics or increased doses of gabapentin for her pain.) Objective Vital Signs: Vital Signs - 24 hr 01/20/20 01/20/20 01/21/20 22:00 23:00 00:39 Temperature 37.2 C Heart Rate [ 97 110 H 110 H Monitoring electrodes] Heart Rate [ Supine] Respiratory 19 27 H 19 Rate Blood Pressure 106/67 105/69 112/81 H [Right Brachial artery] Blood Pressure [Supine] O2 Saturation 97 97 97 01/21/20 01/21/20 01/21/20 01:00 02:00 03:00 Temperature Heart Rate [ 92 88 104 H Monitoring electrodes] Heart Rate [ Supine] Respiratory 13 14 25 H Rate Blood Pressure 91/65 93/57 L 102/75 [Right Brachial artery] Blood Pressure [Supine] O2 Saturation 100 97 96 01/21/20 01/21/20 01/21/20 04:00 05:00 06:00 Temperature 36.8 C Heart Rate [ 106 H 104 H 93 Monitoring electrodes] Heart Rate [ Supine] Respiratory 18 14 15 Rate Blood Pressure 110/67 103/63 98/68 [Right Brachial artery] Blood Pressure [Supine] O2 Saturation 96 95 97 01/21/20 01/21/20 01/21/20 07:00 08:00 10:00 Temperature 37.1 C Heart Rate [ 108 H 114 H 109 H Monitoring electrodes] Heart Rate [ Supine] Respiratory 13 21 13 Rate Blood Pressure 111/76 114/78 103/65 [Right Brachial artery] Blood Pressure [Supine] O2 Saturation 99 97 97 01/21/20 01/21/20 01/21/20 11:00 11:58 13:00 Temperature 36.6 C Heart Rate [ 98 89 101 H Monitoring electrodes] Heart Rate [ Supine] Respiratory 14 15 22 Rate Blood Pressure 101/56 L 119/77 [Right Brachial artery] Blood Pressure [Supine] O2 Saturation 97 98 100 01/21/20 01/21/20 01/21/20 14:00 14:31 14:35 Temperature Heart Rate [ 93 Monitoring electrodes] Heart Rate [ 107 H 107 H Supine] Respiratory 12 Rate Blood Pressure 106/74 [Right Brachial artery] Blood Pressure 106/74 106/74 [Supine] O2 Saturation 100 01/21/20 01/21/20 01/21/20 15:00 16:00 17:00 Temperature 36.5 C Heart Rate [ 108 H 108 H 100 Monitoring electrodes] Heart Rate [ Supine] Respiratory 12 20 19 Rate Blood Pressure 115/66 115/66 111/76 [Right Brachial artery] Blood Pressure [Supine] O2 Saturation 100 97 96 01/21/20 01/21/20 01/21/20 18:00 18:42 20:00 Temperature 36.7 C Heart Rate [ 116 H 102 H 99 Monitoring electrodes] Heart Rate [ Supine] Respiratory 16 20 Rate Blood Pressure 86/66 L 106/72 98/56 L [Right Brachial artery] Blood Pressure [Supine] O2 Saturation 95 100 01/21/20 21:00 Temperature Heart Rate [ 106 H Monitoring electrodes] Heart Rate [ Supine] Respiratory 17 Rate Blood Pressure 135/82 H [Right Brachial artery] Blood Pressure [Supine] O2 Saturation 98 Oxygen O2 Source [With Activity] Room air O2 Source Room air I&O (Last 24 Hrs): Intake and Output Totals x24h 01/19/20 01/20/20 01/21/20 23:59 23:59 23:59 Intake Total 1197 1993.5 Output Total 1435 2399 Balance -238 -405.5 General: Alert, Oriented x3, Mild distress, Moderate distress HEENT: PERRLA, EOMI Neck: Supple, No JVD Neuro: Alert, Other (Neuropathy in lower extremities) Cardiovascular: Other (Irregularly irregular heart rate. Mildly tachycardic) Respiratory: Chest non-tender, No respiratory distress, Breath sounds nml Abdomen: Normal bowel sounds, Soft Extremities: Other (3+ edema bilaterally. Lower extremities appear hyperemic rylan aterally. Lower extremities have been weeping.) - Results Results: Laboratory Results WBC 11.8 x10^3/uL (4.8-10.8) H 01/21/20 04:59 RBC 3.34 10^6/uL (4.20-5.40) L 01/21/20 04:59 Hgb 8.8 g/dL (12.0-16.0) L 01/21/20 04:59 Hct 29.3 % (37.0-47.0) L 01/21/20 04:59 MCV 87.7 fL (81.0-99.0) 01/21/20 04:59 MCH 26.3 pg (27.0-31.0) L 01/21/20 04:59 MCHC 30.0 g/dL (32.0-36.0) L 01/21/20 04:59 RDW 16.3 % (12.0-15.0) H 01/21/20 04:59 Plt Count 223 10^3/uL (130-450) 01/21/20 04:59 MPV 11.7 fL (7.9-10.8) H 01/21/20 04:59 Neut # (Auto) 7.8 10^3/uL (1.5-6.6) H 01/21/20 04:59 Lymph # (Auto) 2.1 10^3/uL (1.5-3.5) 01/21/20 04:59 [place] # (Auto) 1.2 10^3/uL (0.0-1.0) H 01/21/20 04:59 Eos # (Auto) 0.6 10^3/uL (0.0-0.7) 01/21/20 04:59 Baso # (Auto) 0.0 10^3/uL (0.0-0.1) 01/21/20 04:59 Absolute Nucleated RBC 0.00 x10^3/uL 01/21/20 04:59 Nucleated RBC % 0.0 /100WBC 01/21/20 04:59 PT 30.0 secs (9.9-12.6) H 01/20/20 00:21 INR 2.9 (0.8-1.2) H 01/20/20 00:21 APTT 36.9 secs (24.9-33.3) H 01/20/20 00:21 Sodium 138 mmol/L (135-145) 01/21/20 04:59 Potassium 3.9 mmol/L (3.5-5.0) 01/21/20 04:59 Chloride 105 mmol/L (101-111) 01/21/20 04:59 Carbon Dioxide 22 mmol/L (21-32) 01/21/20 04:59 Anion Gap 11.0 (6-13) 01/21/20 04:59 BUN 44 mg/dL (6-20) H 01/21/20 04:59 Creatinine 1.3 mg/dL (0.4-1.0) H 01/21/20 04:59 Estimated GFR (MDRD) 41 (>89) L 01/21/20 04:59 Glucose 115 mg/dL (70-100) H 01/21/20 04:59 Lactic Acid 1.3 mmol/L (0.5-2.2) 01/20/20 01:45 Calcium 8.7 mg/dL (8.5-10.3) 01/21/20 04:59 Phosphorus 4.0 mg/dL (2.5-4.6) 01/21/20 04:59 Magnesium 2.3 mg/dL (1.7-2.8) 01/21/20 04:59 Total Bilirubin 0.9 mg/dL (0.2-1.0) 01/20/20 00:21 AST 18 IU/L (10-42) 01/20/20 00:21 ALT 21 IU/L (10-60) 01/20/20 00:21 Alkaline Phosphatase 47 IU/L (42-121) 01/20/20 00:21 Total Creatine Kinase 93 IU/L (22-269) 01/20/20 00:21 Troponin I High Sens 5.0 ng/L (2.3-14.8) 01/20/20 00:21 C-Reactive Protein 21.4 mg/dL (0-1.0) H 01/21/20 04:59 B-Natriuretic Peptide 346 pg/mL (5-100) H 01/21/20 04:59 Total Protein 7.1 g/dL (6.7-8.2) 01/20/20 00:21 Albumin 3.3 g/dL (3.2-5.5) 01/20/20 00:21 Globulin 3.8 g/dL (2.1-4.2) 01/20/20 00:21 Albumin/Globulin Ratio 0.9 (1.0-2.2) L 01/20/20 00:21 Lipase 24 U/L (22-51) 01/20/20 00:21 Urine Color YELLOW 01/20/20 00:04 Urine Clarity CLEAR (CLEAR) 01/20/20 00:04 Urine pH 5.0 PH (5.0-7.5) 01/20/20 00:04 Ur Specific [place] 1.020 (1.002-1.030) 01/20/20 00:04 Urine Protein NEGATIVE mg/dL (NEGATIVE) 01/20/20 00:04 Urine Glucose (UA) NEGATIVE mg/dL (NEGATIVE) 01/20/20 00:04 Urine Ketones NEGATIVE mg/dL (NEGATIVE) 01/20/20 00:04 Urine Occult Blood MODERATE (NEGATIVE) H 01/20/20 00:04 Urine Nitrite NEGATIVE (NEGATIVE) 01/20/20 00:04 Urine Bilirubin NEGATIVE (NEGATIVE) 01/20/20 00:04 Urine Urobilinogen 0.2 (NORMAL) E.U./dL (NORMAL) 01/20/20 00:04 Ur Leukocyte Esterase NEGATIVE (NEGATIVE) 01/20/20 00:04 Urine RBC 6-10 /HPF (0-5) H 01/20/20 00:04 Urine WBC 0-3 /HPF (0-5) 01/20/20 00:04 Ur Squamous Epith Cells MANY Squamous (<= Few) H 01/20/20 00:04 Urine Bacteria Rare /HPF (None Seen) 01/20/20 00:04 Urine Casts 3-5 Hyaline Casts /LPF 01/20/20 00:04 Ur Microscopic Review INDICATED 01/20/20 00:04 Urine Culture Comments NOT INDICATED 01/20/20 00:04 Nasal Screen MRSA (PCR) NEGATIVE (NEGATIVE) 01/20/20 05:45 ABX Reporting Has patient been on IV antibiotics over the past 48 hours?: Yes
[2020-01-22] MEDS: SODIUM CHLORIDE FLUSH 0.9% 10 ML SYRINGE IVP SCH ×4 (03:03→20:02)
[2020-01-22] MEDS: ACETAMINOPHEN 325 MG TABLET PO PRN ×3 (03:40→22:37)
[2020-01-22] MEDS: oxyCODONE 5 MG TABLET PO PRN ×4 (04:50→20:01)
[2020-01-22 05:15] LABS: BASOPHILS # (AUTO) 0.1 10^3/uL (0.0-0.1); BASOPHILS % (AUTO) 0.6 %; EOSINOPHILS # (AUTO) 0.6 10^3/uL (0.0-0.7); EOSINOPHILS % (AUTO) 5.8 %; HGB - HEMOGLOBIN 9.3 g/dL (12.0-16.0); LYMPHOCYTES # (AUTO) 1.9 10^3/uL (1.5-3.5); LYMPHOCYTES % (AUTO) 17.6 %; MEAN CORPUSCULAR HEMOGLOBIN 26.7 pg (27.0-31.0); MEAN CORPUSCULAR HGB CONC 30.9 g/dL (32.0-36.0); MEAN CORPUSCULAR VOLUME 86.5 fL (81.0-99.0); MEAN PLATELET VOLUME 11.7 fL (7.9-10.8); MONOCYTES % (AUTO) 9.3 %; NEUTROPHILS % (AUTO) 64.9 %; PLT - PLATELET COUNT 226 10^3/uL (130-450); RED BLOOD COUNT 3.48 10^6/uL (4.20-5.40); RED CELL DISTRIBUTION WIDTH 16.4 % (12.0-15.0); WHITE BLOOD COUNT 10.8 x10^3/uL (4.8-10.8)
[2020-01-22 05:31] LABS: CALCIUM 8.9 mg/dL (8.5-10.3); CREATININE 1.2 mg/dL (0.4-1.0); CRP - C-REACTIVE PROTEIN 15.3 mg/dL (0-1.0); MAGNESIUM 2.4 mg/dL (1.7-2.8); PHOSPHORUS 4.3 mg/dL (2.5-4.6)
[2020-01-22] MEDS: FUROSEMIDE 40 MG/4 ML VIAL IVP SCH ×2 (06:09→13:58)
[2020-01-22] MEDS: SODIUM CHLORIDE FLUSH 0.9% 10 ML SYRINGE IVP PRN (06:10)
[2020-01-22] MEDS: PANTOPRAZOLE 40 MG TABLET PO SCH (06:10)
[2020-01-22] MEDS: GABAPENTIN 300 MG CAPSULE PO SCH ×2 (08:13→20:01)
[2020-01-22] MEDS: APIXABAN 5 MG TABLET PO SCH ×2 (08:13→20:01)
[2020-01-22] MEDS: atenoloL 25 MG TABLET PO SCH (08:14)
[2020-01-22] MEDS: cefTRIAXone 1 GM in SODIUM CHLORIDE 0.9% MINIBAG 100 ML IV SCH (08:15)
--- NOTE | 2020-01-22 08:48 | Ultrasound Report ---
PROCEDURE: Ankle Brachial Index INDICATIONS: Edema. Diminished pulses. TECHNIQUE: Ankle-brachial indices were obtained bilaterally and recorded. COMPARISONS: None. FINDINGS: Right ankle brachial index (ELIA): 1.01 Left ankle brachial index (ELIA): 0.9 Monophasic flow is present in the posterior tibial and dorsalis pedis arteries bilaterally. Healing potential: Ankle pressures >55 mm Hg in non-diabetics and >80 mm Hg in diabetics are likely to achieve primary h ealing of ischemic foot ulcers. Toe pressures >30 mm Hg are likely to achieve primary healing of ischemic foot ulcers, toe or transme tatarsal amputations. IMPRESSION: Normal ankle brachial indices bilaterally. Distal monophasic flow is present bilaterally. Reviewed by: Shanice Bliss MD on 01/22/2020 8:46 AM PDT Approved by: Shanice Bliss MD on 01/22/2020 8:46 AM PDT Station ID: [id number]
[2020-01-22] MEDS: VANCOMYCIN INJ 2 GM in SODIUM CHLORIDE 0.9% 500 ML IV SCH (10:02)
[2020-01-22] MEDS: NYSTATIN POWDER 15 GM TOP SCH ×2 (10:02→20:01)
[2020-01-22] MEDS: MULTIVITAMIN W/MINERALS TABLET PO SCH (16:09)
[2020-01-22] MEDS: SACCHAROMYCES BOULARDII 250 MG CAPSULE PO SCH (16:09)
--- NOTE | 2020-01-22 20:19 | PROVIDER PROGRESS NOTE ---
Subjective - Prog Note Date Prog Note Date: 01/22/20 Prog Note Time: 20:28 - Subjective Pt reports feeling: No change Subjective: her main concern today is right shoulder pain. chronic. present for months. was suppose to have a steroid injection yesterday w Ortho as outpt but she was here, asking for some pain relief. She is on ocycodone and tylenol. Current Medications - Current Medications Current Medications: Active Medications Acetaminophen (Tylenol) 650 mg PO Q4HR PRN PRN Reason: Pain or Fever > 38C (100.4F) Last Admin: 01/22/20 18:29 Dose: 650 mg Documented by: Apixaban (Eliquis) 5 mg PO BID [facility] Last Admin: 01/22/20 20:01 Dose: 5 mg Documented by: Atenolol (Tenormin) 150 mg PO DAILY [facility] Last Admin: 01/22/20 08:14 Dose: 150 mg Documented by: Furosemide (Lasix Inj 40 Mg Vial) 40 mg IVP BIDDIURETIC [facility] Last Admin: 01/22/20 13:58 Dose: 40 mg Documented by: Gabapentin (Neurontin) 300 mg PO BID [facility] Last Admin: 01/22/20 20:01 Dose: 300 mg Documented by: Ceftriaxone Sodium 1 gm/ (Sodium Chloride) 100 mls @ 200 mls/hr IV DAILY [facility] Last Infusion: 01/22/20 08:45 Dose: Infused Documented by: Vancomycin HCl 2 gm/ Sodium (Chloride) 500 mls @ 250 mls/hr IV Q24H [facility] Last Infusion: 01/22/20 12:49 Dose: Infused Documented by: Multivitamins/Minerals (Theragran M) 1 tab PO DAILYWM [facility] Last Admin: 01/22/20 16:09 Dose: 1 tab Documented by: Nystatin (Nystop) 1 applic TOP BID [facility] Last Admin: 01/22/20 20:01 Dose: 1 applic Documented by: Oxycodone HCl (Roxicodone) 5 mg PO Q4HR PRN PRN Reason: PAIN Last Admin: 01/22/20 20:01 Dose: 5 mg Documented by: Pantoprazole Sodium (Protonix) 40 mg PO QDAC [facility] Last Admin: 01/22/20 06:10 Dose: 40 mg Documented by: Saccharomyces Boulardii (Florastor) 250 mg PO BIDWM [facility] Last Admin: 01/22/20 16:09 Dose: 250 mg Documented by: Sodium Chloride (Normal Saline Flush 0.9%) 10 ml IVP 0100,0900,1700 [facility] Last Admin: 01/22/20 20:02 Dose: 10 ml Documented by: Sodium Chloride (Normal Saline Flush 0.9%) 10 ml IVP PRN PRN PRN Reason: NEEDED PER PROVIDER ORDERS Last Admin: 01/22/20 06:10 Dose: 10 ml Documented by: Gabapentin 300 mg PO BID 08/07/19 Furosemide [Lasix] 20 mg PO DAILY 01/20/20 atenoloL [Atenolol] 150 mg PO DAILY 01/20/20 Objective - Vital Signs/Intake & Output Reviewed Vital Signs: Yes Vital Signs: Vital Signs x48h Temp Pulse Resp BP BP Pulse Ox 01/22/20 19:47 36.6 C 98 12 112/78 98 01/22/20 16:25 36.5 C 99 18 130/56 L 100 01/22/20 14:00 101 H 17 141/69 H 100 01/22/20 13:00 101 H 18 130/79 99 Intake & Output: Intake & Output 01/19/20 01/20/20 01/21/20 01/22/20 23:59 23:59 23:59 23:59 Intake Total 1197 2243.5 2075 Output Total 1435 2469 2781 Balance -238 -225.5 -706 - Objective General Appearance: positive: No acute distress, Alert, Other (She is laying completely still, on her back, flat affect, no spontaneous movement until I asked her to move. She is 5 feet 5 inches tall and weighs 125.5 kg. Morbid obesity.) Eyes Bilateral: positive: PERRL, EOMI ENT: positive: Pharynx nml Neck: positive: No JVD. negative: Lymphadenopathy (R), Lymphadenopathy (L) Respiratory: positive: Chest non-tender, Other (No increased respiratory effort, difficult to examine because she is a full 2 person assist to sit up). negative: Breath sounds nml (Diminished at the bases, shallow quiet), Wheezes, Rales, Rhonchi Cardiovascular: positive: Irregularly irregular. negative: Gallop/S4, Friction rub Abdomen: positive: Non-tender, Nml bowel sounds, No distention, Other (Morbidly obese pannus,) Skin: positive: Warm, Dry, Other (Skin over left anterior jones, top of left foot is red and hot. Both legs have signs of chronic venous stasis with flaking of skin covering distal shins and tops of feet.) Extremities: positive: Full ROM (But the right shoulder cannot be actively move. She can barely move her left shoulder, bend her knees for me, because of just weakness. The right shoulder she refuses to move because of pain. Passive range of motion it induces pain with abduction. There is no crepitance or heat of the right shou), Pedal edema (Edema from the knees on down. Toes are sausagelike.) Neurologic/Psychiatric: positive: Oriented x3, CN's nml (2-12). negative: Motor nml (Diffuse weakness, no tremors. Needs 2 person assist just to sit up. Much less try and get her to stand.), Sensation nml, Mood/affect nml (Flat affect, a nhedonic face ease with a monotonic voice) - Lab Results Fish Bones: 01/22/20 04:20 01/22/20 04:20 Other Labs: Lab Results x24hrs 01/22/20 01/22/20 01/22/20 Range/Units 04:20 04:20 04:20 WBC 10.8 (4.8-10.8) x10^3/uL RBC 3.48 L (4.20-5.40) 10^6/uL Hgb 9.3 L (12.0-16.0) g/dL Hct 30.1 L (37.0-47.0) % MCV 86.5 (81.0-99.0) fL MCH 26.7 L (27.0-31.0) pg MCHC 30.9 L (32.0-36.0) g/dL RDW 16.4 H (12.0-15.0) % Plt Count 226 (130-450) 10^3/uL MPV 11.7 H (7.9-10.8) fL Neut # (Auto) 7.0 H (1.5-6.6) 10^3/uL Lymph # (Auto) 1.9 (1.5-3.5) 10^3/uL [place] # (Auto) 1.0 (0.0-1.0) 10^3/uL Eos # (Auto) 0.6 (0.0-0.7) 10^3/uL Baso # (Auto) 0.1 (0.0-0.1) 10^3/uL Absolute Nucleated RBC 0.00 x10^3/uL Nucleated RBC % 0.0 /100WBC Sodium 140 (135-145) mmol/L Potassium 3.6 (3.5-5.0) mmol/L Chloride 107 (101-111) mmol/L Carbon Dioxide 22 (21-32) mmol/L Anion Gap 11.0 (6-13) BUN 41 H (6-20) mg/dL Creatinine 1.2 H (0.4-1.0) mg/dL Estimated GFR (MDRD) 45 L (>89) Glucose 105 H (70-100) mg/dL Calcium 8.9 (8.5-10.3) mg/dL Phosphorus 4.3 (2.5-4.6) mg/dL Magnesium 2.4 (1.7-2.8) mg/dL C-Reactive Protein 15.3 H (0-1.0) mg/dL B-Natriuretic Peptide 522 H (5-100) pg/mL ABX Reporting Has patient been on IV antibiotics over the past 48 hours?: Yes Assessment/Plan - Problem List (1) Staphylococcus aureus bacteremia Impression: 2 out of 4 bottles were positive for staph. She is on vancomycin Day #2 and ceftriaxone Day #3. Zithromax was stopped because she is not felt to have pneumonia. Echo done for atrial fibrillation shows ejection fraction 50 to 55%. Mild to moderate abnormal right heart pressures. RVSP 50 mm. As compared to echo August 08, 2019, pulmonary arterial systolic pressure increased. Inferior vena cava dilated. Her ejection fraction is also mildly decreased from previous echo which was 60 to 65%. Left atrium has a severe increase EYES: PERRL, EOMI, no discharge or injection. No scleral icterus. As does right atrium.No valvular heart disease, vegetation seen. This is a preliminary report and final needs to be reviewed Plan: As Zithromax already stopped. Echocardiogram already done. Repeat blood cultures. Review sensitivities once the first that her blood cultures have been finalized (2) Right shoulder pain Impression: Right shoulder x-ray from July 2019 shows no fracture or dislocation. Moderate narrowing of the subacromial space. This could be seen as rotator cuff injury. But is nonspecific. Calcific tendinitis lateral to the humeral head. Plan: We will repeat film. Is nothing contraindicating it, I may be able to give her steroid injection tomorrow night if she is still here. For tonight start Lidoderm patch. Qualifiers: Chronicity: chronic Qualified Code(s): M25.511 - Pain in right shoulder; G89.29 - Other chronic pain (3) Atrial fibrillation with RVR Impression: Yesterday, patient's heart rate improved and patient was taken off diltiazem drip. Patient's atenolol 150 mg p.o. daily resumed. Her heart rate today is 98-101 for most of day. Rarely up to 118 Eliquis 5 mg p.o. twice daily Echo done for atrial fibrillation shows ejection fraction 50 to 55%. Mild to moderate abnormal right heart pressures. RVSP 50 mm. As compared to echo August 08, 2019, pulmonary arterial systolic pressure increased. Inferior vena cava dilated. Her ejection fraction is also mildly decreased from previous echo which was 60 to 65%. Left atrium has a severe increase EYES: PERRL, EOMI, no discharge or injection. No scleral icterus. As does right atrium. No new orders today. (2) Anasarca Assessment/Plan: January 19: -238 mils/1435 urine output January 20: -225 mils/2469 urine output January 21: -706 mils/2781 urine output Patient still has significant lower extremity edema. Patient's respiratory status has improved. Continue Lasix 40 mg IV twice daily (3) Pneumonia Qualifiers: Pneumonia type: due to unspecified organism Laterality: left Lung location: unspecified part of lung Qualified Code(s): J18.9 - Pneumonia, unspecified organism Assessment/Plan: On vancomycinDay #2, Rocephin Day #3 and azithromycin stopped today. Blood cultures grew gram positive cocci, 2/4 bottles. Awaiting sensitivities plan: C-reactive protein is down, white cell count is down, and the patient is felt to have more cellulitis than pneumonia. As such azithromycin stopped today. (4) Cellulitis Qualifiers: Site of cellulitis of extremity: lower extremity Laterality: unspecified laterality Assessment/Plan: On vancomycin, Rocephin Blood cultures grew gram positive cocci. Awaiting sensitivities Arterial brachial indices done to make sure there is no vascular disease and they were negative. 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
[2020-01-22] MEDS: LIDOCAINE PATCH 5% TOP PRN (21:02)
[2020-01-23] MEDS: oxyCODONE 5 MG TABLET PO PRN ×4 (02:29→19:35)
[2020-01-23 05:29] LABS: BASOPHILS % (AUTO) 0.5 %; EOSINOPHILS % (AUTO) 6.6 %; HGB - HEMOGLOBIN 10.2 g/dL (12.0-16.0); LYMPHOCYTES % (AUTO) 23.7 %; MEAN CORPUSCULAR HEMOGLOBIN 26.6 pg (27.0-31.0); MEAN CORPUSCULAR HGB CONC 30.3 g/dL (32.0-36.0); MEAN PLATELET VOLUME 11.4 fL (7.9-10.8); MONOCYTES % (AUTO) 8.8 %; NEUTROPHILS % (AUTO) 56.6 %; PLT - PLATELET COUNT 263 10^3/uL (130-450); RED BLOOD COUNT 3.83 10^6/uL (4.20-5.40); RED CELL DISTRIBUTION WIDTH 16.4 % (12.0-15.0)
[2020-01-23 05:39] LABS: ABNORMAL LYMPHS % (MANUAL) 0 %; BAND NEUTROPHILS % (MANUAL) 0 %
[2020-01-23 05:40] LABS: CREATININE 1.1 mg/dL (0.4-1.0); MAGNESIUM 2.3 mg/dL (1.7-2.8); PHOSPHORUS 4.4 mg/dL (2.5-4.6)
[2020-01-23 06:04] LABS: BASOPHILS # (MANUAL) 0.1 10^3/uL (0-0.1); BASOPHILS % (MANUAL) 1 %; DIFFERENTIAL COMMENT MANUAL DIFFERENTIAL; EOSINOPHILS # (MANUAL) 0.5 10^3/uL (0-0.7); LYMPHOCYTES # (MANUAL) 1.9 10^3/uL (1.5-3.5); LYMPHOCYTES % (MANUAL) 19 %; MONOCYTES # (MANUAL) 0.9 10^3/uL (0.0-1.0); PLATELET ESTIMATE, MANUAL NORMAL (130-450,000) (NORMAL); RBC MORPHOLOGY (MULTIPLE) NORMAL APPEARANCE (NORMAL)
[2020-01-23] MEDS: FUROSEMIDE 40 MG/4 ML VIAL IVP SCH ×2 (06:27→14:53)
[2020-01-23] MEDS: PANTOPRAZOLE 40 MG TABLET PO SCH (06:27)
[2020-01-23] MEDS: ACETAMINOPHEN 325 MG TABLET PO PRN ×3 (06:36→19:35)
[2020-01-23] MEDS ORDERED: SODIUM CHLORIDE 0.9% 0 ML IV ONE (08:29)
[2020-01-23] MEDS ORDERED: POTASSIUM CHLORIDE 20 MEQ TABLET PO ONE (08:30)
[2020-01-23] MEDS: MULTIVITAMIN W/MINERALS TABLET PO SCH (08:44)
[2020-01-23] MEDS: atenoloL 25 MG TABLET PO SCH (08:45)
[2020-01-23] MEDS: cefTRIAXone 1 GM in SODIUM CHLORIDE 0.9% MINIBAG 100 ML IV SCH (08:45)
[2020-01-23] MEDS: GABAPENTIN 300 MG CAPSULE PO SCH ×2 (08:47→21:18)
[2020-01-23] MEDS: APIXABAN 5 MG TABLET PO SCH ×2 (08:49→21:18)
[2020-01-23] MEDS: SACCHAROMYCES BOULARDII 250 MG CAPSULE PO SCH ×2 (08:49→17:13)
[2020-01-23] MEDS: SODIUM CHLORIDE FLUSH 0.9% 10 ML SYRINGE IVP SCH ×2 (08:59→17:14)
[2020-01-23 09:05] LABS: VANCOMYCIN,TROUGH 20.1 ug/mL (10.0-20.0)
[2020-01-23] MEDS: LIDOCAINE PATCH 5% TOP PRN (09:20)
[2020-01-23] MEDS: VANCOMYCIN INJ 2 GM in SODIUM CHLORIDE 0.9% 500 ML IV SCH (10:00)
[2020-01-23] MEDS: NYSTATIN POWDER 15 GM TOP SCH ×2 (13:36→21:18)
--- NOTE | 2020-01-23 16:26 | PROVIDER PROGRESS NOTE ---
Assessment/Plan - Problem List (1) Cellulitis Qualifiers: Site of cellulitis of extremity: lower extremity Laterality: unspecified laterality Assessment/Plan: Patient's left lower extremity and foot is still warmth, mild to moderate swollen and erythema. continue vancomycin, Rocephin Arterial brachial indices is unremarkable (2)lymphedema Patient present bilaterally lower extremity lymphedema. Patient reported lymphed belinda was diagnosis on last year March. Encourage patient has some ambulation, rise lower extremity (3) Staphylococcus epidermidis bacteremia Blood culture show patient has 1 tubal with Staph epidermidis, Repeated blood culture both tube show negative. it is high possibility from contamination. (4) Right shoulder pain Patient has no complaints on today. We will continue pain control, continue physical therapist and occupational therapist (5) Atrial fibrillation with RVR Improved, patient HR is 103 now. continue Patient's atenolol 150 mg p.o. daily resumed. Her heart rate today is 98-101 for most of day. Rarely up to 118 Eliquis 5 mg p.o. twice daily Echo done for atrial fibrillation shows ejection fraction 50 to 55%. Mild to moderate abnormal right heart pressures. RVSP 50 mm. As compared to echo August 08, 2019, pulmonary arterial systolic pressure increased. Inferior vena cava dilated. Her ejection fraction is also mildly decreased from previous echo which was 60 to 65%. Left atrium has a severe increase EYES: PERRL, EOMI, no discharge or injection. No scleral icterus. As does right atrium. 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 Patient was seen by palliative care Her primary goal is to be able to walk again and be able to gain more independence Patient has experienced a significant decline in her physical strength and ability over the past 1.5 years She has been bedridden for the past 2 weeks Patient is open to transferring to a [facility] facility for intensive rehabilitation when medically cleared to do so. (7)weakness Patient present weakness, continue physical therapist occupational therapist, patient agreement to be discharge to SNF as medical stable. - Current Meds Current Meds: Current Medications Generic Name Dose Route Start Last Admin Trade Name Freq PRN Reason Stop Dose Admin Acetaminophen 650 mg 01/20/20 16:09 01/23/20 14:52 Tylenol PO 650 mg Q4HR PRN Administration Pain or Fever > 38C (100.4F) Apixaban 5 mg 01/20/20 21:00 01/23/20 08:49 Eliquis PO 5 mg BID AYAZ Administration Atenolol 150 mg 01/21/20 09:00 01/23/20 08:45 Tenormin PO 150 mg DAILY AYAZ Administration Furosemide 40 mg 01/20/20 14:00 01/23/20 14:53 Lasix Inj 40 Mg Vial IVP 40 mg BIDDIURETIC AYAZ Administration Gabapentin 300 mg 01/20/20 21:00 01/23/20 08:47 Neurontin PO 300 mg BID AYAZ Administration Ceftriaxone Sodium 1 gm/ 100 mls @ 200 mls/hr 01/21/20 09:00 01/23/20 09:15 Sodium Chloride IV Infused DAILY AYAZ Infusion Vancomycin HCl 2 gm/ Sodium 500 mls @ 250 mls/hr 01/22/20 09:00 01/23/20 12:00 Chloride IV Infused Q24H AYAZ Infusion Lidocaine 1 patch 01/22/20 20:49 01/23/20 09:20 Lidoderm Patch TOP 1 patch DAILY PRN Administration PAIN Multivitamins/Minerals 1 tab 01/22/20 17:00 01/23/20 08:44 Theragran M PO 1 tab DAILYWM AYAZ Administration Nystatin 1 applic 01/20/20 16:10 01/23/20 13:36 Nystop TOP 1 applic BID AYAZ Administration Oxycodone HCl 5 mg 01/22/20 04:23 01/23/20 14:53 Roxicodone PO 5 mg Q4HR PRN Administration PAIN Pantoprazole Sodium 40 mg 01/20/20 07:00 01/23/20 06:27 Protonix PO 40 mg QDAC AYAZ Administration Saccharomyces Boulardii 250 mg 01/22/20 17:00 01/23/20 08:49 Florastor PO 250 mg BIDWM AYAZ Administration Sodium Chloride 10 ml 01/20/20 09:00 01/23/20 08:59 Normal Saline Flush 0.9% IVP 10 ml 0100,0900,1700 AYAZ Administration Sodium Chloride 10 ml 01/20/20 03:51 01/22/20 06:10 Normal Saline Flush 0.9% IVP 10 ml PRN PRN Administration NEEDED PER PROVIDER ORDERS - Lab Result Fish Bone Diagrams: 01/23/20 04:30 01/23/20 04:30 - Additional Planning My Orders: My Active Orders 01/23/20 COVID-19 REFERENCE TEST Routine 01/24/20 05:00 CRP - C-REACTIVE PROTEIN [CHEM] DAILYLAB 01/25/20 05:00 CRP - C-REACTIVE PROTEIN [CHEM] DAILYLAB 01/26/20 05:00 CRP - C-REACTIVE PROTEIN [CHEM] DAILYLAB Subjective - Subjective Patient Reports: Feeling Better Objective Vital Signs: Vital Signs - 24 hr 01/22/20 01/22/20 01/23/20 19:47 22:32 03:11 Temperature 36.6 C 36.7 C 36.8 C Heart Rate [ 98 120 H 101 H Monitoring electrodes] Respiratory 12 22 20 Rate Blood Pressure 112/78 [Left Brachial artery] Blood Pressure 128/102 H 114/87 H [Left radial artery] Blood Pressure [Right Radial artery] O2 Saturation 98 96 96 01/23/20 01/23/20 01/23/20 09:00 12:23 16:04 Temperature 37.2 C 36.5 C 36.7 C Heart Rate [ 96 116 H 103 H Monitoring electrodes] Respiratory 15 16 16 Rate Blood Pressure [Left Brachial artery] Blood Pressure 121/79 132/97 H [Left radial artery] Blood Pressure 135/99 H [Right Radial artery] O2 Saturation 97 100 99 Oxygen O2 Source [With Activity] Room air O2 Source Room air I&O (Last 24 Hrs): Intake and Output Totals x24h 01/21/20 01/22/20 01/23/20 23:59 23:59 23:59 Intake Total 2243.5 2075 1240 Output Total 2469 2781 1305 Balance -225.5 -706 -65 General: Alert, Oriented x3, Mild distress HEENT: Atraumatic Neck: Supple, No thyromegaly Neuro: Alert, Non Focal, Oriented Times 3 Cardiovascular: Regular rate, Normal S1, Normal S2 Respiratory: Chest non-tender, No respiratory distress Abdomen: Normal bowel sounds, Soft, No tenderness Extremities: Normal pulses - Results Results: Laboratory Results WBC 10.0 x10^3/uL (4.8-10.8) 01/23/20 04:30 RBC 3.83 10^6/uL (4.20-5.40) L 01/23/20 04:30 Hgb 10.2 g/dL (12.0-16.0) L 01/23/20 04:30 Hct 33.7 % (37.0-47.0) L 01/23/20 04:30 MCV 88.0 fL (81.0-99.0) 01/23/20 04:30 MCH 26.6 pg (27.0-31.0) L 01/23/20 04:30 MCHC 30.3 g/dL (32.0-36.0) L 01/23/20 04:30 RDW 16.4 % (12.0-15.0) H 01/23/20 04:30 Plt Count 263 10^3/uL (130-450) 01/23/20 04:30 MPV 11.4 fL (7.9-10.8) H 01/23/20 04:30 Neut # (Auto) Not Reportable 01/23/20 04:30 Lymph # (Auto) Not Reportable 01/23/20 04:30 [place] # (Auto) Not Reportable 01/23/20 04:30 Eos # (Auto) Not Reportable 01/23/20 04:30 Baso # (Auto) Not Reportable 01/23/20 04:30 Absolute Nucleated RBC Not Reportable 01/23/20 04:30 Total Counted 100 01/23/20 04:30 Band Neuts % (Manual) 0 % (0-10) 01/23/20 04:30 Abnorm Lymph % (Manual) 0 % 01/23/20 04:30 Nucleated RBC % Not Reportable 01/23/20 04:30 Neutrophils # (Manual) 6.6 10^3/uL (1.5-6.6) 01/23/20 04:30 Lymphocytes # (Manual) 1.9 10^3/uL (1.5-3.5) 01/23/20 04:30 Monocytes # (Manual) 0.9 10^3/uL (0.0-1.0) 01/23/20 04:30 Eosinophils # (Manual) 0.5 10^3/uL (0-0.7) 01/23/20 04:30 Basophils # (Manual) 0.1 10^3/uL (0-0.1) 01/23/20 04:30 Differential Comment MANUAL DIFFERENTIAL 01/23/20 04:30 Platelet Estimate NORMAL (130-450,000) (NORMAL) 01/23/20 04:30 RBC Morph Micro Appear NORMAL APPEARANCE (NORMAL) 01/23/20 04:30 PT 30.0 secs (9.9-12.6) H 01/20/20 00:21 INR 2.9 (0.8-1.2) H 01/20/20 00:21 APTT 36.9 secs (24.9-33.3) H 01/20/20 00:21 Sodium 141 mmol/L (135-145) 01/23/20 04:30 Potassium 3.3 mmol/L (3.5-5.0) L 01/23/20 04:30 Chloride 105 mmol/L (101-111) 01/23/20 04:30 Carbon Dioxide 25 mmol/L (21-32) 01/23/20 04:30 Anion Gap 11.0 (6-13) 01/23/20 04:30 BUN 38 mg/dL (6-20) H 01/23/20 04:30 Creatinine 1.1 mg/dL (0.4-1.0) H 01/23/20 04:30 Estimated GFR (MDRD) 49 (>89) L 01/23/20 04:30 Glucose 98 mg/dL (70-100) 01/23/20 04:30 Lactic Acid 1.3 mmol/L (0.5-2.2) 01/20/20 01:45 Calcium 9.0 mg/dL (8.5-10.3) 01/23/20 04:30 Phosphorus 4.4 mg/dL (2.5-4.6) 01/23/20 04:30 Magnesium 2.3 mg/dL (1.7-2.8) 01/23/20 04:30 Total Bilirubin 0.9 mg/dL (0.2-1.0) 01/20/20 00:21 AST 18 IU/L (10-42) 01/20/20 00:21 ALT 21 IU/L (10-60) 01/20/20 00:21 Alkaline Phosphatase 47 IU/L (42-121) 01/20/20 00:21 Total Creatine Kinase 93 IU/L (22-269) 01/20/20 00:21 Troponin I High Sens 5.0 ng/L (2.3-14.8) 01/20/20 00:21 C-Reactive Protein 10.9 mg/dL (0-1.0) H 01/23/20 08:48 B-Natriuretic Peptide 522 pg/mL (5-100) H 01/22/20 04:20 Total Protein 7.1 g/dL (6.7-8.2) 01/20/20 00:21 Albumin 3.3 g/dL (3.2-5.5) 01/20/20 00:21 Globulin 3.8 g/dL (2.1-4.2) 01/20/20 00:21 Albumin/Globulin Ratio 0.9 (1.0-2.2) L 01/20/20 00:21 Lipase 24 U/L (22-51) 01/20/20 00:21 Urine Color YELLOW 01/20/20 00:04 Urine Clarity CLEAR (CLEAR) 01/20/20 00:04 Urine pH 5.0 PH (5.0-7.5) 01/20/20 00:04 Ur Specific [place] 1.020 (1.002-1.030) 01/20/20 00:04 Urine Protein NEGATIVE mg/dL (NEGATIVE) 01/20/20 00:04 Urine Glucose (UA) NEGATIVE mg/dL (NEGATIVE) 01/20/20 00:04 Urine Ketones NEGATIVE mg/dL (NEGATIVE) 01/20/20 00:04 Urine Occult Blood MODERATE (NEGATIVE) H 01/20/20 00:04 Urine Nitrite NEGATIVE (NEGATIVE) 01/20/20 00:04 Urine Bilirubin NEGATIVE (NEGATIVE) 01/20/20 00:04 Urine Urobilinogen 0.2 (NORMAL) E.U./dL (NORMAL) 01/20/20 00:04 Ur Leukocyte Esterase NEGATIVE (NEGATIVE) 01/20/20 00:04 Urine RBC 6-10 /HPF (0-5) H 01/20/20 00:04 Urine WBC 0-3 /HPF (0-5) 01/20/20 00:04 Ur Squamous Epith Cells MANY Squamous (<= Few) H 01/20/20 00:04 Urine Bacteria Rare /HPF (None Seen) 01/20/20 00:04 Urine Casts 3-5 Hyaline Casts /LPF 01/20/20 00:04 Ur Microscopic Review INDICATED 01/20/20 00:04 Urine Culture Comments NOT INDICATED 01/20/20 00:04 Nasal Screen MRSA (PCR) NEGATIVE (NEGATIVE) 01/20/20 05:45 Last Dose Date UNK 01/23/20 08:47 Last Dose Time UNK 01/23/20 08:47 Vancomycin Trough 20.1 ug/mL (10.0-20.0) H 01/23/20 08:47 ABX Reporting Has patient been on IV antibiotics over the past 48 hours?: Yes Current Medications - Current Medications Current Medications: Active Medications Acetaminophen (Tylenol) 650 mg PO Q4HR PRN PRN Reason: Pain or Fever > 38C (100.4F) Last Admin: 01/23/20 14:52 Dose: 650 mg Documented by: Apixaban (Eliquis) 5 mg PO BID [facility] Last Admin: 01/23/20 08:49 Dose: 5 mg Documented by: Atenolol (Tenormin) 150 mg PO DAILY [facility] Last Admin: 01/23/20 08:45 Dose: 150 mg Documented by: Furosemide (Lasix Inj 40 Mg Vial) 40 mg IVP BIDDIURETIC [facility] Last Admin: 01/23/20 14:53 Dose: 40 mg Documented by: Gabapentin (Neurontin) 300 mg PO BID [facility] Last Admin: 01/23/20 08:47 Dose: 300 mg Documented by: Ceftriaxone Sodium 1 gm/ (Sodium Chloride) 100 mls @ 200 mls/hr IV DAILY [facility] Last Infusion: 01/23/20 09:15 Dose: Infused Documented by: Vancomycin HCl 2 gm/ Sodium (Chloride) 500 mls @ 250 mls/hr IV Q24H [facility] Last Infusion: 01/23/20 12:00 Dose: Infused Documented by: Lidocaine (Lidoderm Patch) 1 patch TOP DAILY PRN PRN Reason: PAIN Last Admin: 01/23/20 09:20 Dose: 1 patch Documented by: Lidocaine HCl (Xylocaine 1%) 5 ml MC ONCE ONE Stop: 01/23/20 21:01 Methylprednisolone Acetate (Depo-Medrol) 40 mg IU ONCE ONE Stop: 01/23/20 21:01 Multivitamins/Minerals (Theragran M) 1 tab PO DAILYWM [facility] Last Admin: 01/23/20 08:44 Dose: 1 tab Documented by: Nystatin (Nystop) 1 applic TOP BID [facility] Last Admin: 01/23/20 13:36 Dose: 1 applic Documented by: Oxycodone HCl (Roxicodone) 5 mg PO Q4HR PRN PRN Reason: PAIN Last Admin: 01/23/20 14:53 Dose: 5 mg Documented by: Pantoprazole Sodium (Protonix) 40 mg PO QDAC [facility] Last Admin: 01/23/20 06:27 Dose: 40 mg Documented by: Saccharomyces Boulardii (Florastor) 250 mg PO BIDWM [facility] Last Admin: 01/23/20 08:49 Dose: 250 mg Documented by: Sodium Chloride (Normal Saline Flush 0.9%) 10 ml IVP 0100,0900,1700 [facility] Last Admin: 01/23/20 08:59 Dose: 10 ml Documented by: Sodium Chloride (Normal Saline Flush 0.9%) 10 ml IVP PRN PRN PRN Reason: NEEDED PER PROVIDER ORDERS Last Admin: 01/22/20 06:10 Dose: 10 ml Documented by: Gabapentin 300 mg PO BID 08/07/19 Furosemide [Lasix] 20 mg PO DAILY 01/20/20 atenoloL [Atenolol] 150 mg PO DAILY 01/20/20
[2020-01-23] MEDS ORDERED: LIDOCAINE 1% 10 ML MDV MC ONE (21:00)
[2020-01-23] MEDS ORDERED: methylPREDNISolone ACETATE 40 MG/ML VIAL IU ONE (21:00)
[2020-01-24] MEDS: ACETAMINOPHEN 325 MG TABLET PO PRN ×2 (00:14→04:34)
[2020-01-24] MEDS: oxyCODONE 5 MG TABLET PO PRN ×4 (00:14→20:15)
[2020-01-24] MEDS: SODIUM CHLORIDE FLUSH 0.9% 10 ML SYRINGE IVP SCH ×3 (00:24→16:00)
[2020-01-24 06:06] LABS: CALCIUM 8.9 mg/dL (8.5-10.3); CREATININE 1.1 mg/dL (0.4-1.0); CRP - C-REACTIVE PROTEIN 8.5 mg/dL (0-1.0)
[2020-01-24] MEDS: FUROSEMIDE 40 MG/4 ML VIAL IVP SCH ×2 (06:17→13:33)
[2020-01-24] MEDS: PANTOPRAZOLE 40 MG TABLET PO SCH (06:17)
[2020-01-24 06:23] LABS: BASOPHILS # (AUTO) 0.1 10^3/uL (0.0-0.1); BASOPHILS % (AUTO) 0.8 %; EOSINOPHILS # (AUTO) 0.5 10^3/uL (0.0-0.7); HGB - HEMOGLOBIN 9.7 g/dL (12.0-16.0); LYMPHOCYTES # (AUTO) 1.9 10^3/uL (1.5-3.5); LYMPHOCYTES % (AUTO) 21.4 %; MEAN CORPUSCULAR HEMOGLOBIN 27.2 pg (27.0-31.0); MEAN CORPUSCULAR HGB CONC 30.9 g/dL (32.0-36.0); MEAN CORPUSCULAR VOLUME 88.2 fL (81.0-99.0); MEAN PLATELET VOLUME 10.8 fL (7.9-10.8); MONOCYTES # (AUTO) 0.9 10^3/uL (0.0-1.0); MONOCYTES % (AUTO) 10.1 %; NEUTROPHILS # (AUTO) 5.3 10^3/uL (1.5-6.6); NEUTROPHILS % (AUTO) 59.4 %; PLT - PLATELET COUNT 259 10^3/uL (130-450); RED BLOOD COUNT 3.56 10^6/uL (4.20-5.40); RED CELL DISTRIBUTION WIDTH 16.3 % (12.0-15.0); WHITE BLOOD COUNT 8.9 x10^3/uL (4.8-10.8)
--- NOTE | 2020-01-24 07:52 | PROCEDURE REPORT ---
Hospitalist Procedure Note - Procedure Note Procedure Note: 01/24/2020 07:47 she has right shoulder pain for weeks. worse with standing and leaning onto walker. using it to bring food to mouth or when she tries to roll over. hurts to abduct for anything. she was due to get a shoulder injection this week but it has been cancelled bc she is here in hospital. I offfered her the injection and she was amenable. Risk of infection, bleeding, needle damage to joint discussed but I explained these are very low risks with this. She was still ok w moving forward. Posterior approach used. Skin prepped with alcohol. using vial of depomedrol 40 mg and 5 cc 1% lidocaine, injected under acromial drop off. She tolerated it well. Leanne Acosta MD
[2020-01-24] MEDS ORDERED: methylPREDNISolone ACETATE 40 MG/ML VIAL IU ONE (08:00)
[2020-01-24] MEDS ORDERED: LIDOCAINE-MPF 1% 5 ML VIAL IU ONE (08:00)
[2020-01-24] MEDS: SODIUM CHLORIDE FLUSH 0.9% 10 ML SYRINGE IVP PRN ×2 (08:16→13:33)
[2020-01-24] MEDS: cefTRIAXone 1 GM in SODIUM CHLORIDE 0.9% MINIBAG 100 ML IV SCH (08:16)
[2020-01-24] MEDS ORDERED: POTASSIUM CHLORIDE 20 MEQ TABLET PO ONE (08:30)
[2020-01-24] MEDS: APIXABAN 5 MG TABLET PO SCH ×2 (08:31→20:16)
[2020-01-24] MEDS: MULTIVITAMIN W/MINERALS TABLET PO SCH (08:31)
[2020-01-24] MEDS: GABAPENTIN 300 MG CAPSULE PO SCH ×2 (08:32→20:16)
[2020-01-24] MEDS: atenoloL 25 MG TABLET PO SCH (08:32)
[2020-01-24] MEDS: diltiaZEM CD 120 MG CAPSULE PO SCH (08:33)
[2020-01-24] MEDS: SACCHAROMYCES BOULARDII 250 MG CAPSULE PO SCH ×2 (08:33→16:00)
[2020-01-24] MEDS: NYSTATIN POWDER 15 GM TOP SCH ×2 (08:36→20:15)
[2020-01-24] MEDS: VANCOMYCIN INJ 2 GM in SODIUM CHLORIDE 0.9% 500 ML IV SCH (09:11)
--- NOTE | 2020-01-24 15:54 | PROVIDER PROGRESS NOTE ---
Assessment/Plan - Problem List (1) Cellulitis Qualifiers: Site of cellulitis of extremity: lower extremity Laterality: unspecified laterality Assessment/Plan: 01/23,Pt's Lower extremity swelling and erythema is better. WBC is normal. Repeated blood blood culture is negative. Continue antibiotics Patient's left lower extremity and foot is still warmth, mild to moderate swollen and erythema. continue vancomycin, Rocephin Arterial brachial indices is unremarkable (2)lymphedema 102,Encourage patient has ambulation As possible, Continue diuretics, continue rise of patient lower extremity to help Blood return. Continue nursing care for lymphedema Patient present bilaterally lower extremity lymphedema. Patient reported lymphedema was diagnosis on last year March. Encourage patient has some ambulation, rise lower extremity (3) Staphylococcus epidermidis bacteremia 01/23, Blood culture show patient has 1 tubal with Staph epidermidis, Repeated blood culture both tube show negative. Patient has no fever, patient WBC become normal. it is high possibility from contamination. (4) Right shoulder pain 01/23 Patient has steroid with lidocaine injection into her right shoulder on the morning. We will continue pain control, continue physical therapist and occupational therapist (5) Atrial fibrillation with RVR 102, patient's heart 's pulse is still 114. Patient already have 150 mg atenolol daily. We will add Cardizem 120 mg CD daily, it seems Patient's blood pressure can tolerate it. Continue air sampling and monitoring, continue vital signs monitor Improved, patient HR is 103 now. continue Patient's atenolol 150 mg p.o. daily resumed. Her heart rate today is 98-101 for most of day. Rarely up to 118 Eliquis 5 mg p.o. twice daily Echo done for atrial fibrillation shows ejection fraction 50 to 55%. Mild to moderate abnormal right heart pressures. RVSP 50 mm. As compared to echo August 08, 2019, pulmonary arterial systolic pressure increased. Inferior vena cava dilated. Her ejection fraction is also mildly decreased from previous echo which was 60 to 65%. Left atrium has a severe increase EYES: PERRL, EOMI, no discharge or injection. No scleral icterus. As does right atrium. 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 Patient was seen by palliative care Her primary goal is to be able to walk again and be able to gain more independence Patient has experienced a significant decline in her physical strength and abil ity over the past 1.5 years She has been bedridden for the past 2 weeks Patient is open to transferring to a [facility]itentiary facility for intensive rehabilitation when medically cleared to do so. (7)weakness Patient present weakness, continue physical therapist occupational therapist, patient agreement to be discharge to SNF as medical stable. - Current Meds Current Meds: Current Medications Generic Name Dose Route Start Last Admin Trade Name Freq PRN Reason Stop Dose Admin Acetaminophen 650 mg 01/20/20 16:09 01/24/20 04:34 Tylenol PO 650 mg Q4HR PRN Administration Pain or Fever > 38C (100.4F) Apixaban 5 mg 01/20/20 21:00 01/24/20 08:31 Eliquis PO 5 mg BID AYAZ Administration Atenolol 150 mg 01/21/20 09:00 01/24/20 08:32 Tenormin PO 150 mg DAILY AYAZ Administration Diltiazem HCl 120 mg 01/24/20 09:00 01/24/20 08:33 Cardizem Cd PO 120 mg DAILY AYAZ Administration Furosemide 40 mg 01/20/20 14:00 01/24/20 13:33 Lasix Inj 40 Mg Vial IVP 40 mg BIDDIURETIC AYAZ Administration Gabapentin 300 mg 01/20/20 21:00 01/24/20 08:32 Neurontin PO 300 mg BID AYAZ Administration Ceftriaxone Sodium 1 gm/ 100 mls @ 200 mls/hr 01/21/20 09:00 01/24/20 09:06 Sodium Chloride IV Infused DAILY AYAZ Infusion Vancomycin HCl 2 gm/ Sodium 500 mls @ 250 mls/hr 01/22/20 09:00 01/24/20 12:01 Chloride IV Infused Q24H AYAZ Infusion Lidocaine 1 patch 01/22/20 20:49 01/23/20 09:20 Lidoderm Patch TOP 1 patch DAILY PRN Administration PAIN Multivitamins/Minerals 1 tab 01/22/20 17:00 01/24/20 08:31 Theragran M PO 1 tab DAILYWM AYAZ Administration Nystatin 1 applic 01/20/20 16:10 01/24/20 08:36 Nystop TOP 1 applic BID AYAZ Administration Oxycodone HCl 5 mg 01/22/20 04:23 01/24/20 04:34 Roxicodone PO 5 mg Q4HR PRN Administration PAIN Pantoprazole Sodium 40 mg 01/20/20 07:00 01/24/20 06:17 Protonix PO 40 mg QDAC AYAZ Administration Saccharomyces Boulardii 250 mg 01/22/20 17:00 01/24/20 08:33 Florastor PO 250 mg BIDWM AYAZ Administration Sodium Chloride 10 ml 01/20/20 09:00 01/24/20 06:17 Normal Saline Flush 0.9% IVP 10 ml 0100,0900,1700 AYAZ Administration Sodium Chloride 10 ml 01/20/20 03:51 01/24/20 13:33 Normal Saline Flush 0.9% IVP 10 ml PRN PRN Administration NEEDED PER PROVIDER ORDERS - Lab Result Fish Bone Diagrams: 01/24/20 05:15 01/24/20 05:15 - Additional Planning My Orders: My Active Orders 01/24/20 09:00 diltiaZEM CD [Cardizem Cd] 120 mg PO DAILY 01/24/20 10:45 COVID-19 REFERENCE TEST Routine 01/25/20 05:00 BMP - BASIC METABOLIC PANEL [CHEM] DAILYLAB CBC - COMP BLD CT W/AUTO DIFF [HEME] DAILYLAB CRP - C-REACTIVE PROTEIN [CHEM] DAILYLAB 01/26/20 05:00 BMP - BASIC METABOLIC PANEL [CHEM] DAILYLAB CBC - COMP BLD CT W/AUTO DIFF [HEME] DAILYLAB CRP - C-REACTIVE PROTEIN [CHEM] DAILYLAB 01/27/20 05:00 BMP - BASIC METABOLIC PANEL [CHEM] DAILYLAB CBC - COMP BLD CT W/AUTO DIFF [HEME] DAILYLAB 01/28/20 05:00 BMP - BASIC METABOLIC PANEL [CHEM] DAILYLAB CBC - COMP BLD CT W/AUTO DIFF [HEME] DAILYLAB Subjective - Subjective Patient Reports: Feeling Better Objective Vital Signs: Vital Signs - 24 hr 01/23/20 01/23/20 01/23/20 16:04 20:01 23:58 Temperature 36.7 C 36.7 C 36.7 C Heart Rate [ 105 H Brachial] Heart Rate [ 103 H 110 H Monitoring electrodes] Respiratory 16 16 20 Rate Blood Pressure 132/97 H 114/75 134/87 H [Left radial artery] Blood Pressure [Right Radial artery] O2 Saturation 99 98 97 01/24/20 01/24/20 01/24/20 04:19 08:03 12:36 Temperature 36.7 C 36.5 C 36.7 C Heart Rate [ 96 114 H 99 Brachial] Heart Rate [ Monitoring electrodes] Respiratory 18 20 20 Rate Blood Pressure 124/91 H [Left radial artery] Blood Pressure 117/78 105/66 [Right Radial artery] O2 Saturation 96 96 95 Oxygen O2 Source [With Activity] Room air O2 Source Room air I&O (Last 24 Hrs): Intake and Output Totals x24h 01/22/20 01/23/20 01/24/20 23:59 23:59 23:59 Intake Total 2075 1830 1310 Output Total 2781 2255 1050 Balance -706 -425 260 General: Alert, Oriented x3, No acute distress HEENT: Atraumatic Neck: Supple Lymphatic: no adenopathy Neuro: Alert, Non Focal, Oriented Times 3 Cardiovascular: Normal S1, Normal S2 Respiratory: Chest non-tender, No respiratory distress Abdomen: Normal bowel sounds, Soft, No tenderness Extremities: Normal pulses - Results Results: Laboratory Results WBC 8.9 x10^3/uL (4.8-10.8) 01/24/20 05:15 RBC 3.56 10^6/uL (4.20-5.40) L 01/24/20 05:15 Hgb 9.7 g/dL (12.0-16.0) L 01/24/20 05:15 Hct 31.4 % (37.0-47.0) L 01/24/20 05:15 MCV 88.2 fL (81.0-99.0) 01/24/20 05:15 MCH 27.2 pg (27.0-31.0) 01/24/20 05:15 MCHC 30.9 g/dL (32.0-36.0) L 01/24/20 05:15 RDW 16.3 % (12.0-15.0) H 01/24/20 05:15 Plt Count 259 10^3/uL (130-450) 01/24/20 05:15 MPV 10.8 fL (7.9-10.8) 01/24/20 05:15 Neut # (Auto) 5.3 10^3/uL (1.5-6.6) 01/24/20 05:15 Lymph # (Auto) 1.9 10^3/uL (1.5-3.5) 01/24/20 05:15 [place] # (Auto) 0.9 10^3/uL (0.0-1.0) 01/24/20 05:15 Eos # (Auto) 0.5 10^3/uL (0.0-0.7) 01/24/20 05:15 Baso # (Auto) 0.1 10^3/uL (0.0-0.1) 01/24/20 05:15 Absolute Nucleated RBC 0.00 x10^3/uL 01/24/20 05:15 Total Counted 100 01/23/20 04:30 Band Neuts % (Manual) 0 % (0-10) 01/23/20 04:30 Abnorm Lymph % (Manual) 0 % 01/23/20 04:30 Nucleated RBC % 0.0 /100WBC 01/24/20 05:15 Neutrophils # (Manual) 6.6 10^3/uL (1.5-6.6) 01/23/20 04:30 Lymphocytes # (Manual) 1.9 10^3/uL (1.5-3.5) 01/23/20 04:30 Monocytes # (Manual) 0.9 10^3/uL (0.0-1.0) 01/23/20 04:30 Eosinophils # (Manual) 0.5 10^3/uL (0-0.7) 01/23/20 04:30 Basophils # (Manual) 0.1 10^3/uL (0-0.1) 01/23/20 04:30 Differential Comment MANUAL DIFFERENTIAL 01/23/20 04:30 Platelet Estimate NORMAL (130-450,000) (NORMAL) 01/23/20 04:30 RBC Morph Micro Appear NORMAL APPEARANCE (NORMAL) 01/23/20 04:30 PT 30.0 secs (9.9-12.6) H 01/20/20 00:21 INR 2.9 (0.8-1.2) H 01/20/20 00:21 APTT 36.9 secs (24.9-33.3) H 01/20/20 00:21 Sodium 142 mmol/L (135-145) 01/24/20 05:15 Potassium 3.1 mmol/L (3.5-5.0) L 01/24/20 05:15 Chloride 106 mmol/L (101-111) 01/24/20 05:15 Carbon Dioxide 27 mmol/L (21-32) 01/24/20 05:15 Anion Gap 9.0 (6-13) 01/24/20 05:15 BUN 33 mg/dL (6-20) H 01/24/20 05:15 Creatinine 1.1 mg/dL (0.4-1.0) H 01/24/20 05:15 Estimated GFR (MDRD) 49 (>89) L 01/24/20 05:15 Glucose 97 mg/dL (70-100) 01/24/20 05:15 Lactic Acid 1.3 mmol/L (0.5-2.2) 01/20/20 01:45 Calcium 8.9 mg/dL (8.5-10.3) 01/24/20 05:15 Phosphorus 4.4 mg/dL (2.5-4.6) 01/23/20 04:30 Magnesium 2.3 mg/dL (1.7-2.8) 01/23/20 04:30 Total Bilirubin 0.9 mg/dL (0.2-1.0) 01/20/20 00:21 AST 18 IU/L (10-42) 01/20/20 00:21 ALT 21 IU/L (10-60) 01/20/20 00:21 Alkaline Phosphatase 47 IU/L (42-121) 01/20/20 00:21 Total Creatine Kinase 93 IU/L (22-269) 01/20/20 00:21 Troponin I High Sens 5.0 ng/L (2.3-14.8) 01/20/20 00:21 C-Reactive Protein 8.5 mg/dL (0-1.0) H 01/24/20 05:15 B-Natriuretic Peptide 522 pg/mL (5-100) H 01/22/20 04:20 Total Protein 7.1 g/dL (6.7-8.2) 01/20/20 00:21 Albumin 3.3 g/dL (3.2-5.5) 01/20/20 00:21 Globulin 3.8 g/dL (2.1-4.2) 01/20/20 00:21 Albumin/Globulin Ratio 0.9 (1.0-2.2) L 01/20/20 00:21 Lipase 24 U/L (22-51) 01/20/20 00:21 Urine Color YELLOW 01/20/20 00:04 Urine Clarity CLEAR (CLEAR) 01/20/20 00:04 Urine pH 5.0 PH (5.0-7.5) 01/20/20 00:04 Ur Specific [place] 1.020 (1.002-1.030) 01/20/20 00:04 Urine Protein NEGATIVE mg/dL (NEGATIVE) 01/20/20 00:04 Urine Glucose (UA) NEGATIVE mg/dL (NEGATIVE) 01/20/20 00:04 Urine Ketones NEGATIVE mg/dL (NEGATIVE) 01/20/20 00:04 Urine Occult Blood MODERATE (NEGATIVE) H 01/20/20 00:04 Urine Nitrite NEGATIVE (NEGATIVE) 01/20/20 00:04 Urine Bilirubin NEGATIVE (NEGATIVE) 01/20/20 00:04 Urine Urobilinogen 0.2 (NORMAL) E.U./dL (NORMAL) 01/20/20 00:04 Ur Leukocyte Esterase NEGATIVE (NEGATIVE) 01/20/20 00:04 Urine RBC 6-10 /HPF (0-5) H 01/20/20 00:04 Urine WBC 0-3 /HPF (0-5) 01/20/20 00:04 Ur Squamous Epith Cells MANY Squamous (<= Few) H 01/20/20 00:04 Urine Bacteria Rare /HPF (None Seen) 01/20/20 00:04 Urine Casts 3-5 Hyaline Casts /LPF 01/20/20 00:04 Ur Microscopic Review INDICATED 01/20/20 00:04 Urine Culture Comments NOT INDICATED 01/20/20 00:04 Nasal Screen MRSA (PCR) NEGATIVE (NEGATIVE) 01/20/20 05:45 Last Dose Date UNK 01/23/20 08:47 Last Dose Time UNK 01/23/20 08:47 Vancomycin Trough 20.1 ug/mL (10.0-20.0) H 01/23/20 08:47 ABX Reporting Has patient been on IV antibiotics over the past 48 hours?: Yes Current Medications - Current Medications Current Medications: Active Medications Acetaminophen (Tylenol) 650 mg PO Q4HR PRN PRN Reason: Pain or Fever > 38C (100.4F) Last Admin: 10/02/20 04:34 Dose: 650 mg Documented by: Apixaban (Eliquis) 5 mg PO BID [facility] Last Admin: 01/24/20 08:31 Dose: 5 mg Documented by: Atenolol (Tenormin) 150 mg PO DAILY [facility] Last Admin: 01/24/20 08:32 Dose: 150 mg Documented by: Diltiazem HCl (Cardizem Cd) 120 mg PO DAILY [facility] Last Admin: 01/24/20 08:33 Dose: 120 mg Documented by: Furosemide (Lasix Inj 40 Mg Vial) 40 mg IVP BIDDIURETIC [facility] Last Admin: 01/24/20 13:33 Dose: 40 mg Documented by: Gabapentin (Neurontin) 300 mg PO BID [facility] Last Admin: 01/24/20 08:32 Dose: 300 mg Documented by: Ceftriaxone Sodium 1 gm/ (Sodium Chloride) 100 mls @ 200 mls/hr IV DAILY [facility] Last Infusion: 01/24/20 09:06 Dose: Infused Documented by: Vancomycin HCl 2 gm/ Sodium (Chloride) 500 mls @ 250 mls/hr IV Q24H [facility] Last Infusion: 01/24/20 12:01 Dose: Infused Documented by: Lidocaine (Lidoderm Patch) 1 patch TOP DAILY PRN PRN Reason: PAIN Last Admin: 01/23/20 09:20 Dose: 1 patch Documented by: Multivitamins/Minerals (Theragran M) 1 tab PO DAILYWM [facility] Last Admin: 01/24/20 08:31 Dose: 1 tab Documented by: Nystatin (Nystop) 1 applic TOP BID [facility] Last Admin: 01/24/20 08:36 Dose: 1 applic Documented by: Oxycodone HCl (Roxicodone) 5 mg PO Q4HR PRN PRN Reason: PAIN Last Admin: 01/24/20 04:34 Dose: 5 mg Documented by: Pantoprazole Sodium (Protonix) 40 mg PO QDAC [facility] Last Admin: 01/24/20 06:17 Dose: 40 mg Documented by: Saccharomyces Boulardii (Florastor) 250 mg PO BIDWM [facility] Last Admin: 01/24/20 08:33 Dose: 250 mg Documented by: Sodium Chloride (Normal Saline Flush 0.9%) 10 ml IVP 0100,0900,1700 [facility] Last Admin: 01/24/20 06:17 Dose: 10 ml Documented by: Sodium Chloride (Normal Saline Flush 0.9%) 10 ml IVP PRN PRN PRN Reason: NEEDED PER PROVIDER ORDERS Last Admin: 01/24/20 13:33 Dose: 10 ml Documented by: Gabapentin 300 mg PO BID 08/07/19 Furosemide [Lasix] 20 mg PO DAILY 01/20/20 atenoloL [Atenolol] 150 mg PO DAILY 01/20/20
[2020-01-25] MEDS: SODIUM CHLORIDE FLUSH 0.9% 10 ML SYRINGE IVP SCH ×3 (00:15→17:03)
[2020-01-25] MEDS: oxyCODONE 5 MG TABLET PO PRN ×2 (02:18→18:57)
[2020-01-25] MEDS: ACETAMINOPHEN 325 MG TABLET PO PRN ×3 (03:07→17:00)
[2020-01-25 05:23] LABS: BASOPHILS # (AUTO) 0.1 10^3/uL (0.0-0.1); BASOPHILS % (AUTO) 0.6 %; EOSINOPHILS # (AUTO) 0.5 10^3/uL (0.0-0.7); EOSINOPHILS % (AUTO) 4.7 %; HGB - HEMOGLOBIN 9.6 g/dL (12.0-16.0); LYMPHOCYTES # (AUTO) 2.1 10^3/uL (1.5-3.5); MEAN CORPUSCULAR HEMOGLOBIN 25.6 pg (27.0-31.0); MEAN CORPUSCULAR HGB CONC 29.1 g/dL (32.0-36.0); MEAN PLATELET VOLUME 10.7 fL (7.9-10.8); MONOCYTES # (AUTO) 0.8 10^3/uL (0.0-1.0); MONOCYTES % (AUTO) 7.9 %; NEUTROPHILS # (AUTO) 6.9 10^3/uL (1.5-6.6); NEUTROPHILS % (AUTO) 64.5 %; PLT - PLATELET COUNT 293 10^3/uL (130-450); RED BLOOD COUNT 3.75 10^6/uL (4.20-5.40); RED CELL DISTRIBUTION WIDTH 16.4 % (12.0-15.0); WHITE BLOOD COUNT 10.7 x10^3/uL (4.8-10.8)
[2020-01-25 05:37] LABS: CREATININE 1.1 mg/dL (0.4-1.0); CRP - C-REACTIVE PROTEIN 7.4 mg/dL (0-1.0)
[2020-01-25] MEDS: FUROSEMIDE 40 MG/4 ML VIAL IVP SCH ×2 (06:12→14:47)
[2020-01-25] MEDS: PANTOPRAZOLE 40 MG TABLET PO SCH (06:13)
[2020-01-25] MEDS ORDERED: POTASSIUM CHLORIDE 20 MEQ TABLET PO ONE (07:33)
[2020-01-25 08:37] LABS: VANCOMYCIN,TROUGH 24.4 ug/mL (10.0-20.0)
[2020-01-25] MEDS: polyethylene glycoL 3350 17 GM PACKET PO SCH (09:20)
[2020-01-25] MEDS: MULTIVITAMIN W/MINERALS TABLET PO SCH (09:21)
[2020-01-25] MEDS: atenoloL 25 MG TABLET PO SCH (09:21)
[2020-01-25] MEDS: SACCHAROMYCES BOULARDII 250 MG CAPSULE PO SCH ×2 (09:21→17:03)
[2020-01-25] MEDS: APIXABAN 5 MG TABLET PO SCH ×2 (09:22→20:21)
[2020-01-25] MEDS: diltiaZEM CD 120 MG CAPSULE PO SCH (09:23)
[2020-01-25] MEDS: GABAPENTIN 300 MG CAPSULE PO SCH ×2 (09:23→20:21)
[2020-01-25] MEDS: cefTRIAXone 1 GM in SODIUM CHLORIDE 0.9% MINIBAG 100 ML IV SCH (09:26)
[2020-01-25] MEDS: NYSTATIN POWDER 15 GM TOP SCH ×2 (09:35→20:22)
--- NOTE | 2020-01-25 13:53 | PROVIDER PROGRESS NOTE ---
Assessment/Plan - Problem List (1) Cellulitis Qualifiers: Site of cellulitis of extremity: lower extremity Laterality: unspecified laterality Assessment/Plan: 01/24, Improved, swollen and erythema reduced. WBC normal, CRP continue trending down. Continue antibiotics 01/23,Pt's Lower extremity swelling and erythema is better. WBC is normal. Repeated blood blood culture is negative. Continue antibiotics Patient's left lower extremity and foot is still warmth, mild to moderate swollen and erythema. continue vancomycin, Rocephin Arterial brachial indices is unremarkable (2)lymphedema 103,stable, continue rise bilateral lower extremities, stock and wrap Lower extremity. 102,Encourage patient has ambulation As possible, Continue diuretics, continue rise of patient lower extremity to help Blood return. Continue nursing care for lymphedema Patient present bilaterally lower extremity lymphedema. Patient reported lymphedema was diagnosis on last year March. Encourage patient has some ambulation, rise lower extremity (3) Staphylococcus epidermidis bacteremia 01/23, Blood culture show patient has 1 tubal with Staph epidermidis, Repeated blood culture both tube show negative. Patient has no fever, patient WBC become normal. it is high possibility from contamination. (4) Right shoulder pain 01/23 Patient has steroid with lidocaine injection into her right shoulder on the morning. We will continue pain control, continue physical therapist and occupational therapist (5) Atrial fibrillation with RVR 103,Improved, heart rate is 94. Blood pressure is as of her baseline. 102, patient's heart 's pulse is still 114. Patient already have 150 mg atenolol daily. We will add Cardizem 120 mg CD daily, it seems Patient's blood pressure can tolerate it. Continue character actor, continue vital signs monitor Improved, patient HR is 103 now. continue Patient's atenolol 150 mg p.o. daily resumed. Her heart rate today is 98-101 for most of day. Rarely up to 118 Eliquis 5 mg p.o. twice daily Echo done for atrial fibrillation shows ejection fraction 50 to 55%. Mild to moderate abnormal right heart pressures. RVSP 50 mm. As compared to echo August 08, 2019, pulmonary arterial systolic pressure increased. Inferior vena cava dilated. Her ejection fraction is also mildly decreased from previous echo which was 60 to 65%. Left atrium has a severe increase EYES: PERRL, EOMI, no discharge or injection. No scleral icterus. As does right atrium. 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 Patient was seen by palliative care Her primary goal is to be able to walk again and be able to gain more independence Patient has experienced a significant decline in her physical strength and ability over the past 1.5 years She has been bedridden for the past 2 weeks Patient is open to transferring to a fdc facility for intensive rehabilitation when medically cleared to do so. (7)weakness Patient present weakness, continue physical therapist occupational therapist, patient agreement to be discharge to SNF as medical stable. - Current Meds Current Meds: Current Medications Generic Name Dose Route Start Last Admin Trade Name Freq PRN Reason Stop Dose Admin Acetaminophen 650 mg 01/20/20 16:09 01/25/20 09:23 Tylenol PO 650 mg Q4HR PRN Administration Pain or Fever > 38C (100.4F) Apixaban 5 mg 01/20/20 21:00 01/25/20 09:22 Eliquis PO 5 mg BID AYAZ Administration Atenolol 150 mg 01/21/20 09:00 01/25/20 09:21 Tenormin PO 150 mg DAILY AYAZ Administration Diltiazem HCl 120 mg 01/24/20 09:00 01/25/20 09:23 Cardizem Cd PO 120 mg DAILY AYAZ Administration Furosemide 40 mg 01/20/20 14:00 01/25/20 06:12 Lasix Inj 40 Mg Vial IVP 40 mg BIDDIURETIC AYAZ Administration Gabapentin 300 mg 01/20/20 21:00 01/25/20 09:23 Neurontin PO 300 mg BID AYAZ Administration Ceftriaxone Sodium 1 gm/ 100 mls @ 200 mls/hr 01/21/20 09:00 01/25/20 10:10 Sodium Chloride IV Infused DAILY AYAZ Infusion Lidocaine 1 patch 01/22/20 20:49 01/23/20 09:20 Lidoderm Patch TOP 1 patch DAILY PRN Administration PAIN Multivitamins/Minerals 1 tab 01/22/20 17:00 01/25/20 09:21 Theragran M PO 1 tab DAILYWM AYAZ Administration Nystatin 1 applic 01/20/20 16:10 01/25/20 09:35 Nystop TOP 1 applic BID AYAZ Administration Oxycodone HCl 5 mg 01/22/20 04:23 01/25/20 02:18 Roxicodone PO 5 mg Q4HR PRN Administration PAIN Pantoprazole Sodium 40 mg 01/20/20 07:00 01/25/20 06:13 Protonix PO 40 mg QDAC AYAZ Administration Polyethylene Glycol 17 gm 01/25/20 09:00 01/25/20 09:20 Miralax PO 17 gm DAILY AYAZ Administration Saccharomyces Songulardii 250 mg 01/22/20 17:00 01/25/20 09:21 Florastor PO 250 mg BIDWM AYAZ Administration Sodium Chloride 10 ml 01/20/20 09:00 01/25/20 09:27 Normal Saline Flush 0.9% IVP 10 ml 0100,0900,1700 AYAZ Administration Sodium Chloride 10 ml 01/20/20 03:51 01/24/20 13:33 Normal Saline Flush 0.9% IVP 10 ml PRN PRN Administration NEEDED PER PROVIDER ORDERS - Lab Result Fish Bone Diagrams: 01/25/20 04:50 01/25/20 04:50 - Additional Planning My Orders: My Active Orders 01/26/20 05:00 BMP - BASIC METABOLIC PANEL [CHEM] DAILYLAB CBC - COMP BLD CT W/AUTO DIFF [HEME] DAILYLAB CRP - C-REACTIVE PROTEIN [CHEM] DAILYLAB 01/27/20 05:00 BMP - BASIC METABOLIC PANEL [CHEM] DAILYLAB CBC - COMP BLD CT W/AUTO DIFF [HEME] DAILYLAB 01/28/20 05:00 BMP - BASIC METABOLIC PANEL [CHEM] DAILYLAB CBC - COMP BLD CT W/AUTO DIFF [HEME] DAILYLAB Subjective - Subjective Patient Reports: Feeling Better Objective Vital Signs: Vital Signs - 24 hr 01/24/20 01/24/20 01/25/20 17:00 20:51 01:00 Temperature 36.8 C 36.6 C 36.7 C Heart Rate [ 103 H 94 69 Brachial] Respiratory 20 18 18 Rate Blood Pressure [Right Brachial artery] Blood Pressure 119/76 113/69 120/82 H [Right Radial artery] O2 Saturation 98 99 100 01/25/20 01/25/20 04:08 09:00 Temperature 36.6 C 36.5 C Heart Rate [ 101 H 94 Brachial] Respiratory 18 22 Rate Blood Pressure 124/68 [Right Brachial artery] Blood Pressure 130/81 H [Right Radial artery] O2 Saturation 97 96 Oxygen O2 Source [With Activity] Room air O2 Source Room air I&O (Last 24 Hrs): Intake and Output Totals x24h 01/23/20 01/24/20 01/25/20 23:59 23:59 23:59 Intake Total 1830 1790 990 Output Total 2255 1650 200 Balance -425 140 790 General: Alert, Oriented x3, No acute distress HEENT: Atraumatic Neck: Supple Lymphatic: no adenopathy Neuro: Alert, Oriented Times 3 Cardiovascular: Regular rate, Normal S1, Normal S2 Respiratory: Chest non-tender, No respiratory distress Abdomen: Normal bowel sounds, Soft, No tenderness Extremities: Normal pulses - Results Results: Laboratory Results WBC 10.7 x10^3/uL (4.8-10.8) 01/25/20 04:50 RBC 3.75 10^6/uL (4.20-5.40) L 01/25/20 04:50 Hgb 9.6 g/dL (12.0-16.0) L 01/25/20 04:50 Hct 33.0 % (37.0-47.0) L 01/25/20 04:50 MCV 88.0 fL (81.0-99.0) 01/25/20 04:50 MCH 25.6 pg (27.0-31.0) L 01/25/20 04:50 MCHC 29.1 g/dL (32.0-36.0) L 01/25/20 04:50 RDW 16.4 % (12.0-15.0) H 01/25/20 04:50 Plt Count 293 10^3/uL (130-450) 01/25/20 04:50 MPV 10.7 fL (7.9-10.8) 01/25/20 04:50 Neut # (Auto) 6.9 10^3/uL (1.5-6.6) H 01/25/20 04:50 Lymph # (Auto) 2.1 10^3/uL (1.5-3.5) 01/25/20 04:50 [place] # (Auto) 0.8 10^3/uL (0.0-1.0) 01/25/20 04:50 Eos # (Auto) 0.5 10^3/uL (0.0-0.7) 01/25/20 04:50 Baso # (Auto) 0.1 10^3/uL (0.0-0.1) 01/25/20 04:50 Absolute Nucleated RBC 0.00 x10^3/uL 01/25/20 04:50 Total Counted 100 01/23/20 04:30 Band Neuts % (Manual) 0 % (0-10) 01/23/20 04:30 Abnorm Lymph % (Manual) 0 % 01/23/20 04:30 Nucleated RBC % 0.0 /100WBC 01/25/20 04:50 Neutrophils # (Manual) 6.6 10^3/uL (1.5-6.6) 01/23/20 04:30 Lymphocytes # (Manual) 1.9 10^3/uL (1.5-3.5) 01/23/20 04:30 Monocytes # (Manual) 0.9 10^3/uL (0.0-1.0) 01/23/20 04:30 Eosinophils # (Manual) 0.5 10^3/uL (0-0.7) 01/23/20 04:30 Basophils # (Manual) 0.1 10^3/uL (0-0.1) 01/23/20 04:30 Differential Comment MANUAL DIFFERENTIAL 01/23/20 04:30 Platelet Estimate NORMAL (130-450,000) (NORMAL) 01/23/20 04:30 RBC Morph Micro Appear NORMAL APPEARANCE (NORMAL) 01/23/20 04:30 PT 30.0 secs (9.9-12.6) H 01/20/20 00:21 INR 2.9 (0.8-1.2) H 01/20/20 00:21 APTT 36.9 secs (24.9-33.3) H 01/20/20 00:21 Sodium 140 mmol/L (135-145) 01/25/20 04:50 Potassium 3.4 mmol/L (3.5-5.0) L 01/25/20 04:50 Chloride 102 mmol/L (101-111) 01/25/20 04:50 Carbon Dioxide 26 mmol/L (21-32) 01/25/20 04:50 Anion Gap 12.0 (6-13) 01/25/20 04:50 BUN 30 mg/dL (6-20) H 01/25/20 04:50 Creatinine 1.1 mg/dL (0.4-1.0) H 01/25/20 04:50 Estimated GFR (MDRD) 49 (>89) L 01/25/20 04:50 Glucose 110 mg/dL (70-100) H 01/25/20 04:50 Lactic Acid 1.3 mmol/L (0.5-2.2) 01/20/20 01:45 Calcium 9.0 mg/dL (8.5-10.3) 01/25/20 04:50 Phosphorus 4.4 mg/dL (2.5-4.6) 01/23/20 04:30 Magnesium 2.3 mg/dL (1.7-2.8) 01/23/20 04:30 Total Bilirubin 0.9 mg/dL (0.2-1.0) 01/20/20 00:21 AST 18 IU/L (10-42) 01/20/20 00:21 ALT 21 IU/L (10-60) 01/20/20 00:21 Alkaline Phosphatase 47 IU/L (42-121) 01/20/20 00:21 Total Creatine Kinase 93 IU/L (22-269) 01/20/20 00:21 Troponin I High Sens 5.0 ng/L (2.3-14.8) 01/20/20 00:21 C-Reactive Protein 7.4 mg/dL (0-1.0) H 01/25/20 04:50 B-Natriuretic Peptide 522 pg/mL (5-100) H 01/22/20 04:20 Total Protein 7.1 g/dL (6.7-8.2) 01/20/20 00:21 Albumin 3.3 g/dL (3.2-5.5) 01/20/20 00:21 Globulin 3.8 g/dL (2.1-4.2) 01/20/20 00:21 Albumin/Globulin Ratio 0.9 (1.0-2.2) L 01/20/20 00:21 Lipase 24 U/L (22-51) 01/20/20 00:21 Urine Color YELLOW 01/20/20 00:04 Urine Clarity CLEAR (CLEAR) 01/20/20 00:04 Urine pH 5.0 PH (5.0-7.5) 01/20/20 00:04 Ur Specific [place] 1.020 (1.002-1.030) 01/20/20 00:04 Urine Protein NEGATIVE mg/dL (NEGATIVE) 01/20/20 00:04 Urine Glucose (UA) NEGATIVE mg/dL (NEGATIVE) 01/20/20 00:04 Urine Ketones NEGATIVE mg/dL (NEGATIVE) 01/20/20 00:04 Urine Occult Blood MODERATE (NEGATIVE) H 01/20/20 00:04 Urine Nitrite NEGATIVE (NEGATIVE) 01/20/20 00:04 Urine Bilirubin NEGATIVE (NEGATIVE) 01/20/20 00:04 Urine Urobilinogen 0.2 (NORMAL) E.U./dL (NORMAL) 01/20/20 00:04 Ur Leukocyte Esterase NEGATIVE (NEGATIVE) 01/20/20 00:04 Urine RBC 6-10 /HPF (0-5) H 01/20/20 00:04 Urine WBC 0-3 /HPF (0-5) 01/20/20 00:04 Ur Squamous Epith Cells MANY Squamous (<= Few) H 01/20/20 00:04 Urine Bacteria Rare /HPF (None Seen) 01/20/20 00:04 Urine Casts 3-5 Hyaline Casts /LPF 01/20/20 00:04 Ur Microscopic Review INDICATED 01/20/20 00:04 Urine Culture Comments NOT INDICATED 01/20/20 00:04 Nasal Screen MRSA (PCR) NEGATIVE (NEGATIVE) 01/20/20 05:45 Last Dose Date UNK 01/25/20 08:20 Last Dose Time K 01/25/20 08:20 Vancomycin Trough 24.4 ug/mL (10.0-20.0) H 01/25/20 08:20 Sepsis Event Note (H) - Evaluation Current Stage of Sepsis: Ruled out ABX Reporting Has patient been on IV antibiotics over the past 48 hours?: Yes Current Medications - Current Medications Current Medications: Active Medications Acetaminophen (Tylenol) 650 mg PO Q4HR PRN PRN Reason: Pain or Fever > 38C (100.4F) Last Admin: 01/25/20 09:23 Dose: 650 mg Documented by: Apixaban (Eliquis) 5 mg PO BID [facility] Last Admin: 01/25/20 09:22 Dose: 5 mg Documented by: Atenolol (Tenormin) 150 mg PO DAILY [facility] Last Admin: 01/25/20 09:21 Dose: 150 mg Documented by: Diltiazem HCl (Cardizem Cd) 120 mg PO DAILY [facility] Last Admin: 01/25/20 09:23 Dose: 120 mg Documented by: Furosemide (Lasix Inj 40 Mg Vial) 40 mg IVP BIDDIURETIC [facility] Last Admin: 01/25/20 06:12 Dose: 40 mg Documented by: Gabapentin (Neurontin) 300 mg PO BID AYAZ Last Admin: 01/25/20 09:23 Dose: 300 mg Documented by: Ceftriaxone Sodium 1 gm/ (Sodium Chloride) 100 mls @ 200 mls/hr IV DAILY [facility] Last Infusion: 01/25/20 10:10 Dose: Infused Documented by: Vancomycin HCl 1 gm/Vancomycin HCl 500 mg/ Sodium Chloride 500 mls @ 250 mls/hr IV Q24H [facility] Lidocaine (Lidoderm Patch) 1 patch TOP DAILY PRN PRN Reason: PAIN Last Admin: 01/23/20 09:20 Dose: 1 patch Documented by: Multivitamins/Minerals (Theragran M) 1 tab PO DAILYWM [facility] Last Admin: 01/25/20 09:21 Dose: 1 tab Documented by: Nystatin (Nystop) 1 applic TOP BID [facility] Last Admin: 01/25/20 09:35 Dose: 1 applic Documented by: Oxycodone HCl (Roxicodone) 5 mg PO Q4HR PRN PRN Reason: PAIN Last Admin: 01/25/20 02:18 Dose: 5 mg Documented by: Pantoprazole Sodium (Protonix) 40 mg PO QDAC [facility] Last Admin: 01/25/20 06:13 Dose: 40 mg Documented by: Polyethylene Glycol (Miralax) 17 gm PO DAILY [facility] Last Admin: 01/25/20 09:20 Dose: 17 gm Documented by: Saccharomyces Boulardii (Florastor) 250 mg PO BIDWM [facility] Last Admin: 01/25/20 09:21 Dose: 250 mg Documented by: Sodium Chloride (Normal Saline Flush 0.9%) 10 ml IVP 0100,0900,1700 [facility] Last Admin: 01/25/20 09:27 Dose: 10 ml Documented by: Sodium Chloride (Normal Saline Flush 0.9%) 10 ml IVP PRN PRN PRN Reason: NEEDED PER PROVIDER ORDERS Last Admin: 01/24/20 13:33 Dose: 10 ml Documented by: Gabapentin 300 mg PO BID 08/07/19 Furosemide [Lasix] 20 mg PO DAILY 01/20/20 atenoloL [Atenolol] 150 mg PO DAILY 01/20/20
[2020-01-25] MEDS: SODIUM CHLORIDE FLUSH 0.9% 10 ML SYRINGE IVP PRN (14:47)
[2020-01-25] MEDS: LIDOCAINE PATCH 5% TOP PRN (17:53)
[2020-01-25] MEDS ORDERED: VANCOMYCIN INJ 1 GM, VANCOMYCIN INJ 500 MG in SODIUM CHLORIDE 0.9% 500 ML IV SCH (18:00)
[2020-01-26] MEDS: SODIUM CHLORIDE FLUSH 0.9% 10 ML SYRINGE IVP SCH ×4 (00:36→20:51)
[2020-01-26] MEDS: oxyCODONE 5 MG TABLET PO PRN ×4 (00:36→23:39)
[2020-01-26] MEDS: ACETAMINOPHEN 325 MG TABLET PO PRN ×4 (00:36→23:39)
[2020-01-26 05:22] LABS: BASOPHILS # (AUTO) 0.1 10^3/uL (0.0-0.1); BASOPHILS % (AUTO) 0.6 %; EOSINOPHILS # (AUTO) 0.4 10^3/uL (0.0-0.7); EOSINOPHILS % (AUTO) 3.6 %; HGB - HEMOGLOBIN 9.8 g/dL (12.0-16.0); LYMPHOCYTES # (AUTO) 2.3 10^3/uL (1.5-3.5); LYMPHOCYTES % (AUTO) 20.8 %; MEAN CORPUSCULAR HEMOGLOBIN 26.5 pg (27.0-31.0); MEAN CORPUSCULAR HGB CONC 29.9 g/dL (32.0-36.0); MEAN CORPUSCULAR VOLUME 88.6 fL (81.0-99.0); MEAN PLATELET VOLUME 10.7 fL (7.9-10.8); MONOCYTES # (AUTO) 0.8 10^3/uL (0.0-1.0); MONOCYTES % (AUTO) 7.4 %; NEUTROPHILS # (AUTO) 7.5 10^3/uL (1.5-6.6); NEUTROPHILS % (AUTO) 66.4 %; PLT - PLATELET COUNT 272 10^3/uL (130-450); RED CELL DISTRIBUTION WIDTH 16.4 % (12.0-15.0); WHITE BLOOD COUNT 11.2 x10^3/uL (4.8-10.8)
[2020-01-26 05:44] LABS: CALCIUM 9.1 mg/dL (8.5-10.3); CREATININE 1.1 mg/dL (0.4-1.0); CRP - C-REACTIVE PROTEIN 5.1 mg/dL (0-1.0)
[2020-01-26] MEDS: FUROSEMIDE 40 MG/4 ML VIAL IVP SCH ×2 (06:27→14:50)
[2020-01-26] MEDS: PANTOPRAZOLE 40 MG TABLET PO SCH (06:28)
[2020-01-26] MEDS ORDERED: POTASSIUM CHLORIDE 20 MEQ TABLET PO ONE (07:50)
[2020-01-26] MEDS: MULTIVITAMIN W/MINERALS TABLET PO SCH (10:12)
[2020-01-26] MEDS: POTASSIUM CHLORIDE 20 MEQ TABLET PO SCH (10:12)
[2020-01-26] MEDS: APIXABAN 5 MG TABLET PO SCH ×2 (10:13→20:50)
[2020-01-26] MEDS: SACCHAROMYCES BOULARDII 250 MG CAPSULE PO SCH ×2 (10:13→17:39)
[2020-01-26] MEDS: GABAPENTIN 300 MG CAPSULE PO SCH ×2 (10:13→20:50)
[2020-01-26] MEDS: DOCUSATE SODIUM 250 MG CAPSULE PO SCH (10:15)
[2020-01-26] MEDS: LIDOCAINE PATCH 5% TOP PRN (10:17)
[2020-01-26] MEDS: NYSTATIN POWDER 15 GM TOP SCH ×2 (10:25→20:50)
[2020-01-26] MEDS: polyethylene glycoL 3350 17 GM PACKET PO SCH (10:25)
[2020-01-26] MEDS: diltiaZEM CD 120 MG CAPSULE PO SCH (10:26)
[2020-01-26] MEDS: cefTRIAXone 1 GM in SODIUM CHLORIDE 0.9% MINIBAG 100 ML IV SCH ×2 (10:26→10:34)
[2020-01-26] MEDS: atenoloL 25 MG TABLET PO SCH (10:26)
--- NOTE | 2020-01-26 11:56 | PROVIDER PROGRESS NOTE ---
Assessment/Plan - Problem List (1) Cellulitis Qualifiers: Site of cellulitis of extremity: lower extremity Laterality: unspecified laterality Assessment/Plan: 104, clinically patient's lower extremity cellulitis continue to improve,Erythema and swelling is reduced. CRP continue trending down. WBC is 11. With the deescalated antibiotics to Rocephin and Doxycycline. Continue probiotics. social work seek for placement for pt. 10, Improved, swollen and erythema reduced. WBC normal, CRP continue trending down. Continue antibiotics 01/23,Pt's Lower extremity swelling and erythema is better. WBC is normal. Repeated blood blood culture is negative. Continue antibiotics Patient's left lower extremity and foot is still warmth, mild to moderate swollen and erythema. continue vancomycin, Rocephin Arterial brachial indices is unremarkable (2)lymphedema 103,stable, continue rise bilateral lower extremities, stock and wrap Lower extremity. 102,Encourage patient has ambulation As possible, Continue diuretics, continue rise of patient lower extremity to help Blood return. Continue nursing care for lymphedema Patient present bilaterally lower extremity lymphedema. Patient reported lymphedema was diagnosis on last year March. Encourage patient has some ambulation, rise lower extremity (3) Staphylococcus epidermidis bacteremia 01/23, Blood culture show patient has 1 tubal with Staph epidermidis, Repeated blood culture both tube show negative. Patient has no fever, patient WBC become normal. it is high possibility from contamination. (4) Right shoulder pain 01/25 Pain improved, after the patient had steroid and loaded with lidocaine injection to her right shoulder. 01/23 Patient has steroid with lidocaine injection into her right shoulder on the morning. We will continue pain control, continue physical therapist and occupational therapist (5) Atrial fibrillation with RVR 104,Heart rate was control around at 90. 103,Improved, heart rate is 94. Blood pressure is as of her baseline. 102, patient's heart 's pulse is still 114. Patient already have 150 mg atenolol daily. We will add Cardizem 120 mg CD daily, it seems Patient's blood pressure can tolerate it. Continue color television console monitor, continue vital signs monitor Improved, patient HR is 103 now. continue Patient's atenolol 150 mg p.o. daily resumed. Her heart rate today is 98-101 for most of day. Rarely up to 118 Eliquis 5 mg p.o. twice daily Echo done for atrial fibrillation shows ejection fraction 50 to 55%. Mild to moderate abnormal right heart pressures. RVSP 50 mm. As compared to echo August 08, 2019, pulmonary arterial systolic pressure increased. Inferior vena cava dilated. Her ejection fraction is also mildly decreased from previous echo which was 60 to 65%. Left atrium has a severe increase EYES: PERRL, EOMI, no discharge or injection. No scleral icterus. As does right atrium. 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 Patient was seen by palliative care Her primary goal is to be able to walk again and be able to gain more independence Patient has experienced a significant decline in her physical strength and ability over the past 1.5 years She has been bedridden for the past 2 weeks Patient is open to transferring to a long-term facility for intensive rehabilitation when medically cleared to do so. (7)weakness Patient present weakness, continue physical therapist occupational therapist, patient agreement to be discharge to SNF as medical stable. - Current Meds Current Meds: Current Medications Generic Name Dose Route Start Last Admin Trade Name Freq PRN Reason Stop Dose Admin Acetaminophen 650 mg 01/20/20 16:09 01/26/20 10:13 Tylenol PO 650 mg Q4HR PRN Administration Pain or Fever > 38C (100.4F) Apixaban 5 mg 01/20/20 21:00 01/26/20 10:13 Eliquis PO 5 mg BID AYAZ Administration Atenolol 150 mg 01/21/20 09:00 01/26/20 10:26 Tenormin PO 150 mg DAILY AYAZ Administration Diltiazem HCl 120 mg 01/24/20 09:00 01/26/20 10:26 Cardizem Cd PO 120 mg DAILY AYAZ Administration Docusate Sodium 250 - 500 mg 01/26/20 09:00 01/26/20 10:15 Colace 250mg Capsule PO 500 mg DAILY AYAZ Administration Furosemide 40 mg 01/20/20 14:00 01/26/20 06:27 Lasix Inj 40 Mg Vial IVP 40 mg BIDDIURETIC AYAZ Administration Gabapentin 300 mg 01/20/20 21:00 01/26/20 10:13 Neurontin PO 300 mg BID AYAZ Administration Ceftriaxone Sodium 1 gm/ 100 mls @ 200 mls/hr 01/21/20 09:00 01/26/20 10:34 Sodium Chloride IV 200 mls/hr DAILY AYAZ Administration Lidocaine 1 patch 01/22/20 20:49 01/26/20 10:17 Lidoderm Patch TOP 1 patch DAILY PRN Administration PAIN Multivitamins/Minerals 1 tab 01/22/20 17:00 01/26/20 10:12 Theragran M PO 1 tab DAILYWM AYAZ Administration Nystatin 1 applic 01/20/20 16:10 01/26/20 10:25 Nystop TOP 1 applic BID AYAZ Administration Oxycodone HCl 5 mg 01/22/20 04:23 01/26/20 10:13 Roxicodone PO 5 mg Q4HR PRN Administration PAIN Pantoprazole Sodium 40 mg 01/20/20 07:00 01/26/20 06:28 Protonix PO 40 mg QDAC AYAZ Administration Polyethylene Glycol 17 gm 01/25/20 09:00 01/26/20 10:25 Miralax PO 17 gm DAILY AYAZ Administration Potassium Chloride 20 meq 01/26/20 08:00 01/26/20 10:12 K-Dur PO 20 meq DAILYWM AYAZ Administration Saccharomyces Boulardii 250 mg 01/22/20 17:00 01/26/20 10:13 Florastor PO 250 mg BIDWM AYAZ Administration Sodium Chloride 10 ml 01/20/20 09:00 01/26/20 10:25 Normal Saline Flush 0.9% IVP 10 ml 0100,0900,1700 AYAZ Administration Sodium Chloride 10 ml 01/20/20 03:51 01/25/20 14:47 Normal Saline Flush 0.9% IVP 10 ml PRN PRN Administration NEEDED PER PROVIDER ORDERS - Lab Result Fish Bone Diagrams: 01/26/20 04:50 01/26/20 04:50 - Additional Planning My Orders: My Active Orders 01/26/20 08:00 Potassium Chloride [K-Dur] 20 meq PO DAILYWM 01/26/20 11:00 Doxycycline [Vibramycin] 100 mg PO BID 01/26/20 11:40 Cyclobenzaprine [Flexeril] 10 mg PO TID PRN 01/27/20 05:00 BMP - BASIC METABOLIC PANEL [CHEM] DAILYLAB CBC - COMP BLD CT W/AUTO DIFF [HEME] DAILYLAB 01/28/20 05:00 BMP - BASIC METABOLIC PANEL [CHEM] DAILYLAB CBC - COMP BLD CT W/AUTO DIFF [HEME] DAILYLAB Subjective - Subjective Patient Reports: Feeling Better Objective Vital Signs: Vital Signs - 24 hr 01/25/20 01/25/20 01/25/20 13:00 15:42 20:15 Temperature 36.4 C L 36.8 C 36.4 C L Heart Rate [ 92 93 97 Brachial] Respiratory 18 16 16 Rate Blood Pressure 132/74 H 126/79 [Right Brachial artery] Blood Pressure 118/68 [Right Radial artery] O2 Saturation 97 96 100 01/26/20 01/26/20 01/26/20 00:46 05:27 08:19 Temperature 36.9 C 36.5 C 36.5 C Heart Rate [ 85 95 63 Brachial] Respiratory 16 20 18 Rate Blood Pressure 120/79 124/73 116/68 [Right Brachial artery] Blood Pressure [Right Radial artery] O2 Saturation 98 99 98 01/26/20 10:28 Temperature Heart Rate [ 93 Brachial] Respiratory Rate Blood Pressure [Right Brachial artery] Blood Pressure 135/81 H [Right Radial artery] O2 Saturation Oxygen O2 Source [With Activity] Room air O2 Source Room air I&O (Last 24 Hrs): Intake and Output Totals x24h 01/24/20 01/25/20 01/26/20 23:59 23:59 23:59 Intake Total 1790 2316 420 Output Total 1650 825 250 Balance 140 1491 170 General: Alert, Oriented x3, No acute distress HEENT: Atraumatic Neck: Supple Lymphatic: no adenopathy Neuro: Alert, Non Focal, Oriented Times 3 Cardiovascular: Regular rate, Normal S1, Normal S2 Respiratory: Chest non-tender, No respiratory distress Abdomen: Normal bowel sounds, Soft Extremities: Normal pulses - Results Results: Laboratory Results WBC 11.2 x10^3/uL (4.8-10.8) H 01/26/20 04:50 RBC 3.70 10^6/uL (4.20-5.40) L 01/26/20 04:50 Hgb 9.8 g/dL (12.0-16.0) L 01/26/20 04:50 Hct 32.8 % (37.0-47.0) L 01/26/20 04:50 MCV 88.6 fL (81.0-99.0) 01/26/20 04:50 MCH 26.5 pg (27.0-31.0) L 01/26/20 04:50 MCHC 29.9 g/dL (32.0-36.0) L 01/26/20 04:50 RDW 16.4 % (12.0-15.0) H 01/26/20 04:50 Plt Count 272 10^3/uL (130-450) 01/26/20 04:50 MPV 10.7 fL (7.9-10.8) 01/26/20 04:50 Neut # (Auto) 7.5 10^3/uL (1.5-6.6) H 01/26/20 04:50 Lymph # (Auto) 2.3 10^3/uL (1.5-3.5) 01/26/20 04:50 Guthrie # (Auto) 0.8 10^3/uL (0.0-1.0) 01/26/20 04:50 Eos # (Auto) 0.4 10^3/uL (0.0-0.7) 01/26/20 04:50 Baso # (Auto) 0.1 10^3/uL (0.0-0.1) 01/26/20 04:50 Absolute Nucleated RBC 0.00 x10^3/uL 01/26/20 04:50 Total Counted 100 01/23/20 04:30 Band Neuts % (Manual) 0 % (0-10) 01/23/20 04:30 Abnorm Lymph % (Manual) 0 % 01/23/20 04:30 Nucleated RBC % 0.0 /100WBC 01/26/20 04:50 Neutrophils # (Manual) 6.6 10^3/uL (1.5-6.6) 01/23/20 04:30 Lymphocytes # (Manual) 1.9 10^3/uL (1.5-3.5) 01/23/20 04:30 Monocytes # (Manual) 0.9 10^3/uL (0.0-1.0) 01/23/20 04:30 Eosinophils # (Manual) 0.5 10^3/uL (0-0.7) 01/23/20 04:30 Basophils # (Manual) 0.1 10^3/uL (0-0.1) 01/23/20 04:30 Differential Comment MANUAL DIFFERENTIAL 01/23/20 04:30 Platelet Estimate NORMAL (130-450,000) (NORMAL) 01/23/20 04:30 RBC Morph Micro Appear NORMAL APPEARANCE (NORMAL) 01/23/20 04:30 PT 30.0 secs (9.9-12.6) H 01/20/20 00:21 INR 2.9 (0.8-1.2) H 01/20/20 00:21 APTT 36.9 secs (24.9-33.3) H 01/20/20 00:21 Sodium 141 mmol/L (135-145) 01/26/20 04:50 Potassium 3.4 mmol/L (3.5-5.0) L 01/26/20 04:50 Chloride 102 mmol/L (101-111) 01/26/20 04:50 Carbon Dioxide 29 mmol/L (21-32) 01/26/20 04:50 Anion Gap 10.0 (6-13) 01/26/20 04:50 BUN 28 mg/dL (6-20) H 01/26/20 04:50 Creatinine 1.1 mg/dL (0.4-1.0) H 01/26/20 04:50 Estimated GFR (MDRD) 49 (>89) L 01/26/20 04:50 Glucose 106 mg/dL (70-100) H 01/26/20 04:50 Lactic Acid 1.3 mmol/L (0.5-2.2) 01/20/20 01:45 Calcium 9.1 mg/dL (8.5-10.3) 01/26/20 04:50 Phosphorus 4.4 mg/dL (2.5-4.6) 01/23/20 04:30 Magnesium 2.3 mg/dL (1.7-2.8) 01/23/20 04:30 Total Bilirubin 0.9 mg/dL (0.2-1.0) 01/20/20 00:21 AST 18 IU/L (10-42) 01/20/20 00:21 ALT 21 IU/L (10-60) 01/20/20 00:21 Alkaline Phosphatase 47 IU/L (42-121) 01/20/20 00:21 Total Creatine Kinase 93 IU/L (22-269) 01/20/20 00:21 Troponin I High Sens 5.0 ng/L (2.3-14.8) 01/20/20 00:21 C-Reactive Protein 5.1 mg/dL (0-1.0) H 01/26/20 04:50 B-Natriuretic Peptide 522 pg/mL (5-100) H 01/22/20 04:20 Total Protein 7.1 g/dL (6.7-8.2) 01/20/20 00:21 Albumin 3.3 g/dL (3.2-5.5) 01/20/20 00:21 Globulin 3.8 g/dL (2.1-4.2) 01/20/20 00:21 Albumin/Globulin Ratio 0.9 (1.0-2.2) L 01/20/20 00:21 Lipase 24 U/L (22-51) 01/20/20 00:21 Urine Color YELLOW 01/20/20 00:04 Urine Clarity CLEAR (CLEAR) 01/20/20 00:04 Urine pH 5.0 PH (5.0-7.5) 01/20/20 00:04 Ur Specific Almond 1.020 (1.002-1.030) 01/20/20 00:04 Urine Protein NEGATIVE mg/dL (NEGATIVE) 01/20/20 00:04 Urine Glucose (UA) NEGATIVE mg/dL (NEGATIVE) 01/20/20 00:04 Urine Ketones NEGATIVE mg/dL (NEGATIVE) 01/20/20 00:04 Urine Occult Blood MODERATE (NEGATIVE) H 01/20/20 00:04 Urine Nitrite NEGATIVE (NEGATIVE) 01/20/20 00:04 Urine Bilirubin NEGATIVE (NEGATIVE) 01/20/20 00:04 Urine Urobilinogen 0.2 (NORMAL) E.U./dL (NORMAL) 01/20/20 00:04 Ur Leukocyte Esterase NEGATIVE (NEGATIVE) 01/20/20 00:04 Urine RBC 6-10 /HPF (0-5) H 01/20/20 00:04 Urine WBC 0-3 /HPF (0-5) 01/20/20 00:04 Ur Squamous Epith Cells MANY Squamous (<= Few) H 01/20/20 00:04 Urine Bacteria Rare /HPF (None Seen) 01/20/20 00:04 Urine Casts 3-5 Hyaline Casts /LPF 01/20/20 00:04 Ur Microscopic Review INDICATED 01/20/20 00:04 Urine Culture Comments NOT INDICATED 01/20/20 00:04 Nasal Screen MRSA (PCR) NEGATIVE (NEGATIVE) 01/20/20 05:45 Last Dose Date UNK 01/25/20 08:20 Last Dose Time UNK 01/25/20 08:20 Vancomycin Trough 24.4 ug/mL (10.0-20.0) H 01/25/20 08:20 Sepsis Event Note (H) - Evaluation Current Stage of Sepsis: Ruled out ABX Reporting Has patient been on IV antibiotics over the past 48 hours?: Yes Current Medications - Current Medications Current Medications: Active Medications Acetaminophen (Tylenol) 650 mg PO Q4HR PRN PRN Reason: Pain or Fever > 38C (100.4F) Last Admin: 01/26/20 10:13 Dose: 650 mg Documented by: Apixaban (Eliquis) 5 mg PO BID [facility] Last Admin: 01/26/20 10:13 Dose: 5 mg Documented by: Atenolol (Tenormin) 150 mg PO DAILY [facility] Last Admin: 01/26/20 10:26 Dose: 150 mg Documented by: Cyclobenzaprine HCl (Flexeril) 10 mg PO TID PRN PRN Reason: Spasms Diltiazem HCl (Cardizem Cd) 120 mg PO DAILY [facility] Last Admin: 01/26/20 10:26 Dose: 120 mg Documented by: Docusate Sodium (Colace 250mg Capsule) 250 - 500 mg PO DAILY [facility] Last Admin: 01/26/20 10:15 Dose: 500 mg Documented by: Doxycycline Hyclate (Vibramycin) 100 mg PO BID [facility] Furosemide (Lasix Inj 40 Mg Vial) 40 mg IVP BIDDIURETIC [facility] Last Admin: 01/26/20 06:27 Dose: 40 mg Documented by: Gabapentin (Neurontin) 300 mg PO BID [facility] Last Admin: 01/26/20 10:13 Dose: 300 mg Documented by: Ceftriaxone Sodium 1 gm/ (Sodium Chloride) 100 mls @ 200 mls/hr IV DAILY [facility] Last Admin: 01/26/20 10:34 Dose: 200 mls/hr Documented by: Lidocaine (Lidoderm Patch) 1 patch TOP DAILY PRN PRN Reason: PAIN Last Admin: 01/26/20 10:17 Dose: 1 patch Documented by: Multivitamins/Minerals (Theragran M) 1 tab PO DAILYWM [facility] Last Admin: 01/26/20 10:12 Dose: 1 tab Documented by: Nystatin (Nystop) 1 applic TOP BID [facility] Last Admin: 01/26/20 10:25 Dose: 1 applic Documented by: Oxycodone HCl (Roxicodone) 5 mg PO Q4HR PRN PRN Reason: PAIN Last Admin: 01/26/20 10:13 Dose: 5 mg Documented by: Pantoprazole Sodium (Protonix) 40 mg PO QDAC [facility] Last Admin: 01/26/20 06:28 Dose: 40 mg Documented by: Polyethylene Glycol (Miralax) 17 gm PO DAILY [facility] Last Admin: 01/26/20 10:25 Dose: 17 gm Documented by: Potassium Chloride (K-Dur) 20 meq PO DAILYWM [facility] Last Admin: 01/26/20 10:12 Dose: 20 meq Documented by: Saccharomyces Boulardii (Florastor) 250 mg PO BIDWM [facility] Last Admin: 01/26/20 10:13 Dose: 250 mg Documented by: Sodium Chloride (Normal Saline Flush 0.9%) 10 ml IVP 0100,0900,1700 [facility] Last Admin: 01/26/20 10:25 Dose: 10 ml Documented by: Sodium Chloride (Normal Saline Flush 0.9%) 10 ml IVP PRN PRN PRN Reason: NEEDED PER PROVIDER ORDERS Last Admin: 01/25/20 14:47 Dose: 10 ml Documented by: Gabapentin 300 mg PO BID 08/07/19 Furosemide [Lasix] 20 mg PO DAILY 01/20/20 atenoloL [Atenolol] 150 mg PO DAILY 01/20/20
[2020-01-26] MEDS: DOXYCYCLINE 100 MG TABLET PO SCH ×2 (12:20→20:50)
[2020-01-26] MEDS: CYCLOBENZAPRINE 10 MG TABLET PO PRN (12:21)
[2020-01-26] MEDS: SODIUM CHLORIDE FLUSH 0.9% 10 ML SYRINGE IVP PRN (14:50)
[2020-01-26] MEDS ORDERED: SIMETHICONE CHEW 80 MG TABLET PO PRN (15:12)
[2020-01-27] MEDS: oxyCODONE 5 MG TABLET PO PRN (03:52)
[2020-01-27] MEDS: ACETAMINOPHEN 325 MG TABLET PO PRN ×2 (03:52→09:41)
[2020-01-27] MEDS ORDERED: SENNA 8.6 MG TABLET PO SCH ×2 (04:00→08:00)
[2020-01-27 05:34] LABS: BASOPHILS # (AUTO) 0.1 10^3/uL (0.0-0.1); BASOPHILS % (AUTO) 0.6 %; EOSINOPHILS # (AUTO) 0.5 10^3/uL (0.0-0.7); EOSINOPHILS % (AUTO) 4.8 %; HGB - HEMOGLOBIN 9.3 g/dL (12.0-16.0); LYMPHOCYTES % (AUTO) 21.2 %; MEAN CORPUSCULAR HEMOGLOBIN 26.4 pg (27.0-31.0); MEAN CORPUSCULAR HGB CONC 29.5 g/dL (32.0-36.0); MEAN CORPUSCULAR VOLUME 89.5 fL (81.0-99.0); MONOCYTES % (AUTO) 10.1 %; NEUTROPHILS # (AUTO) 5.9 10^3/uL (1.5-6.6); NEUTROPHILS % (AUTO) 62.5 %; PLT - PLATELET COUNT 224 10^3/uL (130-450); RED BLOOD COUNT 3.52 10^6/uL (4.20-5.40); RED CELL DISTRIBUTION WIDTH 16.3 % (12.0-15.0); WHITE BLOOD COUNT 9.5 x10^3/uL (4.8-10.8)
[2020-01-27] MEDS: FUROSEMIDE 40 MG/4 ML VIAL IVP SCH (06:42)
[2020-01-27] MEDS ORDERED: METOPROLOL TARTRATE 50 MG TABLET PO SCH (09:00)
[2020-01-27] MEDS: GABAPENTIN 300 MG CAPSULE PO SCH (09:39)
[2020-01-27] MEDS: polyethylene glycoL 3350 17 GM PACKET PO SCH (09:39)
[2020-01-27] MEDS: SACCHAROMYCES BOULARDII 250 MG CAPSULE PO SCH (09:39)
[2020-01-27] MEDS: DOXYCYCLINE 100 MG TABLET PO SCH (09:39)
[2020-01-27] MEDS: POTASSIUM CHLORIDE 20 MEQ TABLET PO SCH (09:40)
[2020-01-27] MEDS: MULTIVITAMIN W/MINERALS TABLET PO SCH (09:40)
[2020-01-27] MEDS: diltiaZEM CD 120 MG CAPSULE PO SCH (09:40)
[2020-01-27] MEDS: APIXABAN 5 MG TABLET PO SCH (09:40)
[2020-01-27] MEDS: DOCUSATE SODIUM 250 MG CAPSULE PO SCH (10:22)
[2020-01-27] MEDS: CYCLOBENZAPRINE 10 MG TABLET PO PRN (10:22)
[2020-01-27] MEDS: NYSTATIN POWDER 15 GM TOP SCH (10:23)
[2020-01-27] MEDS: SODIUM CHLORIDE FLUSH 0.9% 10 ML SYRINGE IVP SCH (10:23)
--- NOTE | 2020-01-27 10:33 | PHARMACY PROGRESS NOTE ---
- Monitoring Indication for anticoagulation: Atrial Fibrillation Previous home regime: APIXABAN 5MG BID Potentially interacting medications: NONE Other anticoagulation: None Risk factors for bleed: Hypertension, Heart disease or GA, Age >65 - Recommendations Dosing: Anticoagulation Monitoring 01/27/20 01/26/20 01/25/20 05:25 04:50 04:50 Hgb 9.3 L 9.8 L 9.6 L Hct 31.5 L 32.8 L 33.0 L PT INR 01/24/20 01/23/20 01/22/20 05:15 04:30 04:20 Hgb 9.7 L 10.2 L 9.3 L Hct 31.4 L 33.7 L 30.1 L PT INR 01/21/20 01/20/20 01/20/20 04:59 05:58 00:21 Hgb 8.8 L 9.6 L Hct 29.3 L 31.0 L PT 30.0 H INR 2.9 H 01/20/20 00:21 Hgb 10.1 L Hct 33.4 L PT INR Last Dose Given: S&S of bleeding: Pharmacy recommendation: Continue current regime
--- NOTE | 2020-01-27 10:41 | DISCHARGE SUMMARY ---
"Discharge Summary Admit Date: 01/20/20 Discharge Date: 01/27/20 Discharging Provider: Benjamin Zhou Primary Care Provider: Benita Contreras Code Status: Attempt Resuscitation Condition at Discharge: Stable Discharge Disposition: SNF DC/Xfer Discharge Facility [facility]: [facility] - DIAGNOSES Admission Diagnoses: Atrial fibrillation with rapid ventricular response Anasarca Pneumonia Multiple system atrophy with cerebellar features Discharge Diagnoses with Status of Each Condition: Cellulitis of left lower extremity - improved. Staphylococcus bacteremia - resolved. This was felt to be contaminant given it was only in 1 set of blood cultures and repeat has remained negative. Right shoulder pain - stable. Atrial fibrillation - stable. Multiple system atrophy with cerebellar features - stable. - HPI History of Present Illness: H&P per Dr. Ordonez: Patient is a 69-year-old female with Multisystem atrophy (MSA) with cerebellar features (initially thought to be atypical Parkinson's) who presents to the ED today with dyspnea. Her symptoms have been going on for the past 2 days and worsening. She has been wheezing and has a mild cough. She denies chest pain, abdominal pain, nausea, vomiting, fever or chills. However she complains of feeling hot. She was last admitted to the hospital in November with dehydration. Due to her MSA she normally gets around her house using a walker or a wheelchair with the assistance of another person. Lately her daughter who is a correspondence school teacher and lives in [place] has been living with her in her house in [place]. However over the past 2 weeks the patient has been bedridden. She has chronic lymphedema and today upon presentation she has significant anasarca with weeping lower extremities. Her wheeze is audible. She was also found to be in atrial fibrillation with rapid ventricular rhythm. With a heart rate as high as 150. She has history of atrial fibrillation and is on Eliquis, digoxin and atenolol. Finally work-up included a chest x-ray which reported infiltrates suggestive of pneumonia. He also had a white blood cell count of 13.5. As a result of the above she was started on diltiazem and is being admitted for further treatment. - CONSULTS | PROCEDURES Consultations: Palliative Care, Social Work, PT Procedures: Occult brachial index on January 21 of the bilateral legs was unremarkable. CT angiogram of the chest on January 19 was a poor study due to motion artifact. No pulmonary emboli. Anasarca. Questionable perihilar atelectasis versus motion. Chest x-ray summer showed minimal increased left lingular opacity. Please see CT chest report. - HOSPITAL COURSE Hospital Course: She was admitted to the floor for atrial fibrillation with rapid ventricular response. She was placed in the ICU on a diltiazem drip. Imaging was concerning for possible pneumonia and so she was started on ceftriaxone and azithromycin IV empirically. She was also diuresed with Lasix 40 mg IV twice daily given she appeared edematous. An echocardiogram was obtained which showed an ejection fraction of 50 to 55%. She may have a component of diastolic dysfunction but this was unable to be assessed given she was in atrial fibrillation. Her home atenolol dose was resumed at 150 mg daily and her home Eliquis was continued. Her heart rate became controlled on diltiazem and she was transitioned to oral Cardizem in addition to her home atenolol. After reviewing her imaging, it was felt less likely that she had pneumonia and so the azithromycin was discontinued. She was kept on ceftriaxone and vancomycin was added as it was noted her left lower extremity was quite erythematous and warm to touch and so there was concern for a cellulitis. Her CRP was also quite elevated at greater than 20. This trended down throughout her hospitalization and is now 5.1. Her white count has also normalized. Her initial set of blood cultures grew staph epidermidis in the aerobic and anaerobic bottle of the same set. The other set of blood cultures were negative. Repeat blood cultures remain negative to date. It was felt that this was likely a contaminant. Her echocardiogram did not reveal any obvious vegetation and she has remained afebrile with a normal white count. She was transitioned to oral doxycycline which she will need to continue for 7 more days. We decided on a 14-day course of treatment given the extent of her cellulitis initially. ABIs performed during this hospitalization were unremarkable. She will be discharged on diltiazem 120 mg daily for atrial fibrillation. She previously was on atenolol 150 mg daily but this is above the recommended dose of atenolol and so she was changed to metoprolol 100 mg twice daily. She received the first dose of this the day of discharge. We will continue on Eliquis for anticoagulation. She will need to continue to follow-up with her neurologist and palliative care given her multiple system atrophy with cerebellar features. She may benefit from a second opinion regarding her neurologic decline over the past year and a half. She does have chronic right shoulder pain and one of our providers here injected her with lidocaine and Depo-Medrol on January 23. She has done well since that this injection from a pain perspective. The patient was also evaluated by palliative care during this hospitalization. She decided to be a full code at this time. They will continue outpatient follow-up with the patient. - ALLERGIES Allergies/Adverse Reactions: Allergies Allergy/AdvReac Type Severity Reaction Status Date / Time warfarin AdvReac Nausea Verified 12/16/19 17:31 - MEDICATIONS Home Medications: Ambulatory Orders Medication Instructions Recorded Confirmed Gabapentin 300 mg PO BID 08/07/19 01/20/20 Apixaban [Eliquis] 5 mg PO BID tablet 08/10/19 01/20/20 Furosemide [Lasix] 20 mg PO DAILY 01/20/20 01/20/20 Doxycycline [Vibramycin] 100 mg PO BID #14 tablet 01/27/20 Metoprolol Tartrate [Lopressor] 100 mg PO BID #120 tablet 01/27/20 diltiaZEM CD [Cardizem Cd] 120 mg PO DAILY #30 capsule 01/27/20 - PHYSICAL EXAM AT DISCHARGE General Appearance: positive: No acute distress, Alert Eyes Bilateral: positive: Normal inspection, Conjunctivae nml ENT: positive: ENT inspection nml Neck: positive: Nml inspection Respiratory: positive: No respiratory distress, Other (Diminished in bases.). negative: Wheezes, Rales Cardiovascular: positive: No murmur, Irregularly irregular. negative: Tachycardia, Bradycardia, Systolic murmur Abdomen: positive: Non-tender, No distention. negative: Tenderness Skin: positive: Other (She has chronic venous stasis skin changes over her bilateral feet. Dressing in place bilaterally over her shins. Her foot is no longer warm or tender to touch.) Extremities: positive: Pedal edema (She has about +1 to +2 pitting edema in her bilateral lower extremities up to her thighs.), Other (Range of motion in the right shoulder is limited secondary to pain. No obvious erythema or edema.) Neurologic/Psychiatric: positive: Oriented x3, Other. negative: Disoriented to person, Disoriented to place, Disoriented to time Physical Exam Other/Comments: Vital Signs - 24 hr 01/26/20 01/27/20 01/27/20 20:48 00:27 06:01 Temperature 36.8 C 36.4 C L 36.0 C L Heart Rate [ 85 77 Brachial] Heart Rate [ Monitoring electrodes] Heart Rate [ 115 H Radial] Respiratory 20 18 Rate Blood Pressure Blood Pressure 123/64 [Right Brachial artery] Blood Pressure 130/84 H 120/78 [Right Radial artery] O2 Saturation 100 100 99 01/27/20 01/27/20 01/27/20 09:00 10:23 13:00 Temperature 36.4 C L 36.6 C Heart Rate [ Brachial] Heart Rate [ 94 101 H Monitoring electrodes] Heart Rate [ Radial] Respiratory 18 20 Rate Blood Pressure 133/85 H Blood Pressure 119/68 109/55 L [Right Brachial artery] Blood Pressure [Right Radial artery] O2 Saturation 96 97 Oxygen O2 Source [With Activity] Room air O2 Source Room air - LABS Result Diagrams: 01/27/20 05:25 01/27/20 05:25 - DIAGNOSTIC IMAGING Diagnostic Imaging Results: Final report reviewed - SEPSIS Current Stage of Sepsis: Ruled out - FOLLOW UP Follow Up: She will need outpatient follow-up with her primary care provider and neurologist. - TIME SPENT Time Spent in Discharge (Minutes): 34"
--- NOTE | 2020-01-27 10:41 | Discharge Plan ---
"Discharge Plan for SNF / [facility] - Discharge Plan And Transition Orders Problem Reviewed?: Yes Disposition: 03 SNF DC/Xfer Condition: Stable Allergies and Adverse Reactions: Allergies Allergy/AdvReac Type Severity Reaction Status Date / Time warfarin AdvReac Nausea Verified 12/16/19 17:31 Health Concerns: She was admitted to the floor for atrial fibrillation with rapid ventricular response. She was placed in the ICU on a diltiazem drip. Imaging was concerning for possible pneumonia and so she was started on ceftriaxone and azithromycin IV empirically. She was also diuresed with Lasix 40 mg IV twice daily given she appeared edematous. An echocardiogram was obtained which showed an ejection fraction of 50 to 55%. She may have a component of diastolic dysfunction but this was unable to be assessed given she was in atrial fibrillation. Her home atenolol dose was resumed at 150 mg daily and her home Eliquis was continued. Her heart rate became controlled on diltiazem and she was transitioned to oral Cardizem in addition to her home atenolol. After reviewing her imaging, it was felt less likely that she had pneumonia and so the azithromycin was discontinued. She was kept on ceftriaxone and vancomycin was added as it was noted her left lower extremity was quite erythematous and warm to touch and so there was concern for a cellulitis. Her CRP was also quite elevated at greater than 20. This trended down throughout her hospitalization and is now 5.1. Her white count has also normalized. Her initial set of blood cultures grew staph epidermidis in the aerobic and anaerobic bottle of the same set. The other set of blood cultures were negative. Repeat blood cultures remain negative to date. It was felt that this was likely a contaminant. Her echocardiogram did not reveal any obvious vegetation and she has remained afebrile with a normal white count. She was transitioned to oral doxycycline which she will need to continue for 7 more days. We decided on a 14-day course of treatment given the extent of her cellulitis initially. ABIs performed during this hospitalization were unremarkable. She will be discharged on diltiazem 120 mg daily for atrial fibrillation. She previously was on atenolol 150 mg daily but this is above the recommended dose of atenolol and so she was changed to metoprolol 100 mg twice daily. She received the first dose of this the day of discharge. Her heart rate will need to be monitored to ensure it is adequately controlled. We will continue on Eliquis for anticoagulation. She will need to continue to follow-up with her neurologist and palliative care given her multiple system atrophy with cerebellar features. She may benefit from a second opinion regarding her neurologic decline over the past year and a half. He does have chronic right shoulder pain and one of our providers here injected her with lidocaine and Depo-Medrol on January 23. She has done well since that this injection from a pain perspective. Plan of Treatment: Continue doxycycline 100 mg twice daily for 7 more days to complete therapy for her left lower extremity cellulitis. She will be started on diltiazem 120 mg daily for atrial fibrillation. Her atenolol was discontinued and she started on metoprolol 100 mg twice daily. She will continue on Eliquis for anticoagulation. She also continue on daily Lasix 20 mg given her lower extremity edema. - SNF / [facility] Transition Orders Admit to (Facility): [facility] Discharge Diagnosis: Cellulitis of left lower extremity - improved. Staphylococcus bacteremia - resolved. This was felt to be contaminant given it was only in 1 set of blood cultures and repeat has remained negative. Right shoulder pain - stable. Atrial fibrillation - stable. Multiple system atrophy with cerebellar features - stable. Medicare Certification Statement: I certify that [facility] care is medically necessary on a continuing basis for any of the conditions for which she/he is receiving care during hospitalization. Notify PCP of admission and forward orders to primary provider for signature. Weight on admission and: Weekly Other Notification Orders: Call PCP immediately if patient develops dyspnea, chest pain/tightness or edema. House Bowel Program: Yes Additional Bowel Program Orders: If no BM after 2 days, nurse may give M.O.M. 30ml PO PRN and/or ducolax Supp 1 HI and/or RAJINDER 250mg P.O., and/or senna 1-2 tabs PO. On day 3 nurse may give repeat above order until residents constipation is resolved. Medication Orders: PLEASE REFER TO THE DISCHARGE MEDICATION LIST. Insulin Orders?: No - Medications New Prescriptions: diltiaZEM CD [Cardizem Cd] 120 mg PO DAILY #30 capsule Metoprolol Tartrate [Lopressor] 100 mg PO BID #120 tablet Doxycycline [Vibramycin] 100 mg PO BID #14 tablet - Diet Type: No added salt Texture: Regular Liquids: Thin - Therapies | Activity Therapy: Evaluation | Treat if indicated: PT, OT Activity: Activity as Tolerated Assistance Devices: Walker"
[2020-01-27 14:04] VITALS: BP 109/55
[2020-01-28] MEDS ORDERED: FUROSEMIDE 20 MG TABLET PO SCH (09:00)
== END 2020-01-27 13:00 | DRG 309 ==
LOC: EDUNIT# → ED 23:49 → ICU 01-20 03:51 → MS2 01-23 11:45
PROVIDERS: ADMIT Internal Medicine; ATTEND Internal Medicine
PROC: 3E0U33Z Introduction of Anti-inflammatory into Joints, Percutaneous Approach (ICD-10-PCS; principal; 2020-01-24)
DX: J18.9 Pneumonia, unspecified organism (principal); I48.91 Unspecified atrial fibrillation; I11.0 Hypertensive heart disease with heart failure; I50.9 Heart failure, unspecified; G20 Parkinson's disease; G90.3 Multi-system degeneration of the autonomic nervous system; L03.116 Cellulitis of left lower limb; Z68.41 Body mass index [BMI] 40.0-44.9, adult; E66.9 Obesity, unspecified; I10 Essential (primary) hypertension; M25.511 Pain in right shoulder; G89.29 Other chronic pain; M19.90 Unspecified osteoarthritis, unspecified site; I89.0 Lymphedema, not elsewhere classified; M10.9 Gout, unspecified; R35.0 Frequency of micturition; G25.81 Restless legs syndrome; G47.00 Insomnia, unspecified; Z20.828 Contact with and (suspected) exposure to other viral communicable diseases; Z74.01 Bed confinement status; Z51.5 Encounter for palliative care; Z79.01 Long term (current) use of anticoagulants; Z79.891 Long term (current) use of opiate analgesic; Z79.899 Other long term (current) drug therapy; Z87.440 Personal history of urinary (tract) infections
CPT/HCPCS: 36415; 51702; 71045; 71275; 80048; 80053; 80202; 81001; 82550; 83605; 83690; 83735; 83880; 84100; 84484; 85025; 85610; 85730; 86140; 87040; 87077; 87150; 87181; 93005; 93306; 93922; 96365; 96366; 96375; 97110; 97161; 97166; 97530; 99233; 99291; A9270; J1030; J3370; Q9967; U0004; 81003; 87086

== ENCOUNTER 2020-04-16 09:00 | Outpatient (CLI) | payer MEDICARE, BC ==
[2020-04-16 09:35] LABS: BASOPHILS % (AUTO) 0.2 %; EOSINOPHILS % (AUTO) 0.1 %; HGB - HEMOGLOBIN 11.1 g/dL (12.0-16.0); LYMPHOCYTES % (AUTO) 9.6 %; MEAN CORPUSCULAR HEMOGLOBIN 26.2 pg (27.0-31.0); MEAN CORPUSCULAR HGB CONC 29.1 g/dL (32.0-36.0); MEAN CORPUSCULAR VOLUME 90.1 fL (81.0-99.0); MEAN PLATELET VOLUME 10.8 fL (7.9-10.8); MONOCYTES # (AUTO) 0.7 10^3/uL (0.0-1.0); MONOCYTES % (AUTO) 6.6 %; NEUTROPHILS # (AUTO) 8.2 10^3/uL (1.5-6.6); PLT - PLATELET COUNT 207 10^3/uL (130-450); RED BLOOD COUNT 4.23 10^6/uL (4.20-5.40); RED CELL DISTRIBUTION WIDTH 20.1 % (12.0-15.0); WHITE BLOOD COUNT 9.9 x10^3/uL (4.8-10.8)
[2020-04-16 09:39] LABS: ALBUMIN 4.2 g/dL (3.2-5.5); ALBUMIN/GLOBULIN RATIO 1.1 (1.0-2.2); BILIRUBIN,TOTAL 0.5 mg/dL (0.2-1.0); CALCIUM 9.5 mg/dL (8.5-10.3); CREATININE 1.1 mg/dL (0.4-1.0); TOTAL PROTEIN 7.9 g/dL (6.7-8.2)
[2020-04-16 09:56] LABS: FERRITIN 182.9 ng/mL (11.0-306.8)
[2020-04-16 09:57] LABS: PLATELET ESTIMATE, MANUAL NORMAL (130-450,000) (NORMAL); PLATELET MORPHOLOGY NORMAL APPEARANCE (NORMAL)
== END 2020-04-16 09:01 | disposition home or self-care (01) ==
LOC: LAB 09:00
PROVIDERS: ATTEND Family Medicine
DX: R93.89 Abnormal findings on diagnostic imaging of other specified body structures (principal); H75.82 Other specified disorders of left middle ear and mastoid in diseases classified elsewhere; D64.9 Anemia, unspecified; L65.9 Nonscarring hair loss, unspecified
CPT/HCPCS: 36415; 70491; 80053; 82607; 82728; 83540; 84443; 84466; 85025; Q9967

== ENCOUNTER 2020-04-20 06:30 | Outpatient (CLI) | payer MEDICARE, BC | END 2020-04-20 23:59 | disposition home or self-care (01) | LOC: LAB.R 06:30 | PROVIDERS: ATTEND Family Medicine | DX: D64.9 Anemia, unspecified (principal) | CPT/HCPCS: 82274 ==

== ENCOUNTER 2020-05-14 19:54 | Emergency (ER) | payer MEDICARE, BC ==
--- NOTE | 2020-05-14 20:38 | ED Physician Documentation ---
History of Present Illness - Stated complaint Stated Complaint: LEGS LEAKING FLUID - Chief complaint Chief Complaint: Ext Problem - History obtained from History obtained from: Patient - History of Present Illness Timing: How many minutes ago, Chronic Pain level now: 0 - Additonal information Additional information: BIBA. patient has a complicated PMHx including BLE lymphedema, PD, and possibly multiple system atrophy. patient says her home health aide changed patients BLE bandages today and was concerned about their appearance and the amount of fluid leaking from both legs Review of Systems Constitutional: reports: Reviewed and negative Cardiac: reports: Reviewed and negative Respiratory: reports: Reviewed and negative GI: reports: Reviewed and negative Musculoskeletal: reports: Extremity swelling. 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 : Chronic bladder infection, Frequency HEENT: Chronic hearing loss Psych: Depression, Anxiety, Other Musculoskeletal: Osteoarthritis, Gout, Other Derm: Other - Past Surgical History Past Surgical History: Yes General: Colonoscopy Ortho: Other - Present Medications Home Medications: Ambulatory Orders Medication Instructions Recorded Confirmed Gabapentin 300 mg PO BID 08/07/19 05/14/20 Apixaban [Eliquis] 5 mg PO BID tablet 08/10/19 05/14/20 Furosemide [Lasix] 80 mg PO DAILY 01/20/20 05/14/20 Metoprolol Tartrate [Lopressor] 100 mg PO BID #120 tablet 01/27/20 05/14/20 diltiaZEM CD [Cardizem Cd] 120 mg PO DAILY #30 capsule 01/27/20 05/14/20 Gabapentin [Neurontin] 200 mg PO DAILY 05/14/20 05/14/20 Sulfamethox/Trimeth 800/160 1 each PO BID #14 tablet 05/14/20 [Bactrim Ds 800/160] - Allergies Allergies/Adverse Reactions: Allergies Allergy/AdvReac Type Severity Reaction Status Date / Time carbidopa Allergy Hallucinati Verified 05/14/20 19:59 ons warfarin AdvReac Nausea Verified 12/16/19 17:31 - Social History Does the pt smoke?: No Smoking Status: Never smoker Does the pt drink ETOH?: No Does the pt have substance abuse?: No - Immunizations Immunizations are current?: Yes - POLST Patient has POLST: No POLST Status: Full Code PD ED PE NORMAL - Vitals Vital signs reviewed: Yes - General General: Alert and oriented X 3, No acute distress, Well developed/nourished - Cardiac Cardiac: No murmur - Respiratory Respiratory: No respiratory distress, Clear bilaterally - Abdomen Abdomen: Soft PD ED PE EXPANDED - Extremities Extremities: Pedal edema bilateral (extensive BLE edema with clear / serous drainage/weeping from multiple sites of LLE with appearance c/w ruptured and draining bullae. there is mild, patchy erythema LLE ) Results - Vitals Vitals: Oxygen O2 Source [With Activity] Room air O2 Source Room air - Labs Labs: Laboratory Tests 05/14/20 21:39 Sodium 140 Potassium 5.3 H Chloride 102 Carbon Dioxide 27 Anion Gap 11.0 BUN 43 H Creatinine 1.2 H Estimated GFR (MDRD) 45 L Glucose 108 H Calcium 9.6 PD MEDICAL DECISION MAKING - ED course Complexity details: reviewed old records, considered differential, d/w patient ED course: bun/creatinine mildly elevated and comparable to previous. BMP was performed in anticipation of providing dose of lasix tonight to enhance diuresis and knowing her bun/creatinine are typically abnormal; tonights results do not deter giving extra dose of lasix at this time. also noted is mild hyperkalemia which should improve with the extra dose of lasix, but also recommended to patient that she contact PMD for consideration of recheck of her potassium level. finally, although there is no convincing evidence of cellulitis, her report of increased swelling and weeping of her legs combined with the erythema surrounding some of the bullae on LLE, suggest that covering for early cellulitis is reasonable. also considered is that her legs are wrapped all day except when dressings are changed, making ongoing visual inspection for worsening erythema not feasible Departure - Departure Disposition: 01 Home, Self Care Clinical Impression: Peripheral edema, Lymphedema, Cellulitis of leg, left, Hyperkalemia Condition: Good Instructions: ED Infec Skin Cellulitis, ED Potassium Excess, ED Lymphedema Follow-Up: Benita Contreras DO [Primary Care Provider] - Prescriptions: Sulfamethox/Trimeth 800/160 [Bactrim Ds 800/160] 1 each PO BID #14 tablet Discharge Date/Time: 05/14/20 23:32
[2020-05-14 21:58] LABS: CALCIUM 9.6 mg/dL (8.5-10.3); CREATININE 1.2 mg/dL (0.4-1.0)
[2020-05-14 22:15] VITALS: BP 140/80
[2020-05-14] MEDS ORDERED: SULFAMETH/TRIMETH DS 800/160 MG TABLET PO STA (22:48)
[2020-05-14] MEDS: FUROSEMIDE 20 MG TABLET PO STA ×2 (22:56→22:57)
== END 2020-05-14 23:32 | disposition home or self-care (01) ==
LOC: ED 19:54
DX: I89.0 Lymphedema, not elsewhere classified (principal); R60.0 Localized edema; L03.116 Cellulitis of left lower limb; E87.5 Hyperkalemia; I48.91 Unspecified atrial fibrillation; Z79.01 Long term (current) use of anticoagulants; I10 Essential (primary) hypertension; G20 Parkinson's disease
CPT/HCPCS: 36415; 80048; 99283; 99284; A9270

== ENCOUNTER 2020-06-10 06:24 | Outpatient (CLI) | payer MEDICARE, BC | END 2020-06-10 06:25 | disposition critical access hospital (66) | LOC: EMS 06:24 | DX: I46.9 Cardiac arrest, cause unspecified (principal) | CPT/HCPCS: A0425; A0433 ==

== ENCOUNTER 2020-06-10 06:39 | Emergency (ER) | payer MEDICARE, BC ==
[2020-06-10] MEDS ORDERED: MIDAZOLAM 2 MG/2 ML VIAL IVP STA (07:02)
[2020-06-10] MEDS ORDERED: SUCCINYLCHOLINE 200 MG/10 ML VIAL IVP STA (07:03)
[2020-06-10 07:13] LABS: BASOPHILS % (AUTO) 0.3 %; EOSINOPHILS # (AUTO) 0.1 10^3/uL (0.0-0.7); EOSINOPHILS % (AUTO) 1.5 %; HCT - HEMATOCRIT 33.3 % (37.0-47.0); HGB - HEMOGLOBIN 9.7 g/dL (12.0-16.0); LYMPHOCYTES # (AUTO) 1.7 10^3/uL (1.5-3.5); MEAN CORPUSCULAR HEMOGLOBIN 26.3 pg (27.0-31.0); MEAN CORPUSCULAR HGB CONC 29.1 g/dL (32.0-36.0); MEAN CORPUSCULAR VOLUME 90.2 fL (81.0-99.0); MONOCYTES # (AUTO) 0.6 10^3/uL (0.0-1.0); MONOCYTES % (AUTO) 8.3 %; NEUTROPHILS # (AUTO) 4.6 10^3/uL (1.5-6.6); NEUTROPHILS % (AUTO) 62.8 %; NRBC ABSOLUTE COUNT (AUTO) 0.03 x10^3/uL; NUCLEATED RED BLOOD CELLS AUTO 0.4 /100WBC; PLT - PLATELET COUNT 105 10^3/uL (130-450); RED BLOOD COUNT 3.69 10^6/uL (4.20-5.40); RED CELL DISTRIBUTION WIDTH 18.8 % (12.0-15.0); WHITE BLOOD COUNT 7.4 x10^3/uL (4.8-10.8)
[2020-06-10] MEDS ORDERED: SODIUM CHLORIDE INHALATION 3 ML NEB ONE (07:18)
[2020-06-10 07:33] LABS: ALBUMIN 3.1 g/dL (3.2-5.5); BILIRUBIN,TOTAL 0.5 mg/dL (0.2-1.0); CALCIUM 7.7 mg/dL (8.5-10.3); CREATININE 1.4 mg/dL (0.4-1.0); POTASSIUM 3.7 mmol/L (3.5-5.0); TOTAL PROTEIN 6.3 g/dL (6.7-8.2)
--- NOTE | 2020-06-10 07:57 | ED Physician Documentation ---
PD HPI CPR - Stated complaint Stated Complaint: ROSC - Chief complaint Chief Complaint: Cardiac - History obtained from History obtained from: EMS - History of Present Illness Timing - onset: Enter time (05:00) Preceding symptoms: Unknown Witnessed: Arrest not witnesssed Fall: Unknown Bystander CPR: Bystander CPR (family provided CPR followed by police and then EMS) EMS findings: Unresponsive, Agonal breathing, Pulseless, PEA Treatment CRYSTALLOGRAPHER: CPR, Intubated (Brett tube), Epi, IV, IO Advanced directive: Full code - Additional information Additional information: BIBA. Per EMS, at approximately 5 AM, daughter heard patient making strange noises, sounded like saying the same word repeatedly. Daughter checked on patient and found patient unresponsive with agonal breathing. Daughter called 911, started CPR. On EMS arrival to scene, they found police were on scene and CPR was being performed by police at that time. EMS found patient to be pulseless, apneic with agonal beats on monitor and thus PEA. Right IO established followed by RUE IV. Three round of epinephrine were administered with ROSC after third dose. She was intubated with Brett tube. She was given 5 mg IV versed but no paralytics were required. Reportedly was started on Seroquel 3 days ago. 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 HEENT: Chronic hearing loss Psych: Depression, Anxiety, Other Musculoskeletal: Osteoarthritis, Gout, Other Derm: Other - Past Surgical History Past Surgical History: Yes General: Colonoscopy Ortho: Other - Present Medications Home Medications: Ambulatory Orders Medication Instructions Recorded Confirmed Gabapentin 300 mg PO BID 08/07/19 05/14/20 Apixaban [Eliquis] 5 mg PO BID tablet 08/10/19 05/14/20 Furosemide [Lasix] 80 mg PO DAILY 01/20/20 05/14/20 Metoprolol Tartrate [Lopressor] 100 mg PO BID #120 tablet 01/27/20 05/14/20 diltiaZEM CD [Cardizem Cd] 120 mg PO DAILY #30 capsule 01/27/20 05/14/20 Gabapentin [Neurontin] 200 mg PO DAILY 05/14/20 05/14/20 Sulfamethox/Trimeth 800/160 1 each PO BID #14 tablet 05/14/20 [Bactrim Ds 800/160] - Allergies Allergies/Adverse Reactions: Allergies Allergy/AdvReac Type Severity Reaction Status Date / Time carbidopa Allergy Hallucinati Verified 05/14/20 19:59 ons warfarin AdvReac Nausea Verified 12/16/19 17:31 - Social History Does the pt smoke?: No Smoking Status: Never smoker Does the pt drink ETOH?: No Does the pt have substance abuse?: No - Immunizations Immunizations are current?: Yes - POLST Patient has POLST: No POLST Status: Full Code PD ED PE NORMAL - Vitals Vital signs reviewed: Yes - HEENT HEENT: Atraumatic, Other (pupils are equal, mid-size and minimally reactive to light. ) - Neck Neck: No JVD - Abdomen Abdomen: Non distended - Derm Derm: Normal color, Warm and dry - Neuro Eye Opening: None Motor: None Verbal: None (intubated (Brett tube)) GCS Score: 3 PD ED PE EXPANDED - Cardiac Cardiac: Irregularly irregular - Respiratory Respiratory: Other (intubated (Brett tube), bilateral course rales, equal breath sounds) - Extremities Extremities: Pedal edema bilateral Results - Vitals Vitals: Vital Signs - 24 hr 06/10/20 06/10/20 06/10/20 06:50 07:19 07:25 Temperature 30.5 C L Heart Rate 65 54 L 59 L Respiratory 20 9 L Rate Blood Pressure 129/86 H 124/82 H O2 Saturation 100 97 06/10/20 06/10/20 06/10/20 07:38 07:53 08:01 Temperature 30.8 C L 30.8 C L 30.7 C L Heart Rate 49 L 45 L 55 L Respiratory 18 19 18 Rate Blood Pressure 119/74 114/87 H 127/86 H O2 Saturation 95 100 94 06/10/20 06/10/20 06/10/20 08:27 08:30 08:45 Temperature 30.6 C L 30.6 C L 30.5 C L Heart Rate 49 L 46 L 43 L Respiratory 17 17 14 Rate Blood Pressure 130/80 142/78 H 118/75 O2 Saturation 99 97 94 06/10/20 09:02 Temperature 30.5 C L Heart Rate 42 L Respiratory 17 Rate Blood Pressure 134/79 H O2 Saturation 95 Oxygen O2 Source [] Room air O2 Source Mechanical ventilator - EKG (time done) No standard instances Rate: Rate (enter#) (57) Rhythm: Atrial fibrillation [place]: Normal Intervals: Normal HI QRS: Normal Ischemia: Normal ST segments - Labs Labs: Laboratory Tests 06/10/20 06/10/20 06/10/20 07:00 07:00 07:00 WBC 7.4 RBC 3.69 L Hgb 9.7 L Hct 33.3 L MCV 90.2 MCH 26.3 L MCHC 29.1 L RDW 18.8 H Plt Count 105 L MPV 11.0 H Neut # (Auto) 4.6 Lymph # (Auto) 1.7 [place] # (Auto) 0.6 Eos # (Auto) 0.1 Baso # (Auto) 0.0 Absolute Nucleated RBC 0.03 Nucleated RBC % 0.4 PT INR APTT Sodium 144 Potassium 3.7 Chloride 112 H Carbon Dioxide 23 Anion Gap 9.0 BUN 70 H Creatinine 1.4 H Estimated GFR (MDRD) 37 L Glucose 141 H Calcium 7.7 L Total Bilirubin 0.5 AST 30 ALT 24 Alkaline Phosphatase 70 Troponin I High Sens B-Natriuretic Peptide 249 H Total Protein 6.3 L Albumin 3.1 L Globulin 3.2 Albumin/Globulin Ratio 1.0 Lipase 51 06/10/20 06/10/20 07:00 08:46 WBC RBC Hgb Hct MCV MCH MCHC RDW Plt Count MPV Neut # (Auto) Lymph # (Auto) [place] # (Auto) Eos # (Auto) Baso # (Auto) Absolute Nucleated RBC Nucleated RBC % PT 17.1 H INR 1.6 H APTT 40.1 H Sodium Potassium Chloride Carbon Dioxide Anion Gap BUN Creatinine Estimated GFR (MDRD) Glucose Calcium Total Bilirubin AST ALT Alkaline Phosphatase Troponin I High Sens 6.1 B-Natriuretic Peptide Total Protein Albumin Globulin Albumin/Globulin Ratio Lipase - Rads (name of study) chest xray Radiology: Prelim report reviewed, See rad report repeat cxr (post-intubation) Radiology: Prelim report reviewed, See rad report Procedures - Intubation Provider: Emergency physician Medications: Versed, Succinylcholine Blade: Glidescope Tube: Size-enter number (7.5), Cuffed Route: Oral Confirmation: Direct visualization (via glidescope), Bilateral breath sounds, No abdominal breath sound, End tidal CO2, Pulse ox (95-96%), Chest xray Complications: Other (ETT at level of azael and thus pulled back 2 cm) PD MEDICAL DECISION MAKING - ED course Complexity details: reviewed old records, reviewed results, re-evaluated patient, considered differential ED course: Brett tube removed and replaced with 7.5 mm cuffed ETT using glidescope. she was given 2mg IV versed and 100mg succinylcholine to facilitate this procedure, as she had some breathing over the ventilator. However, she did not exhibit any other spontaneous musculoskeletal movement even prior to these medications being given. Hypothermia protocol initiated early in ED stay. Case signed out to oncoming ED physician, disposition to be based on test results and reevaluation - Critical Care Time(min): 60 Time Includes: Direct patient care, Review records, Reassess patient, Document care, See progress note Data interpretation: Labs, Pulse ox, CXR, See progress note Procedures included in critical care time: See progress note Procedures excluded from critical care time: Intubation, EKG, See progress note
--- NOTE | 2020-06-10 08:08 | XRAY Report ---
PROCEDURE: Chest 1 View X-Ray INDICATIONS: cardiopulmonary arrest TECHNIQUE: One view of the chest was acquired. COMPARISON: 01/20/[address] chest plain film and CT FINDINGS: Surgical changes and devices: None. Lungs and pleura: No pleural effusions or pneumothorax. Lungs are edematous. Mediastinum: Mediastinal contours appear normal. Heart size is moderately enlarged. Bones and chest wall: No suspicious bony lesions. Overlying soft tissues appear unremarkable. IMPRESSION: Cardiomegaly with CHF. No focal pneumonia found. Reviewed by: Chepe Dugan MD on 06/10/2020 8:07 AM [facility] Approved by: Chepe Dugan MD on 06/10/2020 8:07 AM [facility] Station ID: [id number]
--- NOTE | 2020-06-10 08:25 | XRAY Report ---
PROCEDURE: Chest for Line Placement INDICATIONS: post intubation TECHNIQUE: One view of the chest was acquired. COMPARISON: Similar single view chest earlier same day reviewed. FINDINGS: Surgical changes and devices: An endotracheal tube has been placed with its tip approximately 1 cm ab ove the azael, and this endotracheal tube is directed towards the right mainstem bronchus. The esoph agogastric tube has been positioned with its side port below the EG junction. Lungs and pleura: No p leural effusions or pneumothorax. Lungs are unchanged, diffusely edematous. Mediastinum: Mediastinal contours appear normal. Heart size is globally enlarged, unchanged from ea rlier today. Bones and chest wall: No suspicious bony lesions. Overlying soft tissues appear unremarkable. IMPRESSION: Endotracheal and esophagogastric tube have been placed, the esophagogastric tube is in normal positio n. The endotracheal tube is 1 cm above the azael and its tip approaches the right mainstem bronchus. Recommend withdrawing approximately 3 cm. Persistent acute CHF pattern. Reviewed by: Chepe Dugan MD on 06/10/2020 8:23 AM PST Approved by: Chepe Dugan MD on 06/10/2020 8:23 AM PST Station ID: [id number]
--- NOTE | 2020-06-10 08:48 | CT Report ---
PROCEDURE: HEAD WO INDICATIONS: altered LOC TECHNIQUE: Noncontrast 4.5 mm thick angled axial sections acquired from the foramen magnum to the vertex. For r adiation dose reduction, the following was used: automated exposure control, adjustment of mA and/or kV according to patient size. COMPARISON: 10/25/2019. FINDINGS: Image quality: Excellent. CSF spaces: Basal cisterns are patent. No extra-axial fluid collections. Ventricles are normal in size and shape. There is mild, diffuse cerebral lung loss. There are mild periventricular and subcort ical white matter chronic microvascular ischemic changes Brain: No midline shift. No intracranial masses or hemorrhage. [place]-white matter interface is norm al. Skull and face: Calvarium and visualized facial bones are intact, without suspicious lesions. Modera te-sized, left [id number] scalp low-density fluid collection. Mild inflammatory change s noted in the left periorbital and left lateral face soft tissues. Sinuses: Mild mucosal thickening in the maxillary sinuses and scattered throughout the ethmoid air ce lls bilaterally. Right mastoids are clear. Scattered opacities and air-fluid levels noted in the left mastoid air cells. IMPRESSION: 1. No acute intracranial disease process. 2. Opacification and scattered air-fluid levels in the left mastoid air cells. Findings could be seco ndary to mastoiditis or if there is a history of trauma occult fracture. Please correlate with clinic al history. 3. Moderate-sized left [id number] scalp low-density fluid collection. Finding may repr esent a posttraumatic hematoma, however infected fluid collection can't be excluded by imaging alone. Please correlate with clinical data. 4. Inflammatory changes involving the visualized left periorbital and left lateral facial soft tissue s compatible with cellulitis which could be posttraumatic, infectious or inflammatory. Please correla te with clinical data. Reviewed by: Alia Zhang MD, PhD on 06/10/2020 8:46 AM PST Approved by: Alia Zhang MD, PhD on 06/10/2020 8:46 AM PST Station ID: [id number]
[2020-06-10 08:54] LABS: INR 1.6 (0.8-1.2); PT - PROTHROMBIN TIME 17.1 secs (9.9-12.6)
[2020-06-10 09:01] LABS: PARTIAL THROMBOPLASTIN TIME 40.1 secs (24.9-33.3)
[2020-06-10] MEDS ORDERED: ATROPINE 0.4 MG/ML VIAL IVP ONE (09:06)
[2020-06-10 10:10] LABS: ABG HCO3 26.9 mmol/L (22.0-26.0); ABG OXYGEN SATURATION 95 % (94-98); ABG PCO2 57 mmHg (34-45); ABG PH 7.28 (7.35-7.45); ABG PO2 90 mmHg (80-100); ALLEN TEST POSITIVE
[2020-06-10 10:11] LABS: ABG MODE OF VENTILATION ASSIST/CONTROL; ABG RESPIRATORY RATE 16 b/min
[2020-06-10 10:30] LABS: B. PARAPERTUSSIS- RESP PCR PAN NOT DETECTED; B. PERTUSSIS- RESP PCR PANEL NOT DETECTED; C. PNEUMONIAE- RESP PCR PANEL NOT DETECTED; CORONAVIRUS 229E-RESP PCR NOT DETECTED; CORONAVIRUS HKU1-RESP PCR NOT DETECTED; CORONAVIRUS NL63-RESP PCR NOT DETECTED; CORONAVIRUS OC43-RESP PCR NOT DETECTED; HUMAN METAPNEUMOVIRUS NOT DETECTED; INFLUENZA A- RESP PCR PANEL NOT DETECTED; INFLUENZA B - RESP PCR PANEL NOT DETECTED; M. PNEUMONIAE- RESP PCR PANEL NOT DETECTED; PARAINFLUENZA VIRUS 1 NOT DETECTED; PARAINFLUENZA VIRUS 2 NOT DETECTED; PARAINFLUENZA VIRUS 3 NOT DETECTED; PARAINFLUENZA VIRUS 4 NOT DETECTED; RHINOVIRUS/ENTEROVIRUS NOT DETECTED; RSV- RESP PCR PANEL NOT DETECTED; SARS-CoV-2 -RESP PCR PANEL NOT DETECTED
[2020-06-10 11:26] VITALS: BP 124/91
[2020-06-10] MEDS ORDERED: ALBUTEROL NEB 2.5 MG/3 ML INH ONE (11:33)
== END 2020-06-10 11:43 | disposition short-term general hospital (02) ==
LOC: EDUNIT# → ED 06:39
DX: I46.9 Cardiac arrest, cause unspecified (principal); T68.XXXA Hypothermia, initial encounter; R00.1 Bradycardia, unspecified; I48.91 Unspecified atrial fibrillation; Z79.01 Long term (current) use of anticoagulants; I11.0 Hypertensive heart disease with heart failure; I50.9 Heart failure, unspecified; G20 Parkinson's disease; Z20.822 Contact with and (suspected) exposure to COVID-19
CPT/HCPCS: 31500; 36415; 36600; 51702; 70450; 71045; 80053; 82803; 83690; 83880; 84484; 85025; 85610; 85730; 87631; 92950; 93005; 94002; 96374; 99285; 99291; J0330; 0202U; 94770